=== PATIENT | male | born 1930 ===

== ENCOUNTER 2016-12-24 07:29 | Inpatient (IN) | payer MEDICARE, BC, MEDICAID ==
[~2016-12-24] VITALS: Ht 167.6 cm; Wt 64.0 kg
[2016-12-24] MEDS ORDERED: SODIUM CHLORIDE 0.9% 1L BAG IV* STA (07:46)
[2016-12-24] MEDS ORDERED: LEVOFLOXACIN 750MG/D5W (PMX) 150 ML IVPB ONE (08:00)
[2016-12-24] MEDS ORDERED: PIPER-TAZO 3.375 GM IV (PMX) 100 ML IVPB ONE (08:00)
[2016-12-24] MEDS ORDERED: VANCOMYCIN 1 GM (PMX) 250 ML IVPB SCH (08:00)
[2016-12-24] MEDS ORDERED: APIX2.5T PO (08:13)
[2016-12-24] MEDS ORDERED: FURO40TA4 PO (08:13)
[2016-12-24] MEDS ORDERED: LEVO50TA74 PO (08:13)
[2016-12-24] MEDS ORDERED: LISI10TA2 PO (08:14)
[2016-12-24] MEDS ORDERED: CARV12.579 PO (08:14)
[2016-12-24] MEDS ORDERED: PANT40TA4 PO (08:14)
[2016-12-24] MEDS ORDERED: METO25TA4 PO (08:15)
--- NOTE | 2016-12-24 08:57 | RADRPT ---
PROCEDURE: Chest Radiograph. CLINICAL INDICATION: Sepsis TECHNIQUE: Single frontal chest radiograph. COMPARISON: None available FINDINGS: The heart is enlarged. There is moderate central vascular congestion. Atherosclerotic calcification s are present. Diffuse interstitial opacities are nonspecific and may represent pulmonary edema and/ or chronic lung changes. Bibasilar opacities likely represent small pleural effusions adjacent atel ectasis. Superimposed infiltrate could also have this appearance. The bones are intact. IMPRESSION: 1. Cardiomegaly and central vascular congestion with suggested pulmonary edema. Recommend correlat ion with CHF. 2. Bibasilar opacities most consistent with small effusions and adjacent atelectasis/infiltrate. 3. Atherosclerotic vascular disease. RPTAT: AA .Danny Tovar MD, Date Time Electronically viewed and signed by .Danny Tovar MD, MD on 12/24/2016 08:57 .B/
[2016-12-24 09:18] LABS: ADD SCAN DIFF NO
[2016-12-24 09:21] LABS: BASOPHIL # 0.1 10^3/ul (0.0-0.1); BASOPHILS % 0.5 % (0.0-2.0); EOSINOPHILS # 0.1 10^3/ul (0.0-0.5); EOSINOPHILS % 0.9 % (0.0-7.0); HEMATOCRIT 36.3 % (42.0-52.0); HEMOGLOBIN 11.2 g/dl (14.0-18.0); LYMPHOCYTES % 9.5 % (15.0-51.0); MEAN CORPUSCULAR HEMOGLOBIN 29.5 pg (29.0-33.0); MEAN CORPUSCULAR HGB CONC 30.9 g/dl (32.0-37.0); MEAN CORPUSCULAR VOLUME 95.5 fl (82.0-101.0); MEAN PLATELET VOLUME 10.5 fl (7.4-10.4); MONOCYTE # 0.7 10^3/ul (0.3-0.9); MONOCYTES % 6.8 % (0.0-11.0); NEUTROPHIL # 8.5 10^3/ul (1.6-7.5); NEUTROPHILS % 81.8 % (39.0-77.0); PLATELET COUNT 356 10^3/UL (140-415); RED CELL DISTRIBUTION WIDTH 16.4 % (11.5-14.5); WHITE BLOOD COUNT 10.4 10^3/ul (4.8-10.8)
[2016-12-24 09:36] LABS: INR 1.44; PROTIME 17.6 Sec (12.2-14.2); PT RATIO 1.4
[2016-12-24 09:39] LABS: ALANINE AMINOTRANSFERASE 30 IU/L (13-69); ALBUMIN 3.5 g/dl (3.3-4.9); ALBUMIN/GLOBULIN RATIO 1.84; ALKALINE PHOSPHATASE 118 IU/L (42-121); ASPARTATE AMINO TRANSFERASE 18 IU/L (15-46); BILIRUBIN,INDIRECT 0.5 mg/dl (0-1.1); BILIRUBIN,TOTAL 0.5 mg/dl (0.2-1.3); BLOOD UREA NITROGEN 25 mg/dl (7-20); CALCIUM 8.9 mg/dl (8.4-10.2); CHLORIDE 97 mmol/L (97-110); CREATININE 1.49 mg/dl (0.61-1.24); GLUCOSE 181 mg/dl (70-220); POTASSIUM 4.1 mmol/L (3.5-5.1); SODIUM 144 mmol/L (135-144); TOTAL PROTEIN 5.4 g/dl (6.1-8.1)
[2016-12-24 09:48] LABS: ANION GAP 12 (8-16)
[2016-12-24 09:51] LABS: CARBON DIOXIDE 39 mmol/L (21-31); TROPONIN-I < 0.012 ng/ml (0.00-0.12)
--- NOTE | 2016-12-24 11:16 | ERA ---
ER Documentation Chief Complaint Date/Time DATE: 12/24/16 TIME: 0743 Chief Complaint moderate sob since this morning per staff. no signs of chest pain, HPI 86-year-old male brought to the emergency department by ambulance from his care facility for evaluation of shortness of breath. Patient has advanced dementia and is with limited verbal status, limited insight. This to my history is available for my conversation with his daughter and son. According to the son and daughter, patient has had an extensive history of infections and recent C. difficile colitis. Patient is recently been hospitalized and placed on hospice at his outpatient care facility. Over the last few days, the family describes the patient has had "a cold" which has involved a cough. Patient has had difficulty with secretions. Patient became short of breath today and the paramedics were called. I have reviewed the [employer] expert pre-hospital care. Pre-hospital vital signs were reviewed. Pre-hospital diagnostic tests were reviewed. Upon arrival, patient has no further history that he is able to provide. ROS All systems reviewed and are negative except as per history of present illness. Medications Home Meds Reported Medications Metoprolol Tartrate* (Lopressor*) 25 Mg Tablet, 25 MG PO BID, #60 TAB 12/24/16 Pantoprazole* (Pantoprazole*) 40 Mg Tablet.dr, 40 MG PO AC BREAKFAST, TAB 12/24/16 Lisinopril* (Lisinopril*) 10 Mg Tablet, 10 MG PO DAILY, #30 TAB HOLD FOR SBP<110 12/24/16 Carvedilol* (Carvedilol*) 12.5 Mg Tablet, 12.5 MG PO BID, #60 TAB 12/24/16 Apixaban* (Eliquis*) 2.5 Mg Tablet, 2.5 MG PO BID, TAB 12/24/16 Furosemide* (Furosemide*) 40 Mg Tablet, 40 MG PO DAILY, TAB 12/24/16 Levothyroxine Sodium* (Levothyroxine Sodium*) 50 Mcg Tablet, 50 MCG PO BEFORE BREAKFAST, #30 TAB 12/24/16 Allergies Allergies: Coded Allergies: No Known Allergy (Unverified , 12/24/16) PMhx/Soc Hx Respiratory Disorders: Yes Hx Cardiac Disorders: Yes (htn, chf) Hx Miscellaneous Medical Probl: Yes (dm, thyroid) Hx Alcohol Use: No Hx Substance Use: No Hx Tobacco Use: No Smoking Status: Never smoker FmHx Noncontributory Physical Exam Vitals Vital Signs Date Time Temp Pulse Resp B/P Pulse Ox O2 Delivery O2 Flow Rate FiO2 12/24/16 08:15 Rebreather 12/24/16 08:08 98.0 98 24 134/72 98 Physical Exam GENERAL: Patient is a frail elderly male in no acute distress HEENT: Pupils equal, round, and reactive to light. EOMI. There is no scleral icterus. Thin secretions in the airway which are easily suctioned NECK: C-spine is soft and supple, there is no meningismus. There is no cervical lymphadenopathy. LUNGS: Upper airway sounds. Occasional crackle bilaterally. No tachypnea or retractions. HEART: Regular rate and rhythm, no murmurs, clicks, rubs or gallops. ABDOMEN: Soft, non-tender, non-distended. There are bowel sounds in all four quadrants. No rebound or guarding. EXTREMITIES: There is no peripheral cyanosis or edema. No focal swelling or erythema. NEURO: Patient is somnolent and somewhat lethargic with limited insight. He has a nonfocal motor and sensory examination upon brief exam. SKIN: There is no apparent rash or petechiae. HEME/LYMPHATIC: There is no evidence of excessive bruising or lymphedema. PSYCHIATRIC: Patient is somnolent and somewhat lethargic with what appears to be advanced dementia and limited insight. Result Diagram: 12/24/16 0830 12/24/16 0830 Results 24 hrs Laboratory Tests Test 12/24/16 08:30 12/24/16 09:15 White Blood Count 10.410^3/ul Red Blood Count 3.8010^6/ul Hemoglobin 11.2g/dl Hematocrit 36.3% Mean Corpuscular Volume 95.5fl Mean Corpuscular Hemoglobin 29.5pg Mean Corpuscular Hemoglobin Concent 30.9g/dl Red Cell Distribution Width 16.4% Platelet Count 13913^3/UL Mean Platelet Volume 10.5fl Neutrophils % 81.8% Lymphocytes % 9.5% Monocytes % 6.8% Eosinophils % 0.9% Basophils % 0.5% Nucleated Red Blood Cells % 0.0/100WBC Neutrophils # 8.510^3/ul Lymphocytes # 1.010^3/ul Monocytes # 0.710^3/ul Eosinophils # 0.110^3/ul Basophils # 0.110^3/ul Nucleated Red Blood Cells # 0.010^3/ul Prothrombin Time 17.6Sec Prothrombin Time Ratio 1.4 INR International Normalized Ratio 1.44 Activated Partial Thromboplast Time 39.0Sec Sodium Level 144mmol/L Potassium Level 4.1mmol/L Chloride Level 97mmol/L Carbon Dioxide Level 39mmol/L Anion Gap 12 Blood Urea Nitrogen 25mg/dl Creatinine 1.49mg/dl Glucose Level 181mg/dl Calcium Level 8.9mg/dl Total Bilirubin 0.5mg/dl Direct Bilirubin 0.00mg/dl Indirect Bilirubin 0.5mg/dl Aspartate Amino Transf (AST/SGOT) 18IU/L Alanine Aminotransferase (ALT/SGPT) 30IU/L Alkaline Phosphatase 118IU/L Troponin I < 0.012ng/ml Total Protein 5.4g/dl Albumin 3.5g/dl Globulin 1.90g/dl Albumin/Globulin Ratio 1.84 Lactic Acid Level 1.6mmol/L Current Medications Medications (Trade) Dose Ordered Sig/Tonya Route PRN Reason Start Time Stop Time Status Last Admin Dose Admin Sodium Chloride 2480 ml 2,480 ml BOLUS OVER 2 HOURS STAT IV* 12/24/16 07:46 12/24/16 07:49 DC 12/24/16 09:26 Vancomycin HCl 250 ml @ 125 mls/hr ONCE IVPB 12/24/16 08:00 12/24/16 09:59 DC Piperacillin Sod/ Tazobactam Sod 100 ml @ 200 mls/hr ONCE ONCE IVPB 12/24/16 08:00 12/24/16 08:29 DC 12/24/16 09:25 Levofloxacin/ Dextrose (Levaquin 750 Mg/ D5W 150 ml (Pmx)) 150 ml @ 100 mls/hr ONCE ONCE IVPB 12/24/16 08:00 12/24/16 09:29 DC 12/24/16 11:01 Procedures/MDM Patient was taken to a room, seen and evaluated. Comfort measures were initiated. Diagnostic tests were ordered and reviewed. 3 LEAD RHYTHM STRIP: Atrial fibrillation with controlled ventricular response EK lead EKG reviewed by myself: Atrial fibrillation with heart rate of [address] elevation, depression, or T wave inversion Impression: Normal EKG RADIOLOGY: reviewed with the radiologist CONSULTATION: hospitalist was notified for admission. Hospice consultation was initiated REEVALUATION: Patient remained stable in the emergency department. I had a conversation with the family who requested hospice consultation. This was initiated. MEDICAL DECISION MAKIN-year-old male presents the emergency department with what appears to be an aspiration type pneumonia. Patient has been started on antibiotics for coverage of aspiration type pneumonia. As per conversations with the patient's family, they have requested to be careful with the antibiotics given the history of C. difficile. Overall with his overall level of desires for care, patient will be placed on DNR status with evaluation for hospice pending. Departure Diagnosis: Primary Impression: Aspiration pneumonia Additional Impression: Advanced dementia Condition: ROBYN Linda Dec 24, 2016 11:16
[2016-12-24] MEDS ORDERED: CIPROFLOXACIN 500 MG TAB PO ONE (12:00)
[2016-12-24 17:25] VITALS: BP 146/81; RESP 22
[2016-12-24] MEDS ORDERED: ALBUTEROL/IPRATROPIUM (NEB) 3 ML AMP HHN PRN (18:00)
[2016-12-24] MEDS ORDERED: morphine 2 MG INJ IV PRN (18:00)
[2016-12-24] MEDS ORDERED: ONDANSETRON 4 MG INJ IV PRN (18:00)
[2016-12-24 18:25] VITALS: Ht 167.6 cm; Wt 64.0 kg
[2016-12-24] MEDS ORDERED: HYPOGLYCEMIA PROTOCOL when Glucose is <70 mg/dL or symptomatic <90 mg/dL. XX ONE (18:30)
[2016-12-24] MEDS ORDERED: Discontinue Glyburide, Glipizide, and/or Glimepiride prior to starting Insulin XX ONE (18:30)
[2016-12-24] MEDS: PIPER-TAZO 3.375 GM IV (PMX) 100 ML IVPB SCH (18:39)
[2016-12-24] MEDS ORDERED: GLUCAGON 1 MG INJ IM PRN (19:00)
[2016-12-24] MEDS ORDERED: GLUCOSE GEL 15 GRAM TUBE BUCCAL PRN (19:00)
[2016-12-24] MEDS ORDERED: DEXTROSE 50% 50 ML SYRINGE IV PRN ×2 (19:00)
[2016-12-24] MEDS ORDERED: GLUCOSE GEL 15 GRAM TUBE PO PRN ×2 (19:00)
[2016-12-24] MEDS: ALBUTEROL/IPRATROPIUM (NEB) 3 ML AMP HHN SCH (19:49)
[2016-12-24 19:53] VITALS: BP 146/81; PULSE 74; RESP 22
[2016-12-24 20:00] VITALS: BP 150/70; RESP 20
[2016-12-24] MEDS ORDERED: METOPROLOL 25 MG TAB PO SCH (21:00)
[2016-12-24] MEDS: INSULIN ASPART [NOVOLOG] 3 ML PEN SC SCH (21:00)
[2016-12-24 21:40] VITALS: BP 131/72; PULSE 83
[2016-12-24] MEDS: FUROSEMIDE 20 MG INJ IV SCH (21:42)
[2016-12-24] MEDS: APIXABAN 5 MG TABLET PO SCH (21:42)
[2016-12-25] MEDS: PIPER-TAZO 3.375 GM IV (PMX) 100 ML IVPB SCH ×4 (01:29→17:24)
[2016-12-25 01:39] LABS: TROPONIN-I 0.018 ng/ml (0.00-0.12)
[2016-12-25 01:52] LABS: CK-MB 1.12 ng/ml (0.0-2.4)
[2016-12-25] MEDS: ALBUTEROL/IPRATROPIUM (NEB) 3 ML AMP HHN SCH ×4 (01:52→19:43)
[2016-12-25] MEDS: ACCU-CHEK XX SCH (02:00)
[2016-12-25 05:40] VITALS: BP 127/69; PULSE 79
[2016-12-25] MEDS: PANTOPRAZOLE (EC) 40 MG TAB PO SCH (05:40)
[2016-12-25] MEDS: LEVOTHYROXINE 50 MCG TAB PO SCH (05:40)
[2016-12-25] MEDS: FUROSEMIDE 20 MG INJ IV SCH ×2 (05:45→14:51)
[2016-12-25 06:06] LABS: ADD SCAN DIFF NO
--- NOTE | 2016-12-25 06:19 | CONS ---
DATE OF ADMISSION: 12/24/2016 DATE OF CONSULTATION: 12/24/2016 REASON FOR CONSULTATION: Atrial fibrillation, abnormal electrocardiogram. REQUESTING PHYSICIAN: Mani Villarreal MD HISTORY OF PRESENT ILLNESS: Mr. Lopez is an 86-year-old male with a history of atrial fibrillation on Eliquis, hypertension, hypothyroidism, Clostridium difficile colitis recently on outpatient [facility], who presented with shortness of breath. Upon arrival, temperature 98, blood pressure 134/72 , pulse 98, receive 24, saturating 98%. The patient's labs revealed white count 10.4, hemoglobin 11 .2, platelet count 356. Sodium 144, potassium 4.1, creatinine 1.49, BUN 25. Troponin negative. IN R of 1.44. The patient underwent a chest x-ray revealing cardiomegaly and central vascular congesti on which suggests pulmonary edema, bibasilar opacities, chronic vascular disease. The patient's charis ctrocardiogram revealed atrial fibrillation at a rate of 97 with an IVCD, secondary repolarization a bnormalities. The patient was subsequently admitted to the floor, and since admit to floor has had relatively stable vital signs with mild elevations in systolic blood pressures. The patient is not able to respond to any questions pertaining to chest pain or shortness of breath with any comprehens ible speech. PAST MEDICAL HISTORY: As above in the HPI with patient having advanced dementia. MEDICATIONS CURRENTLY IN HOSPITAL: 1. Zestril 10 mg daily. 2. Synthroid 50 mg daily. 3. Insulin sliding scale. 4. Apixaban 2.5 mg p.o. b.i.d. 5. Carvedilol 12.5 mg p.o. b.i.d. 6. Lopressor 25 mg p.o. b.i.d. 7. DuoNeb. 8. Lasix 20 mg IV b.i.d. 9. Zosyn IV. 10. Tylenol. 11. Morphine. 12. Zofran. ALLERGIES: NO KNOWN DRUG ALLERGIES. SOCIAL HISTORY: No tobacco, ETOH, or illicit drug use. FAMILY HISTORY: No history of sudden cardiac or early CAD. REVIEW OF SYSTEMS: As above in HPI. CONSTITUTIONAL: No fevers, chills. PULMONARY: Shortness of breath. CARDIOVASCULAR: Atrial fibrillation. GASTROINTESTINAL: No vomiting. GENITOURINARY: No hematuria. MUSCULOSKELETAL: Degenerative joint disease. PSYCHIATRIC: The patient denies depression. NEUROLOGIC: No documented history of CVA. ENDOCRINE: Hypothyroidism. NEUROLOGICAL: Dementia. PHYSICAL EXAMINATION: VITAL SIGNS: Temperature 97.6, blood pressure 146/81, pulse 76, respiratory rate 22, saturating 99% on 2 liters. GENERAL: The patient is alert, awake, no comprehensible speech. NECK: JVP approximately 9 cm water. CHEST: Bibasilar crackles. HEART: Irregularly irregular, I/ systolic murmur, nondisplaced PMI. ABDOMEN: Positive bowel sounds, soft. EXTREMITIES: 2+ edema bilaterally. Erythema in the lower extremities. One plus pulses bilaterally , posterior tibial. LABORATORY DATA: As above in HPI. No further labs for my review at this time. IMAGING STUDIES: As above in HPI. No further imaging studies for my review at this time. ECG: As above in HPI. No further electrocardiograms for my review at this time. IMPRESSION: 1. Atrial fibrillation, currently rate controlled. 2. Congestive heart failure, question systolic versus diastolic, likely acute on chronic. 3. Hypertension. 4. Renal failure. 5. Anemia. 6. Hypothyroidism. 7. Diabetes mellitus. 8. Possible lower extremity cellulitis. 9. Lower extremity edema. RECOMMENDATIONS: 1. At this time, would check serial EKGs to assess for any significant ongoing changes, thus an EKG in the morning, EKG for any change in rhythm. 2. Complete a rule out for myocardial infarction to ensure that the patient's EKG abnormalities are chronic in nature and not due to any recent acute coronary syndromes 3. Continue the patient's current Zestril and carvedilol for control of blood pressure and afterloa d reduction in the setting of congestive heart failure. 4. Continue the patient's Lasix diuresis, following strict I's and O's and creatinine closely. 5. We will discontinue the patient's second beta karin, metoprolol. 6. Continue the patient's apixaban for prevention of thromboembolic events in the setting of atrial fibrillation, elevated CHADS score. 7. Continue the patient's antibiotics for possible aspiration pneumonia and lower extremity celluli tis. 8. Check a venous ultrasound to rule out any lower extremity deep venous thrombosis and check a 2D echocardiogram to further assess patient's ejection fraction, wall motion, and any major valvular ab normalities. 9. Additionally, check a TSH to further assess patient's thyroid state and a fasting lipid panel fo r general risk stratification and initiate lipid-lowering medication as necessary. Thank you for allowing me to take part in the care of this patient. I will continue to follow along very closely with you with further recommendations to be made as the patient progresses through his inpatient hospital clinical course. Dictated By: RED ALONZO/BRISSA Conf#: [id number] DID#: [id number] CC: MANI VILLARREAL MD;*EndCC*
[2016-12-25 06:23] LABS: BASOPHILS % 0.5 % (0.0-2.0); EOSINOPHILS # 0.1 10^3/ul (0.0-0.5); EOSINOPHILS % 0.6 % (0.0-7.0); HEMATOCRIT 30.5 % (42.0-52.0); HEMOGLOBIN 9.2 g/dl (14.0-18.0); LYMPHOCYTES # 1.2 10^3/ul (0.8-2.9); MEAN CORPUSCULAR HEMOGLOBIN 29.1 pg (29.0-33.0); MEAN CORPUSCULAR HGB CONC 30.2 g/dl (32.0-37.0); MEAN CORPUSCULAR VOLUME 96.5 fl (82.0-101.0); MEAN PLATELET VOLUME 10.7 fl (7.4-10.4); MONOCYTE # 0.6 10^3/ul (0.3-0.9); MONOCYTES % 7.6 % (0.0-11.0); NEUTROPHIL # 6.2 10^3/ul (1.6-7.5); NEUTROPHILS % 75.9 % (39.0-77.0); PLATELET COUNT 260 10^3/UL (140-415); RED BLOOD COUNT 3.16 10^6/ul (4.70-6.10); RED CELL DISTRIBUTION WIDTH 16.4 % (11.5-14.5); WHITE BLOOD COUNT 8.2 10^3/ul (4.8-10.8)
--- NOTE | 2016-12-25 06:51 | HP ---
DATE OF ADMISSION: 12/24/2016 CHIEF COMPLAINT: Shortness of breath. HISTORY OF PRESENT ILLNESS: History has been obtained from medical record and discussion with ER ph ysician. Family is currently not available. The patient is an 86-year-old gentleman with a history of hypertension, chronic atrial fibrillation, hypothyroidism, who was brought into ER. The patient also has advanced dementia. The patient was brought into ER because of shortness of breath. The p atient also recently had Clostridium difficile colitis. The patient was recently hospitalized in [facility] and was subsequently placed on hospice at his outpatient care facility. The patie nt apparently has cough and cold and became progressively more short of breath. The patient was sen t to [facility] ER. [facility] was contacted; however, apparently the patient's family has not yet signed the consent. The patient underwent multiple diagnostic studies in the ER. CBC done in [facility] ER revealed white count of 10.4, 81% neutrophils. BUN was 25, creatinine 1.4, glucose 181, potas sium was 4.1. EKG revealed atrial fibrillation with heart rate in the 90s. Chest x-ray revealed po ssible congestive heart failure. The patient was started on IV vancomycin, Zosyn, and Levaquin in [facility] ER. Lactic acid level, however, was only 1.6 since the patient was also afebrile. Therefore, e patient was not continued on all 3 antibiotics; however, the patient was started on IV Zosyn for p ossible aspiration bronchitis with congestive heart failure. I do not have any previous echo report or previous admission at [facility], but we will obtain echocardiogram. The patient was noted to have leg edema and had bibasilar rales on examination; therefore, it appears that the patie nt has decompensation of his congestive heart failure. The patient, since admission, has not had an y fever. No reported bleeding. The patient has remained awake, alert, however, confused. No repor rosalino vomiting or diarrhea since admission. The patient does appear to have generalized weakness. No reported acute skin rash. REVIEW OF SYSTEMS: The rest of review of systems was unremarkable. PAST MEDICAL HISTORY: As stated above. SOCIAL HISTORY: No smoking, no alcohol. FAMILY HISTORY: Noncontributory for patient's condition. ALLERGIES: NONE. PHYSICAL EXAMINATION: GENERAL: The patient is conscious, awake, alert. VITAL SIGNS: Temperature 98, pulse 98, respirations 24, blood pressure 134/72, O2 saturation 98% on supplemental oxygen. HEENT: Atraumatic, normocephalic. Conjunctivae and lids normal. Extraocular movements grossly neg ative. NECK: Supple. No mass, no thyromegaly. Neck veins are engorged. CHEST: Revealed bibasilar rales and diminished air entry at bases. CARDIOVASCULAR: Irregularly irregular rhythm. Variable S1. No murmur. ABDOMEN: Soft, nondistended, nontender. EXTREMITIES: Bilateral edema. The patient has superficial ulceration of the right leg, no clubbing or cyanosis. Pedal pulses could not be felt. SKIN: Without acute rash. NEUROLOGIC: The patient is awake, alert, confused, and no useful communication was possible. LABORATORY DATA: WBC 10.4, hemoglobin 11.2, platelets 356. Sodium 140, potassium 4.1, BUN 25, crea tinine 1.4, glucose 181, albumin 3.5. Liver enzymes unremarkable. IMPRESSION: 1. Possible aspiration pneumonia. 2. Decompensated congestive heart failure. 3. Hypothyroidism. 4. Diabetes mellitus. 5. Chronic kidney disease, stage II. 6. Advanced dementia. 7. Incomplete data. PLAN: The patient admitted on medical floor. The patient will be given IV Lasix and will be contin ued on Coreg, lisinopril, and metoprolol for congestive heart failure as well as hypertension. We w ill continue Eliquis for CVA prophylaxis due to atrial fibrillation. The patient will also be denise nued on Synthroid. We will obtain followup labs in the morning and also thyroid panel. We will als o obtain echocardiogram to assess LV function and valvular function. We will also start him on IV Z osyn for possible aspiration pneumonia versus aspiration bronchitis, and we will also give breathing treatment. We will discuss with the family when available. Plan of care discussed with nursing st aff as well as ER physician, Dr. Ran Paredes. Currently, family is not available. We will discuss further goals of treatment with family as the p atient does have advanced dementia. Meanwhile, the patient will be started on pureed diet, and we w ill also obtain speech therapy evaluation. Wound care consult has been also requested. Dictated By: MANI MCKEON/BRISSA Conf#: [id number] [facility]#: [id number]
[2016-12-25 06:57] LABS: TROPONIN-I 0.019 ng/ml (0.00-0.12)
[2016-12-25 07:06] LABS: CALCIUM 8.4 mg/dl (8.4-10.2); CREATININE 1.39 mg/dl (0.61-1.24); POTASSIUM 3.6 mmol/L (3.5-5.1)
[2016-12-25 07:08] LABS: CK-MB 1.11 ng/ml (0.0-2.4)
[2016-12-25 08:00] VITALS: BP 146/74; RESP 22
[2016-12-25] MEDS: INSULIN ASPART [NOVOLOG] 3 ML PEN SC SCH ×5 (08:15→21:35)
[2016-12-25] MEDS: APIXABAN 5 MG TABLET PO SCH ×2 (08:33→21:28)
[2016-12-25] MEDS ORDERED: LISINOPRIL 10 MG TAB PO SCH ×2 (09:00→21:00)
--- NOTE | 2016-12-25 09:57 | RADRPT ---
Vent Rate: 66 bpm RR Interval: 0 msec GA Interval: 0 msec QRS Duration: 118 msec QT Interval: 454 msec QTC Interval: 475 msec P-R-T [place]: 0 - 24 - 0 degrees Atrial fibrillation Incomplete left bundle branch block ST amp; T wave abnormality, consider inferolateral ischemia or digitalis effect Prolonged QT Abnormal ECG Electronically Signed By: Rocky Martinez [id number]
[2016-12-25] MEDS ORDERED: L ACIDOPHIL/B LACTIS/B LONGUM CAPSULE PO SCH (12:00)
[2016-12-25] MEDS: CALCIUM CARBONATE 500 MG CHEW TAB PO PRN (12:27)
[2016-12-25 12:48] LABS: CREATINE KINASE 30 IU/L (23-200)
[2016-12-25 13:06] LABS: CK-MB 1.12 ng/ml (0.0-2.4); TROPONIN-I < 0.012 ng/ml (0.00-0.12)
--- NOTE | 2016-12-25 13:33 | PN ---
DATE: 12/25/2016 SUBJECTIVE: Follow up on aspiration bronchitis, acute decompensated congestive heart failure, demen tia, hypertension, right leg wound. The patient is much more awake, alert and responsive today. De nies any chest pain or abdominal pain, although he does report some gas discomfort in the abdomen, b ut he has not had any vomiting and abdomen is nontender and nondistended. The patient's family requ ested that he used to take Tums, which will be resumed. The patient did not have any active wheezin g, although he does have occasional chest congestion. PHYSICAL EXAMINATION: GENERAL: The patient to be conscious, awake, alert, follows simple commands, but remains intermitte ntly confused. VITAL SIGNS: Temperature 98.5, pulse 62, respirations 20, blood pressure 150/70, O2 saturation 97% on 2 liters nasal cannula. HEENT: No eye discharge or redness. Extraocular movement intact. Oropharynx clear. NECK: Supple. Jugular venous distention present. No mass. CHEST: Revealed bibasilar rales and scattered coarse breath sounds and rhonchi. CARDIOVASCULAR: S1, S2 normal. No murmur. ABDOMEN: Soft, nondistended, nontender. EXTREMITIES: Decreased edema. No clubbing, cyanosis. NEUROLOGIC: The patient is awake, alert, follows simple commands. He has generalized weakness. LABORATORY DATA: Done this morning, WBC 8.2, hemoglobin 9.2, platelets 260. Sodium 140, potassium 3.6, BUN 25, creatinine 1.3, glucose 108. TSH is 9.3, free T4 is 2.2. LDL is 58. IMPRESSION: 1. Acute decompensated congestive heart failure. Echocardiogram pending. The patient was seen by Dr. Johnson. Continue IV Lasix, lisinopril, and Coreg. 2. Atrial fibrillation. Continue Eliquis for cerebrovascular accident prophylaxis and Coreg for ra te control. 3. Aspiration bronchitis. Continue DuoNeb and IV Zosyn. We will add Lactobacillus. 4. Hypothyroidism. TSH is 9.3, free T4 is 2.2. Albumin is normal. We will monitor for now. 5. Hypertension. We will increase lisinopril to 10 mg b.i.d. I met with the patient's daughter, Keila, and goals of care discussed. Code status discussed in de tail. The patient's quality of life has been recently declining. The patient used to be in hosp[facility] at [facility]; however, she does not want hospice at this time, but does not want any heroic me asures. After discussing code status, she requested that patient be made DO NOT INTUBATE; however, continue with cardioversion and medication in case of code blue. Further recommendations will depen d on patient's hospital course and we will continue to monitor him closely. A total of approximately 35 minutes spent in discussing goals of care with the family. Dictated By: MANI MCKEON/BRISSA Conf#: [id number] DID#: [id number]
--- NOTE | 2016-12-25 14:20 | CONS ---
Date/Time of Note Date/Time of Note DATE: 12/25/16 TIME: 14:16 Assessment/Plan Assessment/Plan Additional Assessment/Plan Acute exacerbation of congestive heart failure Atrial fibrillation Aspiration Pneumonia Hypothyroidism Hypertension Diabetes Anemia Hemodynamically stable atrial fibrillation rate controlled Continue Coreg Decreased Lasix Continue lisinopril Continue Eliquis Continue Insulin Continue Antibiotics Aspiration precaution Consultation Date/Type/Reason Admit Date/Time Dec 24, 2016 at 11:04 Social History Smoking Status: Former smoker Exam/Review of Systems Vital Signs Vitals Vital Signs Date Time Temp Pulse Resp B/P Pulse Ox O2 Delivery O2 Flow Rate FiO2 12/25/16 12:58 92 21 12/25/16 12:57 78 20 12/25/16 11:42 2.0 12/25/16 08:00 Nasal Cannula 12/25/16 05:40 127/69 12/24/16 20:00 98.5 Intake and Output 12/24/16 12/24/16 12/25/16 15:00 23:00 07:00 Intake Total 100 ml Balance 100 ml Exam Constitutional: alert Psych: no complaints Head: atraumatic, normocephalic Neck: non-tender, supple Respiratory: diminished breath sounds Cardiovascular: irregular rhythm Gastrointestinal: nl liver, spleen, non-tender, soft Extremities: normal pulses Results Result Diagram: 12/25/16 0500 12/25/16 0500 Results 24 hrs Laboratory Tests Test 12/24/16 21:48 12/25/16 00:30 12/25/16 05:00 12/25/16 07:53 Bedside Glucose 89 110 Creatine Kinase 32 27 Creatine Kinase Index 3.5 4.1 Creatinine Kinase MB (Mass) 1.12 1.11 Troponin I 0.018 0.019 White Blood Count 8.2 # Red Blood Count 3.16 L Hemoglobin 9.2 L Hematocrit 30.5 L Mean Corpuscular Volume 96.5 Mean Corpuscular Hemoglobin 29.1 Mean Corpuscular Hemoglobin Concent 30.2 L Red Cell Distribution Width 16.4 H Platelet Count 260 # Mean Platelet Volume 10.7 H Neutrophils % 75.9 Lymphocytes % 15.0 Monocytes % 7.6 Eosinophils % 0.6 Basophils % 0.5 Nucleated Red Blood Cells % 0.0 Neutrophils # 6.2 Lymphocytes # 1.2 Monocytes # 0.6 Eosinophils # 0.1 Basophils # 0.0 Nucleated Red Blood Cells # 0.0 Sodium Level 140 Potassium Level 3.6 Chloride Level 99 Carbon Dioxide Level 34 H Anion Gap 11 Blood Urea Nitrogen 25 H Creatinine 1.39 H Glucose Level 108 # Calcium Level 8.4 Triglycerides Level 68 Cholesterol Level 107 LDL Cholesterol, Calculated 58 HDL Cholesterol 35 Cholesterol/HDL Ratio 3.0 Thyroid Stimulating Hormone (TSH) 9.380 H Free Thyroxine 2.20 H Test 12/25/16 11:45 12/25/16 12:20 Bedside Glucose 125 Creatine Kinase 30 Creatine Kinase Index 3.7 Creatinine Kinase MB (Mass) 1.12 Troponin I < 0.012 Medications Medications Current Medications Acetaminophen 650 mg 650 mg Q4H PRN PO PAIN AND OR ELEVATED TEMP; Start at 18:00 Piperacillin Sod/ Tazobactam Sod (Zosyn 3.375gm/ 100 ml (Pmx)) 100 ml @ 200 mls /hr Q6 IVPB Last administered on 12/25/16t 12:24; Admin Dose 200 MLS/HR; Start 12/24/16 at 18:25 Morphine Sulfate (morphine) 2 mg Q4H PRN IV BREAKTHROUGH PAIN; Start 12/24/16 at 18:00 Ondansetron HCl (Zofran Inj) 4 mg Q6H PRN IV NAUSEA AND/OR VOMITING; Start at 18:00 Diagnostic Test (Pha) (Accu-Chek) 1 ea 02 XX ; Start 12/25/16 at 02:00 Miscellaneous Information 1 ea NOTE XX ; Start 12/24/16 at 19:00 Glucose (Glutose) 15 gm Q15M PRN PO DECREASED GLUCOSE; Start 12/24/16 at 19:00 Glucose (Glutose) 22.5 gm Q15M PRN PO DECREASED GLUCOSE; Start 12/24/16 at 19: 00 Dextrose (D50w Syringe) 25 ml Q15M PRN IV DECREASED GLUCOSE; Start 12/24/16 at 19:00 Dextrose (D50w Syringe) 50 ml Q15M PRN IV DECREASED GLUCOSE; Start 12/24/16 at 19:00 Glucagon (Glucagen) 1 mg Q15M PRN IM DECREASED GLUCOSE; Start 12/24/16 at 19:00 Glucose (Glutose) 15 gm Q15M PRN BUCCAL DECREASED GLUCOSE; Start 12/24/16 at 19 :00 Apixaban (Eliquis) 2.5 mg BID PO Last administered on 12/25/16 08:33; Admin Dose 2.5 MG; Start 12/24/16 at 21:00 Carvedilol (Coreg) 12.5 mg BID PO Last administered on 12/25/16 08:33; Admin Dose 12.5 MG; Start 12/24/16 at 21:00 Levothyroxine Sodium (Synthroid) 50 mcg DAILY@06 PO Last administered on 05:40; Admin Dose 50 MCG; Start 12/25/16 at 06:00 Pantoprazole (Protonix Tab) 40 mg DAILY@06 PO Last administered on 12/25/16 05 :40; Admin Dose 40 MG; Start 12/25/16 at 06:00 Calcium Carbonate (Tums) 500 mg Q4 PRN PO GASTROINTESTINAL UPSET Last administered on 12/25/16 12:27; Admin Dose 500 MG; Start 12/25/16 at 12:00 Lactobacillus Acidophilus/ Rhamnosus (Culturelle) 1 cap BID PO ; Start 12/25/16 at 21:00 Lisinopril (Zestril) 10 mg BID PO ; Start 12/25/16 at 21:00 LEONOR FITCH M.D. Dec 25, 2016 14:20
[2016-12-25 15:28] LABS: ADD UMIC YES; UR BILIRUBIN (Dip) NEGATIVE (NEGATIVE); UR BLOOD (Dip) TRACE (NEGATIVE); UR CLARITY CLEAR (CLEAR); UR COLOR LT. YELLOW (YELLOW); UR GLUCOSE (Dip) NEGATIVE (NEGATIVE); UR KETONES (Dip) NEGATIVE (NEGATIVE); UR LEUKOCYTE ESTERASE (Dip) 2+ (NEGATIVE); UR NITRITE (Dip) NEGATIVE (NEGATIVE); UR TOTAL PROTEIN (Dip) NEGATIVE (NEGATIVE); UR UROBILINOGEN (Dip) 0.2 E.U./dL (0.1-1.0)
[2016-12-25 15:33] LABS: URINE RBCS 0-2 /HPF (0)
--- NOTE | 2016-12-25 19:13 | RADRPT ---
Echocardiogram Report Patient Name: CARMEL SCOTT Gender: Male Date: 1930 Study Date: 25-Dec-2016 Industrial Pharmacist: Travis [facility] Location: 632 Ref. Physician: MANI MITCHELL Quality: Technically Difficult Study Procedures: Transthoracic echocardiogram with complete 2D, M-Mode, and doppler examination. Indications: Congestive Heart Failure. 2D/M Mode Doppler Measurement Value Normal Ranges Measurement Value Normal Ranges LVIDd 2D 4.9 3.5 - 5.6 cm PUSHPA Vmax 1.3 cm2 LVIDs 2D 4.0 2.1 - 4.1 cm PUSHPA VTI 1.3 cm2 LVPWd 2D 1.2 0.6 - 1.1 cm AV Mean Maximo 1.8 m/sec IVSd 2D 1.3 0.6 - 1.1 cm AV Mean PG 14.3 mmHg AoR Diam 2D 3.1 2.0 - 3.7 cm AV Peak Maximo 2.5 m/sec EDV 2D 114.1 cm3 AV Peak PG 24.5 mmHg ESV 2D 63.8 cm3 AV VTI 59.6 cm LA Dimen 2D 4.9 2.3 - 4.0 cm LVOT Mean Maximo 0.5 m/sec LVOT Diam 2.1 cm LVOT Mean PG 1.5 mmHg LVOT Peak Maximo 0.9 m/sec LVOT Peak PG 3.3 mmHg LVOT VTI 21.1 cm TR Peak Maximo 3.1 m/sec TR Peak PG 37.8 mmHg RVSP 51.0 mmHg Findings Left Ventricle: Normal left ventricular cavity size. Mild concentric left ventricular hypertrophy. Moderate global left ventricular systolic dysfunction. Ejection fraction is visually estimated at 35 %. Abnormal Diastolic Function. Right Ventricle: Normal right ventricular size. Normal right ventricular systolic function. Left Atrium: There is moderate enlargement of left atrium. Right Atrium: There is mild enlargement of right atrium. Mitral Valve: Mild mitral leaflet calcification. Trace mitral regurgitation. Aortic Valve: Aortic sclerosis without stenosis. Mild aortic valve regurgitation. Tricuspid Valve: Normal appearance of the tricuspid valve. Estimated peak PA systolic pressure 51 mmHg. There is mild tricuspid regurgitation. Pulmonic Valve: Pulmonic valve not well visualized. There is trace pulmonic regurgitation. Pericardium: Left pleural effusion seen. Aorta: Normal aortic root. IVC: Dilated IVC with respiratory collapse consistent with elevated right atrial pressure. Conclusions 1.Normal left ventricular cavity size. Mild concentric left ventricular hypertrophy. Moderate global left ventricular systolic dysfunction. Ejection fraction is visually estimated at 35 %. Abnormal Diastolic Function. 2.Normal right ventricular size. Normal right ventricular systolic function. 3.Severe mitral leaflet calcification. Trace mitral regurgitation. 4.Aortic sclerosis without stenosis. Mild aortic valve regurgitation. 5.Normal appearance of the tricuspid valve. Estimated peak PA systolic pressure 51 mmHg. There is moderate tricuspid regurgitation. 6.Left pleural effusion seen. Electronically Signed By: Roni Gusman 25-Dec-2016 15:50:14 -[id number] Patient Name: CARMEL SCOTT Study Date: 25-Dec-2016 [id number]
[2016-12-25 19:23] VITALS: BP 132/62; RESP 20
--- NOTE | 2016-12-25 19:57 | RADRPT ---
PROCEDURE: XR Chest. CLINICAL INDICATION: Congestive heart failure. TECHNIQUE: Chest x-ray, single view. COMPARISON: 12/24/2016. FINDINGS: The heart is enlarged. Thoracic aortic atherosclerotic calcification is present. Pulmonary vascula r congestion has slightly decreased. Low lung volumes are observed. Small bilateral pleural effusi ons with probable basilar atelectasis persist. Osseous structures appear demineralized. IMPRESSION: Cardiomegaly and atherosclerosis with small bilateral pleural effusions and probable basilar atelect asis, unchanged. Decreased pulmonary vascular congestion. RPTAT: QQ .Alia Conroy MD, Date Time Electronically viewed and signed by .Alia Conroy MD, on 12/25/2016 19:56 .T/
[2016-12-25 21:25] VITALS: BP 125/63; PULSE 80
[2016-12-25] MEDS: LACTOBACILLUS RHAMNOSUS CAP PO SCH (21:28)
[2016-12-25] MEDS ORDERED: PROMETHAZINE/CODEINE 5ML CUP PO PRN (23:00)
[2016-12-26] MEDS: PIPER-TAZO 3.375 GM IV (PMX) 100 ML IVPB SCH ×5 (00:34→23:27)
[2016-12-26] MEDS: ACCU-CHEK XX SCH (02:00)
[2016-12-26] MEDS: ALBUTEROL/IPRATROPIUM (NEB) 3 ML AMP HHN SCH ×4 (02:39→20:11)
[2016-12-26] MEDS: ACETAMINOPHEN 325 MG TAB PO PRN (02:42)
[2016-12-26] MEDS: PROMETHAZINE/CODEINE 5ML CUP PO PRN (03:10)
[2016-12-26] MEDS: LEVOTHYROXINE 50 MCG TAB PO SCH (05:50)
[2016-12-26] MEDS: PANTOPRAZOLE (EC) 40 MG TAB PO SCH (05:50)
[2016-12-26 06:34] LABS: ADD SCAN DIFF NO
[2016-12-26 06:51] LABS: BASOPHILS % 0.4 % (0.0-2.0); EOSINOPHILS # 0.2 10^3/ul (0.0-0.5); EOSINOPHILS % 2.3 % (0.0-7.0); HEMATOCRIT 30.9 % (42.0-52.0); HEMOGLOBIN 9.6 g/dl (14.0-18.0); LYMPHOCYTES % 12.1 % (15.0-51.0); MEAN CORPUSCULAR HGB CONC 31.1 g/dl (32.0-37.0); MEAN CORPUSCULAR VOLUME 93.4 fl (82.0-101.0); MEAN PLATELET VOLUME 10.6 fl (7.4-10.4); MONOCYTE # 0.8 10^3/ul (0.3-0.9); MONOCYTES % 9.4 % (0.0-11.0); NEUTROPHILS % 75.3 % (39.0-77.0); PLATELET COUNT 239 10^3/UL (140-415); RED BLOOD COUNT 3.31 10^6/ul (4.70-6.10); RED CELL DISTRIBUTION WIDTH 16.3 % (11.5-14.5); WHITE BLOOD COUNT 7.9 10^3/ul (4.8-10.8)
[2016-12-26 06:59] LABS: CALCIUM 8.2 mg/dl (8.4-10.2); CREATININE 1.44 mg/dl (0.61-1.24); POTASSIUM 3.1 mmol/L (3.5-5.1)
[2016-12-26] MEDS: INSULIN ASPART [NOVOLOG] 3 ML PEN SC SCH ×4 (08:15→21:00)
[2016-12-26] MEDS: LACTOBACILLUS RHAMNOSUS CAP PO SCH ×2 (10:19→21:54)
[2016-12-26] MEDS: APIXABAN 5 MG TABLET PO SCH ×2 (10:20→21:54)
[2016-12-26] MEDS: FUROSEMIDE 20 MG INJ IV SCH (10:21)
[2016-12-26 10:25] VITALS: BP 162/77; PULSE 67
--- NOTE | 2016-12-26 14:17 | CONS ---
Date/Time of Note Date/Time of Note DATE: 12/26/16 TIME: 14:16 Assessment/Plan Assessment/Plan Additional Assessment/Plan Acute exacerbation of congestive heart failure Atrial fibrillation Aspiration Pneumonia Hypothyroidism Hypertension Diabetes Anemia Hemodynamically stable atrial fibrillation rate controlled Heart failure clinically compensated Continue Coreg Decreased Lasix Continue lisinopril Continue Eliquis Continue Insulin Continue Antibiotics Aspiration precaution Consultation Date/Type/Reason Admit Date/Time Dec 24, 2016 at 11:04 Initial Consult Date Exam/Review of Systems Vital Signs Vitals Vital Signs Date Time Temp Pulse Resp B/P Pulse Ox O2 Delivery O2 Flow Rate FiO2 12/26/16 10:25 67 162/77 12/26/16 07:26 20 96 Aerosol 1.0 Nasal Cannula 12/26/16 02:45 21 12/25/16 19:23 97.8 Intake and Output 12/25/16 12/25/16 12/26/16 15:00 23:00 07:00 Intake Total 200 ml 300 ml Balance 200 ml 300 ml Exam Constitutional: alert Psych: no complaints Head: atraumatic, normocephalic Neck: non-tender, supple Respiratory: diminished breath sounds Cardiovascular: irregular rhythm Gastrointestinal: nl liver, spleen, non-tender, soft Extremities: normal pulses Results Result Diagram: 12/26/16 0537 12/26/16 0537 Results 24 hrs Laboratory Tests Test 12/25/16 21:25 12/26/16 02:41 12/26/16 05:37 12/26/16 08:18 Bedside Glucose 215 150 130 White Blood Count 7.9 Red Blood Count 3.31 L Hemoglobin 9.6 L Hematocrit 30.9 L Mean Corpuscular Volume 93.4 Mean Corpuscular Hemoglobin 29.0 Mean Corpuscular Hemoglobin Concent 31.1 L Red Cell Distribution Width 16.3 H Platelet Count 239 Mean Platelet Volume 10.6 H Neutrophils % 75.3 Lymphocytes % 12.1 L Monocytes % 9.4 Eosinophils % 2.3 Basophils % 0.4 Nucleated Red Blood Cells % 0.0 Neutrophils # 6.0 Lymphocytes # 1.0 Monocytes # 0.8 Eosinophils # 0.2 Basophils # 0.0 Nucleated Red Blood Cells # 0.0 Sodium Level 141 Potassium Level 3.1 L Chloride Level 97 Carbon Dioxide Level 39 H Anion Gap 8 Blood Urea Nitrogen 23 H Creatinine 1.44 H Glucose Level 137 Calcium Level 8.2 L Test 12/26/16 12:44 Bedside Glucose 124 Medications Medications Current Medications Acetaminophen 650 mg 650 mg Q4H PRN PO PAIN AND OR ELEVATED TEMP Last administered on 12/26/16 02:42; Admin Dose 650 MG; Start 12/24/16 at 18:00 Piperacillin Sod/ Tazobactam Sod (Zosyn 3.375gm/ 100 ml (Pmx)) 100 ml @ 200 mls /hr Q6 IVPB Last administered on 12/26/16 13:36; Admin Dose 200 MLS/HR; Start 12/24/16 at 18:25 Morphine Sulfate (morphine) 2 mg Q4H PRN IV BREAKTHROUGH PAIN; Start 12/24/16 at 18:00 Ondansetron HCl (Zofran Inj) 4 mg Q6H PRN IV NAUSEA AND/OR VOMITING; Start at 18:00 Diagnostic Test (Pha) (Accu-Chek) 1 ea 02 XX ; Start 12/25/16 at 02:00 Miscellaneous Information 1 ea NOTE XX ; Start 12/24/16 at 19:00 Glucose (Glutose) 15 gm Q15M PRN PO DECREASED GLUCOSE; Start 12/24/16 at 19:00 Glucose (Glutose) 22.5 gm Q15M PRN PO DECREASED GLUCOSE; Start 12/24/16 at 19: 00 Dextrose (D50w Syringe) 25 ml Q15M PRN IV DECREASED GLUCOSE; Start 12/24/16 at 19:00 Dextrose (D50w Syringe) 50 ml Q15M PRN IV DECREASED GLUCOSE; Start 12/24/16 at 19:00 Glucagon (Glucagen) 1 mg Q15M PRN IM DECREASED GLUCOSE; Start 12/24/16 at 19:00 Glucose (Glutose) 15 gm Q15M PRN BUCCAL DECREASED GLUCOSE; Start 12/24/16 at 19 :00 Apixaban (Eliquis) 2.5 mg BID PO Last administered on 12/26/16 10:20; Admin Dose 2.5 MG; Start 12/24/16 at 21:00 Carvedilol (Coreg) 12.5 mg BID PO Last administered on 12/26/16 10:21; Admin Dose 12.5 MG; Start 12/24/16 at 21:00 Levothyroxine Sodium (Synthroid) 50 mcg DAILY@06 PO Last administered on 05:50; Admin Dose 50 MCG; Start 12/25/16 at 06:00 Pantoprazole (Protonix Tab) 40 mg DAILY@06 PO Last administered on 12/26/16 05 :50; Admin Dose 40 MG; Start 12/25/16 at 06:00 Calcium Carbonate (Tums) 500 mg Q4 PRN PO GASTROINTESTINAL UPSET Last administered on 12/25/16 12:27; Admin Dose 500 MG; Start 12/25/16 at 12:00 Lactobacillus Acidophilus/ Rhamnosus (Culturelle) 1 cap BID PO Last administered on 12/26/16 10:19; Admin Dose 1 CAP; Start 12/25/16 at 21:00 Furosemide (Lasix) 20 mg DAILY IV Last administered on 12/26/16 10:21; Admin Dose 20 MG; Start 12/25/16 at 14:30 Promethazine HCl/ Codeine (Phenergan/ Codeine) 5 ml Q6H PRN PO COUGH Last administered on 12/26/16 03:10; Admin Dose 5 ML; Start 12/26/16 at 01:00 LEONOR FITCH M.D. Dec 26, 2016 14:17
[2016-12-26] MEDS ORDERED: POTASSIUM CHLORIDE (SR) 20 MEQ TAB PO STA (15:23)
--- NOTE | 2016-12-26 15:27 | PN ---
Date/Time of Note Date/Time of Note DATE: 12/26/16 TIME: 15:19 Assessment/Plan VTE Prophylaxis VTE Prophylaxis Intervention: other Lines/Catheters [facility] Urinary Cath still in place: No Assessment/Plan Assessment/Plan DO NOT INTUBATE - Hypokalemia- replace K, am BMP - Acute decompensated congestive heart failure. Echocardiogram pending. The patient was seen by Dr. Johnson. Continue IV Lasix, lisinopril, and Coreg. - Atrial fibrillation. Continue Eliquis for cerebrovascular accident prophylaxis and Coreg for rate control. - Aspiration bronchitis. Continue DuoNeb and IV Zosyn. We will add Lactobacillus. - Hypothyroidism. TSH is 9.3, free T4 is 2.2. Albumin is normal. We will monitor for now. - Hypertension. We will increase lisinopril to 10 mg b.i.d. Further recommendations will depend on patient's hospital course and we will continue to monitor him closely. Subjective 24 Hr Interval Summary Constitutional: requiring O2 Cardiovascular: no complaints Gastrointestinal: no complaints Exam/Review of Systems Vital Signs Vitals Vital Signs Date Time Temp Pulse Resp B/P Pulse Ox O2 Delivery O2 Flow Rate FiO2 12/26/16 15:15 56 20 96 Nasal Cannula 1.0 12/26/16 10:25 162/77 12/26/16 02:45 21 12/25/16 19:23 97.8 Intake and Output 12/25/16 12/25/16 12/26/16 15:00 23:00 07:00 Intake Total 200 ml 300 ml Balance 200 ml 300 ml Exam Constitutional: alert, well developed Respiratory: diminished breath sounds Cardiovascular: nl pulses, regular rate and rhythm Gastrointestinal: non-tender, soft Neurological: nl speech Results Result Diagram: 12/26/16 0537 12/26/16 0537 Results 24 hrs Laboratory Tests Test 12/25/16 21:25 12/26/16 02:41 12/26/16 05:37 12/26/16 08:18 Bedside Glucose 215 150 130 White Blood Count 7.9 Red Blood Count 3.31 L Hemoglobin 9.6 L Hematocrit 30.9 L Mean Corpuscular Volume 93.4 Mean Corpuscular Hemoglobin 29.0 Mean Corpuscular Hemoglobin Concent 31.1 L Red Cell Distribution Width 16.3 H Platelet Count 239 Mean Platelet Volume 10.6 H Neutrophils % 75.3 Lymphocytes % 12.1 L Monocytes % 9.4 Eosinophils % 2.3 Basophils % 0.4 Nucleated Red Blood Cells % 0.0 Neutrophils # 6.0 Lymphocytes # 1.0 Monocytes # 0.8 Eosinophils # 0.2 Basophils # 0.0 Nucleated Red Blood Cells # 0.0 Sodium Level 141 Potassium Level 3.1 L Chloride Level 97 Carbon Dioxide Level 39 H Anion Gap 8 Blood Urea Nitrogen 23 H Creatinine 1.44 H Glucose Level 137 Calcium Level 8.2 L Test 12/26/16 12:44 Bedside Glucose 124 Medications Medications Current Medications Acetaminophen 650 mg 650 mg Q4H PRN PO PAIN AND OR ELEVATED TEMP Last administered on 12/26/16 02:42; Admin Dose 650 MG; Start 12/24/16 at 18:00 Piperacillin Sod/ Tazobactam Sod (Zosyn 3.375gm/ 100 ml (Pmx)) 100 ml @ 200 mls /hr Q6 IVPB Last administered on 12/26/16 13:36; Admin Dose 200 MLS/HR; Start 12/24/16 at 18:25 Morphine Sulfate (morphine) 2 mg Q4H PRN IV BREAKTHROUGH PAIN; Start 12/24/16 at 18:00 Ondansetron HCl (Zofran Inj) 4 mg Q6H PRN IV NAUSEA AND/OR VOMITING; Start at 18:00 Diagnostic Test (Pha) (Accu-Chek) 1 ea 02 XX ; Start 12/25/16 at 02:00 Miscellaneous Information 1 ea NOTE XX ; Start 12/24/16 at 19:00 Glucose (Glutose) 15 gm Q15M PRN PO DECREASED GLUCOSE; Start 12/24/16 at 19:00 Glucose (Glutose) 22.5 gm Q15M PRN PO DECREASED GLUCOSE; Start 12/24/16 at 19: 00 Dextrose (D50w Syringe) 25 ml Q15M PRN IV DECREASED GLUCOSE; Start 12/24/16 at 19:00 Dextrose (D50w Syringe) 50 ml Q15M PRN IV DECREASED GLUCOSE; Start 12/24/16 at 19:00 Glucagon (Glucagen) 1 mg Q15M PRN IM DECREASED GLUCOSE; Start 12/24/16 at 19:00 Glucose (Glutose) 15 gm Q15M PRN BUCCAL DECREASED GLUCOSE; Start 12/24/16 at 19 :00 Apixaban (Eliquis) 2.5 mg BID PO Last administered on 12/26/16 10:20; Admin Dose 2.5 MG; Start 12/24/16 at 21:00 Carvedilol (Coreg) 12.5 mg BID PO Last administered on 12/26/16 10:21; Admin Dose 12.5 MG; Start 12/24/16 at 21:00 Levothyroxine Sodium (Synthroid) 50 mcg DAILY@06 PO Last administered on 05:50; Admin Dose 50 MCG; Start 12/25/16 at 06:00 Pantoprazole (Protonix Tab) 40 mg DAILY@06 PO Last administered on 12/26/16 05 :50; Admin Dose 40 MG; Start 12/25/16 at 06:00 Calcium Carbonate (Tums) 500 mg Q4 PRN PO GASTROINTESTINAL UPSET Last administered on 12/25/16 12:27; Admin Dose 500 MG; Start 12/25/16 at 12:00 Lactobacillus Acidophilus/ Rhamnosus (Culturelle) 1 cap BID PO Last administered on 12/26/16 10:19; Admin Dose 1 CAP; Start 12/25/16 at 21:00 Furosemide (Lasix) 20 mg DAILY IV Last administered on 12/26/16 10:21; Admin Dose 20 MG; Start 12/25/16 at 14:30 Promethazine HCl/ Codeine (Phenergan/ Codeine) 5 ml Q6H PRN PO COUGH Last administered on 12/26/16 03:10; Admin Dose 5 ML; Start 12/26/16 at 01:00 STAR BOWLES Dec 26, 2016 15:27
[2016-12-26] MEDS ORDERED: POTASSIUM CHLORIDE (SR) 10 MEQ TAB PO ONE (17:30)
[2016-12-26 20:46] VITALS: BP 169/74; RESP 18
[2016-12-27] MEDS: ALBUTEROL/IPRATROPIUM (NEB) 3 ML AMP HHN SCH ×4 (01:10→19:23)
[2016-12-27] MEDS: ACCU-CHEK XX SCH (02:00)
[2016-12-27] MEDS: PIPER-TAZO 3.375 GM IV (PMX) 100 ML IVPB SCH ×3 (05:39→18:19)
[2016-12-27] MEDS: PANTOPRAZOLE (EC) 40 MG TAB PO SCH (05:39)
[2016-12-27] MEDS: LEVOTHYROXINE 50 MCG TAB PO SCH (05:39)
[2016-12-27 07:54] VITALS: BP 143/72; RESP 18
[2016-12-27] MEDS: INSULIN ASPART [NOVOLOG] 3 ML PEN SC SCH ×4 (08:08→21:09)
[2016-12-27] MEDS: LACTOBACILLUS RHAMNOSUS CAP PO SCH ×2 (09:14→21:01)
[2016-12-27] MEDS: FUROSEMIDE 20 MG INJ IV SCH ×2 (09:14→18:19)
[2016-12-27] MEDS: APIXABAN 5 MG TABLET PO SCH ×2 (09:14→21:02)
[2016-12-27 10:15] LABS: ADD SCAN DIFF NO
[2016-12-27 10:21] LABS: BASOPHILS % 0.4 % (0.0-2.0); EOSINOPHILS # 0.2 10^3/ul (0.0-0.5); EOSINOPHILS % 1.8 % (0.0-7.0); HEMATOCRIT 34.7 % (42.0-52.0); HEMOGLOBIN 10.4 g/dl (14.0-18.0); LYMPHOCYTES # 1.1 10^3/ul (0.8-2.9); MEAN CORPUSCULAR HEMOGLOBIN 28.8 pg (29.0-33.0); MEAN CORPUSCULAR VOLUME 96.1 fl (82.0-101.0); MEAN PLATELET VOLUME 10.5 fl (7.4-10.4); MONOCYTE # 0.7 10^3/ul (0.3-0.9); MONOCYTES % 7.7 % (0.0-11.0); NEUTROPHIL # 7.3 10^3/ul (1.6-7.5); NEUTROPHILS % 77.8 % (39.0-77.0); PLATELET COUNT 220 10^3/UL (140-415); RED BLOOD COUNT 3.61 10^6/ul (4.70-6.10); RED CELL DISTRIBUTION WIDTH 16.3 % (11.5-14.5); WHITE BLOOD COUNT 9.4 10^3/ul (4.8-10.8)
[2016-12-27 10:40] LABS: CALCIUM 8.2 mg/dl (8.4-10.2); CREATININE 1.19 mg/dl (0.61-1.24); POTASSIUM 4.1 mmol/L (3.5-5.1)
--- NOTE | 2016-12-27 10:56 | CONS ---
Date/Time of Note Date/Time of Note DATE: 12/27/16 TIME: 10:52 Assessment/Plan Assessment/Plan Chief Complaint/Hosp Course IMPRESSION: 1. Atrial fibrillation, currently rate controlled. 2. Congestive heart failure, question systolic versus diastolic, likely acute on chronic. 3. Hypertension. 4. Renal failure-improving 5. Anemia. 6. Hypothyroidism. 7. Diabetes mellitus. 8. Possible lower extremity cellulitis. 9. Lower extremity edema. REcc: -serial ecg's -Continue coreg -Continue eliquis -Gentle lasix diuresis -add hydralazine afterload reduction given renal failure in lieu of ACEI -Continue abx's Problems: Consultation Date/Type/Reason Admit Date/Time Dec 24, 2016 at 11:04 Initial Consult Date 12/24/2016 Type of Consultation: Cardiology Reason for Consultation CHF Referring Provider: MANI MITCHELL MD Exam/Review of Systems Vital Signs Vitals Vital Signs Date Time Temp Pulse Resp B/P Pulse Ox O2 Delivery O2 Flow Rate FiO2 12/27/16 09:11 1.0 12/27/16 09:11 66 18 97 Nasal Cannula 12/27/16 07:54 98.8 143/72 12/26/16 02:45 21 Intake and Output 12/26/16 12/26/16 12/27/16 15:00 23:00 07:00 Intake Total 100 ml 820 ml 680 ml Balance 100 ml 820 ml 680 ml Exam Review of Systems: CONSTITUTIONAL: No fevers, chills. PULMONARY: No sob CARDIOVASCULAR: No chest pain/palpitations GASTROINTESTINAL: No nausea/vomiting. GENITOURINARY: No hematuria/dysuria. MUSCULOSKELETAL: No myagias/arthalgias. PSYCHIATRIC: The patient denies depression. NEUROLOGIC: lethargic Constitutional: other (sleeping) Psych: no complaints Head: normocephalic ENMT: mucosa pink and moist Neck: jvd (9 cm w), supple Respiratory: diminished breath sounds (at bases/B) Cardiovascular: regular rate and rhythm Gastrointestinal: non-tender, soft Musculoskeletal: muscle tone (normal) Extremities: edema (trace/B) Neurological: lethargic Results Result Diagram: 12/27/16 0933 12/27/1633 Results 24 hrs Laboratory Tests Test 12/26/16 12:44 12/26/16 17:55 12/26/16 21:58 12/27/16 08:03 Bedside Glucose 124 177 130 107 Test 12/27/16 09:33 White Blood Count 9.4 Red Blood Count 3.61 L Hemoglobin 10.4 L Hematocrit 34.7 L Mean Corpuscular Volume 96.1 Mean Corpuscular Hemoglobin 28.8 L Mean Corpuscular Hemoglobin Concent 30.0 L Red Cell Distribution Width 16.3 H Platelet Count 220 Mean Platelet Volume 10.5 H Neutrophils % 77.8 H Lymphocytes % 12.0 L Monocytes % 7.7 Eosinophils % 1.8 Basophils % 0.4 Nucleated Red Blood Cells % 0.0 Neutrophils # 7.3 Lymphocytes # 1.1 Monocytes # 0.7 Eosinophils # 0.2 Basophils # 0.0 Nucleated Red Blood Cells # 0.0 Sodium Level 137 Potassium Level 4.1 Chloride Level 97 Carbon Dioxide Level 35 H Anion Gap 9 Blood Urea Nitrogen 17 Creatinine 1.19 Glucose Level 138 Calcium Level 8.2 L Medications Medications Current Medications Acetaminophen 650 mg 650 mg Q4H PRN PO PAIN AND OR ELEVATED TEMP Last administered on 12/26/16 02:42; Admin Dose 650 MG; Start 12/24/16 at 18:00 Piperacillin Sod/ Tazobactam Sod (Zosyn 3.375gm/ 100 ml (Pmx)) 100 ml @ 200 mls /hr Q6 IVPB Last administered on 12/27/16 05:39; Admin Dose 200 MLS/HR; Start 12/24/16 at 18:25 Morphine Sulfate (morphine) 2 mg Q4H PRN IV BREAKTHROUGH PAIN; Start 12/24/16 at 18:00 Ondansetron HCl (Zofran Inj) 4 mg Q6H PRN IV NAUSEA AND/OR VOMITING; Start at 18:00 Diagnostic Test (Pha) (Accu-Chek) 1 ea 02 XX ; Start 12/25/16 at 02:00 Miscellaneous Information 1 ea NOTE XX ; Start 12/24/16 at 19:00 Glucose (Glutose) 15 gm Q15M PRN PO DECREASED GLUCOSE; Start 12/24/16 at 19:00 Glucose (Glutose) 22.5 gm Q15M PRN PO DECREASED GLUCOSE; Start 12/24/16 at 19: 00 Dextrose (D50w Syringe) 25 ml Q15M PRN IV DECREASED GLUCOSE; Start 12/24/16 at 19:00 Dextrose (D50w Syringe) 50 ml Q15M PRN IV DECREASED GLUCOSE; Start 12/24/16 at 19:00 Glucagon (Glucagen) 1 mg Q15M PRN IM DECREASED GLUCOSE; Start 12/24/16 at 19:00 Glucose (Glutose) 15 gm Q15M PRN BUCCAL DECREASED GLUCOSE; Start 12/24/16 at 19 :00 Apixaban (Eliquis) 2.5 mg BID PO Last administered on 12/27/16 09:14; Admin Dose 2.5 MG; Start 12/24/16 at 21:00 Carvedilol (Coreg) 12.5 mg BID PO Last administered on 12/27/16 09:14; Admin Dose 12.5 MG; Start 12/24/16 at 21:00 Levothyroxine Sodium (Synthroid) 50 mcg DAILY@06 PO Last administered on 05:39; Admin Dose 50 MCG; Start 12/25/16 at 06:00 Pantoprazole (Protonix Tab) 40 mg DAILY@06 PO Last administered on 12/27/16 05 :39; Admin Dose 40 MG; Start 12/25/16 at 06:00 Calcium Carbonate (Tums) 500 mg Q4 PRN PO GASTROINTESTINAL UPSET Last administered on 12/25/16 12:27; Admin Dose 500 MG; Start 12/25/16 at 12:00 Lactobacillus Acidophilus/ Rhamnosus (Culturelle) 1 cap BID PO Last administered on 12/27/16 09:14; Admin Dose 1 CAP; Start 12/25/16 at 21:00 Furosemide (Lasix) 20 mg DAILY IV Last administered on 12/27/16 09:14; Admin Dose 20 MG; Start 12/25/16 at 14:30 Promethazine HCl/ Codeine (Phenergan/ Codeine) 5 ml Q6H PRN PO COUGH Last administered on 12/26/16 03:10; Admin Dose 5 ML; Start 12/26/16 at 01:00 RED MAHONEY Dec 27, 2016 10:56
--- NOTE | 2016-12-27 18:19 | PN ---
Date/Time of Note Date/Time of Note DATE: 12/27/16 TIME: 18:13 Assessment/Plan VTE Prophylaxis VTE Prophylaxis Intervention: SCD's Lines/Catheters IV Catheter Type (from [facility]): Peripheral IV Urinary Cath still in place: No Assessment/Plan Chief Complaint/Hosp Course Patient is comfortable and supplemental oxygen, no acute events per RN. Problems: Assessment/Plan - Aspiration pneumonitis, continue broad-spectrum antibiotics. - Decompensated congestive heart failure. Continue Lasix and Coreg. - Hypertension - Atrial fibrillation, continue Eliquis. - Hypothyroidism, continue Synthroid. - Diabetes mellitus. Continue NovoLog per sliding scale. 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 - Advanced dementia. Further recommendations based on clinical course. Plan of care discussed with Dr. Villarreal. Exam/Review of Systems Vital Signs Vitals Vital Signs Date Time Temp Pulse Resp B/P Pulse Ox O2 Delivery O2 Flow Rate FiO2 12/27/16 13:21 64 18 98 Nasal Cannula 1.0 12/27/16 07:54 98.8 143/72 12/26/16 02:45 21 Intake and Output 12/26/16 12/26/16 12/27/16 15:00 23:00 07:00 Intake Total 100 ml 820 ml 680 ml Balance 100 ml 820 ml 680 ml Exam Constitutional: alert Psych: confusion Head: normocephalic Neck: non-tender, supple Respiratory: clear to auscultation Cardiovascular: irregular rhythm Gastrointestinal: non-tender, soft Extremities: normal pulses Neurological: nl mental status Results Result Diagram: 12/27/16 0933 12/27/16 0933 Results 24 hrs Laboratory Tests Test 12/26/16 21:58 12/27/16 08:03 12/27/16 09:33 12/27/16 12:05 Bedside Glucose 130 107 200 White Blood Count 9.4 Red Blood Count 3.61 L Hemoglobin 10.4 L Hematocrit 34.7 L Mean Corpuscular Volume 96.1 Mean Corpuscular Hemoglobin 28.8 L Mean Corpuscular Hemoglobin Concent 30.0 L Red Cell Distribution Width 16.3 H Platelet Count 220 Mean Platelet Volume 10.5 H Neutrophils % 77.8 H Lymphocytes % 12.0 L Monocytes % 7.7 Eosinophils % 1.8 Basophils % 0.4 Nucleated Red Blood Cells % 0.0 Neutrophils # 7.3 Lymphocytes # 1.1 Monocytes # 0.7 Eosinophils # 0.2 Basophils # 0.0 Nucleated Red Blood Cells # 0.0 Sodium Level 137 Potassium Level 4.1 Chloride Level 97 Carbon Dioxide Level 35 H Anion Gap 9 Blood Urea Nitrogen 17 Creatinine 1.19 Glucose Level 138 Calcium Level 8.2 L Test 12/27/16 17:30 Bedside Glucose 167 Medications Medications Current Medications Acetaminophen 650 mg 650 mg Q4H PRN PO PAIN AND OR ELEVATED TEMP Last administered on 12/26/16 02:42; Admin Dose 650 MG; Start 12/24/16 at 18:00 Piperacillin Sod/ Tazobactam Sod (Zosyn 3.375gm/ 100 ml (Pmx)) 100 ml @ 200 mls /hr Q6 IVPB Last administered on 12/27/16 12:12; Admin Dose 200 MLS/HR; Start 12/24/16 at 18:25 Morphine Sulfate (morphine) 2 mg Q4H PRN IV BREAKTHROUGH PAIN; Start 12/24/16 at 18:00 Ondansetron HCl (Zofran Inj) 4 mg Q6H PRN IV NAUSEA AND/OR VOMITING; Start at 18:00 Diagnostic Test (Pha) (Accu-Chek) 1 ea 02 XX ; Start 12/25/16 at 02:00 Miscellaneous Information 1 ea NOTE XX ; Start 12/24/16 at 19:00 Glucose (Glutose) 15 gm Q15M PRN PO DECREASED GLUCOSE; Start 12/24/16 at 19:00 Glucose (Glutose) 22.5 gm Q15M PRN PO DECREASED GLUCOSE; Start 12/24/16 at 19: 00 Dextrose (D50w Syringe) 25 ml Q15M PRN IV DECREASED GLUCOSE; Start 12/24/16 at 19:00 Dextrose (D50w Syringe) 50 ml Q15M PRN IV DECREASED GLUCOSE; Start 12/24/16 at 19:00 Glucagon (Glucagen) 1 mg Q15M PRN IM DECREASED GLUCOSE; Start 12/24/16 at 19:00 Glucose (Glutose) 15 gm Q15M PRN BUCCAL DECREASED GLUCOSE; Start 12/24/16 at 19 :00 Apixaban (Eliquis) 2.5 mg BID PO Last administered on 12/27/16 09:14; Admin Dose 2.5 MG; Start 12/24/16 at 21:00 Carvedilol (Coreg) 12.5 mg BID PO Last administered on 12/27/16 09:14; Admin Dose 12.5 MG; Start 12/24/16 at 21:00 Levothyroxine Sodium (Synthroid) 50 mcg DAILY@06 PO Last administered on 05:39; Admin Dose 50 MCG; Start 12/25/16 at 06:00 Pantoprazole (Protonix Tab) 40 mg DAILY@06 PO Last administered on 12/27/16 05 :39; Admin Dose 40 MG; Start 12/25/16 at 06:00 Calcium Carbonate (Tums) 500 mg Q4 PRN PO GASTROINTESTINAL UPSET Last administered on 12/25/16 12:27; Admin Dose 500 MG; Start 12/25/16 at 12:00 Lactobacillus Acidophilus/ Rhamnosus (Culturelle) 1 cap BID PO Last administered on 12/27/16 09:14; Admin Dose 1 CAP; Start 12/25/16 at 21:00 Promethazine HCl/ Codeine (Phenergan/ Codeine) 5 ml Q6H PRN PO COUGH Last administered on 12/26/16 03:10; Admin Dose 5 ML; Start 12/26/16 at 01:00 Hydralazine HCl (Apresoline) 25 mg Q8 PO Last administered on 12/27/16 15:54; Admin Dose 25 MG; Start 12/27/16 at 14:00 LYLA YOUNG Dec 27, 2016 18:19
[2016-12-27 22:25] VITALS: BP 110/55
[2016-12-28] MEDS: PIPER-TAZO 3.375 GM IV (PMX) 100 ML IVPB SCH ×4 (00:29→17:49)
[2016-12-28] MEDS: ACCU-CHEK XX SCH (02:00)
[2016-12-28] MEDS: ALBUTEROL/IPRATROPIUM (NEB) 3 ML AMP HHN SCH ×4 (02:01→19:11)
[2016-12-28] MEDS: LEVOTHYROXINE 50 MCG TAB PO SCH (06:00)
[2016-12-28] MEDS: PANTOPRAZOLE (EC) 40 MG TAB PO SCH (06:00)
[2016-12-28 06:04] LABS: ADD SCAN DIFF NO
[2016-12-28 06:05] LABS: BASOPHIL # 0.1 10^3/ul (0.0-0.1); BASOPHILS % 0.6 % (0.0-2.0); EOSINOPHILS # 0.2 10^3/ul (0.0-0.5); HEMATOCRIT 32.2 % (42.0-52.0); HEMOGLOBIN 9.9 g/dl (14.0-18.0); LYMPHOCYTES # 1.5 10^3/ul (0.8-2.9); LYMPHOCYTES % 17.5 % (15.0-51.0); MEAN CORPUSCULAR HEMOGLOBIN 28.9 pg (29.0-33.0); MEAN CORPUSCULAR HGB CONC 30.7 g/dl (32.0-37.0); MEAN CORPUSCULAR VOLUME 94.2 fl (82.0-101.0); MEAN PLATELET VOLUME 10.4 fl (7.4-10.4); MONOCYTE # 0.6 10^3/ul (0.3-0.9); MONOCYTES % 7.4 % (0.0-11.0); NEUTROPHIL # 6.2 10^3/ul (1.6-7.5); NEUTROPHILS % 72.1 % (39.0-77.0); PLATELET COUNT 259 10^3/UL (140-415); RED BLOOD COUNT 3.42 10^6/ul (4.70-6.10); RED CELL DISTRIBUTION WIDTH 16.1 % (11.5-14.5); WHITE BLOOD COUNT 8.6 10^3/ul (4.8-10.8)
[2016-12-28] MEDS: FUROSEMIDE 20 MG INJ IV SCH ×2 (06:33→17:59)
[2016-12-28 06:44] LABS: CALCIUM 8.1 mg/dl (8.4-10.2); CREATININE 1.42 mg/dl (0.61-1.24); POTASSIUM 3.2 mmol/L (3.5-5.1)
[2016-12-28] MEDS: INSULIN ASPART [NOVOLOG] 3 ML PEN SC SCH ×4 (08:11→21:45)
[2016-12-28 08:12] VITALS: BP 144/70; RESP 16
--- NOTE | 2016-12-28 08:50 | CONS ---
Date/Time of Note Date/Time of Note DATE: 12/28/16 TIME: 08:48 Assessment/Plan Assessment/Plan Additional Assessment/Plan 1. Atrial fibrillation, currently rate controlled - on Eliquis now 2. Congestive heart failure, question systolic versus diastolic, likely acute on chronic - better fluid satus, good urine output. 3. Hypertension- improved. 4. Renal failure-improving - good output. 5. Anemia- H/H stable - no bleeding. 6. Hypothyroidism. 7. Diabetes mellitus. 8. Possible lower extremity cellulitis - Rx with anti-bx. 9. Lower extremity edema.- minimal by exam. Consultation Date/Type/Reason Admit Date/Time Dec 24, 2016 at 11:04 Initial Consult Date Type of Consultation: Cardiology Referring Provider: MANI MITCHELL MD 24 HR Interval Summary Free Text/Dictation Off tele - rate controlled - reasonable fluid status. ROS: No fever, no chills, no nausea, no vomiting, no diarrhea/constipation No recent weight changes No chest pain, no PND, no orthopnea No dizziness, blurred vision No thirst, no heat or cold intolerance Exam/Review of Systems Vital Signs Vitals Vital Signs Date Time Temp Pulse Resp B/P Pulse Ox O2 Delivery O2 Flow Rate FiO2 12/28/16 08:12 98.0 75 16 144/70 96 12/28/16 07:44 Nasal Cannula 1.0 12/26/16 02:45 21 Intake and Output 12/27/16 12/27/16 12/28/16 15:00 23:00 07:00 Intake Total 100 ml 1100 ml 580 ml Output Total 1100 ml 1500 ml Balance 100 ml 0 ml -920 ml Exam General: WN/WD/NAD, AOx 1-2 HEENT: Unicetric/atraumatic/EOMI (does not follow commands) NECK: JVD elevated, no thyromegaly Lymph: no lymphadenopathy HEART: IR IRregular with no S3, II/ systolic murmur at apex LUNGS: Coarse sounds ABD: soft, NT, ND, +BS : Intact Neuro: non focal SKIN: chronic changes EXT: trace edema Results Result Diagram: 12/28/16 0515 12/28/16 0515 Results 24 hrs Laboratory Tests Test 12/27/16 09:33 12/27/16 12:05 12/27/16 17:30 12/27/16 21:06 White Blood Count 9.4 Red Blood Count 3.61 L Hemoglobin 10.4 L Hematocrit 34.7 L Mean Corpuscular Volume 96.1 Mean Corpuscular Hemoglobin 28.8 L Mean Corpuscular Hemoglobin Concent 30.0 L Red Cell Distribution Width 16.3 H Platelet Count 220 Mean Platelet Volume 10.5 H Neutrophils % 77.8 H Lymphocytes % 12.0 L Monocytes % 7.7 Eosinophils % 1.8 Basophils % 0.4 Nucleated Red Blood Cells % 0.0 Neutrophils # 7.3 Lymphocytes # 1.1 Monocytes # 0.7 Eosinophils # 0.2 Basophils # 0.0 Nucleated Red Blood Cells # 0.0 Sodium Level 137 Potassium Level 4.1 Chloride Level 97 Carbon Dioxide Level 35 H Anion Gap 9 Blood Urea Nitrogen 17 Creatinine 1.19 Glucose Level 138 Calcium Level 8.2 L Bedside Glucose 200 167 206 Test 12/28/16 02:09 12/28/16 05:15 12/28/16 08:09 Bedside Glucose 147 109 White Blood Count 8.6 Red Blood Count 3.42 L Hemoglobin 9.9 L Hematocrit 32.2 L Mean Corpuscular Volume 94.2 Mean Corpuscular Hemoglobin 28.9 L Mean Corpuscular Hemoglobin Concent 30.7 L Red Cell Distribution Width 16.1 H Platelet Count 259 Mean Platelet Volume 10.4 Neutrophils % 72.1 Lymphocytes % 17.5 Monocytes % 7.4 Eosinophils % 2.0 Basophils % 0.6 Nucleated Red Blood Cells % 0.0 Neutrophils # 6.2 Lymphocytes # 1.5 Monocytes # 0.6 Eosinophils # 0.2 Basophils # 0.1 Nucleated Red Blood Cells # 0.0 Sodium Level 138 Potassium Level 3.2 L Chloride Level 94 L Carbon Dioxide Level 40 H Anion Gap 7 L Blood Urea Nitrogen 16 Creatinine 1.42 H Glucose Level 123 Calcium Level 8.1 L Medications Medications Current Medications Acetaminophen 650 mg 650 mg Q4H PRN PO PAIN AND OR ELEVATED TEMP Last administered on 12/26/16 02:42; Admin Dose 650 MG; Start 12/24/16 at 18:00 Piperacillin Sod/ Tazobactam Sod (Zosyn 3.375gm/ 100 ml (Pmx)) 100 ml @ 200 mls /hr Q6 IVPB Last administered on 12/28/16 06:32; Admin Dose 200 MLS/HR; Start 12/24/16 at 18:25 Morphine Sulfate (morphine) 2 mg Q4H PRN IV BREAKTHROUGH PAIN; Start 12/24/16 at 18:00 Ondansetron HCl (Zofran Inj) 4 mg Q6H PRN IV NAUSEA AND/OR VOMITING; Start at 18:00 Diagnostic Test (Pha) (Accu-Chek) 1 ea 02 XX ; Start 12/25/16 at 02:00 Miscellaneous Information 1 ea NOTE XX ; Start 12/24/16 at 19:00 Glucose (Glutose) 15 gm Q15M PRN PO DECREASED GLUCOSE; Start 12/24/16 at 19:00 Glucose (Glutose) 22.5 gm Q15M PRN PO DECREASED GLUCOSE; Start 12/24/16 at 19: 00 Dextrose (D50w Syringe) 25 ml Q15M PRN IV DECREASED GLUCOSE; Start 12/24/16 at 19:00 Dextrose (D50w Syringe) 50 ml Q15M PRN IV DECREASED GLUCOSE; Start 12/24/16 at 19:00 Glucagon (Glucagen) 1 mg Q15M PRN IM DECREASED GLUCOSE; Start 12/24/16 at 19:00 Glucose (Glutose) 15 gm Q15M PRN BUCCAL DECREASED GLUCOSE; Start 12/24/16 at 19 :00 Apixaban (Eliquis) 2.5 mg BID PO Last administered on 12/27/16 21:02; Admin Dose 2.5 MG; Start 12/24/16 at 21:00 Carvedilol (Coreg) 12.5 mg BID PO Last administered on 12/27/16 21:02; Admin Dose 12.5 MG; Start 12/24/16 at 21:00 Levothyroxine Sodium (Synthroid) 50 mcg DAILY@06 PO Last administered on 05:39; Admin Dose 50 MCG; Start 12/25/16 at 06:00 Pantoprazole (Protonix Tab) 40 mg DAILY@06 PO Last administered on 12/27/16 05 :39; Admin Dose 40 MG; Start 12/25/16 at 06:00 Calcium Carbonate (Tums) 500 mg Q4 PRN PO GASTROINTESTINAL UPSET Last administered on 12/25/16 12:27; Admin Dose 500 MG; Start 12/25/16 at 12:00 Lactobacillus Acidophilus/ Rhamnosus (Culturelle) 1 cap BID PO Last administered on 12/27/16 21:01; Admin Dose 1 CAP; Start 12/25/16 at 21:00 Promethazine HCl/ Codeine (Phenergan/ Codeine) 5 ml Q6H PRN PO COUGH Last administered on 12/26/16 03:10; Admin Dose 5 ML; Start 12/26/16 at 01:00 Hydralazine HCl (Apresoline) 25 mg Q8 PO Last administered on 12/27/16 21:03; Admin Dose 25 MG; Start 12/27/16 at 14:00 JESSE CAMPO MD Dec 28, 2016 08:50
[2016-12-28 10:25] LABS: AADO2 Arterial 34.1 mmHg (7.0-24.0); Allen Test ACCEPTAB; Arterial Base Excess 14.2 mmol/L (-3.0-3); Arterial COHb 0.6 % (0.0-3.0); Arterial Fraction of Oxyhgb 94.5 % (93.0-99.0); Arterial HCO3 39.4 mmol/L (22.0-26.0); Arterial MetHb 0.1 % (0.0-1.5); MODE NASAL CANNULA
[2016-12-28] MEDS: APIXABAN 5 MG TABLET PO SCH ×2 (10:25→21:41)
[2016-12-28] MEDS: LACTOBACILLUS RHAMNOSUS CAP PO SCH ×2 (10:25→21:41)
[2016-12-28] MEDS: ACETAZOLAMIDE 500 MG INJ IV SCH (11:43)
[2016-12-28] MEDS ORDERED: BARIUM SULFATE 135 ML (E-Z HD) PO ONE (13:30)
[2016-12-28] MEDS ORDERED: POTASSIUM CHLORIDE (SR) 20 MEQ TAB PO STA (17:02)
--- NOTE | 2016-12-28 18:24 | RADRPT ---
PROCEDURE: Video-fluoroscopy swallowing study. CLINICAL INDICATION: Dysphagia. TECHNIQUE: Fluoroscopic guided video swallowing study was done in conjunction with the speech ther apist. The study was confined to the oral, pharyngeal, and cervical phases of the swallowing mechani sm. 2.2 minutes of fluoroscopy time was used. COMPARISON: No prior study is available for comparison. FINDINGS: There is aspiration during swallowing nectar and thin liquids. IMPRESSION: 1. Abnormal study with aspiration during swallowing. 2. Please refer to the speech therapist's recommendations for future feedings. RPTAT: QQ .Oliver Araujo MD, MD Date Time Electronically viewed and signed by .Oliver Araujo MD, on 12/28/2016 18:23 .R/
--- NOTE | 2016-12-28 18:35 | PN ---
Date/Time of Note Date/Time of Note DATE: 12/28/16 TIME: 18:31 Assessment/Plan VTE Prophylaxis VTE Prophylaxis Intervention: SCD's Lines/Catheters [facility] Peripheral IV Urinary Cath still in place: No Assessment/Plan Chief Complaint/Hosp Course Patient's completed swallow evaluation with recommendation for pured diet with thickened liquids. Patient looks comfortable and supplemental oxygen, potassium replacement given. Assessment/Plan - Aspiration pneumonitis, continue broad-spectrum antibiotics. - Decompensated congestive heart failure. Continue Lasix and Coreg. - Hypertension - Atrial fibrillation, continue Eliquis. - Hypothyroidism, continue Synthroid. - Diabetes mellitus. Continue NovoLog per sliding scale. 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 - Advanced dementia. Further recommendations based on clinical course. Plan of care discussed with Dr. Villarreal. Problems: Exam/Review of Systems Vital Signs Vitals Vital Signs Date Time Temp Pulse Resp B/P Pulse Ox O2 Delivery O2 Flow Rate FiO2 12/28/16 13:45 2.0 12/28/16 13:43 67 20 98 Nasal Cannula 12/28/16 08:12 98.0 144/70 12/26/16 02:45 21 Intake and Output 12/27/16 12/27/16 12/28/16 15:00 23:00 07:00 Intake Total 100 ml 1100 ml 580 ml Output Total 1100 ml 1500 ml Balance 100 ml 0 ml -920 ml Exam Constitutional: alert Psych: confusion Head: normocephalic Neck: non-tender, supple Respiratory: clear to auscultation Cardiovascular: irregular rhythm Gastrointestinal: non-tender, soft Extremities: normal pulses Neurological: nl mental status Results Result Diagram: 12/28/16 0515 12/28/16 0515 Results 24 hrs Laboratory Tests Test 12/27/16 21:06 12/28/16 02:09 12/28/16 05:15 12/28/16 08:09 Bedside Glucose 206 147 109 White Blood Count 8.6 Red Blood Count 3.42 L Hemoglobin 9.9 L Hematocrit 32.2 L Mean Corpuscular Volume 94.2 Mean Corpuscular Hemoglobin 28.9 L Mean Corpuscular Hemoglobin Concent 30.7 L Red Cell Distribution Width 16.1 H Platelet Count 259 Mean Platelet Volume 10.4 Neutrophils % 72.1 Lymphocytes % 17.5 Monocytes % 7.4 Eosinophils % 2.0 Basophils % 0.6 Nucleated Red Blood Cells % 0.0 Neutrophils # 6.2 Lymphocytes # 1.5 Monocytes # 0.6 Eosinophils # 0.2 Basophils # 0.1 Nucleated Red Blood Cells # 0.0 Sodium Level 138 Potassium Level 3.2 L Chloride Level 94 L Carbon Dioxide Level 40 H Anion Gap 7 L Blood Urea Nitrogen 16 Creatinine 1.42 H Glucose Level 123 Calcium Level 8.1 L Test 12/28/16 09:32 12/28/16 13:10 12/28/16 17:44 Blood Gas Specimen Source Blood arterial Arterial Blood Date Drawn 12/28/2016 10:10:52 AM Arterial Blood pH (Temp corrected) 7.498 H Arterial Blood pCO2 (Temp correct) 51.9 H Arterial Blood pO2 (Temp corrected) 75.3 L Arterial Blood HCO3 39.4 H Arterial Blood Base Excess 14.2 H Arterial Blood Oxygen Saturation 95.2 Hardeep Test ACCEPTAB Arterial Blood Gas Puncture Site Left Radial Arterial Blood Carboxyhemoglobin 0.6 Arterial Blood Methemoglobin 0.1 Blood Gas A-a O2 Differential 34.1 H Oxyhemoglobin Percent 94.5 Total Hemoglobin 12.0 Blood Gas Temperature 37.0 Blood Gas Modality NASAL CANNULA FiO2 24.0 Blood Gas Notified Whom JLD Blood Gas Notified Time 12/28/2016 10:25:19 AM Bedside Glucose 163 108 Medications Medications Current Medications Acetaminophen 650 mg 650 mg Q4H PRN PO PAIN AND OR ELEVATED TEMP Last administered on 12/26/16 02:42; Admin Dose 650 MG; Start 12/24/16 at 18:00 Piperacillin Sod/ Tazobactam Sod (Zosyn 3.375gm/ 100 ml (Pmx)) 100 ml @ 200 mls /hr Q6 IVPB Last administered on 12/28/16 17:49; Admin Dose 200 MLS/HR; Start 12/24/16 at 18:25 Morphine Sulfate (morphine) 2 mg Q4H PRN IV BREAKTHROUGH PAIN; Start 12/24/16 at 18:00 Ondansetron HCl (Zofran Inj) 4 mg Q6H PRN IV NAUSEA AND/OR VOMITING; Start at 18:00 Diagnostic Test (Pha) (Accu-Chek) 1 ea 02 XX ; Start 12/25/16 at 02:00 Miscellaneous Information 1 ea NOTE XX ; Start 12/24/16 at 19:00 Glucose (Glutose) 15 gm Q15M PRN PO DECREASED GLUCOSE; Start 12/24/16 at 19:00 Glucose (Glutose) 22.5 gm Q15M PRN PO DECREASED GLUCOSE; Start 12/24/16 at 19: 00 Dextrose (D50w Syringe) 25 ml Q15M PRN IV DECREASED GLUCOSE; Start 12/24/16 at 19:00 Dextrose (D50w Syringe) 50 ml Q15M PRN IV DECREASED GLUCOSE; Start 12/24/16 at 19:00 Glucagon (Glucagen) 1 mg Q15M PRN IM DECREASED GLUCOSE; Start 12/24/16 at 19:00 Glucose (Glutose) 15 gm Q15M PRN BUCCAL DECREASED GLUCOSE; Start 12/24/16 at 19 :00 Apixaban (Eliquis) 2.5 mg BID PO Last administered on 12/28/16 10:25; Admin Dose 2.5 MG; Start 12/24/16 at 21:00 Carvedilol (Coreg) 12.5 mg BID PO Last administered on 12/28/16 10:28; Admin Dose 12.5 MG; Start 12/24/16 at 21:00 Levothyroxine Sodium (Synthroid) 50 mcg DAILY@06 PO Last administered on 05:39; Admin Dose 50 MCG; Start 12/25/16 at 06:00 Pantoprazole (Protonix Tab) 40 mg DAILY@06 PO Last administered on 12/27/16 05 :39; Admin Dose 40 MG; Start 12/25/16 at 06:00 Calcium Carbonate (Tums) 500 mg Q4 PRN PO GASTROINTESTINAL UPSET Last administered on 12/25/16 12:27; Admin Dose 500 MG; Start 12/25/16 at 12:00 Lactobacillus Acidophilus/ Rhamnosus (Culturelle) 1 cap BID PO Last administered on 12/28/16 10:25; Admin Dose 1 CAP; Start 12/25/16 at 21:00 Promethazine HCl/ Codeine (Phenergan/ Codeine) 5 ml Q6H PRN PO COUGH Last administered on 12/26/16 03:10; Admin Dose 5 ML; Start 12/26/16 at 01:00 Hydralazine HCl (Apresoline) 25 mg Q8 PO Last administered on 12/28/16 14:56; Admin Dose 25 MG; Start 12/27/16 at 14:00 Acetazolamide (Diamox) 500 mg DAILY IV Last administered on 12/28/16 11:43; Admin Dose 500 MG; Start 12/28/16 at 11:30; Stop 12/30/16 at 09:01 LYLA YOUNG Dec 28, 2016 18:35
[2016-12-28 20:16] VITALS: BP 110/57; RESP 18
[2016-12-28] MEDS: ACETAMINOPHEN 325 MG TAB PO PRN (22:01)
[2016-12-29] MEDS: PIPER-TAZO 3.375 GM IV (PMX) 100 ML IVPB SCH ×4 (00:24→17:47)
[2016-12-29] MEDS: ALBUTEROL/IPRATROPIUM (NEB) 3 ML AMP HHN SCH ×4 (01:27→20:00)
[2016-12-29] MEDS: ACCU-CHEK XX SCH (02:00)
[2016-12-29 06:03] LABS: ADD SCAN DIFF NO
[2016-12-29] MEDS: PANTOPRAZOLE (EC) 40 MG TAB PO SCH (06:04)
[2016-12-29] MEDS: FUROSEMIDE 20 MG INJ IV SCH (06:08)
[2016-12-29 06:09] LABS: BASOPHIL # 0.1 10^3/ul (0.0-0.1); BASOPHILS % 0.6 % (0.0-2.0); EOSINOPHILS # 0.1 10^3/ul (0.0-0.5); EOSINOPHILS % 1.5 % (0.0-7.0); HEMATOCRIT 35.7 % (42.0-52.0); LYMPHOCYTES # 1.3 10^3/ul (0.8-2.9); LYMPHOCYTES % 15.7 % (15.0-51.0); MEAN CORPUSCULAR HEMOGLOBIN 28.9 pg (29.0-33.0); MEAN CORPUSCULAR HGB CONC 30.8 g/dl (32.0-37.0); MEAN CORPUSCULAR VOLUME 93.9 fl (82.0-101.0); MEAN PLATELET VOLUME 10.4 fl (7.4-10.4); MONOCYTE # 0.7 10^3/ul (0.3-0.9); MONOCYTES % 7.8 % (0.0-11.0); NEUTROPHIL # 6.3 10^3/ul (1.6-7.5); PLATELET COUNT 251 10^3/UL (140-415); RED CELL DISTRIBUTION WIDTH 16.4 % (11.5-14.5); WHITE BLOOD COUNT 8.5 10^3/ul (4.8-10.8)
[2016-12-29] MEDS: LEVOTHYROXINE 50 MCG TAB PO SCH (06:13)
[2016-12-29 06:41] LABS: CALCIUM 8.6 mg/dl (8.4-10.2); CREATININE 1.5 mg/dl (0.61-1.24); POTASSIUM 3.6 mmol/L (3.5-5.1)
[2016-12-29] MEDS: INSULIN ASPART [NOVOLOG] 3 ML PEN SC SCH ×4 (08:15→21:00)
[2016-12-29 08:24] VITALS: BP 137/84; RESP 16
[2016-12-29] MEDS: LACTOBACILLUS RHAMNOSUS CAP PO SCH ×2 (09:33→21:40)
[2016-12-29] MEDS: APIXABAN 5 MG TABLET PO SCH ×2 (09:34→21:41)
[2016-12-29] MEDS: ACETAZOLAMIDE 500 MG INJ IV SCH (09:35)
[2016-12-29] MEDS: ACETAMINOPHEN 325 MG TAB PO PRN (09:42)
--- NOTE | 2016-12-29 10:48 | CONS ---
Date/Time of Note Date/Time of Note DATE: 12/29/16 TIME: 10:46 Assessment/Plan Assessment/Plan Chief Complaint/Hosp Course IMPRESSION: 1. Atrial fibrillation, currently rate controlled. 2. Congestive heart failure, systolic, acute on chronic. 3. Hypertension. 4. Renal failure-worsening 5. Anemia. 6. Hypothyroidism. 7. Diabetes mellitus. 8. Possible lower extremity cellulitis. 9. Lower extremity edema. REcc: -serial ecg's -Continue coreg -Continue eliquis -Hold lasix given renal failure woresning and check cxr to assesss for ongoing congestion -Continue hydralazine afterload reduction given renal failure in lieu of ACEI -Continue abx's Problems: Consultation Date/Type/Reason Admit Date/Time Dec 24, 2016 at 11:04 Initial Consult Date 12/24/2016 Type of Consultation: Cardiology Reason for Consultation HTN Referring Provider: MANI MITCHELL MD Exam/Review of Systems Vital Signs Vitals Vital Signs Date Time Temp Pulse Resp B/P Pulse Ox O2 Delivery O2 Flow Rate FiO2 12/29/16 08:24 98.1 80 16 137/84 98 12/29/16 07:47 Nasal Cannula 1.0 12/26/16 02:45 21 Intake and Output 12/28/16 12/28/16 12/29/16 15:00 23:00 07:00 Intake Total 100 ml 340 ml 340 ml Output Total 1800 ml 400 ml Balance 100 ml -1460 ml -60 ml Exam Review of Systems: CONSTITUTIONAL: No fevers, chills. PULMONARY: No sob CARDIOVASCULAR: No chest pain/palpitations GASTROINTESTINAL: No nausea/vomiting. GENITOURINARY: No hematuria/dysuria. MUSCULOSKELETAL: No myagias/arthalgias. PSYCHIATRIC: The patient denies depression. NEUROLOGIC: lethargic Constitutional: other (sleeping) Psych: no complaints Head: normocephalic ENMT: mucosa pink and moist Neck: jvd (9 cm water), supple Respiratory: diminished breath sounds (at bases/B) Cardiovascular: regular rate and rhythm Gastrointestinal: non-tender, soft Musculoskeletal: muscle tone (normal) Extremities: edema (none) Neurological: lethargic Results Result Diagram: 12/29/16 0530 12/29/16 0530 Results 24 hrs Laboratory Tests Test 12/28/16 13:10 12/28/16 17:44 12/28/16 21:43 12/29/16 02:25 Bedside Glucose 163 108 191 124 Test 12/29/16 05:30 12/29/16 08:20 White Blood Count 8.5 Red Blood Count 3.80 L Hemoglobin 11.0 L Hematocrit 35.7 L Mean Corpuscular Volume 93.9 Mean Corpuscular Hemoglobin 28.9 L Mean Corpuscular Hemoglobin Concent 30.8 L Red Cell Distribution Width 16.4 H Platelet Count 251 Mean Platelet Volume 10.4 Neutrophils % 74.0 Lymphocytes % 15.7 Monocytes % 7.8 Eosinophils % 1.5 Basophils % 0.6 Nucleated Red Blood Cells % 0.0 Neutrophils # 6.3 Lymphocytes # 1.3 Monocytes # 0.7 Eosinophils # 0.1 Basophils # 0.1 Nucleated Red Blood Cells # 0.0 Sodium Level 140 Potassium Level 3.6 Chloride Level 98 Carbon Dioxide Level 36 H Anion Gap 10 Blood Urea Nitrogen 14 Creatinine 1.50 H Glucose Level 117 Calcium Level 8.6 Bedside Glucose 112 Medications Medications Current Medications Acetaminophen 650 mg 650 mg Q4H PRN PO PAIN AND OR ELEVATED TEMP Last administered on 12/29/16 09:42; Admin Dose 650 MG; Start 12/24/16 at 18:00 Piperacillin Sod/ Tazobactam Sod (Zosyn 3.375gm/ 100 ml (Pmx)) 100 ml @ 200 mls /hr Q6 IVPB Last administered on 12/29/16 06:04; Admin Dose 200 MLS/HR; Start 12/24/16 at 18:25 Morphine Sulfate (morphine) 2 mg Q4H PRN IV BREAKTHROUGH PAIN; Start 12/24/16 at 18:00 Ondansetron HCl (Zofran Inj) 4 mg Q6H PRN IV NAUSEA AND/OR VOMITING; Start at 18:00 Diagnostic Test (Pha) (Accu-Chek) 1 ea 02 XX ; Start 12/25/16 at 02:00 Miscellaneous Information 1 ea NOTE XX ; Start 12/24/16 at 19:00 Glucose (Glutose) 15 gm Q15M PRN PO DECREASED GLUCOSE; Start 12/24/16 at 19:00 Glucose (Glutose) 22.5 gm Q15M PRN PO DECREASED GLUCOSE; Start 12/24/16 at 19: 00 Dextrose (D50w Syringe) 25 ml Q15M PRN IV DECREASED GLUCOSE; Start 12/24/16 at 19:00 Dextrose (D50w Syringe) 50 ml Q15M PRN IV DECREASED GLUCOSE; Start 12/24/16 at 19:00 Glucagon (Glucagen) 1 mg Q15M PRN IM DECREASED GLUCOSE; Start 12/24/16 at 19:00 Glucose (Glutose) 15 gm Q15M PRN BUCCAL DECREASED GLUCOSE; Start 12/24/16 at 19 :00 Apixaban (Eliquis) 2.5 mg BID PO Last administered on 12/29/16 09:34; Admin Dose 2.5 MG; Start 12/24/16 at 21:00 Carvedilol (Coreg) 12.5 mg BID PO Last administered on 12/29/16 09:41; Admin Dose 12.5 MG; Start 12/24/16 at 21:00 Levothyroxine Sodium (Synthroid) 50 mcg DAILY@06 PO Last administered on 06:13; Admin Dose 50 MCG; Start 12/25/16 at 06:00 Pantoprazole (Protonix Tab) 40 mg DAILY@06 PO Last administered on 12/29/16 06 :04; Admin Dose 40 MG; Start 12/25/16 at 06:00 Calcium Carbonate (Tums) 500 mg Q4 PRN PO GASTROINTESTINAL UPSET Last administered on 12/25/16 12:27; Admin Dose 500 MG; Start 12/25/16 at 12:00 Lactobacillus Acidophilus/ Rhamnosus (Culturelle) 1 cap BID PO Last administered on 12/29/16 09:33; Admin Dose 1 CAP; Start 12/25/16 at 21:00 Promethazine HCl/ Codeine (Phenergan/ Codeine) 5 ml Q6H PRN PO COUGH Last administered on 12/26/16 03:10; Admin Dose 5 ML; Start 12/26/16 at 01:00 Hydralazine HCl (Apresoline) 25 mg Q8 PO Last administered on 12/29/16 06:08; Admin Dose 25 MG; Start 12/27/16 at 14:00 Acetazolamide (Diamox) 500 mg DAILY IV Last administered on 12/29/16 09:35; Admin Dose 500 MG; Start 12/28/16 at 11:30; Stop 12/30/16 at 09:01 RED MAHONEY Dec 29, 2016 10:48
--- NOTE | 2016-12-29 12:39 | PN ---
Date/Time of Note Date/Time of Note DATE: 12/29/16 TIME: 12:38 Assessment/Plan VTE Prophylaxis VTE Prophylaxis Intervention: SCD's Lines/Catheters IV Catheter Type (from [facility]): Saline Lock Urinary Cath still in place: No Assessment/Plan Chief Complaint/Hosp Course Assessment/Plan - Aspiration pneumonitis, continue broad-spectrum antibiotics. - Decompensated congestive heart failure. Continue Lasix and Coreg. - Hypertension - Atrial fibrillation, continue Eliquis. - Hypothyroidism, continue Synthroid. - Diabetes mellitus. Continue NovoLog per sliding scale. 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 - Advanced dementia. Further recommendations based on clinical course. Plan of care discussed with Dr. Villarreal. Problems: Exam/Review of Systems Vital Signs Vitals Vital Signs Date Time Temp Pulse Resp B/P Pulse Ox O2 Delivery O2 Flow Rate FiO2 12/29/16 08:24 98.1 80 16 137/84 98 12/29/16 07:47 Nasal Cannula 1.0 12/26/16 02:45 21 Intake and Output 12/28/16 12/28/16 12/29/16 14:59 22:59 06:59 Intake Total 100 ml 340 ml 340 ml Output Total 1800 ml 400 ml Balance 100 ml -1460 ml -60 ml Exam Constitutional: alert Psych: confusion Head: normocephalic Neck: non-tender, supple Respiratory: clear to auscultation Cardiovascular: irregular rhythm Gastrointestinal: non-tender, soft Extremities: normal pulses Neurological: nl mental status Results Result Diagram: 12/29/16 0530 12/29/16 0530 Results 24 hrs Laboratory Tests Test 12/28/16 13:10 12/28/16 17:44 12/28/16 21:43 12/29/16 02:25 Bedside Glucose 163 108 191 124 Test 12/29/16 05:30 12/29/16 08:20 12/29/16 12:16 White Blood Count 8.5 Red Blood Count 3.80 L Hemoglobin 11.0 L Hematocrit 35.7 L Mean Corpuscular Volume 93.9 Mean Corpuscular Hemoglobin 28.9 L Mean Corpuscular Hemoglobin Concent 30.8 L Red Cell Distribution Width 16.4 H Platelet Count 251 Mean Platelet Volume 10.4 Neutrophils % 74.0 Lymphocytes % 15.7 Monocytes % 7.8 Eosinophils % 1.5 Basophils % 0.6 Nucleated Red Blood Cells % 0.0 Neutrophils # 6.3 Lymphocytes # 1.3 Monocytes # 0.7 Eosinophils # 0.1 Basophils # 0.1 Nucleated Red Blood Cells # 0.0 Sodium Level 140 Potassium Level 3.6 Chloride Level 98 Carbon Dioxide Level 36 H Anion Gap 10 Blood Urea Nitrogen 14 Creatinine 1.50 H Glucose Level 117 Calcium Level 8.6 Bedside Glucose 112 205 Medications Medications Current Medications Acetaminophen 650 mg 650 mg Q4H PRN PO PAIN AND OR ELEVATED TEMP Last administered on 12/29/16 09:42; Admin Dose 650 MG; Start 12/24/16 at 18:00 Piperacillin Sod/ Tazobactam Sod (Zosyn 3.375gm/ 100 ml (Pmx)) 100 ml @ 200 mls /hr Q6 IVPB Last administered on 12/29/16 12:07; Admin Dose 200 MLS/HR; Start 12/24/16 at 18:25 Morphine Sulfate (morphine) 2 mg Q4H PRN IV BREAKTHROUGH PAIN; Start 12/24/16 at 18:00 Ondansetron HCl (Zofran Inj) 4 mg Q6H PRN IV NAUSEA AND/OR VOMITING; Start at 18:00 Diagnostic Test (Pha) (Accu-Chek) 1 ea 02 XX ; Start 12/25/16 at 02:00 Miscellaneous Information 1 ea NOTE XX ; Start 12/24/16 at 19:00 Glucose (Glutose) 15 gm Q15M PRN PO DECREASED GLUCOSE; Start 12/24/16 at 19:00 Glucose (Glutose) 22.5 gm Q15M PRN PO DECREASED GLUCOSE; Start 12/24/16 at 19: 00 Dextrose (D50w Syringe) 25 ml Q15M PRN IV DECREASED GLUCOSE; Start 12/24/16 at 19:00 Dextrose (D50w Syringe) 50 ml Q15M PRN IV DECREASED GLUCOSE; Start 12/24/16 at 19:00 Glucagon (Glucagen) 1 mg Q15M PRN IM DECREASED GLUCOSE; Start 12/24/16 at 19:00 Glucose (Glutose) 15 gm Q15M PRN BUCCAL DECREASED GLUCOSE; Start 12/24/16 at 19 :00 Apixaban (Eliquis) 2.5 mg BID PO Last administered on 12/29/16 09:34; Admin Dose 2.5 MG; Start 12/24/16 at 21:00 Carvedilol (Coreg) 12.5 mg BID PO Last administered on 12/29/16 09:41; Admin Dose 12.5 MG; Start 12/24/16 at 21:00 Levothyroxine Sodium (Synthroid) 50 mcg DAILY@06 PO Last administered on 06:13; Admin Dose 50 MCG; Start 12/25/16 at 06:00 Pantoprazole (Protonix Tab) 40 mg DAILY@06 PO Last administered on 12/29/16 06 :04; Admin Dose 40 MG; Start 12/25/16 at 06:00 Calcium Carbonate (Tums) 500 mg Q4 PRN PO GASTROINTESTINAL UPSET Last administered on 12/25/16 12:27; Admin Dose 500 MG; Start 12/25/16 at 12:00 Lactobacillus Acidophilus/ Rhamnosus (Culturelle) 1 cap BID PO Last administered on 12/29/16 09:33; Admin Dose 1 CAP; Start 12/25/16 at 21:00 Promethazine HCl/ Codeine (Phenergan/ Codeine) 5 ml Q6H PRN PO COUGH Last administered on 12/26/16 03:10; Admin Dose 5 ML; Start 12/26/16 at 01:00 Hydralazine HCl (Apresoline) 25 mg Q8 PO Last administered on 12/29/16 06:08; Admin Dose 25 MG; Start 12/27/16 at 14:00 Acetazolamide (Diamox) 500 mg DAILY IV Last administered on 12/29/16 09:35; Admin Dose 500 MG; Start 12/28/16 at 11:30; Stop 12/30/16 at 09:01 LYLA YOUNG Dec 29, 2016 12:39
--- NOTE | 2016-12-29 14:42 | RADRPT ---
PROCEDURE: Chest 1 views. CLINICAL INDICATION: Shortness of breath. TECHNIQUE: AP views of the chest was obtained. COMPARISON: December 25, 2016 FINDINGS: The heart is large. Central pulmonary vascular congestion and interstitial prominence is seen in bot h lungs. Retrocardiac opacity is identified. Patchy right lower lobe infiltrates and small right p leural effusion are stable. The osseous structures are osteopenic, but appear intact. Degenerative changes are seen in the shoulders. IMPRESSION: Cardiomegaly . Central pulmonary vascular congestion and interstitial prominence in both lungs. Stable retrocardiac opacity that may reflect left lower lobe atelectasis or infiltrate combined with small pleural effusion. Stable right lower lobe infiltrates and small right pleural effusion. RPTAT: AA .Ezequiel Ford MD, Date Time Electronically viewed and signed by .Ezequiel Ford MD, on 12/29/2016 14:41 .P/
[2016-12-29 19:43] VITALS: BP 109/62; RESP 18
[2016-12-30] MEDS: PIPER-TAZO 3.375 GM IV (PMX) 100 ML IVPB SCH ×5 (00:30→23:42)
[2016-12-30] MEDS: ACCU-CHEK XX SCH (02:00)
[2016-12-30] MEDS: ALBUTEROL/IPRATROPIUM (NEB) 3 ML AMP HHN SCH ×4 (02:00→19:43)
[2016-12-30] MEDS: LEVOTHYROXINE 50 MCG TAB PO SCH (06:10)
[2016-12-30] MEDS: PANTOPRAZOLE (EC) 40 MG TAB PO SCH (06:10)
[2016-12-30] MEDS: INSULIN ASPART [NOVOLOG] 3 ML PEN SC SCH ×4 (08:11→20:26)
[2016-12-30 08:38] VITALS: BP 119/57; RESP 18
[2016-12-30] MEDS: ACETAZOLAMIDE 500 MG INJ IV SCH (10:24)
[2016-12-30 10:31] VITALS: BP 122/59; PULSE 78
[2016-12-30] MEDS: LACTOBACILLUS RHAMNOSUS CAP PO SCH ×2 (12:07→20:44)
[2016-12-30] MEDS: APIXABAN 5 MG TABLET PO SCH ×2 (12:08→20:44)
--- NOTE | 2016-12-30 13:45 | PN ---
Date/Time of Note Date/Time of Note DATE: 12/30/16 TIME: 13:42 Assessment/Plan VTE Prophylaxis VTE Prophylaxis Intervention: other Lines/Catheters IV Catheter Type (from Nrs): Saline Lock Urinary Cath still in place: No Assessment/Plan Assessment/Plan - Aspiration pneumonitis, continue broad-spectrum antibiotics. - Decompensated congestive heart failure. Continue Lasix and Coreg. - Hypertension - Atrial fibrillation, continue Eliquis. - Hypothyroidism, continue Synthroid. - Diabetes mellitus. Continue NovoLog per sliding scale. 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 - Advanced dementia. Further recommendations based on clinical course. Plan of care discussed with Dr. Villarreal. Subjective 24 Hr Interval Summary Free Text/Dictation afebrile, refuses to eat a times, family at bed side- all Qs answered Constitutional: requiring IVF Exam/Review of Systems Vital Signs Vitals Vital Signs Date Time Temp Pulse Resp B/P Pulse Ox O2 Delivery O2 Flow Rate FiO2 12/30/16 10:31 78 122/59 12/30/16 08:38 98.7 18 99 12/30/16 07:51 1.0 12/30/16 07:48 Nasal Cannula Intake and Output 12/29/16 12/29/16 12/30/16 15:00 23:00 07:00 Intake Total 100 ml 1180 ml 200 ml Output Total 850 ml Balance 100 ml 330 ml 200 ml Exam Constitutional: alert, well developed Respiratory: clear to auscultation, normal air movement Cardiovascular: nl pulses, regular rate and rhythm Gastrointestinal: non-tender, soft Musculoskeletal: nl extremities to inspection Extremities: normal pulses Neurological: nl speech Results Result Diagram: 12/29/16 0530 12/29/16 0530 Results 24 hrs Laboratory Tests Test 12/29/16 17:39 12/29/16 17:41 12/29/16 21:44 12/30/16 08:01 Bedside Glucose 188 203 171 114 Test 12/30/16 12:01 Bedside Glucose 120 Medications Medications Current Medications Acetaminophen 650 mg 650 mg Q4H PRN PO PAIN AND OR ELEVATED TEMP Last administered on 12/29/16t 09:42; Admin Dose 650 MG; Start 12/24/16 at 18:00 Piperacillin Sod/ Tazobactam Sod (Zosyn 3.375gm/ 100 ml (Pmx)) 100 ml @ 200 mls /hr Q6 IVPB Last administered on 12/30/16 12:07; Admin Dose 200 MLS/HR; Start 12/24/16 at 18:25 Morphine Sulfate (morphine) 2 mg Q4H PRN IV BREAKTHROUGH PAIN; Start 12/24/16 at 18:00 Ondansetron HCl (Zofran Inj) 4 mg Q6H PRN IV NAUSEA AND/OR VOMITING; Start at 18:00 Diagnostic Test (Pha) (Accu-Chek) 1 ea 02 XX ; Start 12/25/16 at 02:00 Miscellaneous Information 1 ea NOTE XX ; Start 12/24/16 at 19:00 Glucose (Glutose) 15 gm Q15M PRN PO DECREASED GLUCOSE; Start 12/24/16 at 19:00 Glucose (Glutose) 22.5 gm Q15M PRN PO DECREASED GLUCOSE; Start 12/24/16 at 19: 00 Dextrose (D50w Syringe) 25 ml Q15M PRN IV DECREASED GLUCOSE; Start 12/24/16 at 19:00 Dextrose (D50w Syringe) 50 ml Q15M PRN IV DECREASED GLUCOSE; Start 12/24/16 at 19:00 Glucagon (Glucagen) 1 mg Q15M PRN IM DECREASED GLUCOSE; Start 12/24/16 at 19:00 Glucose (Glutose) 15 gm Q15M PRN BUCCAL DECREASED GLUCOSE; Start 12/24/16 at 19 :00 Apixaban (Eliquis) 2.5 mg BID PO Last administered on 12/30/16 12:08; Admin Dose 2.5 MG; Start 12/24/16 at 21:00 Carvedilol (Coreg) 12.5 mg BID PO Last administered on 12/30/16 12:07; Admin Dose 12.5 MG; Start 12/24/16 at 21:00 Levothyroxine Sodium (Synthroid) 50 mcg DAILY@06 PO Last administered on 06:10; Admin Dose 50 MCG; Start 12/25/16 at 06:00 Pantoprazole (Protonix Tab) 40 mg DAILY@06 PO Last administered on 12/30/16 06 :10; Admin Dose 40 MG; Start 12/25/16 at 06:00 Calcium Carbonate (Tums) 500 mg Q4 PRN PO GASTROINTESTINAL UPSET Last administered on 12/25/16 12:27; Admin Dose 500 MG; Start 12/25/16 at 12:00 Lactobacillus Acidophilus/ Rhamnosus (Culturelle) 1 cap BID PO Last administered on 12/30/16 12:07; Admin Dose 1 CAP; Start 12/25/16 at 21:00 Promethazine HCl/ Codeine (Phenergan/ Codeine) 5 ml Q6H PRN PO COUGH Last administered on 12/26/16 03:10; Admin Dose 5 ML; Start 12/26/16 at 01:00 Hydralazine HCl (Apresoline) 25 mg Q8 PO Last administered on 12/30/16 06:11; Admin Dose 25 MG; Start 12/27/16 at 14:00 STAR BOWLES Dec 30, 2016 13:45
--- NOTE | 2016-12-30 14:03 | CONS ---
Date/Time of Note Date/Time of Note DATE: 12/30/16 TIME: 14:00 Assessment/Plan Assessment/Plan Chief Complaint/Hosp Course IMPRESSION: 1. Atrial fibrillation, currently rate controlled. 2. Congestive heart failure, systolic, acute on chronic-ongoing by cxr 12/29. 3. Hypertension. 4. Renal failure-worsening 5. Anemia. 6. Hypothyroidism. 7. Diabetes mellitus. 8. Possible lower extremity cellulitis. 9. Lower extremity edema. REcc: -serial ecg's -Continue coreg -Continue eliquis -Continue hydralazine afterload reduction given renal failure in lieu of ACEI -Continue abx's -Will resume lasix diuresis and follow microbiology technician closely Problems: Consultation Date/Type/Reason Admit Date/Time Dec 24, 2016 at 11:04 Initial Consult Date 12/24/2016 Type of Consultation: Cardiology Reason for Consultation AF Referring Provider: MANI MITCHELL MD Exam/Review of Systems Vital Signs Vitals Vital Signs Date Time Temp Pulse Resp B/P Pulse Ox O2 Delivery O2 Flow Rate FiO2 12/30/16 10:31 78 122/59 12/30/16 08:38 98.7 18 99 12/30/16 07:51 1.0 12/30/16 07:48 Nasal Cannula Intake and Output 12/29/16 12/29/16 12/30/16 15:00 23:00 07:00 Intake Total 100 ml 1180 ml 200 ml Output Total 850 ml Balance 100 ml 330 ml 200 ml Exam Review of Systems: CONSTITUTIONAL: No fevers, chills. PULMONARY: No sob CARDIOVASCULAR: No chest pain/palpitations GASTROINTESTINAL: No nausea/vomiting. GENITOURINARY: No hematuria/dysuria. MUSCULOSKELETAL: No myagias/arthalgias. PSYCHIATRIC: The patient denies depression. NEUROLOGIC: lethargic Constitutional: other (sleeping) Psych: no complaints Head: normocephalic ENMT: mucosa pink and moist Neck: jvd (9 cm watyer), supple Respiratory: diminished breath sounds (at bases/B) Cardiovascular: regular rate and rhythm Gastrointestinal: non-tender, soft Musculoskeletal: muscle tone (normal) Extremities: edema (trace/B) Neurological: lethargic Results Result Diagram: 12/29/16 0530 12/29/16 0530 Results 24 hrs Laboratory Tests Test 12/29/16 17:39 12/29/16 17:41 12/29/16 21:44 12/30/16 08:01 Bedside Glucose 188 203 171 114 Test 12/30/16 12:01 Bedside Glucose 120 Medications Medications Current Medications Acetaminophen 650 mg 650 mg Q4H PRN PO PAIN AND OR ELEVATED TEMP Last administered on 12/29/16 09:42; Admin Dose 650 MG; Start 12/24/16 at 18:00 Piperacillin Sod/ Tazobactam Sod (Zosyn 3.375gm/ 100 ml (Pmx)) 100 ml @ 200 mls /hr Q6 IVPB Last administered on 12/30/16 12:07; Admin Dose 200 MLS/HR; Start 12/24/16 at 18:25 Morphine Sulfate (morphine) 2 mg Q4H PRN IV BREAKTHROUGH PAIN; Start 12/24/16 at 18:00 Ondansetron HCl (Zofran Inj) 4 mg Q6H PRN IV NAUSEA AND/OR VOMITING; Start at 18:00 Diagnostic Test (Pha) (Accu-Chek) 1 ea 02 XX ; Start 12/25/16 at 02:00 Miscellaneous Information 1 ea NOTE XX ; Start 12/24/16 at 19:00 Glucose (Glutose) 15 gm Q15M PRN PO DECREASED GLUCOSE; Start 12/24/16 at 19:00 Glucose (Glutose) 22.5 gm Q15M PRN PO DECREASED GLUCOSE; Start 12/24/16 at 19: 00 Dextrose (D50w Syringe) 25 ml Q15M PRN IV DECREASED GLUCOSE; Start 12/24/16 at 19:00 Dextrose (D50w Syringe) 50 ml Q15M PRN IV DECREASED GLUCOSE; Start 12/24/16 at 19:00 Glucagon (Glucagen) 1 mg Q15M PRN IM DECREASED GLUCOSE; Start 12/24/16 at 19:00 Glucose (Glutose) 15 gm Q15M PRN BUCCAL DECREASED GLUCOSE; Start 12/24/16 at 19 :00 Apixaban (Eliquis) 2.5 mg BID PO Last administered on 12/30/16 12:08; Admin Dose 2.5 MG; Start 12/24/16 at 21:00 Carvedilol (Coreg) 12.5 mg BID PO Last administered on 6/22/17at 12:07; Admin Dose 12.5 MG; Start 12/24/16 at 21:00 Levothyroxine Sodium (Synthroid) 50 mcg DAILY@06 PO Last administered on 06:10; Admin Dose 50 MCG; Start 12/25/16 at 06:00 Pantoprazole (Protonix Tab) 40 mg DAILY@06 PO Last administered on 12/30/16 06 :10; Admin Dose 40 MG; Start 12/25/16 at 06:00 Calcium Carbonate (Tums) 500 mg Q4 PRN PO GASTROINTESTINAL UPSET Last administered on 12/25/16 12:27; Admin Dose 500 MG; Start 12/25/16 at 12:00 Lactobacillus Acidophilus/ Rhamnosus (Culturelle) 1 cap BID PO Last administered on 12/30/16 12:07; Admin Dose 1 CAP; Start 12/25/16 at 21:00 Promethazine HCl/ Codeine (Phenergan/ Codeine) 5 ml Q6H PRN PO COUGH Last administered on 12/26/16 03:10; Admin Dose 5 ML; Start 12/26/16 at 01:00 Hydralazine HCl 25 mg 25 mg Q8 PO Last administered on 12/30/16 06:11; Admin Dose 25 MG; Start 12/27/16 at 14:00 Sodium Chloride (1/2 NS) 1,000 ml @ 40 mls/hr Q24H IV ; Start 12/30/16 at 14:30 RED MAHONEY Dec 30, 2016 14:03
[2016-12-30 14:04] LABS: CALCIUM 8.3 mg/dl (8.4-10.2); CREATININE 1.53 mg/dl (0.61-1.24); POTASSIUM 3.6 mmol/L (3.5-5.1)
[2016-12-30] MEDS: SOD CHLORIDE 0.45% 1,000 ML IV SCH (15:30)
[2016-12-30] MEDS: FUROSEMIDE 20 MG INJ IV SCH (17:26)
[2016-12-30 17:36] VITALS: BP 109/54; PULSE 82
--- NOTE | 2016-12-30 19:07 | CONS ---
DATE OF ADMISSION: 12/24/2016 DATE OF CONSULTATION: 12/30/2016 NEPHROLOGY CONSULTATION REFERRING PHYSICIAN: Dr. Villarreal. REASON FOR CONSULTATION: Acute kidney injury versus acute kidney injury on chronic kidney disease. HISTORY OF PRESENT ILLNESS: This is an 86-year-old male who has a past medical history of atrial fi brillation, hypertension, CHF, hypothyroidism, diabetes mellitus who also has advanced dementia, pre sented with aspiration pneumonitis. He has been started on broad spectrum antibiotics. The patient has been followed up by clamshell engineer, Dr. Compa Johnson, for decompensated congestive heart failure . He is also noted to have a creatinine of 1.4 on admission, which improved to 1.1, but then again it bumps up to 1.5 and has been trending up, so renal has been consulted for acute versus acute on c hronic renal failure. REVIEW OF SYSTEMS: Unable to obtain from the patient since he is currently demented. PAST MEDICAL HISTORY: Notable for hypertension, hypothyroidism, CHF, atrial fibrillation, gastroeso phageal reflux disease, type 2 diabetes mellitus, history of previous admissions for recurrent CHF e xacerbation. PAST SURGICAL HISTORY: No known history as per the patient's chart review. PREVIOUS HOSPITALIZATIONS: In August 2016, he was admitted at ____ [facility]. In 2015. he was admitted at [facility]. FAMILY HISTORY: Not available. The patient is not able to provide any detailed history. PHYSICAL EXAMINATION: VITAL SIGNS: Temperature 98.6, heart rate 78, respiration 18, blood pressure 109/54, saturation 98% on 1 liter nasal cannula. GENERAL: Awake, alert, in moderate distress due to the dementia. HEENT: Pupils equal, round, reactive to light and accommodation. Extraocular muscles are intact. NECK: Supple, no JVD, no lymphadenopathy. LUNGS: Clear to auscultation bilaterally, no crackles, no wheezes. HEART: S1, S2, tachycardia, no murmur. ABDOMEN: Soft, nontender, nondistended. Bowel sounds are present. EXTREMITIES: No clubbing, cyanosis, or edema. NEUROLOGICAL: The patient is demented, not able to follow any commands. LABORATORY DATA/DIAGNOSTIC IMAGIN. Sodium 136, potassium 3.6, chloride 101, bicarbonate 30, BUN 15, creatinine 1.5, glucose 117, ca lcium 8.3, blood sugar has been 112 to 115. 2. PT, PTT, INR: ____ 17.6, PTT 39, INR 1.4. WBC 8.5, hemoglobin 11, platelet count 251. Urinaly sis shows 2+ leukocyte esterase, trace hemoglobin. 3. Chest x-ray shows central pulmonary vascular congestion and interstitial prominence in both lung s on 12/25/2016. IMPRESSION: This is an 86-year-old male who has been admitted for aspiration pneumonitis and acute congestive heart failure exacerbation. Cardiology has been following and nephrology was consulted for: 1. Acute kidney injury on possible chronic kidney disease, likely secondary to a congestive heart f ailure exacerbation and also possibly secondary to prerenal azotemia. 2. Acute congestive heart failure exacerbation, acute and chronic, systolic and diastolic, now on I V Lasix diuresis 20 mg b.i.d. 3. 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 4. History of diabetes mellitus type 2. 5. History of hypertension. 6. History of dementia. 7. Aspiration pneumonitis on IV antibiotics. PLAN: Thank you, Dr. Villarreal, for this consultation. The patient currently seen on the med/surg f arthur. He is currently hemodynamically stable. Continue the IV antibiotics, the Zosyn for infection coverage. 1. Lasix 20 mg IV b.i.d. has been managed by Cardiology. 2. Continue the NS at 40 mL per hour. I am expecting the patient's creatinine to improve by tomorr ow and at that time, we will consider stopping IV fluids. 3. I will order some urine studies including a urine sodium, urine protein creatinine ratio, urine eosinophils for workup of the chronic kidney disease and a renal ultrasound has been also ordered to assess the kidney size and to rule out hydronephrosis. 4. The patient currently seen in the med/surg floor and he will be followed up along with her cours e in the hospital. Total time spent in this patient's consultation, making assessment and plan, communicating with the nursing staff on the floor took more than 60 minutes. Dictated By: BLANCA CARLIN MD, KP/BRISSA Conf#: [id number] DID#: [id number] CC: MANI VILLARREAL MD;*EndCC*
[2016-12-30 20:20] VITALS: BP 113/59; RESP 18
[2016-12-31] MEDS: ACCU-CHEK XX SCH (02:00)
[2016-12-31] MEDS: ALBUTEROL/IPRATROPIUM (NEB) 3 ML AMP HHN SCH ×4 (02:42→19:53)
[2016-12-31] MEDS: PANTOPRAZOLE (EC) 40 MG TAB PO SCH (05:45)
[2016-12-31] MEDS: FUROSEMIDE 20 MG INJ IV SCH ×2 (05:45→18:07)
[2016-12-31] MEDS: LEVOTHYROXINE 50 MCG TAB PO SCH (05:45)
[2016-12-31] MEDS: PIPER-TAZO 3.375 GM IV (PMX) 100 ML IVPB SCH ×3 (05:45→18:06)
[2016-12-31 07:12] VITALS: BP 121/69; RESP 18
[2016-12-31 07:25] LABS: URIC ACID 3.6 mg/dl (3.1-7.9)
[2016-12-31 07:33] LABS: CREATINE KINASE < 20 IU/L (23-200)
[2016-12-31] MEDS: INSULIN ASPART [NOVOLOG] 3 ML PEN SC SCH ×4 (08:15→20:42)
--- NOTE | 2016-12-31 08:27 | RADRPT ---
PROCEDURE: Renal Ultrasound CLINICAL INDICATION: Renal failure. TECHNIQUE: Evaluation of the kidneys and bladder was performed as well with lares scale and color and Doppler evaluation using a curved array transducer. The images were reviewed on a high-resoluti on PACS workstation. COMPARISON: No prior studies are available for comparison. FINDINGS: The kidneys are well visualized. No renal masses or calcifications are seen. There is no hydronephr osis. There is a 3.2 cm cyst arising from the upper pole of the left kidney. The right kidney measu res 10.7 cm in length. The left kidney measures 11.2 cm in length. No perinephric fluid collecti on is seen. There is a 1.6 cm polypoid lesion projecting into the urinary bladder concerning for uri nary bladder wall mass. Incidental note is made of a left pleural effusion IMPRESSION: 1. 1.6 cm mass projecting into the urinary bladder. Recommend further evaluation with cystoscopy. 2. Small left pleural effusion. 3. 3.2 cm left upper pole renal cyst. 4. Otherwise unremarkable renal ultrasound. RPTAT: KK .Danny Tovar MD, Date Time Electronically viewed and signed by .Danny Tovar MD, MD on 12/31/2016 08:27 .B/
--- NOTE | 2016-12-31 10:48 | CONS ---
Date/Time of Note Date/Time of Note DATE: 12/31/16 TIME: 10:46 Assessment/Plan Assessment/Plan Additional Assessment/Plan 1. Atrial fibrillation, currently rate controlled- will moinitor clinically, off tele now 2. Congestive heart failure, systolic, acute on chronic-ongoing by cxr 12/29- euvolemic by exam 3. Hypertension- well Rx, in good fluid status 4. Renal failure-renal team follows 5. Anemia- H/H stable, no CP now 6. Hypothyroidism. 7. Diabetes mellitus. 8. Possible lower extremity cellulitis. 9. Lower extremity edema. Consultation Date/Type/Reason Admit Date/Time Dec 24, 2016 at 11:04 Type of Consultation: Cardiology Referring Provider: MANI MITCHELL MD 24 HR Interval Summary Free Text/Dictation NO acute events - BP in good range - no CP, doubt ischemia ROS: No fever, no chills, no nausea, no vomiting, no diarrhea/constipation No recent weight changes No chest pain, no PND, no orthopnea No dizziness, blurred vision No thirst, no heat or cold intolerance Exam/Review of Systems Vital Signs Vitals Vital Signs Date Time Temp Pulse Resp B/P Pulse Ox O2 Delivery O2 Flow Rate FiO2 12/31/16 07:12 98.0 89 18 121/69 98 12/31/16 02:42 1.0 12/31/16 02:42 Nasal Cannula Intake and Output 12/30/16 12/30/16 12/31/16 15:00 23:00 07:00 Intake Total 900 ml 820 ml 720 ml Balance 900 ml 820 ml 720 ml Exam General: WN/WD/NAD, AOx 0 HEENT: Unicetric/atraumatic/EOMI (does not follow commands) NECK: JVD elevated, no thyromegaly Lymph: no lymphadenopathy HEART: IRregular with no S3, II/ systolic murmur at apex LUNGS: Coarse sounds ABD: soft, NT, ND, +BS : Intact Neuro: non focal SKIN: chronic changes EXT: trace edema Results Result Diagram: 12/29/16 0530 12/30/16 1335 Results 24 hrs Laboratory Tests Test 12/30/16 12:01 12/30/16 13:35 12/30/16 17:31 12/30/16 20:24 Bedside Glucose 120 186 159 Sodium Level 136 Potassium Level 3.6 Chloride Level 101 Carbon Dioxide Level 30 Anion Gap 9 Blood Urea Nitrogen 15 Creatinine 1.53 H Glucose Level 117 Calcium Level 8.3 L Test 12/31/16 04:45 12/31/16 08:24 Uric Acid 3.6 Creatine Kinase < 20 L Bedside Glucose 108 Medications Medications Current Medications Acetaminophen 650 mg 650 mg Q4H PRN PO PAIN AND OR ELEVATED TEMP Last administered on 12/29/16 09:42; Admin Dose 650 MG; Start 12/24/16 at 18:00 Piperacillin Sod/ Tazobactam Sod (Zosyn 3.375gm/ 100 ml (Pmx)) 100 ml @ 200 mls /hr Q6 IVPB Last administered on 12/31/16 05:45; Admin Dose 200 MLS/HR; Start 12/24/16 at 18:25 Morphine Sulfate (morphine) 2 mg Q4H PRN IV BREAKTHROUGH PAIN; Start 12/24/16 at 18:00 Ondansetron HCl (Zofran Inj) 4 mg Q6H PRN IV NAUSEA AND/OR VOMITING; Start at 18:00 Diagnostic Test (Pha) (Accu-Chek) 1 ea 02 XX ; Start 12/25/16 at 02:00 Miscellaneous Information 1 ea NOTE XX ; Start 12/24/16 at 19:00 Glucose (Glutose) 15 gm Q15M PRN PO DECREASED GLUCOSE; Start 12/24/16 at 19:00 Glucose (Glutose) 22.5 gm Q15M PRN PO DECREASED GLUCOSE; Start 12/24/16 at 19: 00 Dextrose (D50w Syringe) 25 ml Q15M PRN IV DECREASED GLUCOSE; Start 12/24/16 at 19:00 Dextrose (D50w Syringe) 50 ml Q15M PRN IV DECREASED GLUCOSE; Start 12/24/16 at 19:00 Glucagon (Glucagen) 1 mg Q15M PRN IM DECREASED GLUCOSE; Start 12/24/16 at 19:00 Glucose (Glutose) 15 gm Q15M PRN BUCCAL DECREASED GLUCOSE; Start 12/24/16 at 19 :00 Apixaban (Eliquis) 2.5 mg BID PO Last administered on 12/30/16 20:44; Admin Dose 2.5 MG; Start 12/24/16 at 21:00 Carvedilol (Coreg) 12.5 mg BID PO Last administered on 12/30/16 20:44; Admin Dose 12.5 MG; Start 12/24/16 at 21:00 Levothyroxine Sodium (Synthroid) 50 mcg DAILY@06 PO Last administered on 05:45; Admin Dose 50 MCG; Start 12/25/16 at 06:00 Pantoprazole (Protonix Tab) 40 mg DAILY@06 PO Last administered on 12/31/16 05 :45; Admin Dose 40 MG; Start 12/25/16 at 06:00 Calcium Carbonate (Tums) 500 mg Q4 PRN PO GASTROINTESTINAL UPSET Last administered on 12/25/16 12:27; Admin Dose 500 MG; Start 12/25/16 at 12:00 Lactobacillus Acidophilus/ Rhamnosus (Culturelle) 1 cap BID PO Last administered on 12/30/16 20:44; Admin Dose 1 CAP; Start 12/25/16 at 21:00 Promethazine HCl/ Codeine (Phenergan/ Codeine) 5 ml Q6H PRN PO COUGH Last administered on 12/26/16 03:10; Admin Dose 5 ML; Start 12/26/16 at 01:00 Hydralazine HCl 25 mg 25 mg Q8 PO Last administered on 12/30/16 22:29; Admin Dose 25 MG; Start 12/27/16 at 14:00 Sodium Chloride (1/2 NS) 1,000 ml @ 40 mls/hr Q24H IV Last administered on 15:30; Admin Dose 40 MLS/HR; Start 12/30/16 at 14:30 JESSE CAMPO MD Dec 31, 2016 10:48
[2016-12-31 10:49] LABS: PROTEIN/CREAT RATIO 0.79 RATIO
[2016-12-31] MEDS: LACTOBACILLUS RHAMNOSUS CAP PO SCH ×2 (11:15→21:30)
[2016-12-31] MEDS: APIXABAN 5 MG TABLET PO SCH ×2 (11:15→21:29)
[2016-12-31] MEDS: SOD CHLORIDE 0.45% 1,000 ML IV SCH (14:30)
--- NOTE | 2016-12-31 16:56 | CONS ---
Date/Time of Note Date/Time of Note DATE: 12/31/16 TIME: 16:52 Assessment/Plan Assessment/Plan Additional Assessment/Plan 1. Acute kidney injury on possible chronic kidney disease, likely secondary to a congestive heart failure exacerbation and also possibly secondary to prerenal azotemia. 2. Acute congestive heart failure exacerbation, acute and chronic, systolic and diastolic, now on IV Lasix diuresis 20 mg b.i.d. 3. 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 4. History of diabetes mellitus type 2. 5. History of hypertension. 6. History of dementia. 7. Aspiration pneumonitis on IV antibiotics. PLAN: Cr improved to 1.53- on IV lasix 20mg BID Stop current IVF NS will monitor her off IVF AM CXR has been ordered If cr worsened in AM labs tomorrow then plan is to cut down on diuresis Consultation Date/Type/Reason Admit Date/Time Dec 24, 2016 at 11:04 Initial Consult Date Type of Consultation: NEPHROLOGY Referring Provider: MANI MITCHELL MD 24 HR Interval Summary Free Text/Dictation Cr improved to 1.53, Electrolytes stable, making good urine output Exam/Review of Systems Vital Signs Vitals Vital Signs Date Time Temp Pulse Resp B/P Pulse Ox O2 Delivery O2 Flow Rate FiO2 12/31/16 12:27 80 18 98 Nasal Cannula 1.0 12/31/16 07:12 98.0 121/69 Intake and Output 12/30/16 12/30/16 12/31/16 15:00 23:00 07:00 Intake Total 900 ml 820 ml 720 ml Balance 900 ml 820 ml 720 ml Exam GENERAL: Awake, alert, in moderate distress due to the dementia. HEENT: Pupils equal, round, reactive to light and accommodation. Extraocular muscles are intact. NECK: Supple, no JVD, no lymphadenopathy. LUNGS: Clear to auscultation bilaterally, no crackles, no wheezes. HEART: S1, S2, tachycardia, no murmur. ABDOMEN: Soft, nontender, nondistended. Bowel sounds are present. EXTREMITIES: No clubbing, cyanosis, or edema. NEUROLOGICAL: The patient is demented, not able to follow any commands. Results Result Diagram: 12/29/16 0530 12/30/16 1335 Results 24 hrs Laboratory Tests Test 12/30/16 17:31 12/30/16 20:24 12/31/16 04:15 12/31/16 04:45 Bedside Glucose 186 159 Urine Random Creatinine 47.81 Urine Random Sodium 87 Urine Protein/Creatinine Ratio 0.79 Urine Total Protein 38.0 H Uric Acid 3.6 Creatine Kinase < 20 L Test 12/31/16 08:24 12/31/16 12:02 Bedside Glucose 108 146 Medications Medications Current Medications Acetaminophen 650 mg 650 mg Q4H PRN PO PAIN AND OR ELEVATED TEMP Last administered on 12/29/16 09:42; Admin Dose 650 MG; Start 12/24/16 at 18:00 Piperacillin Sod/ Tazobactam Sod (Zosyn 3.375gm/ 100 ml (Pmx)) 100 ml @ 200 mls /hr Q6 IVPB Last administered on 12/31/16 14:53; Admin Dose 200 MLS/HR; Start 12/24/16 at 18:25 Morphine Sulfate (morphine) 2 mg Q4H PRN IV BREAKTHROUGH PAIN; Start 12/24/16 at 18:00 Ondansetron HCl (Zofran Inj) 4 mg Q6H PRN IV NAUSEA AND/OR VOMITING; Start at 18:00 Diagnostic Test (Pha) (Accu-Chek) 1 ea 02 XX ; Start 12/25/16 at 02:00 Miscellaneous Information 1 ea NOTE XX ; Start 12/24/16 at 19:00 Glucose (Glutose) 15 gm Q15M PRN PO DECREASED GLUCOSE; Start 12/24/16 at 19:00 Glucose (Glutose) 22.5 gm Q15M PRN PO DECREASED GLUCOSE; Start 12/24/16 at 19: 00 Dextrose (D50w Syringe) 25 ml Q15M PRN IV DECREASED GLUCOSE; Start 12/24/16 at 19:00 Dextrose (D50w Syringe) 50 ml Q15M PRN IV DECREASED GLUCOSE; Start 12/24/16 at 19:00 Glucagon (Glucagen) 1 mg Q15M PRN IM DECREASED GLUCOSE; Start 12/24/16 at 19:00 Glucose (Glutose) 15 gm Q15M PRN BUCCAL DECREASED GLUCOSE; Start 12/24/16 at 19 :00 Apixaban (Eliquis) 2.5 mg BID PO Last administered on 12/31/16 11:15; Admin Dose 2.5 MG; Start 12/24/16 at 21:00 Carvedilol (Coreg) 12.5 mg BID PO Last administered on 12/31/16 11:16; Admin Dose 12.5 MG; Start 12/24/16 at 21:00 Levothyroxine Sodium (Synthroid) 50 mcg DAILY@06 PO Last administered on 05:45; Admin Dose 50 MCG; Start 12/25/16 at 06:00 Pantoprazole (Protonix Tab) 40 mg DAILY@06 PO Last administered on 12/31/16 05 :45; Admin Dose 40 MG; Start 12/25/16 at 06:00 Calcium Carbonate (Tums) 500 mg Q4 PRN PO GASTROINTESTINAL UPSET Last administered on 12/25/16 12:27; Admin Dose 500 MG; Start 12/25/16 at 12:00 Lactobacillus Acidophilus/ Rhamnosus (Culturelle) 1 cap BID PO Last administered on 12/31/16 11:15; Admin Dose 1 CAP; Start 12/25/16 at 21:00 Promethazine HCl/ Codeine (Phenergan/ Codeine) 5 ml Q6H PRN PO COUGH Last administered on 12/26/16 03:10; Admin Dose 5 ML; Start 12/26/16 at 01:00 Hydralazine HCl 25 mg 25 mg Q8 PO Last administered on 12/30/16 22:29; Admin Dose 25 MG; Start 12/27/16 at 14:00 Sodium Chloride (1/2 NS) 1,000 ml @ 40 mls/hr Q24H IV Last administered on 15:30; Admin Dose 40 MLS/HR; Start 12/30/16 at 14:30 BLANCA CARLIN MD Dec 31, 2016 16:56
--- NOTE | 2016-12-31 19:12 | PN ---
Date/Time of Note Date/Time of Note DATE: 12/31/16 TIME: 19:10 Assessment/Plan VTE Prophylaxis VTE Prophylaxis Intervention: other Lines/Catheters IV [facility]ter [facility]from [facility] Saline Lock Urinary Cath still in place: No Assessment/Plan Chief Complaint/Hosp Course Patient remains hemodynamically stable on supplemental oxygen, denies shortness of breath denies chest pain, blood sugar is well controlled. Assessment/Plan - Aspiration pneumonitis, continue Zosyn. Strict aspiration precaution was pur ed diet. - Decompensated congestive heart failure. Continue Lasix and Coreg. - Hypertension, continue Coreg and hydralazine. - Atrial fibrillation, continue Eliquis. - Hypothyroidism, continue Synthroid. - Diabetes mellitus. Continue NovoLog per sliding scale. 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 - Advanced dementia. Further recommendations based on clinical course. Plan of care discussed with Dr. Villarreal. Problems: Exam/Review of Systems Vital Signs Vitals Vital Signs Date Time Temp Pulse Resp B/P Pulse Ox O2 Delivery O2 Flow Rate FiO2 12/31/16 12:27 80 18 98 Nasal Cannula 1.0 12/31/16 07:12 98.0 121/69 Intake and Output 12/30/16 12/30/16 12/31/16 15:00 23:00 07:00 Intake Total 900 ml 820 ml 720 ml Balance 900 ml 820 ml 720 ml Exam Constitutional: alert Psych: confusion Head: normocephalic Neck: non-tender, supple Respiratory: clear to auscultation Cardiovascular: irregular rhythm Gastrointestinal: non-tender, soft Extremities: normal pulses Neurological: nl mental status Results Result Diagram: 12/29/16 0530 12/30/16 1335 Results 24 hrs Laboratory Tests Test 12/30/16 20:24 12/31/16 04:15 12/31/16 04:45 12/31/16 08:24 Bedside Glucose 159 108 Urine Random Creatinine 47.81 Urine Random Sodium 87 Urine Protein/Creatinine Ratio 0.79 Urine Total Protein 38.0 H Uric Acid 3.6 Creatine Kinase < 20 L Test 12/31/16 12:02 12/31/16 17:42 Bedside Glucose 146 164 Medications Medications Current Medications Acetaminophen 650 mg 650 mg Q4H PRN PO PAIN AND OR ELEVATED TEMP Last administered on 12/29/16t 09:42; Admin Dose 650 MG; Start 12/24/16 at 18:00 Piperacillin Sod/ Tazobactam Sod (Zosyn 3.375gm/ 100 ml (Pmx)) 100 ml @ 200 mls /hr Q6 IVPB Last administered on 12/31/16 18:06; Admin Dose 200 MLS/HR; Start 12/24/16 at 18:25 Morphine Sulfate (morphine) 2 mg Q4H PRN IV BREAKTHROUGH PAIN Last administered on 12/31/16 18:37; Admin Dose 2 MG; Start 12/24/16 at 18:00 Ondansetron HCl (Zofran Inj) 4 mg Q6H PRN IV NAUSEA AND/OR VOMITING; Start at 18:00 Diagnostic Test (Pha) (Accu-Chek) 1 ea 02 XX ; Start 12/25/16 at 02:00 Miscellaneous Information 1 ea NOTE XX ; Start 12/24/16 at 19:00 Glucose (Glutose) 15 gm Q15M PRN PO DECREASED GLUCOSE; Start 12/24/16 at 19:00 Glucose (Glutose) 22.5 gm Q15M PRN PO DECREASED GLUCOSE; Start 12/24/16 at 19: 00 Dextrose (D50w Syringe) 25 ml Q15M PRN IV DECREASED GLUCOSE; Start 12/24/16 at 19:00 Dextrose (D50w Syringe) 50 ml Q15M PRN IV DECREASED GLUCOSE; Start 12/24/16 at 19:00 Glucagon (Glucagen) 1 mg Q15M PRN IM DECREASED GLUCOSE; Start 12/24/16 at 19:00 Glucose (Glutose) 15 gm Q15M PRN BUCCAL DECREASED GLUCOSE; Start 12/24/16 at 19 :00 Apixaban (Eliquis) 2.5 mg BID PO Last administered on 12/31/16 11:15; Admin Dose 2.5 MG; Start 12/24/16 at 21:00 Carvedilol (Coreg) 12.5 mg BID PO Last administered on 12/31/16 11:16; Admin Dose 12.5 MG; Start 12/24/16 at 21:00 Levothyroxine Sodium (Synthroid) 50 mcg DAILY@06 PO Last administered on 05:45; Admin Dose 50 MCG; Start 12/25/16 at 06:00 Pantoprazole (Protonix Tab) 40 mg DAILY@06 PO Last administered on 12/31/16 05 :45; Admin Dose 40 MG; Start 12/25/16 at 06:00 Calcium Carbonate (Tums) 500 mg Q4 PRN PO GASTROINTESTINAL UPSET Last administered on 12/25/16 12:27; Admin Dose 500 MG; Start 12/25/16 at 12:00 Lactobacillus Acidophilus/ Rhamnosus (Culturelle) 1 cap BID PO Last administered on 12/31/16 11:15; Admin Dose 1 CAP; Start 12/25/16 at 21:00 Promethazine HCl/ Codeine (Phenergan/ Codeine) 5 ml Q6H PRN PO COUGH Last administered on 12/26/16 03:10; Admin Dose 5 ML; Start 12/26/16 at 01:00 Hydralazine HCl (Apresoline) 25 mg Q8 PO Last administered on 12/30/16 22:29; Admin Dose 25 MG; Start 12/27/16 at 14:00 LYLA YOUNG Dec 31, 2016 19:12
[2016-12-31 20:14] VITALS: BP 121/61; RESP 20
[2016-12-31] MEDS: MULTIVITAMINS 10 ML in DEXTROSE 5%-0.45% NACL 1,000 ML IV SCH (21:30)
[2016-12-31 22:32] VITALS: BP 130/60; RESP 18
[2017-01-01] MEDS: PIPER-TAZO 3.375 GM IV (PMX) 100 ML IVPB SCH ×5 (00:18→23:34)
[2017-01-01] MEDS: ACCU-CHEK XX SCH (02:00)
[2017-01-01] MEDS: ALBUTEROL/IPRATROPIUM (NEB) 3 ML AMP HHN SCH ×4 (02:00→19:57)
[2017-01-01 06:06] LABS: ADD SCAN DIFF NO
[2017-01-01] MEDS: PANTOPRAZOLE (EC) 40 MG TAB PO SCH (06:07)
[2017-01-01] MEDS: LEVOTHYROXINE 50 MCG TAB PO SCH (06:08)
[2017-01-01] MEDS: FUROSEMIDE 20 MG INJ IV SCH (06:08)
[2017-01-01 06:10] LABS: BASOPHILS % 0.2 % (0.0-2.0); EOSINOPHILS # 0.1 10^3/ul (0.0-0.5); EOSINOPHILS % 0.4 % (0.0-7.0); HEMATOCRIT 36.7 % (42.0-52.0); HEMOGLOBIN 11.3 g/dl (14.0-18.0); LYMPHOCYTES # 1.5 10^3/ul (0.8-2.9); LYMPHOCYTES % 11.9 % (15.0-51.0); MEAN CORPUSCULAR HEMOGLOBIN 29.2 pg (29.0-33.0); MEAN CORPUSCULAR HGB CONC 30.8 g/dl (32.0-37.0); MEAN CORPUSCULAR VOLUME 94.8 fl (82.0-101.0); MEAN PLATELET VOLUME 10.3 fl (7.4-10.4); MONOCYTE # 1.2 10^3/ul (0.3-0.9); MONOCYTES % 9.8 % (0.0-11.0); NEUTROPHIL # 9.4 10^3/ul (1.6-7.5); NEUTROPHILS % 77.3 % (39.0-77.0); PLATELET COUNT 254 10^3/UL (140-415); RED BLOOD COUNT 3.87 10^6/ul (4.70-6.10); RED CELL DISTRIBUTION WIDTH 16.2 % (11.5-14.5); WHITE BLOOD COUNT 12.2 10^3/ul (4.8-10.8)
[2017-01-01 06:41] LABS: CALCIUM 8.5 mg/dl (8.4-10.2); CREATININE 1.51 mg/dl (0.61-1.24); POTASSIUM 3.6 mmol/L (3.5-5.1)
[2017-01-01 07:11] VITALS: BP 118/61; RESP 18
[2017-01-01] MEDS: INSULIN ASPART [NOVOLOG] 3 ML PEN SC SCH ×4 (08:00→20:44)
[2017-01-01] MEDS: APIXABAN 5 MG TABLET PO SCH ×2 (08:12→21:13)
[2017-01-01] MEDS: LACTOBACILLUS RHAMNOSUS CAP PO SCH ×2 (08:12→21:13)
--- NOTE | 2017-01-01 09:57 | RADRPT ---
PROCEDURE: XR Chest. CLINICAL INDICATION: Pneumonia. Shortness of breath para TECHNIQUE: Frontal chest x-ray was obtained. COMPARISON: The chest x-ray December 24, 2016 FINDINGS: Heart is enlarged. Mediastinum is not widened. No hilar masses seen. There are hazy bilateral low er lobe infiltrates again seen with bilateral pleural effusions. No pneumothorax is present. IMPRESSION: Cardiomegaly. Hazy bibasilar infiltrates and bilateral pleural effusions. Rule out failure versus pneumonia. No significant change. .Preet Bennett MD, MD Date Time Electronically viewed and signed by .Preet Bennett MD, MD on 01/01/2017 09:56 .A/
--- NOTE | 2017-01-01 11:44 | PN ---
Date/Time of Note Date/Time of Note DATE: 01/01/17 TIME: 11:43 Assessment/Plan VTE Prophylaxis VTE Prophylaxis Intervention: other Lines/Catheters IV C[facility]ter Type (from [facility]): Saline Lock Urinary Cath still in place: No Assessment/Plan Chief Complaint/Hosp Course - Aspiration pneumonitis, continue Zosyn. Strict aspiration precaution was pur ed diet. - Decompensated congestive heart failure. Continue Lasix and Coreg. - Hypertension, continue Coreg and hydralazine. - Atrial fibrillation, continue Eliquis. - Hypothyroidism, continue Synthroid. - Diabetes mellitus. Continue NovoLog per sliding scale. 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 - Advanced dementia. Problems: Subjective 24 Hr Interval Summary Free Text/Dictation Patient breathing ok but still having rhonchi Exam/Review of Systems Vital Signs Vitals Vital Signs Date Time Temp Pulse Resp B/P Pulse Ox O2 Delivery O2 Flow Rate FiO2 01/01/17 10:10 1.0 01/01/17 07:11 98.6 82 18 118/61 100 01/01/17 04:59 Nasal Cannula Intake and Output 12/31/16 12/31/16 01/01/17 15:00 23:00 07:00 Intake Total 2300 ml 320 ml Balance 2300 ml 320 ml Exam Constitutional: well developed Head: atraumatic, normocephalic Neck: supple Respiratory: congested cough Cardiovascular: regular rate and rhythm Gastrointestinal: non-tender, soft Extremities: normal pulses Results Result Diagram: 01/01/17 0547 01/01/17 0547 Results 24 hrs Laboratory Tests Test 12/31/16 12:02 12/31/16 17:42 12/31/16 20:38 01/01/17 05:47 Bedside Glucose 146 164 180 White Blood Count 12.2 #H Red Blood Count 3.87 L Hemoglobin 11.3 L Hematocrit 36.7 L Mean Corpuscular Volume 94.8 Mean Corpuscular Hemoglobin 29.2 Mean Corpuscular Hemoglobin Concent 30.8 L Red Cell Distribution Width 16.2 H Platelet Count 254 Mean Platelet Volume 10.3 Neutrophils % 77.3 H Lymphocytes % 11.9 L Monocytes % 9.8 Eosinophils % 0.4 Basophils % 0.2 Nucleated Red Blood Cells % 0.0 Neutrophils # 9.4 H Lymphocytes # 1.5 Monocytes # 1.2 H Eosinophils # 0.1 Basophils # 0.0 Nucleated Red Blood Cells # 0.0 Sodium Level 137 Potassium Level 3.6 Chloride Level 102 Carbon Dioxide Level 30 Anion Gap 9 Blood Urea Nitrogen 17 Creatinine 1.51 H Glucose Level 148 Calcium Level 8.5 Test 01/01/17 07:59 Bedside Glucose 127 Medications Medications Current Medications Acetaminophen 650 mg 650 mg Q4H PRN PO PAIN AND OR ELEVATED TEMP Last administered on 12/29/16 09:42; Admin Dose 650 MG; Start 12/24/16 at 18:00 Piperacillin Sod/ Tazobactam Sod (Zosyn 3.375gm/ 100 ml (Pmx)) 100 ml @ 200 mls /hr Q6 IVPB Last administered on 01/01/17 06:08; Admin Dose 200 MLS/HR; Start 12/24/16 at 18:25 Morphine Sulfate (morphine) 2 mg Q4H PRN IV BREAKTHROUGH PAIN Last administered on 12/31/16 18:37; Admin Dose 2 MG; Start 12/24/16 at 18:00 Ondansetron HCl (Zofran Inj) 4 mg Q6H PRN IV NAUSEA AND/OR VOMITING; Start at 18:00 Diagnostic Test (Pha) (Accu-Chek) 1 ea 02 XX ; Start 12/25/16 at 02:00 Miscellaneous Information 1 ea NOTE XX ; Start 12/24/16 at 19:00 Glucose (Glutose) 15 gm Q15M PRN PO DECREASED GLUCOSE; Start 12/24/16 at 19:00 Glucose (Glutose) 22.5 gm Q15M PRN PO DECREASED GLUCOSE; Start 12/24/16 at 19: 00 Dextrose (D50w Syringe) 25 ml Q15M PRN IV DECREASED GLUCOSE; Start 12/24/16 at 19:00 Dextrose (D50w Syringe) 50 ml Q15M PRN IV DECREASED GLUCOSE; Start 12/24/16 at 19:00 Glucagon (Glucagen) 1 mg Q15M PRN IM DECREASED GLUCOSE; Start 12/24/16 at 19:00 Glucose (Glutose) 15 gm Q15M PRN BUCCAL DECREASED GLUCOSE; Start 12/24/16 at 19 :00 Apixaban (Eliquis) 2.5 mg BID PO Last administered on 01/01/17 08:12; Admin Dose 2.5 MG; Start 12/24/16 at 21:00 Carvedilol (Coreg) 12.5 mg BID PO Last administered on 01/01/17 08:13; Admin Dose 12.5 MG; Start 12/24/16 at 21:00 Levothyroxine Sodium (Synthroid) 50 mcg DAILY@06 PO Last administered on 06:08; Admin Dose 50 MCG; Start 12/25/16 at 06:00 Pantoprazole (Protonix Tab) 40 mg DAILY@06 PO Last administered on 01/01/17 06 :07; Admin Dose 40 MG; Start 12/25/16 at 06:00 Calcium Carbonate (Tums) 500 mg Q4 PRN PO GASTROINTESTINAL UPSET Last administered on 12/25/16 12:27; Admin Dose 500 MG; Start 12/25/16 at 12:00 Lactobacillus Acidophilus/ Rhamnosus (Culturelle) 1 cap BID PO Last administered on 01/01/17 08:12; Admin Dose 1 CAP; Start 12/25/16 at 21:00 Promethazine HCl/ Codeine (Phenergan/ Codeine) 5 ml Q6H PRN PO COUGH Last administered on 12/26/16 03:10; Admin Dose 5 ML; Start 12/26/16 at 01:00 Hydralazine HCl 25 mg 25 mg Q8 PO Last administered on 01/01/17 06:08; Admin Dose 25 MG; Start 12/27/16 at 14:00 Multivitamins/ Dextrose/Sodium Chloride (Mvi Adult/D5-1/ 2ns) 1,010 ml @ 30 mls /hr Q24H IV Last administered on 12/31/16 21:30; Admin Dose 30 MLS/HR; Start 12/31/16 at 22:00 Furosemide (Lasix) 20 mg DAILY PO ; Start 01/02/17 at 09:00 MERLE FERREIRA Jan 01, 2017 11:44
--- NOTE | 2017-01-01 11:51 | CONS ---
Date/Time of Note Date/Time of Note DATE: 01/01/17 TIME: 11:49 Assessment/Plan Assessment/Plan Additional Assessment/Plan 1. Acute kidney injury on possible chronic kidney disease, likely secondary to a congestive heart failure exacerbation and also possibly secondary to prerenal azotemia. 2. Acute congestive heart failure exacerbation, acute and chronic, systolic and diastolic, now on IV Lasix diuresis 20 mg b.i.d. 3. 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 4. History of diabetes mellitus type 2. 5. History of hypertension. 6. History of dementia. 7. Aspiration pneumonitis on IV antibiotics. PLAN: Cr improved to 1.53- on IV lasix 20mg BID- change lasix to 20mg PO daily CXR today AM negative for pulmonary congestino, it showed infiltrates will follow up Consultation Date/Type/Reason Admit Date/Time Dec 24, 2016 at 11:04 Type of Consultation: NEPHROLOGY Referring Provider: MANI MITCHELL MD 24 HR Interval Summary Free Text/Dictation doing ok, on IV lasix, CXR neg for congestino,willchange to PO lasix, doing ok Exam/Review of Systems Vital Signs Vitals Vital Signs Date Time Temp Pulse Resp B/P Pulse Ox O2 Delivery O2 Flow Rate FiO2 01/01/17 10:10 1.0 01/01/17 07:11 98.6 82 18 118/61 100 01/01/17 04:59 Nasal Cannula Intake and Output 12/31/16 12/31/16 01/01/17 15:00 23:00 07:00 Intake Total 2300 ml 320 ml Balance 2300 ml 320 ml Exam GENERAL: Awake, alert, in moderate distress due to the dementia. HEENT: Pupils equal, round, reactive to light and accommodation. Extraocular muscles are intact. NECK: Supple, no JVD, no lymphadenopathy. LUNGS: Clear to auscultation bilaterally, no crackles, no wheezes. HEART: S1, S2, tachycardia, no murmur. ABDOMEN: Soft, nontender, nondistended. Bowel sounds are present. EXTREMITIES: No clubbing, cyanosis, or edema. NEUROLOGICAL: The patient is demented, not able to follow any commands. Results Result Diagram: 01/01/17 0547 01/01/17 0547 Results 24 hrs Laboratory Tests Test 12/31/16 12:02 12/31/16 17:42 12/31/16 20:38 01/01/17 05:47 Bedside Glucose 146 164 180 White Blood Count 12.2 #H Red Blood Count 3.87 L Hemoglobin 11.3 L Hematocrit 36.7 L Mean Corpuscular Volume 94.8 Mean Corpuscular Hemoglobin 29.2 Mean Corpuscular Hemoglobin Concent 30.8 L Red Cell Distribution Width 16.2 H Platelet Count 254 Mean Platelet Volume 10.3 Neutrophils % 77.3 H Lymphocytes % 11.9 L Monocytes % 9.8 Eosinophils % 0.4 Basophils % 0.2 Nucleated Red Blood Cells % 0.0 Neutrophils # 9.4 H Lymphocytes # 1.5 Monocytes # 1.2 H Eosinophils # 0.1 Basophils # 0.0 Nucleated Red Blood Cells # 0.0 Sodium Level 137 Potassium Level 3.6 Chloride Level 102 Carbon Dioxide Level 30 Anion Gap 9 Blood Urea Nitrogen 17 Creatinine 1.51 H Glucose Level 148 Calcium Level 8.5 Test 01/01/17 07:59 Bedside Glucose 127 Medications Medications Current Medications Acetaminophen 650 mg 650 mg Q4H PRN PO PAIN AND OR ELEVATED TEMP Last administered on 12/29/16 09:42; Admin Dose 650 MG; Start 12/24/16 at 18:00 Piperacillin Sod/ Tazobactam Sod (Zosyn 3.375gm/ 100 ml (Pmx)) 100 ml @ 200 mls /hr Q6 IVPB Last administered on 01/01/17 06:08; Admin Dose 200 MLS/HR; Start 12/24/16 at 18:25 Morphine Sulfate (morphine) 2 mg Q4H PRN IV BREAKTHROUGH PAIN Last administered on 12/31/16 18:37; Admin Dose 2 MG; Start 12/24/16 at 18:00 Ondansetron HCl (Zofran Inj) 4 mg Q6H PRN IV NAUSEA AND/OR VOMITING; Start at 18:00 Diagnostic Test (Pha) (Accu-Chek) 1 ea 02 XX ; Start 12/25/16 at 02:00 Miscellaneous Information 1 ea NOTE XX ; Start 12/24/16 at 19:00 Glucose (Glutose) 15 gm Q15M PRN PO DECREASED GLUCOSE; Start 12/24/16 at 19:00 Glucose (Glutose) 22.5 gm Q15M PRN PO DECREASED GLUCOSE; Start 12/24/16 at 19: 00 Dextrose (D50w Syringe) 25 ml Q15M PRN IV DECREASED GLUCOSE; Start 12/24/16 at 19:00 Dextrose (D50w Syringe) 50 ml Q15M PRN IV DECREASED GLUCOSE; Start 12/24/16 at 19:00 Glucagon (Glucagen) 1 mg Q15M PRN IM DECREASED GLUCOSE; Start 12/24/16 at 19:00 Glucose (Glutose) 15 gm Q15M PRN BUCCAL DECREASED GLUCOSE; Start 12/24/16 at 19 :00 Apixaban (Eliquis) 2.5 mg BID PO Last administered on 01/01/17 08:12; Admin Dose 2.5 MG; Start 12/24/16 at 21:00 Carvedilol (Coreg) 12.5 mg BID PO Last administered on 01/01/17 08:13; Admin Dose 12.5 MG; Start 12/24/16 at 21:00 Levothyroxine Sodium (Synthroid) 50 mcg DAILY@06 PO Last administered on 06:08; Admin Dose 50 MCG; Start 12/25/16 at 06:00 Pantoprazole (Protonix Tab) 40 mg DAILY@06 PO Last administered on 01/01/17 06 :07; Admin Dose 40 MG; Start 12/25/16 at 06:00 Calcium Carbonate (Tums) 500 mg Q4 PRN PO GASTROINTESTINAL UPSET Last administered on 12/25/16 12:27; Admin Dose 500 MG; Start 12/25/16 at 12:00 Lactobacillus Acidophilus/ Rhamnosus (Culturelle) 1 cap BID PO Last administered on 01/01/17 08:12; Admin Dose 1 CAP; Start 12/25/16 at 21:00 Promethazine HCl/ Codeine (Phenergan/ Codeine) 5 ml Q6H PRN PO COUGH Last administered on 12/26/16 03:10; Admin Dose 5 ML; Start 12/26/16 at 01:00 Hydralazine HCl 25 mg 25 mg Q8 PO Last administered on 01/01/17 06:08; Admin Dose 25 MG; Start 12/27/16 at 14:00 Multivitamins/ Dextrose/Sodium Chloride (Mvi Adult/D5-1/ 2ns) 1,010 ml @ 30 mls /hr Q24H IV Last administered on 12/31/16t 21:30; Admin Dose 30 MLS/HR; Start 12/31/16 at 22:00 Furosemide (Lasix) 20 mg DAILY PO ; Start 01/02/17 at 09:00 BLANCA CARLIN MD Jan 01, 2017 11:51
--- NOTE | 2017-01-01 11:54 | CONS ---
Date/Time of Note Date/Time of Note DATE: 01/01/17 TIME: 11:53 Assessment/Plan Assessment/Plan Additional Assessment/Plan 1. Atrial fibrillation, currently rate controlled- will dieudonnetor clinically, off tele now - stable 2. Congestive heart failure, systolic, acute on chronic-ongoing by cxr 12/29- euvolemic by exam - BETTER 3. Hypertension- well Rx, in good fluid status 4. Renal failure-renal team follows - avoid nephrotoxic meds 5. Anemia- H/H stable, no CP now 6. Hypothyroidism. 7. Diabetes mellitus. 8. Possible lower extremity cellulitis. 9. Lower extremity edema. Consultation Date/Type/Reason Admit Date/Time Dec 24, 2016 at 11:04 Type of Consultation: NEPHROLOGY Referring Provider: MANI MITCHELL MD 24 HR Interval Summary Free Text/Dictation NO acute events - more alert now - no CP ROS: No fever, no chills, no nausea, no vomiting, no diarrhea/constipation No recent weight changes No chest pain, no PND, no orthopnea No dizziness, blurred vision No thirst, no heat or cold intolerance Exam/Review of Systems Vital Signs Vitals Vital Signs Date Time Temp Pulse Resp B/P Pulse Ox O2 Delivery O2 Flow Rate FiO2 01/01/17 10:10 1.0 01/01/17 07:11 98.6 82 18 118/61 100 01/01/17 04:59 Nasal Cannula Intake and Output 12/31/16 12/31/16 01/01/17 15:00 23:00 07:00 Intake Total 2300 ml 320 ml Balance 2300 ml 320 ml Exam General: WN/WD/NAD, AOx 2-3 HEENT: Unicetric/atraumatic/EOMI (follow commands) NECK: JVD elevated, no thyromegaly Lymph: no lymphadenopathy HEART: IR IRregular with no S3, II/ systolic murmur at apex LUNGS: Coarse sounds ABD: soft, NT, ND, +BS : Intact Neuro: non focal SKIN: chronic changes EXT: trace edema Results Result Diagram: 01/01/17 0547 01/01/17 0547 Results 24 hrs Laboratory Tests Test 12/31/16 12:02 12/31/16 17:42 12/31/16 20:38 01/01/17 05:47 Bedside Glucose 146 164 180 White Blood Count 12.2 #H Red Blood Count 3.87 L Hemoglobin 11.3 L Hematocrit 36.7 L Mean Corpuscular Volume 94.8 Mean Corpuscular Hemoglobin 29.2 Mean Corpuscular Hemoglobin Concent 30.8 L Red Cell Distribution Width 16.2 H Platelet Count 254 Mean Platelet Volume 10.3 Neutrophils % 77.3 H Lymphocytes % 11.9 L Monocytes % 9.8 Eosinophils % 0.4 Basophils % 0.2 Nucleated Red Blood Cells % 0.0 Neutrophils # 9.4 H Lymphocytes # 1.5 Monocytes # 1.2 H Eosinophils # 0.1 Basophils # 0.0 Nucleated Red Blood Cells # 0.0 Sodium Level 137 Potassium Level 3.6 Chloride Level 102 Carbon Dioxide Level 30 Anion Gap 9 Blood Urea Nitrogen 17 Creatinine 1.51 H Glucose Level 148 Calcium Level 8.5 Test 01/01/17 07:59 Bedside Glucose 127 Medications Medications Current Medications Acetaminophen 650 mg 650 mg Q4H PRN PO PAIN AND OR ELEVATED TEMP Last administered on 12/29/16 09:42; Admin Dose 650 MG; Start 12/24/16 at 18:00 Piperacillin Sod/ Tazobactam Sod (Zosyn 3.375gm/ 100 ml (Pmx)) 100 ml @ 200 mls /hr Q6 IVPB Last administered on 01/01/17 06:08; Admin Dose 200 MLS/HR; Start 12/24/16 at 18:25 Morphine Sulfate (morphine) 2 mg Q4H PRN IV BREAKTHROUGH PAIN Last administered on 12/31/16 18:37; Admin Dose 2 MG; Start 12/24/16 at 18:00 Ondansetron HCl (Zofran Inj) 4 mg Q6H PRN IV NAUSEA AND/OR VOMITING; Start at 18:00 Diagnostic Test (Pha) (Accu-Chek) 1 ea 02 XX ; Start 12/25/16 at 02:00 Miscellaneous Information 1 ea NOTE XX ; Start 12/24/16 at 19:00 Glucose (Glutose) 15 gm Q15M PRN PO DECREASED GLUCOSE; Start 12/24/16 at 19:00 Glucose (Glutose) 22.5 gm Q15M PRN PO DECREASED GLUCOSE; Start 12/24/16 at 19: 00 Dextrose (D50w Syringe) 25 ml Q15M PRN IV DECREASED GLUCOSE; Start 12/24/16 at 19:00 Dextrose (D50w Syringe) 50 ml Q15M PRN IV DECREASED GLUCOSE; Start 12/24/16 at 19:00 Glucagon (Glucagen) 1 mg Q15M PRN IM DECREASED GLUCOSE; Start 12/24/16 at 19:00 Glucose (Glutose) 15 gm Q15M PRN BUCCAL DECREASED GLUCOSE; Start 12/24/16 at 19 :00 Apixaban (Eliquis) 2.5 mg BID PO Last administered on 01/01/17 08:12; Admin Dose 2.5 MG; Start 12/24/16 at 21:00 Carvedilol (Coreg) 12.5 mg BID PO Last administered on 01/01/17 08:13; Admin Dose 12.5 MG; Start 12/24/16 at 21:00 Levothyroxine Sodium (Synthroid) 50 mcg DAILY@06 PO Last administered on 06:08; Admin Dose 50 MCG; Start 12/25/16 at 06:00 Pantoprazole (Protonix Tab) 40 mg DAILY@06 PO Last administered on 01/01/17 06 :07; Admin Dose 40 MG; Start 12/25/16 at 06:00 Calcium Carbonate (Tums) 500 mg Q4 PRN PO GASTROINTESTINAL UPSET Last administered on 12/25/16 12:27; Admin Dose 500 MG; Start 12/25/16 at 12:00 Lactobacillus Acidophilus/ Rhamnosus (Culturelle) 1 cap BID PO Last administered on 01/01/17 08:12; Admin Dose 1 CAP; Start 12/25/16 at 21:00 Promethazine HCl/ Codeine (Phenergan/ Codeine) 5 ml Q6H PRN PO COUGH Last administered on 12/26/16 03:10; Admin Dose 5 ML; Start 12/26/16 at 01:00 Hydralazine HCl 25 mg 25 mg Q8 PO Last administered on 01/01/17 06:08; Admin Dose 25 MG; Start 12/27/16 at 14:00 Multivitamins/ Dextrose/Sodium Chloride (Mvi Adult/D5-1/ 2ns) 1,010 ml @ 30 mls /hr Q24H IV Last administered on 12/31/16 21:30; Admin Dose 30 MLS/HR; Start 12/31/16 at 22:00 Furosemide (Lasix) 20 mg DAILY PO ; Start 01/02/17 at 09:00 JESSE CAMPO MD Jan 01, 2017 11:54
[2017-01-01 20:18] VITALS: BP 107/56; RESP 18
[2017-01-01] MEDS: MULTIVITAMINS 10 ML in DEXTROSE 5%-0.45% NACL 1,000 ML IV SCH (21:14)
[2017-01-02] MEDS: ALBUTEROL/IPRATROPIUM (NEB) 3 ML AMP HHN SCH ×4 (01:40→19:37)
[2017-01-02] MEDS: ACCU-CHEK XX SCH (01:54)
[2017-01-02] MEDS: PIPER-TAZO 3.375 GM IV (PMX) 100 ML IVPB SCH ×4 (05:59→23:56)
[2017-01-02] MEDS: PANTOPRAZOLE (EC) 40 MG TAB PO SCH (06:00)
[2017-01-02] MEDS: MULTIVITAMINS 10 ML in DEXTROSE 5%-0.45% NACL 1,000 ML IV SCH ×2 (06:00→22:00)
[2017-01-02] MEDS: LEVOTHYROXINE 50 MCG TAB PO SCH (06:00)
[2017-01-02 08:08] VITALS: BP 134/75; RESP 19
[2017-01-02] MEDS: INSULIN ASPART [NOVOLOG] 3 ML PEN SC SCH ×4 (08:08→20:55)
[2017-01-02] MEDS: LACTOBACILLUS RHAMNOSUS CAP PO SCH ×2 (08:11→20:56)
[2017-01-02] MEDS: APIXABAN 5 MG TABLET PO SCH ×2 (08:12→20:56)
[2017-01-02] MEDS: FUROSEMIDE 20 MG TAB PO SCH (08:12)
--- NOTE | 2017-01-02 11:40 | PN ---
Date/Time of Note Date/Time of Note DATE: 01/02/17 TIME: 11:39 Assessment/Plan VTE Prophylaxis VTE Prophylaxis Intervention: other Lines/Catheters IV Catheter Type (from Rust): Peripheral IV Urinary Cath still in place: No Assessment/Plan Chief Complaint/Hosp Course - Aspiration pneumonitis, continue Zosyn. Strict aspiration precaution was pur ed diet. - Decompensated congestive heart failure. Continue Lasix and Coreg. - Hypertension, continue Coreg and hydralazine. - Atrial fibrillation, continue Eliquis. - Hypothyroidism, continue Synthroid. - Diabetes mellitus. Continue NovoLog per sliding scale. 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 - Advanced dementia. Problems: Subjective 24 Hr Interval Summary Free Text/Dictation Patient is resting, trach in place Exam/Review of Systems Vital Signs Vitals Vital Signs Date Time Temp Pulse Resp B/P Pulse Ox O2 Delivery O2 Flow Rate FiO2 01/02/17 08:08 98.0 80 19 134/75 97 01/02/17 01:41 Nasal Cannula 1.0 Intake and Output 01/01/17 01/01/17 01/02/17 15:00 23:00 07:00 Intake Total 200 ml 1000 ml 890 ml Output Total 2500 ml Balance 200 ml 1000 ml -1610 ml Exam Constitutional: well developed Head: atraumatic, normocephalic Neck: supple Respiratory: diminished breath sounds Cardiovascular: regular rate and rhythm Gastrointestinal: non-tender, soft Extremities: normal pulses Results Result Diagram: 01/01/17 0547 01/01/17 0547 Results 24 hrs Laboratory Tests Test 01/01/17 12:03 01/01/17 17:23 01/01/17 20:35 01/02/17 01:25 Bedside Glucose 210 260 H 253 H 142 Test 01/02/17 08:01 Bedside Glucose 141 Medications Medications Current Medications Acetaminophen 650 mg 650 mg Q4H PRN PO PAIN AND OR ELEVATED TEMP Last administered on 12/29/16 09:42; Admin Dose 650 MG; Start 12/24/16 at 18:00 Piperacillin Sod/ Tazobactam Sod (Zosyn 3.375gm/ 100 ml (Pmx)) 100 ml @ 200 mls /hr Q6 IVPB Last administered on 01/02/17 05:59; Admin Dose 200 MLS/HR; Start 12/24/16 at 18:25 Morphine Sulfate (morphine) 2 mg Q4H PRN IV BREAKTHROUGH PAIN Last administered on 12/31/16 18:37; Admin Dose 2 MG; Start 12/24/16 at 18:00 Ondansetron HCl (Zofran Inj) 4 mg Q6H PRN IV NAUSEA AND/OR VOMITING; Start at 18:00 Diagnostic Test (Pha) (Accu-Chek) 1 ea 02 XX Last administered on 01/02/17 01: 54; Admin Dose 1 EA; Start 12/25/16 at 02:00 Miscellaneous Information 1 ea NOTE XX ; Start 12/24/16 at 19:00 Glucose (Glutose) 15 gm Q15M PRN PO DECREASED GLUCOSE; Start 12/24/16 at 19:00 Glucose (Glutose) 22.5 gm Q15M PRN PO DECREASED GLUCOSE; Start 12/24/16 at 19: 00 Dextrose (D50w Syringe) 25 ml Q15M PRN IV DECREASED GLUCOSE; Start 12/24/16 at 19:00 Dextrose (D50w Syringe) 50 ml Q15M PRN IV DECREASED GLUCOSE; Start 12/24/16 at 19:00 Glucagon (Glucagen) 1 mg Q15M PRN IM DECREASED GLUCOSE; Start 12/24/16 at 19:00 Glucose (Glutose) 15 gm Q15M PRN BUCCAL DECREASED GLUCOSE; Start 12/24/16 at 19 :00 Apixaban (Eliquis) 2.5 mg BID PO Last administered on 01/02/17 08:12; Admin Dose 2.5 MG; Start 12/24/16 at 21:00 Carvedilol (Coreg) 12.5 mg BID PO Last administered on 01/02/17 08:12; Admin Dose 12.5 MG; Start 12/24/16 at 21:00 Levothyroxine Sodium (Synthroid) 50 mcg DAILY@06 PO Last administered on 06:00; Admin Dose 50 MCG; Start 12/25/16 at 06:00 Pantoprazole (Protonix Tab) 40 mg DAILY@06 PO Last administered on 01/02/17 06 :00; Admin Dose 40 MG; Start 12/25/16 at 06:00 Calcium Carbonate (Tums) 500 mg Q4 PRN PO GASTROINTESTINAL UPSET Last administered on 12/25/16 12:27; Admin Dose 500 MG; Start 12/25/16 at 12:00 Lactobacillus Acidophilus/ Rhamnosus (Culturelle) 1 cap BID PO Last administered on 01/02/17 08:11; Admin Dose 1 CAP; Start 12/25/16 at 21:00 Promethazine HCl/ Codeine (Phenergan/ Codeine) 5 ml Q6H PRN PO COUGH Last administered on 12/26/16 03:10; Admin Dose 5 ML; Start 12/26/16 at 01:00 Hydralazine HCl 25 mg 25 mg Q8 PO Last administered on 01/02/17 06:00; Admin Dose 25 MG; Start 12/27/16 at 14:00 Multivitamins/ Dextrose/Sodium Chloride (Mvi Adult/D5-1/ 2ns) 1,010 ml @ 30 mls /hr Q24H IV Last administered on 01/02/17 06:00; Admin Dose 30 MLS/HR; Start 12/31/16 at 22:00 Furosemide (Lasix) 20 mg DAILY PO Last administered on 01/02/17 08:12; Admin Dose 20 MG; Start 01/02/17 at 09:00 MERLE FERREIRA Jan 02, 2017 11:39
--- NOTE | 2017-01-02 14:21 | CONS ---
Date/Time of Note Date/Time of Note DATE: 01/02/17 TIME: 14:20 Assessment/Plan Assessment/Plan Additional Assessment/Plan 1. Atrial fibrillation, currently rate controlled- will moinitor clinically, off tele now - stable 2. Congestive heart failure, systolic, acute on chronic-ongoing by cxr 12/29- euvolemic by exam - BETTER 3. Hypertension- well Rx, in good fluid status - WELL RX 4. Renal failure-renal team follows - avoid nephrotoxic meds 5. Anemia- H/H stable, no CP now 6. Hypothyroidism. 7. Diabetes mellitus. 8. Possible lower extremity cellulitis. 9. Lower extremity edema. 10 Infection - on Zosyn. Primary team follows Consultation Date/Type/Reason Admit Date/Time Dec 24, 2016 at 11:04 Type of Consultation: NEPHROLOGY Referring Provider: MANI MITCHELL MD 24 HR Interval Summary Free Text/Dictation No acut eevents - comfortable - family at bedside, happy with care ROS: No fever, no chills, no nausea, no vomiting, no diarrhea/constipation No recent weight changes No chest pain, no PND, no orthopnea No dizziness, blurred vision No thirst, no heat or cold intolerance Exam/Review of Systems Vital Signs Vitals Vital Signs Date Time Temp Pulse Resp B/P Pulse Ox O2 Delivery O2 Flow Rate FiO2 01/02/17 08:08 98.0 80 19 134/75 97 01/02/17 01:41 Nasal Cannula 1.0 Intake and Output 01/01/17 01/01/17 01/02/17 15:00 23:00 07:00 Intake Total 200 ml 1000 ml 890 ml Output Total 2500 ml Balance 200 ml 1000 ml -1610 ml Exam General: WN/WD/NAD, AOx 3 HEENT: Unicetric/atraumatic/EOMI (follow commands) NECK: JVD elevated, no thyromegaly Lymph: no lymphadenopathy HEART: Ir IRregular with no S3, II/ systolic murmur at apex LUNGS: Coarse sounds ABD: soft, NT, ND, +BS : Intact Neuro: non focal SKIN: chronic changes EXT: trace edema Results Result Diagram: 01/01/17 0547 01/01/17 0547 Results 24 hrs Laboratory Tests Test 01/01/17 17:23 01/01/17 20:35 01/02/17 01:25 01/02/17 08:01 Bedside Glucose 260 H 253 H 142 141 Test 01/02/17 12:32 Bedside Glucose 197 Medications Medications Current Medications Acetaminophen 650 mg 650 mg Q4H PRN PO PAIN AND OR ELEVATED TEMP Last administered on 12/29/16 09:42; Admin Dose 650 MG; Start 12/24/16 at 18:00 Piperacillin Sod/ Tazobactam Sod (Zosyn 3.375gm/ 100 ml (Pmx)) 100 ml @ 200 mls /hr Q6 IVPB Last administered on 01/02/17 12:37; Admin Dose 200 MLS/HR; Start 12/24/16 at 18:25 Morphine Sulfate (morphine) 2 mg Q4H PRN IV BREAKTHROUGH PAIN Last administered on 12/31/16 18:37; Admin Dose 2 MG; Start 12/24/16 at 18:00 Ondansetron HCl (Zofran Inj) 4 mg Q6H PRN IV NAUSEA AND/OR VOMITING; Start at 18:00 Diagnostic Test (Pha) (Accu-Chek) 1 ea 02 XX Last administered on 01/02/17 01: 54; Admin Dose 1 EA; Start 12/25/16 at 02:00 Miscellaneous Information 1 ea NOTE XX ; Start 12/24/16 at 19:00 Glucose (Glutose) 15 gm Q15M PRN PO DECREASED GLUCOSE; Start 12/24/16 at 19:00 Glucose (Glutose) 22.5 gm Q15M PRN PO DECREASED GLUCOSE; Start 12/24/16 at 19: 00 Dextrose (D50w Syringe) 25 ml Q15M PRN IV DECREASED GLUCOSE; Start 12/24/16 at 19:00 Dextrose (D50w Syringe) 50 ml Q15M PRN IV DECREASED GLUCOSE; Start 12/24/16 at 19:00 Glucagon (Glucagen) 1 mg Q15M PRN IM DECREASED GLUCOSE; Start 12/24/16 at 19:00 Glucose (Glutose) 15 gm Q15M PRN BUCCAL DECREASED GLUCOSE; Start 12/24/16 at 19 :00 Apixaban (Eliquis) 2.5 mg BID PO Last administered on 01/02/17 08:12; Admin Dose 2.5 MG; Start 12/24/16 at 21:00 Carvedilol (Coreg) 12.5 mg BID PO Last administered on 01/02/17 08:12; Admin Dose 12.5 MG; Start 12/24/16 at 21:00 Levothyroxine Sodium (Synthroid) 50 mcg DAILY@06 PO Last administered on 06:00; Admin Dose 50 MCG; Start 12/25/16 at 06:00 Pantoprazole (Protonix Tab) 40 mg DAILY@06 PO Last administered on 01/02/17 06 :00; Admin Dose 40 MG; Start 12/25/16 at 06:00 Calcium Carbonate (Tums) 500 mg Q4 PRN PO GASTROINTESTINAL UPSET Last administered on 12/25/16 12:27; Admin Dose 500 MG; Start 12/25/16 at 12:00 Lactobacillus Acidophilus/ Rhamnosus (Culturelle) 1 cap BID PO Last administered on 01/02/17 08:11; Admin Dose 1 CAP; Start 12/25/16 at 21:00 Promethazine HCl/ Codeine (Phenergan/ Codeine) 5 ml Q6H PRN PO COUGH Last administered on 12/26/16 03:10; Admin Dose 5 ML; Start 12/26/16 at 01:00 Hydralazine HCl 25 mg 25 mg Q8 PO Last administered on 01/02/17 06:00; Admin Dose 25 MG; Start 12/27/16 at 14:00 Multivitamins/ Dextrose/Sodium Chloride (Mvi Adult/D5-1/ 2ns) 1,010 ml @ 30 mls /hr Q24H IV Last administered on 01/02/17 06:00; Admin Dose 30 MLS/HR; Start 12/31/16 at 22:00 Furosemide (Lasix) 20 mg DAILY PO Last administered on 01/02/17 08:12; Admin Dose 20 MG; Start 01/02/17 at 09:00 JESSE CAMPO MD Jan 02, 2017 14:21
[2017-01-02 14:56] VITALS: BP 127/63; PULSE 80
--- NOTE | 2017-01-02 16:50 | CONS ---
Date/Time of Note Date/Time of Note DATE: 01/02/17 TIME: 16:45 Assessment/Plan Assessment/Plan Additional Assessment/Plan 1. Acute kidney injury on possible chronic kidney disease, likely secondary to a congestive heart failure exacerbation and also possibly secondary to prerenal azotemia. 2. Acute congestive heart failure exacerbation, acute and chronic, systolic and diastolic, now on IV Lasix diuresis 20 mg b.i.d. 3. 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 4. History of diabetes mellitus type 2. 5. History of hypertension. 6. History of dementia. 7. Aspiration pneumonitis on IV antibiotics. PLAN: Cr improved to 1.53- on IV lasix 20mg BID- change lasix to 20mg PO daily CXR today AM negative for pulmonary congestino, it showed infiltrates will follow up Further recommendations depend upon patient's clinical course. Plan of care hung Ortiz/staff/patient. Consultation Date/Type/Reason Admit Date/Time Dec 24, 2016 at 11:04 Initial Consult Date Type of Consultation: NEPHROLOGY Referring Provider: MANI MITCHELL MD 24 HR Interval Summary Free Text/Dictation doing ok, on po lasix, CXR neg for congestion, afebrile. dw staff Constitutional: improved Exam/Review of Systems Vital Signs Vitals Vital Signs Date Time Temp Pulse Resp B/P Pulse Ox O2 Delivery O2 Flow Rate FiO2 01/02/17 14:56 80 127/63 01/02/17 09:00 Nasal Cannula 2.0 01/02/17 08:08 98.0 19 97 Intake and Output 01/01/17 01/01/17 01/02/17 15:00 23:00 07:00 Intake Total 200 ml 1000 ml 890 ml Output Total 2500 ml Balance 200 ml 1000 ml -1610 ml Exam Constitutional: alert, well developed Respiratory: clear to auscultation, normal air movement Cardiovascular: nl pulses, regular rate and rhythm Gastrointestinal: non-tender, soft Extremities: normal pulses Neurological: nl speech Results Result Diagram: 01/01/17 0547 01/01/17 0547 Results 24 hrs Laboratory Tests Test 01/01/17 17:23 01/01/17 20:35 01/02/17 01:25 01/02/17 08:01 Bedside Glucose 260 H 253 H 142 141 Test 01/02/17 12:32 Bedside Glucose 197 Medications Medications Current Medications Acetaminophen 650 mg 650 mg Q4H PRN PO PAIN AND OR ELEVATED TEMP Last administered on 12/29/16 09:42; Admin Dose 650 MG; Start 12/24/16 at 18:00 Piperacillin Sod/ Tazobactam Sod (Zosyn 3.375gm/ 100 ml (Pmx)) 100 ml @ 200 mls /hr Q6 IVPB Last administered on 01/02/17 12:37; Admin Dose 200 MLS/HR; Start 12/24/16 at 18:25 Morphine Sulfate (morphine) 2 mg Q4H PRN IV BREAKTHROUGH PAIN Last administered on 12/31/16 18:37; Admin Dose 2 MG; Start 12/24/16 at 18:00 Ondansetron HCl (Zofran Inj) 4 mg Q6H PRN IV NAUSEA AND/OR VOMITING; Start at 18:00 Diagnostic Test (Pha) (Accu-Chek) 1 ea 02 XX Last administered on 01/02/17 01: 54; Admin Dose 1 EA; Start 12/25/16 at 02:00 Miscellaneous Information 1 ea NOTE XX ; Start 12/24/16 at 19:00 Glucose (Glutose) 15 gm Q15M PRN PO DECREASED GLUCOSE; Start 12/24/16 at 19:00 Glucose (Glutose) 22.5 gm Q15M PRN PO DECREASED GLUCOSE; Start 12/24/16 at 19: 00 Dextrose (D50w Syringe) 25 ml Q15M PRN IV DECREASED GLUCOSE; Start 12/24/16 at 19:00 Dextrose (D50w Syringe) 50 ml Q15M PRN IV DECREASED GLUCOSE; Start 12/24/16 at 19:00 Glucagon (Glucagen) 1 mg Q15M PRN IM DECREASED GLUCOSE; Start 12/24/16 at 19:00 Glucose (Glutose) 15 gm Q15M PRN BUCCAL DECREASED GLUCOSE; Start 12/24/16 at 19 :00 Apixaban (Eliquis) 2.5 mg BID PO Last administered on 01/02/17 08:12; Admin Dose 2.5 MG; Start 12/24/16 at 21:00 Carvedilol (Coreg) 12.5 mg BID PO Last administered on 01/02/17 08:12; Admin Dose 12.5 MG; Start 12/24/16 at 21:00 Levothyroxine Sodium (Synthroid) 50 mcg DAILY@06 PO Last administered on 06:00; Admin Dose 50 MCG; Start 12/25/16 at 06:00 Pantoprazole (Protonix Tab) 40 mg DAILY@06 PO Last administered on 01/02/17 06 :00; Admin Dose 40 MG; Start 12/25/16 at 06:00 Calcium Carbonate (Tums) 500 mg Q4 PRN PO GASTROINTESTINAL UPSET Last administered on 12/25/16 12:27; Admin Dose 500 MG; Start 12/25/16 at 12:00 Lactobacillus Acidophilus/ Rhamnosus (Culturelle) 1 cap BID PO Last administered on 01/02/17 08:11; Admin Dose 1 CAP; Start 12/25/16 at 21:00 Promethazine HCl/ Codeine (Phenergan/ Codeine) 5 ml Q6H PRN PO COUGH Last administered on 12/26/16 03:10; Admin Dose 5 ML; Start 12/26/16 at 01:00 Hydralazine HCl 25 mg 25 mg Q8 PO Last administered on 01/02/17 14:56; Admin Dose 25 MG; Start 12/27/16 at 14:00 Multivitamins/ Dextrose/Sodium Chloride (Mvi Adult/D5-1/ 2ns) 1,010 ml @ 30 mls /hr Q24H IV Last administered on 01/02/17 06:00; Admin Dose 30 MLS/HR; Start 12/31/16 at 22:00 Furosemide (Lasix) 20 mg DAILY PO Last administered on 01/02/17 08:12; Admin Dose 20 MG; Start 01/02/17 at 09:00 STAR BOWLES Jan 02, 2017 16:49
[2017-01-02 20:10] VITALS: BP 119/59; RESP 81
[2017-01-02 22:00] VITALS: BP 109/60; PULSE 78; RESP 18
[2017-01-03] MEDS: PROMETHAZINE/CODEINE 5ML CUP PO PRN (00:06)
[2017-01-03] MEDS: ACCU-CHEK XX SCH (01:43)
[2017-01-03] MEDS: ALBUTEROL/IPRATROPIUM (NEB) 3 ML AMP HHN SCH ×4 (02:04→21:25)
[2017-01-03 05:55] VITALS: BP 108/69; PULSE 61; RESP 18
[2017-01-03] MEDS: PIPER-TAZO 3.375 GM IV (PMX) 100 ML IVPB SCH ×4 (05:55→23:20)
[2017-01-03] MEDS: PANTOPRAZOLE (EC) 40 MG TAB PO SCH (05:55)
[2017-01-03] MEDS: LEVOTHYROXINE 50 MCG TAB PO SCH (05:55)
[2017-01-03 05:58] LABS: ADD SCAN DIFF NO
[2017-01-03 06:08] LABS: BASOPHIL # 0.1 10^3/ul (0.0-0.1); BASOPHILS % 0.5 % (0.0-2.0); EOSINOPHILS % 0.4 % (0.0-7.0); HEMOGLOBIN 10.6 g/dl (14.0-18.0); LYMPHOCYTES # 1.3 10^3/ul (0.8-2.9); LYMPHOCYTES % 13.3 % (15.0-51.0); MEAN CORPUSCULAR HEMOGLOBIN 29.2 pg (29.0-33.0); MEAN CORPUSCULAR HGB CONC 31.2 g/dl (32.0-37.0); MEAN CORPUSCULAR VOLUME 93.7 fl (82.0-101.0); MEAN PLATELET VOLUME 10.8 fl (7.4-10.4); MONOCYTE # 0.8 10^3/ul (0.3-0.9); MONOCYTES % 8.5 % (0.0-11.0); NEUTROPHIL # 7.3 10^3/ul (1.6-7.5); NEUTROPHILS % 76.9 % (39.0-77.0); PLATELET COUNT 250 10^3/UL (140-415); RED BLOOD COUNT 3.63 10^6/ul (4.70-6.10); RED CELL DISTRIBUTION WIDTH 16.3 % (11.5-14.5); WHITE BLOOD COUNT 9.5 10^3/ul (4.8-10.8)
[2017-01-03 06:34] LABS: CALCIUM 8.8 mg/dl (8.4-10.2); CREATININE 1.46 mg/dl (0.61-1.24); POTASSIUM 3.7 mmol/L (3.5-5.1)
--- NOTE | 2017-01-03 07:40 | CONS ---
Date/Time of Note Date/Time of Note DATE: 01/03/17 TIME: 07:38 Assessment/Plan Assessment/Plan Additional Assessment/Plan 1. Atrial fibrillation, currently rate controlled- off tele now - stable - RATE CONTROLLED 2. Congestive heart failure, systolic, acute on chronic-ongoing by cxr 12/29- euvolemic by exam - BETTER 3. Hypertension- well Rx, in good fluid status - WELL RX 4. Renal failure-renal team follows - avoid nephrotoxic meds 5. Anemia- H/H stable, no CP now 6. Hypothyroidism. 7. Diabetes mellitus- on meds, euglycemic 8. Possible lower extremity cellulitis. 9. Lower extremity edema. 10 Infection - on Zosyn. Primary team follows Consultation Date/Type/Reason Admit Date/Time Dec 24, 2016 at 11:04 Type of Consultation: NEPHROLOGY Referring Provider: MANI MITCHELL MD 24 HR Interval Summary Free Text/Dictation Better overall - alert - HR well rX ROS: No fever, no chills, no nausea, no vomiting, no diarrhea/constipation No recent weight changes No chest pain, no PND, no orthopnea No dizziness, blurred vision No thirst, no heat or cold intolerance Exam/Review of Systems Vital Signs Vitals Vital Signs Date Time Temp Pulse Resp B/P Pulse Ox O2 Delivery O2 Flow Rate FiO2 01/03/17 05:55 61 18 108/69 01/03/17 02:05 98 Nasal Cannula 1.0 01/02/17 20:10 97.3 Intake and Output 01/02/17 01/02/17 01/03/17 15:00 23:00 07:00 Intake Total 100 ml 735 ml 910 ml Output Total 700 ml Balance 100 ml 735 ml 210 ml Exam General: WN/WD/NAD, AOx 3 HEENT: Unicetric/atraumatic/EOMI ( follow commands) NECK: JVD elevated, no thyromegaly Lymph: no lymphadenopathy HEART: Ir Irregular with no S3, II/ systolic murmur at apex LUNGS: Coarse sounds ABD: soft, NT, ND, +BS : Intact Neuro: non focal SKIN: chronic changes EXT: trace edema Results Result Diagram: 01/03/17 0530 01/03/17 0530 Results 24 hrs Laboratory Tests Test 01/02/17 08:01 01/02/17 12:32 01/02/17:39 01/02/17 20:54 Bedside Glucose 141 197 160 168 Test 01/03/17 05:30 White Blood Count 9.5 # Red Blood Count 3.63 L Hemoglobin 10.6 L Hematocrit 34.0 L Mean Corpuscular Volume 93.7 Mean Corpuscular Hemoglobin 29.2 Mean Corpuscular Hemoglobin Concent 31.2 L Red Cell Distribution Width 16.3 H Platelet Count 250 Mean Platelet Volume 10.8 H Neutrophils % 76.9 Lymphocytes % 13.3 L Monocytes % 8.5 Eosinophils % 0.4 Basophils % 0.5 Nucleated Red Blood Cells % 0.0 Neutrophils # 7.3 Lymphocytes # 1.3 Monocytes # 0.8 Eosinophils # 0.0 Basophils # 0.1 Nucleated Red Blood Cells # 0.0 Sodium Level 138 Potassium Level 3.7 Chloride Level 102 Carbon Dioxide Level 30 Anion Gap 10 Blood Urea Nitrogen 17 Creatinine 1.46 H Glucose Level 168 Calcium Level 8.8 Medications Medications Current Medications Acetaminophen 650 mg 650 mg Q4H PRN PO PAIN AND OR ELEVATED TEMP Last administered on 12/29/16 09:42; Admin Dose 650 MG; Start 12/24/16 at 18:00 Piperacillin Sod/ Tazobactam Sod (Zosyn 3.375gm/ 100 ml (Pmx)) 100 ml @ 200 mls /hr Q6 IVPB Last administered on 01/03/17 05:55; Admin Dose 200 MLS/HR; Start 12/24/16 at 18:25 Morphine Sulfate (morphine) 2 mg Q4H PRN IV BREAKTHROUGH PAIN Last administered on 12/31/16 18:37; Admin Dose 2 MG; Start 12/24/16 at 18:00 Ondansetron HCl (Zofran Inj) 4 mg Q6H PRN IV NAUSEA AND/OR VOMITING; Start at 18:00 Diagnostic Test (Pha) (Accu-Chek) 1 ea 02 XX Last administered on 01/02/17 01: 54; Admin Dose 1 EA; Start 12/25/16 at 02:00 Miscellaneous Information 1 ea NOTE XX ; Start 12/24/16 at 19:00 Glucose (Glutose) 15 gm Q15M PRN PO DECREASED GLUCOSE; Start 12/24/16 at 19:00 Glucose (Glutose) 22.5 gm Q15M PRN PO DECREASED GLUCOSE; Start 12/24/16 at 19: 00 Dextrose (D50w Syringe) 25 ml Q15M PRN IV DECREASED GLUCOSE; Start 12/24/16 at 19:00 Dextrose (D50w Syringe) 50 ml Q15M PRN IV DECREASED GLUCOSE; Start 12/24/16 at 19:00 Glucagon (Glucagen) 1 mg Q15M PRN IM DECREASED GLUCOSE; Start 12/24/16 at 19:00 Glucose (Glutose) 15 gm Q15M PRN BUCCAL DECREASED GLUCOSE; Start 12/24/16 at 19 :00 Apixaban (Eliquis) 2.5 mg BID PO Last administered on 01/02/17 20:56; Admin Dose 2.5 MG; Start 12/24/16 at 21:00 Carvedilol (Coreg) 12.5 mg BID PO Last administered on 01/02/17 20:56; Admin Dose 12.5 MG; Start 12/24/16 at 21:00 Levothyroxine Sodium (Synthroid) 50 mcg DAILY@06 PO Last administered on 05:55; Admin Dose 50 MCG; Start 12/25/16 at 06:00 Pantoprazole (Protonix Tab) 40 mg DAILY@06 PO Last administered on 01/03/17 05 :55; Admin Dose 40 MG; Start 12/25/16 at 06:00 Calcium Carbonate (Tums) 500 mg Q4 PRN PO GASTROINTESTINAL UPSET Last administered on 12/25/16 12:27; Admin Dose 500 MG; Start 12/25/16 at 12:00 Lactobacillus Acidophilus/ Rhamnosus (Culturelle) 1 cap BID PO Last administered on 01/02/17 20:56; Admin Dose 1 CAP; Start 12/25/16 at 21:00 Promethazine HCl/ Codeine (Phenergan/ Codeine) 5 ml Q6H PRN PO COUGH Last administered on 01/03/17 00:06; Admin Dose 5 ML; Start 12/26/16 at 01:00 Hydralazine HCl 25 mg 25 mg Q8 PO Last administered on 01/02/17 14:56; Admin Dose 25 MG; Start 12/27/16 at 14:00 Multivitamins/ Dextrose/Sodium Chloride (Mvi Adult/D5-1/ 2ns) 1,010 ml @ 30 mls /hr Q24H IV Last administered on 01/02/17 06:00; Admin Dose 30 MLS/HR; Start 12/31/16 at 22:00 Furosemide (Lasix) 20 mg DAILY PO Last administered on 01/02/17 08:12; Admin Dose 20 MG; Start 01/02/17 at 09:00 JESSE CAMPO MD Jan 03, 2017 07:40
[2017-01-03] MEDS: FUROSEMIDE 20 MG TAB PO SCH ×2 (07:51→08:00)
[2017-01-03] MEDS: APIXABAN 5 MG TABLET PO SCH ×2 (07:51→20:38)
[2017-01-03] MEDS: LACTOBACILLUS RHAMNOSUS CAP PO SCH ×2 (07:51→20:38)
[2017-01-03] MEDS: INSULIN ASPART [NOVOLOG] 3 ML PEN SC SCH ×4 (07:58→20:24)
[2017-01-03 08:09] VITALS: BP 119/63; RESP 16
[2017-01-03 15:05] VITALS: BP 138/75; PULSE 87
--- NOTE | 2017-01-03 18:39 | CONS ---
Date/Time of Note Date/Time of Note DATE: 01/03/17 TIME: 18:37 Assessment/Plan Assessment/Plan Additional Assessment/Plan 1. Acute kidney injury on possible chronic kidney disease, likely secondary to a congestive heart failure exacerbation and also possibly secondary to prerenal azotemia. 2. Acute congestive heart failure exacerbation, acute and chronic, systolic and diastolic, now on IV Lasix diuresis 20 mg b.i.d. 3. 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 4. History of diabetes mellitus type 2. 5. History of hypertension. 6. History of dementia. 7. Aspiration pneumonitis on IV antibiotics. PLAN: Cr improved to 1.46- on PO lasix IVF D51/2NS will follow up Consultation Date/Type/Reason Admit Date/Time Dec 24, 2016 at 11:04 Type of Consultation: NEPHROLOGY Referring Provider: MANI MITCHELL MD 24 HR Interval Summary Free Text/Dictation Cr 1.46, BP stable Exam/Review of Systems Vital Signs Vitals Vital Signs Date Time Temp Pulse Resp B/P Pulse Ox O2 Delivery O2 Flow Rate FiO2 01/03/17 15:05 87 138/75 01/03/17 14:04 19 93 Nasal Cannula 1.0 01/03/17 08:09 97.5 Intake and Output 01/02/17 01/02/17 01/03/17 15:00 23:00 07:00 Intake Total 100 ml 735 ml 910 ml Output Total 700 ml Balance 100 ml 735 ml 210 ml Results Result Diagram: 01/03/17 0530 01/03/17 0530 Results 24 hrs Laboratory Tests Test 01/02/17 20:54 01/03/17 05:30 01/03/17 07:54 01/03/17 12:15 Bedside Glucose 168 156 129 White Blood Count 9.5 # Red Blood Count 3.63 L Hemoglobin 10.6 L Hematocrit 34.0 L Mean Corpuscular Volume 93.7 Mean Corpuscular Hemoglobin 29.2 Mean Corpuscular Hemoglobin Concent 31.2 L Red Cell Distribution Width 16.3 H Platelet Count 250 Mean Platelet Volume 10.8 H Neutrophils % 76.9 Lymphocytes % 13.3 L Monocytes % 8.5 Eosinophils % 0.4 Basophils % 0.5 Nucleated Red Blood Cells % 0.0 Neutrophils # 7.3 Lymphocytes # 1.3 Monocytes # 0.8 Eosinophils # 0.0 Basophils # 0.1 Nucleated Red Blood Cells # 0.0 Sodium Level 138 Potassium Level 3.7 Chloride Level 102 Carbon Dioxide Level 30 Anion Gap 10 Blood Urea Nitrogen 17 Creatinine 1.46 H Glucose Level 168 Calcium Level 8.8 Test 01/03/17 17:24 Bedside Glucose 199 Medications Medications Current Medications Acetaminophen 650 mg 650 mg Q4H PRN PO PAIN AND OR ELEVATED TEMP Last administered on 12/29/16 09:42; Admin Dose 650 MG; Start 12/24/16 at 18:00 Piperacillin Sod/ Tazobactam Sod (Zosyn 3.375gm/ 100 ml (Pmx)) 100 ml @ 200 mls /hr Q6 IVPB Last administered on 01/03/17 17:25; Admin Dose 200 MLS/HR; Start 12/24/16 at 18:25 Morphine Sulfate (morphine) 2 mg Q4H PRN IV BREAKTHROUGH PAIN Last administered on 12/31/16 18:37; Admin Dose 2 MG; Start 12/24/16 at 18:00 Ondansetron HCl (Zofran Inj) 4 mg Q6H PRN IV NAUSEA AND/OR VOMITING; Start at 18:00 Diagnostic Test (Pha) (Accu-Chek) 1 ea 02 XX Last administered on 01/02/17 01: 54; Admin Dose 1 EA; Start 12/25/16 at 02:00 Miscellaneous Information 1 ea NOTE XX ; Start 12/24/16 at 19:00 Glucose (Glutose) 15 gm Q15M PRN PO DECREASED GLUCOSE; Start 12/24/16 at 19:00 Glucose (Glutose) 22.5 gm Q15M PRN PO DECREASED GLUCOSE; Start 12/24/16 at 19: 00 Dextrose (D50w Syringe) 25 ml Q15M PRN IV DECREASED GLUCOSE; Start 12/24/16 at 19:00 Dextrose (D50w Syringe) 50 ml Q15M PRN IV DECREASED GLUCOSE; Start 12/24/16 at 19:00 Glucagon (Glucagen) 1 mg Q15M PRN IM DECREASED GLUCOSE; Start 12/24/16 at 19:00 Glucose (Glutose) 15 gm Q15M PRN BUCCAL DECREASED GLUCOSE; Start 12/24/16 at 19 :00 Apixaban (Eliquis) 2.5 mg BID PO Last administered on 01/03/17 07:51; Admin Dose 2.5 MG; Start 12/24/16 at 21:00 Carvedilol (Coreg) 12.5 mg BID PO Last administered on 01/03/17 08:00; Admin Dose 12.5 MG; Start 12/24/16 at 21:00 Levothyroxine Sodium (Synthroid) 50 mcg DAILY@06 PO Last administered on 05:55; Admin Dose 50 MCG; Start 12/25/16 at 06:00 Pantoprazole (Protonix Tab) 40 mg DAILY@06 PO Last administered on 01/03/17 05 :55; Admin Dose 40 MG; Start 12/25/16 at 06:00 Calcium Carbonate (Tums) 500 mg Q4 PRN PO GASTROINTESTINAL UPSET Last administered on 12/25/16 12:27; Admin Dose 500 MG; Start 12/25/16 at 12:00 Lactobacillus Acidophilus/ Rhamnosus (Culturelle) 1 cap BID PO Last administered on 01/03/17 07:51; Admin Dose 1 CAP; Start 12/25/16 at 21:00 Promethazine HCl/ Codeine (Phenergan/ Codeine) 5 ml Q6H PRN PO COUGH Last administered on 01/03/17 00:06; Admin Dose 5 ML; Start 12/26/16 at 01:00 Hydralazine HCl 25 mg 25 mg Q8 PO Last administered on 01/03/17 15:04; Admin Dose 25 MG; Start 12/27/16 at 14:00 Multivitamins/ Dextrose/Sodium Chloride (Mvi Adult/D5-1/ 2ns) 1,010 ml @ 30 mls /hr Q24H IV Last administered on 01/02/17 06:00; Admin Dose 30 MLS/HR; Start 12/31/16 at 22:00 Furosemide (Lasix) 20 mg DAILY PO Last administered on 01/03/17 08:00; Admin Dose 20 MG; Start 01/02/17 at 09:00 BLANCA CARLIN MD Jan 03, 2017 18:38
--- NOTE | 2017-01-03 18:57 | PN ---
Date/Time of Note Date/Time of Note DATE: 01/03/17 TIME: 18:56 Assessment/Plan VTE Prophylaxis VTE Prophylaxis Intervention: SCD's Lines/Catheters [facility] Peripheral IV Urinary Cath still in place: No Assessment/Plan Chief Complaint/Hosp Course Patient remains hemodynamically stable, afebrile. Assessment/Plan - Aspiration pneumonitis, continue Zosyn. Strict aspiration precaution with pur ed diet. - Decompensated congestive heart failure. Continue Lasix and Coreg. - Hypertension, continue Coreg and hydralazine. - Atrial fibrillation, continue Eliquis. - Hypothyroidism, continue Synthroid. - Diabetes mellitus. Continue NovoLog per sliding scale. 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 - Advanced dementia. Further recommendations based on clinical course. Plan of care discussed with Dr. Villarreal. Problems: Exam/Review of Systems Vital Signs Vitals Vital Signs Date Time Temp Pulse Resp B/P Pulse Ox O2 Delivery O2 Flow Rate FiO2 01/03/17 15:05 87 138/75 01/03/17 14:04 19 93 Nasal Cannula 1.0 01/03/17 08:09 97.5 Intake and Output 01/02/17 01/02/17 01/03/17 15:00 23:00 07:00 Intake Total 100 ml 735 ml 910 ml Output Total 700 ml Balance 100 ml 735 ml 210 ml Exam Constitutional: alert Psych: confusion Head: normocephalic Neck: non-tender, supple Respiratory: clear to auscultation Cardiovascular: irregular rhythm Gastrointestinal: non-tender, soft Extremities: normal pulses Neurological: nl mental status Results Result Diagram: 01/03/1730 01/03/17 0530 Results 24 hrs Laboratory Tests Test 01/02/17 20:54 01/03/17 05:30 01/03/17 07:54 01/03/17 12:15 Bedside Glucose 168 156 129 White Blood Count 9.5 # Red Blood Count 3.63 L Hemoglobin 10.6 L Hematocrit 34.0 L Mean Corpuscular Volume 93.7 Mean Corpuscular Hemoglobin 29.2 Mean Corpuscular Hemoglobin Concent 31.2 L Red Cell Distribution Width 16.3 H Platelet Count 250 Mean Platelet Volume 10.8 H Neutrophils % 76.9 Lymphocytes % 13.3 L Monocytes % 8.5 Eosinophils % 0.4 Basophils % 0.5 Nucleated Red Blood Cells % 0.0 Neutrophils # 7.3 Lymphocytes # 1.3 Monocytes # 0.8 Eosinophils # 0.0 Basophils # 0.1 Nucleated Red Blood Cells # 0.0 Sodium Level 138 Potassium Level 3.7 Chloride Level 102 Carbon Dioxide Level 30 Anion Gap 10 Blood Urea Nitrogen 17 Creatinine 1.46 H Glucose Level 168 Calcium Level 8.8 Test 01/03/17 17:24 Bedside Glucose 199 Medications Medications Current Medications Acetaminophen 650 mg 650 mg Q4H PRN PO PAIN AND OR ELEVATED TEMP Last administered on 12/29/16 09:42; Admin Dose 650 MG; Start 12/24/16 at 18:00 Piperacillin Sod/ Tazobactam Sod (Zosyn 3.375gm/ 100 ml (Pmx)) 100 ml @ 200 mls /hr Q6 IVPB Last administered on 01/03/17 17:25; Admin Dose 200 MLS/HR; Start 12/24/16 at 18:25 Morphine Sulfate (morphine) 2 mg Q4H PRN IV BREAKTHROUGH PAIN Last administered on 12/31/16 18:37; Admin Dose 2 MG; Start 12/24/16 at 18:00 Ondansetron HCl (Zofran Inj) 4 mg Q6H PRN IV NAUSEA AND/OR VOMITING; Start at 18:00 Diagnostic Test (Pha) (Accu-Chek) 1 ea 02 XX Last administered on 01/02/17 01: 54; Admin Dose 1 EA; Start 12/25/16 at 02:00 Miscellaneous Information 1 ea NOTE XX ; Start 12/24/16 at 19:00 Glucose (Glutose) 15 gm Q15M PRN PO DECREASED GLUCOSE; Start 12/24/16 at 19:00 Glucose (Glutose) 22.5 gm Q15M PRN PO DECREASED GLUCOSE; Start 12/24/16 at 19: 00 Dextrose (D50w Syringe) 25 ml Q15M PRN IV DECREASED GLUCOSE; Start 12/24/16 at 19:00 Dextrose (D50w Syringe) 50 ml Q15M PRN IV DECREASED GLUCOSE; Start 12/24/16 at 19:00 Glucagon (Glucagen) 1 mg Q15M PRN IM DECREASED GLUCOSE; Start 12/24/16 at 19:00 Glucose (Glutose) 15 gm Q15M PRN BUCCAL DECREASED GLUCOSE; Start 12/24/16 at 19 :00 Apixaban (Eliquis) 2.5 mg BID PO Last administered on 01/03/17 07:51; Admin Dose 2.5 MG; Start 12/24/16 at 21:00 Carvedilol (Coreg) 12.5 mg BID PO Last administered on 01/03/17 08:00; Admin Dose 12.5 MG; Start 12/24/16 at 21:00 Levothyroxine Sodium (Synthroid) 50 mcg DAILY@06 PO Last administered on 05:55; Admin Dose 50 MCG; Start 12/25/16 at 06:00 Pantoprazole (Protonix Tab) 40 mg DAILY@06 PO Last administered on 01/03/17 05 :55; Admin Dose 40 MG; Start 12/25/16 at 06:00 Calcium Carbonate (Tums) 500 mg Q4 PRN PO GASTROINTESTINAL UPSET Last administered on 12/25/16 12:27; Admin Dose 500 MG; Start 12/25/16 at 12:00 Lactobacillus Acidophilus/ Rhamnosus (Culturelle) 1 cap BID PO Last administered on 01/03/17 07:51; Admin Dose 1 CAP; Start 12/25/16 at 21:00 Promethazine HCl/ Codeine (Phenergan/ Codeine) 5 ml Q6H PRN PO COUGH Last administered on 01/03/17 00:06; Admin Dose 5 ML; Start 12/26/16 at 01:00 Hydralazine HCl 25 mg 25 mg Q8 PO Last administered on 01/03/17 15:04; Admin Dose 25 MG; Start 12/27/16 at 14:00 Multivitamins/ Dextrose/Sodium Chloride (Mvi Adult/D5-1/ 2ns) 1,010 ml @ 30 mls /hr Q24H IV Last administered on 01/02/17 06:00; Admin Dose 30 MLS/HR; Start 12/31/16 at 22:00 Furosemide (Lasix) 20 mg DAILY PO Last administered on 01/03/17 08:00; Admin Dose 20 MG; Start 01/02/17 at 09:00 LYLA YOUNG Jan 03, 2017 18:57
[2017-01-03 20:40] VITALS: BP 135/70; RESP 18
[2017-01-03] MEDS: MULTIVITAMINS 10 ML in DEXTROSE 5%-0.45% NACL 1,000 ML IV SCH (23:20)
[2017-01-04] MEDS: ALBUTEROL/IPRATROPIUM (NEB) 3 ML AMP HHN SCH ×4 (02:28→19:46)
[2017-01-04] MEDS: ACCU-CHEK XX SCH (02:28)
[2017-01-04 05:32] LABS: ADD SCAN DIFF NO
[2017-01-04 05:35] VITALS: BP 119/71
[2017-01-04 05:42] LABS: BASOPHIL # 0.1 10^3/ul (0.0-0.1); BASOPHILS % 0.6 % (0.0-2.0); EOSINOPHILS % 0.2 % (0.0-7.0); HEMATOCRIT 32.4 % (42.0-52.0); LYMPHOCYTES # 1.2 10^3/ul (0.8-2.9); LYMPHOCYTES % 12.1 % (15.0-51.0); MEAN CORPUSCULAR HEMOGLOBIN 29.1 pg (29.0-33.0); MEAN CORPUSCULAR HGB CONC 30.9 g/dl (32.0-37.0); MEAN CORPUSCULAR VOLUME 94.2 fl (82.0-101.0); MEAN PLATELET VOLUME 10.6 fl (7.4-10.4); MONOCYTE # 0.7 10^3/ul (0.3-0.9); MONOCYTES % 7.2 % (0.0-11.0); NEUTROPHIL # 7.8 10^3/ul (1.6-7.5); NEUTROPHILS % 79.7 % (39.0-77.0); PLATELET COUNT 270 10^3/UL (140-415); RED BLOOD COUNT 3.44 10^6/ul (4.70-6.10); RED CELL DISTRIBUTION WIDTH 16.3 % (11.5-14.5); WHITE BLOOD COUNT 9.7 10^3/ul (4.8-10.8)
[2017-01-04] MEDS: PANTOPRAZOLE (EC) 40 MG TAB PO SCH (05:56)
[2017-01-04] MEDS: LEVOTHYROXINE 50 MCG TAB PO SCH (05:56)
[2017-01-04] MEDS: PIPER-TAZO 3.375 GM IV (PMX) 100 ML IVPB SCH ×3 (05:56→22:21)
[2017-01-04 06:01] LABS: CALCIUM 8.9 mg/dl (8.4-10.2); CREATININE 1.46 mg/dl (0.61-1.24); POTASSIUM 4.2 mmol/L (3.5-5.1)
[2017-01-04 07:53] VITALS: BP 143/70; RESP 16
[2017-01-04] MEDS: INSULIN ASPART [NOVOLOG] 3 ML PEN SC SCH ×4 (08:50→20:53)
[2017-01-04] MEDS: APIXABAN 5 MG TABLET PO SCH ×2 (09:31→20:46)
[2017-01-04] MEDS: FUROSEMIDE 20 MG TAB PO SCH (09:31)
[2017-01-04] MEDS: CALCIUM CARBONATE 500 MG CHEW TAB PO PRN (09:32)
[2017-01-04] MEDS: LACTOBACILLUS RHAMNOSUS CAP PO SCH ×2 (09:32→20:45)
[2017-01-04] MEDS ORDERED: GUAIFENESIN/DM 5ML CUP PO PRN (12:00)
--- NOTE | 2017-01-04 12:26 | CONS ---
Date/Time of Note Date/Time of Note DATE: 01/04/17 TIME: 12:23 Assessment/Plan Assessment/Plan Chief Complaint/Hosp Course IMPRESSION: 1. Atrial fibrillation, currently rate controlled. 2. Congestive heart failure, systolic, acute on chronic-ongoing by cxr 12/29. 3. Hypertension. 4. Renal failure-worsening 5. Anemia. 6. Hypothyroidism. 7. Diabetes mellitus. 8. Lower extremity cellulitis/wound 9. 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 closely Problems: Consultation Date/Type/Reason Admit Date/Time Dec 24, 2016 at 11:04 Initial Consult Date 12/24/2016 Type of Consultation: cardiology Reason for Consultation AF/CHF Referring Provider: MANI MITCHELL MD Exam/Review of Systems Vital Signs Vitals Vital Signs Date Time Temp Pulse Resp B/P Pulse Ox O2 Delivery O2 Flow Rate FiO2 01/04/17 07:53 98.9 79 16 143/70 94 01/04/17 02:30 Nasal Cannula 1.0 Intake and Output 01/03/17 01/03/17 01/04/17 15:00 23:00 07:00 Intake Total 100 ml 2720 ml 980 ml Output Total 1300 ml 100 ml Balance 100 ml 1420 ml 880 ml Exam Review of Systems: CONSTITUTIONAL: No fevers, chills. PULMONARY: No sob CARDIOVASCULAR: No obvious chest pain/palpitations GASTROINTESTINAL: No nausea/vomiting. GENITOURINARY: No hematuria/dysuria. MUSCULOSKELETAL: No myagias/arthalgias. PSYCHIATRIC: The patient denies depression. NEUROLOGIC: lethargic Constitutional: other (sleeping, arousable) Psych: no complaints Head: normocephalic ENMT: mucosa pink and moist Neck: jvd (9 cm water), supple Respiratory: diminished breath sounds (at bases/B) Cardiovascular: irregular rhythm Gastrointestinal: non-tender, soft Musculoskeletal: muscle weakness (generalized) Extremities: other (dressing covering wound LE) Neurological: lethargic Results Result Diagram: 01/04/17 0510 01/04/17 0510 Results 24 hrs Laboratory Tests Test 01/03/17 17:24 01/03/17 20:18 01/04/17 02:12 01/04/17 05:10 Bedside Glucose 199 195 168 White Blood Count 9.7 Red Blood Count 3.44 L Hemoglobin 10.0 L Hematocrit 32.4 L Mean Corpuscular Volume 94.2 Mean Corpuscular Hemoglobin 29.1 Mean Corpuscular Hemoglobin Concent 30.9 L Red Cell Distribution Width 16.3 H Platelet Count 270 Mean Platelet Volume 10.6 H Neutrophils % 79.7 H Lymphocytes % 12.1 L Monocytes % 7.2 Eosinophils % 0.2 Basophils % 0.6 Nucleated Red Blood Cells % 0.0 Neutrophils # 7.8 H Lymphocytes # 1.2 Monocytes # 0.7 Eosinophils # 0.0 Basophils # 0.1 Nucleated Red Blood Cells # 0.0 Sodium Level 139 Potassium Level 4.2 Chloride Level 104 Carbon Dioxide Level 29 Anion Gap 10 Blood Urea Nitrogen 17 Creatinine 1.46 H Glucose Level 179 Calcium Level 8.9 Test 01/04/17 08:38 Bedside Glucose 162 Medications Medications Current Medications Acetaminophen 650 mg 650 mg Q4H PRN PO PAIN AND OR ELEVATED TEMP Last administered on 12/29/16 09:42; Admin Dose 650 MG; Start 12/24/16 at 18:00 Piperacillin Sod/ Tazobactam Sod (Zosyn 3.375gm/ 100 ml (Pmx)) 100 ml @ 200 mls /hr Q6 IVPB Last administered on 01/04/17 05:56; Admin Dose 200 MLS/HR; Start 12/24/16 at 18:25 Ondansetron HCl (Zofran Inj) 4 mg Q6H PRN IV NAUSEA AND/OR VOMITING; Start at 18:00 Diagnostic Test (Pha) (Accu-Chek) 1 ea 02 XX Last administered on 01/04/17 02: 28; Admin Dose 1 EA; Start 12/25/16 at 02:00 Miscellaneous Information 1 ea NOTE XX ; Start 12/24/16 at 19:00 Glucose (Glutose) 15 gm Q15M PRN PO DECREASED GLUCOSE; Start 12/24/16 at 19:00 Glucose (Glutose) 22.5 gm Q15M PRN PO DECREASED GLUCOSE; Start 12/24/16 at 19: 00 Dextrose (D50w Syringe) 25 ml Q15M PRN IV DECREASED GLUCOSE; Start 12/24/16 at 19:00 Dextrose (D50w Syringe) 50 ml Q15M PRN IV DECREASED GLUCOSE; Start 12/24/16 at 19:00 Glucagon (Glucagen) 1 mg Q15M PRN IM DECREASED GLUCOSE; Start 12/24/16 at 19:00 Glucose (Glutose) 15 gm Q15M PRN BUCCAL DECREASED GLUCOSE; Start 12/24/16 at 19 :00 Apixaban (Eliquis) 2.5 mg BID PO Last administered on 01/04/17 09:31; Admin Dose 2.5 MG; Start 12/24/16 at 21:00 Carvedilol (Coreg) 12.5 mg BID PO Last administered on 01/04/17 09:32; Admin Dose 12.5 MG; Start 12/24/16 at 21:00 Levothyroxine Sodium (Synthroid) 50 mcg DAILY@06 PO Last administered on 05:56; Admin Dose 50 MCG; Start 12/25/16 at 06:00 Pantoprazole (Protonix Tab) 40 mg DAILY@06 PO Last administered on 01/04/17 05 :56; Admin Dose 40 MG; Start 12/25/16 at 06:00 Calcium Carbonate (Tums) 500 mg Q4 PRN PO GASTROINTESTINAL UPSET Last administered on 01/04/17 09:32; Admin Dose 500 MG; Start 12/25/16 at 12:00 Lactobacillus Acidophilus/ Rhamnosus (Culturelle) 1 cap BID PO Last administered on 01/04/17 09:32; Admin Dose 1 CAP; Start 12/25/16 at 21:00 Hydralazine HCl 25 mg 25 mg Q8 PO Last administered on 01/04/17 05:57; Admin Dose 25 MG; Start 12/27/16 at 14:00 Multivitamins/ Dextrose/Sodium Chloride (Mvi Adult/D5-1/ 2ns) 1,010 ml @ 30 mls /hr Q24H IV Last administered on 01/03/17 23:20; Admin Dose 30 MLS/HR; Start 12/31/16 at 22:00 Furosemide (Lasix) 20 mg DAILY PO Last administered on 01/04/17 09:31; Admin Dose 20 MG; Start 01/02/17 at 09:00 Morphine Sulfate (morphine) 1 mg Q4H PRN IV BREAKTHROUGH PAIN; Start 01/04/17 at 14:00 Guaifenesin/ Dextromethorphan (Robitussin Dm Liquid Cup) 10 ml Q4H PRN PO COUGH ; Start 01/04/17 at 12:00 RED MAHONEY Jan 04, 2017 12:26
[2017-01-04] MEDS ORDERED: morphine 2 MG INJ IV PRN (14:00)
--- NOTE | 2017-01-04 14:34 | PN ---
Date/Time of Note Date/Time of Note DATE: 01/04/17 TIME: 14:31 Assessment/Plan VTE Prophylaxis VTE Prophylaxis Intervention: SCD's Lines/Catheters IV Catheter Type (from Nrs): Peripheral IV Central line still needed: Yes Urinary Cath still in place: No Assessment/Plan Chief Complaint/Hosp Course Patient is more alert lethargic today however easily arousable, no fever, stop Phenergan, start Robitussin as needed for cough, chest x-ray for pneumonia evaluation. Assessment/Plan - Aspiration pneumonitis, continue Zosyn. Strict aspiration precaution with pur ed diet. - Decompensated congestive heart failure. Continue Lasix and Coreg. - Hypertension, continue Coreg and hydralazine. - Atrial fibrillation, continue Eliquis. - Hypothyroidism, continue Synthroid. - Diabetes mellitus. Continue NovoLog per sliding scale. 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 - Advanced dementia. Further recommendations based on clinical course. Plan of care discussed with Dr. Villarreal. Problems: Exam/Review of Systems Vital Signs Vitals Vital Signs Date Time Temp Pulse Resp B/P Pulse Ox O2 Delivery O2 Flow Rate FiO2 01/04/17 13:35 75 16 96 Nasal Cannula 2.0 01/04/17 07:53 98.9 143/70 Intake and Output 01/03/17 01/03/17 01/04/17 15:00 23:00 07:00 Intake Total 100 ml 2720 ml 980 ml Output Total 1300 ml 100 ml Balance 100 ml 1420 ml 880 ml Exam Constitutional: alert Psych: confusion Head: normocephalic Neck: non-tender, supple Respiratory: clear to auscultation Cardiovascular: irregular rhythm Gastrointestinal: non-tender, soft Extremities: normal pulses Neurological: nl mental status Results Result Diagram: 01/04/17 0510 01/04/17 0510 Results 24 hrs Laboratory Tests Test 01/03/17 17:24 01/03/17 20:18 01/04/17 02:12 01/04/17 05:10 Bedside Glucose 199 195 168 White Blood Count 9.7 Red Blood Count 3.44 L Hemoglobin 10.0 L Hematocrit 32.4 L Mean Corpuscular Volume 94.2 Mean Corpuscular Hemoglobin 29.1 Mean Corpuscular Hemoglobin Concent 30.9 L Red Cell Distribution Width 16.3 H Platelet Count 270 Mean Platelet Volume 10.6 H Neutrophils % 79.7 H Lymphocytes % 12.1 L Monocytes % 7.2 Eosinophils % 0.2 Basophils % 0.6 Nucleated Red Blood Cells % 0.0 Neutrophils # 7.8 H Lymphocytes # 1.2 Monocytes # 0.7 Eosinophils # 0.0 Basophils # 0.1 Nucleated Red Blood Cells # 0.0 Sodium Level 139 Potassium Level 4.2 Chloride Level 104 Carbon Dioxide Level 29 Anion Gap 10 Blood Urea Nitrogen 17 Creatinine 1.46 H Glucose Level 179 Hemoglobin A1c 7.0 H Calcium Level 8.9 Test 01/04/17 08:38 01/04/17 12:34 Bedside Glucose 162 195 Medications Medications Current Medications Acetaminophen 650 mg 650 mg Q4H PRN PO PAIN AND OR ELEVATED TEMP Last administered on 12/29/16 09:42; Admin Dose 650 MG; Start 12/24/16 at 18:00 Piperacillin Sod/ Tazobactam Sod (Zosyn 3.375gm/ 100 ml (Pmx)) 100 ml @ 200 mls /hr Q6 IVPB Last administered on 01/04/17 12:37; Admin Dose 200 MLS/HR; Start 12/24/16 at 18:25 Ondansetron HCl (Zofran Inj) 4 mg Q6H PRN IV NAUSEA AND/OR VOMITING; Start at 18:00 Diagnostic Test (Pha) (Accu-Chek) 1 ea 02 XX Last administered on 01/04/17 02: 28; Admin Dose 1 EA; Start 12/25/16 at 02:00 Miscellaneous Information 1 ea NOTE XX ; Start 12/24/16 at 19:00 Glucose (Glutose) 15 gm Q15M PRN PO DECREASED GLUCOSE; Start 12/24/16 at 19:00 Glucose (Glutose) 22.5 gm Q15M PRN PO DECREASED GLUCOSE; Start 12/24/16 at 19: 00 Dextrose (D50w Syringe) 25 ml Q15M PRN IV DECREASED GLUCOSE; Start 12/24/16 at 19:00 Dextrose (D50w Syringe) 50 ml Q15M PRN IV DECREASED GLUCOSE; Start 12/24/16 at 19:00 Glucagon (Glucagen) 1 mg Q15M PRN IM DECREASED GLUCOSE; Start 12/24/16 at 19:00 Glucose (Glutose) 15 gm Q15M PRN BUCCAL DECREASED GLUCOSE; Start 12/24/16 at 19 :00 Apixaban (Eliquis) 2.5 mg BID PO Last administered on 01/04/17 09:31; Admin Dose 2.5 MG; Start 12/24/16 at 21:00 Carvedilol (Coreg) 12.5 mg BID PO Last administered on 01/04/17 09:32; Admin Dose 12.5 MG; Start 12/24/16 at 21:00 Levothyroxine Sodium (Synthroid) 50 mcg DAILY@06 PO Last administered on 05:56; Admin Dose 50 MCG; Start 12/25/16 at 06:00 Pantoprazole (Protonix Tab) 40 mg DAILY@06 PO Last administered on 01/04/17 05 :56; Admin Dose 40 MG; Start 12/25/16 at 06:00 Calcium Carbonate (Tums) 500 mg Q4 PRN PO GASTROINTESTINAL UPSET Last administered on 01/04/17 09:32; Admin Dose 500 MG; Start 12/25/16 at 12:00 Lactobacillus Acidophilus/ Rhamnosus (Culturelle) 1 cap BID PO Last administered on 01/04/17 09:32; Admin Dose 1 CAP; Start 12/25/16 at 21:00 Hydralazine HCl 25 mg 25 mg Q8 PO Last administered on 01/04/17 05:57; Admin Dose 25 MG; Start 12/27/16 at 14:00 Multivitamins/ Dextrose/Sodium Chloride (Mvi Adult/D5-1/ 2ns) 1,010 ml @ 30 mls /hr Q24H IV Last administered on 01/03/17 23:20; Admin Dose 30 MLS/HR; Start 12/31/16 at 22:00 Furosemide (Lasix) 20 mg DAILY PO Last administered on 01/04/17 09:31; Admin Dose 20 MG; Start 01/02/17 at 09:00 Morphine Sulfate (morphine) 1 mg Q4H PRN IV BREAKTHROUGH PAIN; Start 01/04/17 at 14:00 Guaifenesin/ Dextromethorphan (Robitussin Dm Liquid Cup) 10 ml Q4H PRN PO COUGH Last administered on 01/04/17 12:36; Admin Dose 10 ML; Start 01/04/17 at 12:00 LYLA YOUNG Jan 04, 2017 14:34
--- NOTE | 2017-01-04 16:02 | RADRPT ---
PROCEDURE: XR Chest. CLINICAL INDICATION: Pneumonia. TECHNIQUE: Single AP portable chest. COMPARISON: 12/24/2016 Chest x-ray FINDINGS: The cardiomediastinal silhouette is markedly enlarged. Atherosclerotic calcification of the aorta. Large bilateral pleural effusions and bibasilar air space opacities with vascular congestion compat ible with CHF. Superimposed pneumonia cannot be excluded. No pneumothorax. The osseous structures a nd soft tissues are unremarkable. IMPRESSION: 1. Cardiomegaly with increasing bilateral pleural effusions and vascular congestion compatible with CHF exacerbation. Superimposed pneumonia cannot be excluded. RPTAT:AAJJ Lotus Jones Physician Date Time Electronically viewed and signed by Physician Grey on 01/04/2017 16:01 MANAS/
[2017-01-04] MEDS ORDERED: DEXTROMETHORPHAN PO PRN (16:30)
[2017-01-04] MEDS ORDERED: GUAIFENESIN PO PRN (16:30)
--- NOTE | 2017-01-04 17:36 | CONS ---
Date/Time of Note Date/Time of Note DATE: 01/04/17 TIME: 17:34 Assessment/Plan Assessment/Plan Additional Assessment/Plan 1. Acute kidney injury on possible chronic kidney disease, likely secondary to a congestive heart failure exacerbation and also possibly secondary to prerenal azotemia. 2. Acute congestive heart failure exacerbation, acute and chronic, systolic and diastolic, now on IV Lasix diuresis 20 mg b.i.d. 3. 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 4. History of diabetes mellitus type 2. 5. History of hypertension. 6. History of dementia. 7. Aspiration pneumonitis on IV antibiotics. PLAN: Cr improved to 1.46- on PO lasix IVF D51/2NS will follow up Consultation Date/Type/Reason Admit Date/Time Dec 24, 2016 at 11:04 Type of Consultation: NEPHROLOGY Referring Provider: MANI MITCHELL MD 24 HR Interval Summary Free Text/Dictation doing ok, BP stable, afebrile, No fever, no chills , fed by famiily today, c/o coughing after that Exam/Review of Systems Vital Signs Vitals Vital Signs Date Time Temp Pulse Resp B/P Pulse Ox O2 Delivery O2 Flow Rate FiO2 01/04/17 13:35 75 16 96 Nasal Cannula 2.0 01/04/17 07:53 98.9 143/70 Intake and Output 01/03/17 01/03/17 01/04/17 15:00 23:00 07:00 Intake Total 100 ml 2720 ml 980 ml Output Total 1300 ml 100 ml Balance 100 ml 1420 ml 880 ml Exam GENERAL: Awake, alert, in moderate distress due to the dementia. HEENT: Pupils equal, round, reactive to light and accommodation. Extraocular muscles are intact. NECK: Supple, no JVD, no lymphadenopathy. LUNGS: Clear to auscultation bilaterally, no crackles, no wheezes. HEART: S1, S2, tachycardia, no murmur. ABDOMEN: Soft, nontender, nondistended. Bowel sounds are present. EXTREMITIES: No clubbing, cyanosis, or edema. NEUROLOGICAL: The patient is demented, not able to follow any commands. Results Result Diagram: 01/04/17 0510 01/04/17 0510 Results 24 hrs Laboratory Tests Test 01/03/17 20:18 01/04/17 02:12 01/04/17 05:10 01/04/17 08:38 Bedside Glucose 195 168 162 White Blood Count 9.7 Red Blood Count 3.44 L Hemoglobin 10.0 L Hematocrit 32.4 L Mean Corpuscular Volume 94.2 Mean Corpuscular Hemoglobin 29.1 Mean Corpuscular Hemoglobin Concent 30.9 L Red Cell Distribution Width 16.3 H Platelet Count 270 Mean Platelet Volume 10.6 H Neutrophils % 79.7 H Lymphocytes % 12.1 L Monocytes % 7.2 Eosinophils % 0.2 Basophils % 0.6 Nucleated Red Blood Cells % 0.0 Neutrophils # 7.8 H Lymphocytes # 1.2 Monocytes # 0.7 Eosinophils # 0.0 Basophils # 0.1 Nucleated Red Blood Cells # 0.0 Sodium Level 139 Potassium Level 4.2 Chloride Level 104 Carbon Dioxide Level 29 Anion Gap 10 Blood Urea Nitrogen 17 Creatinine 1.46 H Glucose Level 179 Hemoglobin A1c 7.0 H Calcium Level 8.9 Test 01/04/17 12:34 01/04/17 17:11 Bedside Glucose 195 183 Medications Medications Current Medications Acetaminophen (Tylenol Tab) 650 mg Q4H PRN PO PAIN AND OR ELEVATED TEMP Last administered on 12/29/16 09:42; Admin Dose 650 MG; Start 12/24/16 at 18:00 Ondansetron HCl (Zofran Inj) 4 mg Q6H PRN IV NAUSEA AND/OR VOMITING; Start at 18:00 Diagnostic Test (Pha) (Accu-Chek) 1 ea 02 XX Last administered on 01/04/17 02: 28; Admin Dose 1 EA; Start 12/25/16 at 02:00 Miscellaneous Information 1 ea NOTE XX ; Start 12/24/16 at 19:00 Glucose (Glutose) 15 gm Q15M PRN PO DECREASED GLUCOSE; Start 12/24/16 at 19:00 Glucose (Glutose) 22.5 gm Q15M PRN PO DECREASED GLUCOSE; Start 12/24/16 at 19: 00 Dextrose (D50w Syringe) 25 ml Q15M PRN IV DECREASED GLUCOSE; Start 12/24/16 at 19:00 Dextrose (D50w Syringe) 50 ml Q15M PRN IV DECREASED GLUCOSE; Start 12/24/16 at 19:00 Glucagon (Glucagen) 1 mg Q15M PRN IM DECREASED GLUCOSE; Start 12/24/16 at 19:00 Glucose (Glutose) 15 gm Q15M PRN BUCCAL DECREASED GLUCOSE; Start 12/24/16 at 19 :00 Apixaban (Eliquis) 2.5 mg BID PO Last administered on 01/04/17 09:31; Admin Dose 2.5 MG; Start 12/24/16 at 21:00 Carvedilol (Coreg) 12.5 mg BID PO Last administered on 01/04/17 09:32; Admin Dose 12.5 MG; Start 12/24/16 at 21:00 Levothyroxine Sodium (Synthroid) 50 mcg DAILY@06 PO Last administered on 05:56; Admin Dose 50 MCG; Start 12/25/16 at 06:00 Pantoprazole (Protonix Tab) 40 mg DAILY@06 PO Last administered on 01/04/17 05 :56; Admin Dose 40 MG; Start 12/25/16 at 06:00 Calcium Carbonate (Tums) 500 mg Q4 PRN PO GASTROINTESTINAL UPSET Last administered on 01/04/17 09:32; Admin Dose 500 MG; Start 12/25/16 at 12:00 Lactobacillus Acidophilus/ Rhamnosus (Culturelle) 1 cap BID PO Last administered on 01/04/17 09:32; Admin Dose 1 CAP; Start 12/25/16 at 21:00 Hydralazine HCl 25 mg 25 mg Q8 PO Last administered on 01/04/17 05:57; Admin Dose 25 MG; Start 12/27/16 at 14:00 Multivitamins/ Dextrose/Sodium Chloride (Mvi Adult/D5-1/ 2ns) 1,010 ml @ 30 mls /hr Q24H IV Last administered on 01/03/17 23:20; Admin Dose 30 MLS/HR; Start 12/31/16 at 22:00 Furosemide 20 mg 20 mg DAILY PO Last administered on 01/04/17 09:31; Admin Dose 20 MG; Start 01/02/17 at 09:00 Piperacillin Sod/ Tazobactam Sod (Zosyn 3.375gm/ 100 ml (Pmx)) 100 ml @ 200 mls /hr Q8 IVPB ; Start 01/04/17 at 22:00 Patient Own Medication 10 ea Q6 PRN PO cough; Start 01/04/17 at 16:30; Status PATIENCEV BLANCA CARLIN MD Jan 04, 2017 17:36
--- NOTE | 2017-01-04 18:43 | RADRPT ---
PROCEDURE: XR Chest. CLINICAL INDICATION: Aspiration. TECHNIQUE: Single frontal view of the chest. COMPARISON: 12/24/2016. FINDINGS: Large right pleural effusion with partial collapse of the right lower lobe and right middle lobe. L arge left pleural effusion. Pleural effusions are increased over interval. Partial collapse of the left lower lobe. Cardiomegaly with calcified thoracic aorta. No signs of pneumothorax are seen. The osseous structures and soft tissues are unremarkable. IMPRESSION: Increased mild large pleural effusions with partial collapse of right lower lobe and middle lung, as well as partial collapse of the left lower lobe. RPTAT: [facility] Physician Agnes Date Time Electronically viewed and signed by Physician Agnes on 01/04/2017 18:42 RS/
[2017-01-04 20:42] VITALS: BP 140/67; PULSE 71; RESP 18
[2017-01-04 22:23] VITALS: BP 130/74; PULSE 69
[2017-01-04] MEDS: MULTIVITAMINS 10 ML in DEXTROSE 5%-0.45% NACL 1,000 ML IV SCH (22:54)
[2017-01-05] MEDS: ALBUTEROL/IPRATROPIUM (NEB) 3 ML AMP HHN SCH ×3 (01:50→13:18)
[2017-01-05] MEDS: ACCU-CHEK XX SCH (01:57)
[2017-01-05 02:00] VITALS: BP 140/70; PULSE 75; RESP 19
[2017-01-05] MEDS: ACETAMINOPHEN 325 MG TAB PO PRN ×2 (02:21→08:40)
[2017-01-05 06:06] LABS: ADD SCAN DIFF NO
[2017-01-05] MEDS: LEVOTHYROXINE 50 MCG TAB PO SCH (06:17)
[2017-01-05] MEDS: PANTOPRAZOLE (EC) 40 MG TAB PO SCH (06:17)
[2017-01-05] MEDS: PIPER-TAZO 3.375 GM IV (PMX) 100 ML IVPB SCH ×3 (06:17→22:10)
[2017-01-05 06:24] LABS: BASOPHIL # 0.1 10^3/ul (0.0-0.1); BASOPHILS % 0.8 % (0.0-2.0); EOSINOPHILS % 0.6 % (0.0-7.0); HEMATOCRIT 30.7 % (42.0-52.0); HEMOGLOBIN 9.6 g/dl (14.0-18.0); MEAN CORPUSCULAR HEMOGLOBIN 29.3 pg (29.0-33.0); MEAN CORPUSCULAR HGB CONC 31.3 g/dl (32.0-37.0); MEAN CORPUSCULAR VOLUME 93.6 fl (82.0-101.0); MEAN PLATELET VOLUME 10.7 fl (7.4-10.4); MONOCYTE # 0.6 10^3/ul (0.3-0.9); MONOCYTES % 8.4 % (0.0-11.0); NEUTROPHIL # 4.9 10^3/ul (1.6-7.5); NEUTROPHILS % 74.9 % (39.0-77.0); PLATELET COUNT 245 10^3/UL (140-415); RED BLOOD COUNT 3.28 10^6/ul (4.70-6.10); RED CELL DISTRIBUTION WIDTH 16.3 % (11.5-14.5); WHITE BLOOD COUNT 6.5 10^3/ul (4.8-10.8)
[2017-01-05 07:10] LABS: CALCIUM 8.7 mg/dl (8.4-10.2); CREATININE 1.45 mg/dl (0.61-1.24); POTASSIUM 3.4 mmol/L (3.5-5.1)
[2017-01-05] MEDS: LACTOBACILLUS RHAMNOSUS CAP PO SCH ×2 (08:12→20:59)
[2017-01-05] MEDS: APIXABAN 5 MG TABLET PO SCH ×2 (08:12→20:59)
[2017-01-05] MEDS: FUROSEMIDE 20 MG TAB PO SCH (08:12)
[2017-01-05 08:16] VITALS: BP 155/68; RESP 18
[2017-01-05] MEDS: INSULIN ASPART [NOVOLOG] 3 ML PEN SC SCH ×4 (08:18→20:57)
--- NOTE | 2017-01-05 09:13 | RADRPT ---
PROCEDURE: XR Chest 1 view. CLINICAL INDICATION: Shortness of breath TECHNIQUE: AP views of the chest was obtained. COMPARISON: Yesterday FINDINGS: The heart is large. Calcified atherosclerosis is noted in the aorta. Central pulmonary vascular con gestion and interstitial prominence in both lungs is unchanged. Bilateral perihilar and lower lung infiltrates, combined with moderate pleural effusions are unchanged. Elevation of the right hemidia phragm is stable. The osseous structures are unchanged. IMPRESSION: Cardiomegaly with calcified atherosclerosis in the aorta. Stable central pulmonary vascular congestion and interstitial prominence in both lungs. Stable bilateral perihilar and lower lung infiltrates, combined with moderate pleural effusions. Stable elevation of the right hemidiaphragm. RPTAT: AA .Ezequiel Ford MD, MD Date Time Electronically viewed and signed by .Ezequiel Ford MD, on 01/05/2017 09:13 .P/
--- NOTE | 2017-01-05 12:31 | CONS ---
Date/Time of Note Date/Time of Note DATE: 01/05/17 TIME: 12:26 Assessment/Plan Assessment/Plan Additional Assessment/Plan Chest x-ray was reviewed from today which is showing cardiomegaly with bilateral pleural effusions and changes consistent with congestive heart failure. Assessment recommendations; 1. Patient admitted with shortness of breath due to CHF. Repeat difficult to rule out superimposed pneumonia. 3. Hypo-thyroidism, uncompensated. 4. History of hypertension. 5. Chronic atrial fibrillation. 6. Renal insufficiency. Discontinue oral Lasix. Start Lasix 40 mg IV every 12 hours. Obtain follow-up chest x-ray in 48 hours. Consultation Date/Type/Reason Admit Date/Time Dec 24, 2016 at 11:04 Date of Consultation: Jan 05, 2017 Type of Consultation: Pulmonary Reason for Consultation Pulmonary consultation requested for evaluation of shortness of breath. History of presenting illness; patient is an 86-year-old white male who was admitted on the of this month with complaints of being short of breath. Upon evaluation patient was diagnosed with bronchitis and pneumonia and started on antibiotics. Patient also has been getting oral Lasix daily. However over the last 24-48 hours the patient's condition is not improving and the patient is appearing more congested. By the time I saw the patient , the patient is awake and was able to tell me that shortness of breath actually has improved and denies any shortness of breath. Patient denies any chest pain. Any abdominal pain , nausea, vomiting. Past medical history; 1. Patient with a history of chronic atrial fibrillation. Continue on chronic anticoagulant. 2. Hypo-thyroidism. 3. Hypertension. 4. Chronic renal insufficiency. Not requiring hemodialysis. Medications; reviewed. Allergies; amiodarone. Social history; patient has a remote history of smoking. Family history; not available. 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 Review of systems; limited review of systems could be obtained patient is reporting significant reduction in shortness of breath. Denies any chest pain, abdominal pain, nausea vomiting. General exam; elderly male, awake, currently in no distress. Constitutional: improved Cardiovascular: no complaints Gastrointestinal: no complaints Psychological: no complaints Social History Smoking Status: Former smoker Exam/Review of Systems Vital Signs Vitals Vital Signs Date Time Temp Pulse Resp B/P Pulse Ox O2 Delivery O2 Flow Rate FiO2 01/05/17 08:16 98.0 74 18 155/68 98 01/05/17 02:00 Nasal Cannula 2.0 Intake and Output 01/04/17 01/04/17 01/05/17 15:00 23:00 07:00 Intake Total 100 ml 550 ml 240 ml Output Total 250 ml Balance 100 ml 550 ml -10 ml Exam HEENT exam; supple neck, positive JVD. No lymphadenopathy. Midline trachea. No thyromegaly. Patient has a multiple carious teeth. Pupils are equal and reactive to light bilaterally. No neck masses. Chest exam; upper lobes are clear to auscultation with diminished breath on lung bases bilaterally. S1-S2 audible, no murmurs. Irregular rhythm. Abdomen exam; no distention. No organomegaly. Bowel sounds audible. Extremity exam; no peripheral edema. Patient does have scattered ecchymosis involving extremities. Radial pulses 1+ bilaterally. EXTERMINATOR HELPER TERMITE exam; patient is awake and follows simple commands and moves all 4 extremities on command. Results Result Diagram: 01/05/17 0520 01/05/17 0520 Results 24 hrs Laboratory Tests Test 01/04/17 12:34 01/04/17 17:11 01/04/17 20:53 01/05/17 05:20 Bedside Glucose 195 183 157 White Blood Count 6.5 # Red Blood Count 3.28 L Hemoglobin 9.6 L Hematocrit 30.7 L Mean Corpuscular Volume 93.6 Mean Corpuscular Hemoglobin 29.3 Mean Corpuscular Hemoglobin Concent 31.3 L Red Cell Distribution Width 16.3 H Platelet Count 245 Mean Platelet Volume 10.7 H Neutrophils % 74.9 Lymphocytes % 15.0 Monocytes % 8.4 Eosinophils % 0.6 Basophils % 0.8 Nucleated Red Blood Cells % 0.0 Neutrophils # 4.9 Lymphocytes # 1.0 Monocytes # 0.6 Eosinophils # 0.0 Basophils # 0.1 Nucleated Red Blood Cells # 0.0 Sodium Level 140 Potassium Level 3.4 L Chloride Level 106 Carbon Dioxide Level 27 Anion Gap 10 Blood Urea Nitrogen 17 Creatinine 1.45 H Glucose Level 155 Calcium Level 8.7 Test 01/05/17 08:06 01/05/17 12:00 Bedside Glucose 166 231 H Medications Medications Current Medications Acetaminophen (Tylenol Tab) 650 mg Q4H PRN PO PAIN AND OR ELEVATED TEMP Last administered on 01/05/17t 02:21; Admin Dose 650 MG; Start 12/24/16 at 18:00 Ondansetron HCl (Zofran Inj) 4 mg Q6H PRN IV NAUSEA AND/OR VOMITING; Start at 18:00 Diagnostic Test (Pha) (Accu-Chek) 1 ea 02 XX Last administered on 01/04/17 02: 28; Admin Dose 1 EA; Start 12/25/16 at 02:00 Miscellaneous Information 1 ea NOTE XX ; Start 12/24/16 at 19:00 Glucose (Glutose) 15 gm Q15M PRN PO DECREASED GLUCOSE; Start 12/24/16 at 19:00 Glucose (Glutose) 22.5 gm Q15M PRN PO DECREASED GLUCOSE; Start 12/24/16 at 19: 00 Dextrose (D50w Syringe) 25 ml Q15M PRN IV DECREASED GLUCOSE; Start 12/24/16 at 19:00 Dextrose (D50w Syringe) 50 ml Q15M PRN IV DECREASED GLUCOSE; Start 12/24/16 at 19:00 Glucagon (Glucagen) 1 mg Q15M PRN IM DECREASED GLUCOSE; Start 12/24/16 at 19:00 Glucose (Glutose) 15 gm Q15M PRN BUCCAL DECREASED GLUCOSE; Start 12/24/16 at 19 :00 Apixaban (Eliquis) 2.5 mg BID PO Last administered on 01/05/17 08:12; Admin Dose 2.5 MG; Start 12/24/16 at 21:00 Carvedilol (Coreg) 12.5 mg BID PO Last administered on 01/05/17 08:12; Admin Dose 12.5 MG; Start 12/24/16 at 21:00 Levothyroxine Sodium (Synthroid) 50 mcg DAILY@06 PO Last administered on 06:17; Admin Dose 50 MCG; Start 12/25/16 at 06:00 Pantoprazole (Protonix Tab) 40 mg DAILY@06 PO Last administered on 01/05/17 06 :17; Admin Dose 40 MG; Start 12/25/16 at 06:00 Calcium Carbonate (Tums) 500 mg Q4 PRN PO GASTROINTESTINAL UPSET Last administered on 01/04/17 09:32; Admin Dose 500 MG; Start 12/25/16 at 12:00 Lactobacillus Acidophilus/ Rhamnosus (Culturelle) 1 cap BID PO Last administered on 01/05/17 08:12; Admin Dose 1 CAP; Start 12/25/16 at 21:00 Hydralazine HCl 25 mg 25 mg Q8 PO Last administered on 01/05/17 06:18; Admin Dose 25 MG; Start 12/27/16 at 14:00 Multivitamins/ Dextrose/Sodium Chloride (Mvi Adult/D5-1/ 2ns) 1,010 ml @ 30 mls /hr Q24H IV Last administered on 01/04/17 22:54; Admin Dose 30 MLS/HR; Start 12/31/16 at 22:00 Furosemide 20 mg 20 mg DAILY PO Last administered on 01/05/17 08:12; Admin Dose 20 MG; Start 01/02/17 at 09:00 Piperacillin Sod/ Tazobactam Sod (Zosyn 3.375gm/ 100 ml (Pmx)) 100 ml @ 200 mls /hr Q8 IVPB Last administered on 01/05/17 06:17; Admin Dose 200 MLS/HR; Start 01/04/17 at 22:00 Patient Own Medication 1 ea Q6H PRN PO cough; Start 01/04/17 at 16:30 SHAY SNOWDEN Jan 05, 2017 12:31
[2017-01-05] MEDS: FUROSEMIDE 40 MG INJ IV SCH ×2 (13:00→22:13)
--- NOTE | 2017-01-05 14:09 | PN ---
Date/Time of Note Date/Time of Note DATE: 01/05/17 TIME: 14:02 Assessment/Plan VTE Prophylaxis VTE Prophylaxis Intervention: SCD's Lines/Catheters IV Catheter Type (from [facility]): Peripheral IV Urinary Cath still in place: No Assessment/Plan Chief Complaint/Hosp Course Patient is lethargic but easily arousable, comfortable and supplemental oxygen, remains afebrile. Family needs education regarding strict aspiration precaution and pured diet, patient son tried to feed patient regular food. Chest x-ray for today reviewed. Dr. Thomas is asked to see patient in pulmonology consultation. Assessment/Plan - Possible pneumonia, continue Zosyn. Strict aspiration precaution with pured diet. - Decompensated congestive heart failure. Continue Lasix and Coreg. - Hypertension, continue Coreg and hydralazine. - Atrial fibrillation, continue Eliquis. - Hypothyroidism, continue Synthroid. - Diabetes mellitus. Continue NovoLog per sliding scale. 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 - Advanced dementia. Further recommendations based on clinical course. Plan of care discussed with Dr. Villarreal. Problems: Exam/Review of Systems Vital Signs Vitals Vital Signs Date Time Temp Pulse Resp B/P Pulse Ox O2 Delivery O2 Flow Rate FiO2 01/05/17 13:18 2.0 01/05/17 13:18 Nasal Cannula 01/05/17 08:16 98.0 74 18 155/68 98 Intake and Output 01/04/17 01/04/17 01/05/17 15:00 23:00 07:00 Intake Total 100 ml 550 ml 240 ml Output Total 250 ml Balance 100 ml 550 ml -10 ml Exam Constitutional: alert, frail Neck: supple Respiratory: diminished breath sounds Cardiovascular: irregular rhythm Gastrointestinal: non-tender, soft Extremities: normal pulses Neurological: confused, nl mental status Results Result Diagram: 01/05/17 0520 01/05/17 0520 Results 24 hrs Laboratory Tests Test 01/04/17 17:11 01/04/17 20:53 01/05/17 05:20 01/05/17 08:06 Bedside Glucose 183 157 166 White Blood Count 6.5 # Red Blood Count 3.28 L Hemoglobin 9.6 L Hematocrit 30.7 L Mean Corpuscular Volume 93.6 Mean Corpuscular Hemoglobin 29.3 Mean Corpuscular Hemoglobin Concent 31.3 L Red Cell Distribution Width 16.3 H Platelet Count 245 Mean Platelet Volume 10.7 H Neutrophils % 74.9 Lymphocytes % 15.0 Monocytes % 8.4 Eosinophils % 0.6 Basophils % 0.8 Nucleated Red Blood Cells % 0.0 Neutrophils # 4.9 Lymphocytes # 1.0 Monocytes # 0.6 Eosinophils # 0.0 Basophils # 0.1 Nucleated Red Blood Cells # 0.0 Sodium Level 140 Potassium Level 3.4 L Chloride Level 106 Carbon Dioxide Level 27 Anion Gap 10 Blood Urea Nitrogen 17 Creatinine 1.45 H Glucose Level 155 Calcium Level 8.7 Test 01/05/17 12:00 Bedside Glucose 231 H Medications Medications Current Medications Acetaminophen (Tylenol Tab) 650 mg Q4H PRN PO PAIN AND OR ELEVATED TEMP Last administered on 01/05/17 02:21; Admin Dose 650 MG; Start 12/24/16 at 18:00 Ondansetron HCl (Zofran Inj) 4 mg Q6H PRN IV NAUSEA AND/OR VOMITING; Start at 18:00 Diagnostic Test (Pha) (Accu-Chek) 1 ea 02 XX Last administered on 01/04/17 02: 28; Admin Dose 1 EA; Start 12/25/16 at 02:00 Miscellaneous Information 1 ea NOTE XX ; Start 12/24/16 at 19:00 Glucose (Glutose) 15 gm Q15M PRN PO DECREASED GLUCOSE; Start 12/24/16 at 19:00 Glucose (Glutose) 22.5 gm Q15M PRN PO DECREASED GLUCOSE; Start 12/24/16 at 19: 00 Dextrose (D50w Syringe) 25 ml Q15M PRN IV DECREASED GLUCOSE; Start 12/24/16 at 19:00 Dextrose (D50w Syringe) 50 ml Q15M PRN IV DECREASED GLUCOSE; Start 12/24/16 at 19:00 Glucagon (Glucagen) 1 mg Q15M PRN IM DECREASED GLUCOSE; Start 12/24/16 at 19:00 Glucose (Glutose) 15 gm Q15M PRN BUCCAL DECREASED GLUCOSE; Start 12/24/16 at 19 :00 Apixaban (Eliquis) 2.5 mg BID PO Last administered on 01/05/17 08:12; Admin Dose 2.5 MG; Start 12/24/16 at 21:00 Carvedilol (Coreg) 12.5 mg BID PO Last administered on 01/05/17 08:12; Admin Dose 12.5 MG; Start 12/24/16 at 21:00 Levothyroxine Sodium (Synthroid) 50 mcg DAILY@06 PO Last administered on 06:17; Admin Dose 50 MCG; Start 12/25/16 at 06:00 Pantoprazole (Protonix Tab) 40 mg DAILY@06 PO Last administered on 01/05/17 06 :17; Admin Dose 40 MG; Start 12/25/16 at 06:00 Calcium Carbonate (Tums) 500 mg Q4 PRN PO GASTROINTESTINAL UPSET Last administered on 01/04/17 09:32; Admin Dose 500 MG; Start 12/25/16 at 12:00 Lactobacillus Acidophilus/ Rhamnosus (Culturelle) 1 cap BID PO Last administered on 01/05/17 08:12; Admin Dose 1 CAP; Start 12/25/16 at 21:00 Hydralazine HCl 25 mg 25 mg Q8 PO Last administered on 01/05/17 06:18; Admin Dose 25 MG; Start 12/27/16 at 14:00 Multivitamins 10 ml/Dextrose/ Sodium Chloride 1,010 ml @ 30 mls/hr Q24H IV Last administered on 01/04/17 22:54; Admin Dose 30 MLS/HR; Start 12/31/16 at 22 :00 Piperacillin Sod/ Tazobactam Sod (Zosyn 3.375gm/ 100 ml (Pmx)) 100 ml @ 200 mls /hr Q8 IVPB Last administered on 01/05/17 13:45; Admin Dose 200 MLS/HR; Start 01/04/17 at 22:00 Patient Own Medication 1 ea Q6H PRN PO cough; Start 01/04/17 at 16:30 LYLA YOUNG Jan 05, 2017 14:09
--- NOTE | 2017-01-05 14:20 | CONS ---
Date/Time of Note Date/Time of Note DATE: 01/05/17 TIME: 14:16 Assessment/Plan Assessment/Plan Chief Complaint/Hosp Course IMPRESSION: 1. Atrial fibrillation, currently rate controlled. 2. Congestive heart failure, systolic, acute on chronic-ongoing by cxr 12/29. 3. Hypertension. 4. Renal failure-worsening 5. Anemia. 6. Hypothyroidism. 7. Diabetes mellitus. 8. Lower extremity cellulitis/wound 9. Lower extremity edema-resolved REcc: -serial ecg's -Continue coreg -Continue eliquis -Continue hydralazine afterload reduction given renal failure in lieu of ACEI -Continue abx's -Continue lasix which has been increased and follow volume status closely as patient will comply Problems: Consultation Date/Type/Reason Admit Date/Time Dec 24, 2016 at 11:04 Initial Consult Date 12/24/2016 Type of Consultation: Cardiology Reason for Consultation AF/CHF Referring Provider: MANI MITCHELL MD Exam/Review of Systems Vital Signs Vitals Vital Signs Date Time Temp Pulse Resp B/P Pulse Ox O2 Delivery O2 Flow Rate FiO2 01/05/17 13:18 2.0 01/05/17 13:18 Nasal Cannula 01/05/17 08:16 98.0 74 18 155/68 98 Intake and Output 01/04/17 01/04/17 01/05/17 15:00 23:00 07:00 Intake Total 100 ml 550 ml 240 ml Output Total 250 ml Balance 100 ml 550 ml -10 ml Exam Review of Systems: CONSTITUTIONAL: No fevers, chills. PULMONARY: No sob CARDIOVASCULAR: No chest pain/palpitations GASTROINTESTINAL: No nausea/vomiting. GENITOURINARY: No hematuria/dysuria. MUSCULOSKELETAL: No myagias/arthalgias. PSYCHIATRIC: The patient denies depression. NEUROLOGIC: lethargic Constitutional: other (sleeping, arousable) Psych: no complaints Head: normocephalic Eyes: nl conjunctiva ENMT: mucosa pink and moist Neck: jvd (9 cm water), supple Respiratory: diminished breath sounds (at bases/B) Cardiovascular: regular rate and rhythm Gastrointestinal: non-tender, soft Musculoskeletal: muscle tone (normal) Extremities: edema (none) Neurological: other (No focal deficits) Results Result Diagram: 01/05/1751901/05/17 05 Results 24 hrs Laboratory Tests Test 01/04/17 17:11 01/04/17 20:53 01/05/17 05:20 01/05/17 08:06 Bedside Glucose 183 157 166 White Blood Count 6.5 # Red Blood Count 3.28 L Hemoglobin 9.6 L Hematocrit 30.7 L Mean Corpuscular Volume 93.6 Mean Corpuscular Hemoglobin 29.3 Mean Corpuscular Hemoglobin Concent 31.3 L Red Cell Distribution Width 16.3 H Platelet Count 245 Mean Platelet Volume 10.7 H Neutrophils % 74.9 Lymphocytes % 15.0 Monocytes % 8.4 Eosinophils % 0.6 Basophils % 0.8 Nucleated Red Blood Cells % 0.0 Neutrophils # 4.9 Lymphocytes # 1.0 Monocytes # 0.6 Eosinophils # 0.0 Basophils # 0.1 Nucleated Red Blood Cells # 0.0 Sodium Level 140 Potassium Level 3.4 L Chloride Level 106 Carbon Dioxide Level 27 Anion Gap 10 Blood Urea Nitrogen 17 Creatinine 1.45 H Glucose Level 155 Calcium Level 8.7 Test 01/05/17 12:00 Bedside Glucose 231 H Medications Medications Current Medications Acetaminophen (Tylenol Tab) 650 mg Q4H PRN PO PAIN AND OR ELEVATED TEMP Last administered on 01/05/17 02:21; Admin Dose 650 MG; Start 12/24/16 at 18:00 Ondansetron HCl (Zofran Inj) 4 mg Q6H PRN IV NAUSEA AND/OR VOMITING; Start at 18:00 Diagnostic Test (Pha) (Accu-Chek) 1 ea 02 XX Last administered on 01/04/17 02: 28; Admin Dose 1 EA; Start 12/25/16 at 02:00 Miscellaneous Information 1 ea NOTE XX ; Start 12/24/16 at 19:00 Glucose (Glutose) 15 gm Q15M PRN PO DECREASED GLUCOSE; Start 12/24/16 at 19:00 Glucose (Glutose) 22.5 gm Q15M PRN PO DECREASED GLUCOSE; Start 12/24/16 at 19: 00 Dextrose (D50w Syringe) 25 ml Q15M PRN IV DECREASED GLUCOSE; Start 12/24/16 at 19:00 Dextrose (D50w Syringe) 50 ml Q15M PRN IV DECREASED GLUCOSE; Start 12/24/16 at 19:00 Glucagon (Glucagen) 1 mg Q15M PRN IM DECREASED GLUCOSE; Start 12/24/16 at 19:00 Glucose (Glutose) 15 gm Q15M PRN BUCCAL DECREASED GLUCOSE; Start 12/24/16 at 19 :00 Apixaban (Eliquis) 2.5 mg BID PO Last administered on 01/05/17 08:12; Admin Dose 2.5 MG; Start 12/24/16 at 21:00 Carvedilol (Coreg) 12.5 mg BID PO Last administered on 01/05/17 08:12; Admin Dose 12.5 MG; Start 12/24/16 at 21:00 Levothyroxine Sodium (Synthroid) 50 mcg DAILY@06 PO Last administered on 06:17; Admin Dose 50 MCG; Start 12/25/16 at 06:00 Pantoprazole (Protonix Tab) 40 mg DAILY@06 PO Last administered on 01/05/17 06 :17; Admin Dose 40 MG; Start 12/25/16 at 06:00 Calcium Carbonate (Tums) 500 mg Q4 PRN PO GASTROINTESTINAL UPSET Last administered on 01/04/17 09:32; Admin Dose 500 MG; Start 12/25/16 at 12:00 Lactobacillus Acidophilus/ Rhamnosus (Culturelle) 1 cap BID PO Last administered on 01/05/17 08:12; Admin Dose 1 CAP; Start 12/25/16 at 21:00 Hydralazine HCl 25 mg 25 mg Q8 PO Last administered on 01/05/17 06:18; Admin Dose 25 MG; Start 12/27/16 at 14:00 Multivitamins 10 ml/Dextrose/ Sodium Chloride 1,010 ml @ 30 mls/hr Q24H IV Last administered on 01/04/17 22:54; Admin Dose 30 MLS/HR; Start 12/31/16 at 22 :00 Piperacillin Sod/ Tazobactam Sod (Zosyn 3.375gm/ 100 ml (Pmx)) 100 ml @ 200 mls /hr Q8 IVPB Last administered on 01/05/17 13:45; Admin Dose 200 MLS/HR; Start 01/04/17 at 22:00 Patient Own Medication 1 ea Q6H PRN PO cough; Start 01/04/17 at 16:30 RED MAHONEY Jan 05, 2017 14:20
[2017-01-05] MEDS ORDERED: POTASSIUM CHLORIDE (SR) 20 MEQ TAB PO STA (16:54)
--- NOTE | 2017-01-05 16:58 | CONS ---
Date/Time of Note Date/Time of Note DATE: 01/05/17 TIME: 16:54 Assessment/Plan Assessment/Plan Additional Assessment/Plan 1. Acute kidney injury on possible chronic kidney disease, likely secondary to a congestive heart failure exacerbation and also possibly secondary to prerenal azotemia. 2. Acute congestive heart failure exacerbation, acute and chronic, systolic and diastolic, now on IV Lasix diuresis 20 mg b.i.d. 3. 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 4. History of diabetes mellitus type 2. 5. History of hypertension. 6. History of dementia. 7. Aspiration pneumonitis on IV antibiotics. PLAN: Cr improved to 1.45- lasix changed to 40mg IV BID IVF KCl 40mEQ PO X 1 dose now on Eliquis 2.5mg BID will follow up Consultation Date/Type/Reason Admit Date/Time Dec 24, 2016 at 11:04 Type of Consultation: NEPHROLOGY Referring Provider: MANI MITCHELL MD 24 HR Interval Summary Free Text/Dictation K low, Cr stable, no acute events Exam/Review of Systems Vital Signs Vitals Vital Signs Date Time Temp Pulse Resp B/P Pulse Ox O2 Delivery O2 Flow Rate FiO2 01/05/17 13:18 2.0 01/05/17 13:18 Nasal Cannula 01/05/17 08:16 98.0 74 18 155/68 98 Intake and Output 01/04/17 01/04/17 01/05/17 15:00 23:00 07:00 Intake Total 100 ml 550 ml 240 ml Output Total 250 ml Balance 100 ml 550 ml -10 ml Exam GENERAL: Awake, alert, in moderate distress due to the dementia. HEENT: Pupils equal, round, reactive to light and accommodation. Extraocular muscles are intact. NECK: Supple, no JVD, no lymphadenopathy. LUNGS: Clear to auscultation bilaterally, no crackles, no wheezes. HEART: S1, S2, tachycardia, no murmur. ABDOMEN: Soft, nontender, nondistended. Bowel sounds are present. EXTREMITIES: No clubbing, cyanosis, or edema. NEUROLOGICAL: The patient is demented, not able to follow any commands. Results Result Diagram: 01/05/17 0520 01/05/17 0520 Results 24 hrs Laboratory Tests Test 01/04/17 17:11 01/04/17 20:53 01/05/17 05:20 01/05/17 08:06 Bedside Glucose 183 157 166 White Blood Count 6.5 # Red Blood Count 3.28 L Hemoglobin 9.6 L Hematocrit 30.7 L Mean Corpuscular Volume 93.6 Mean Corpuscular Hemoglobin 29.3 Mean Corpuscular Hemoglobin Concent 31.3 L Red Cell Distribution Width 16.3 H Platelet Count 245 Mean Platelet Volume 10.7 H Neutrophils % 74.9 Lymphocytes % 15.0 Monocytes % 8.4 Eosinophils % 0.6 Basophils % 0.8 Nucleated Red Blood Cells % 0.0 Neutrophils # 4.9 Lymphocytes # 1.0 Monocytes # 0.6 Eosinophils # 0.0 Basophils # 0.1 Nucleated Red Blood Cells # 0.0 Sodium Level 140 Potassium Level 3.4 L Chloride Level 106 Carbon Dioxide Level 27 Anion Gap 10 Blood Urea Nitrogen 17 Creatinine 1.45 H Glucose Level 155 Calcium Level 8.7 Test 01/05/17 12:00 Bedside Glucose 231 H Medications Medications Current Medications Acetaminophen (Tylenol Tab) 650 mg Q4H PRN PO PAIN AND OR ELEVATED TEMP Last administered on 01/05/17 02:21; Admin Dose 650 MG; Start 12/24/16 at 18:00 Ondansetron HCl (Zofran Inj) 4 mg Q6H PRN IV NAUSEA AND/OR VOMITING; Start at 18:00 Diagnostic Test (Pha) (Accu-Chek) 1 ea 02 XX Last administered on 01/04/17 02: 28; Admin Dose 1 EA; Start 12/25/16 at 02:00 Miscellaneous Information 1 ea NOTE XX ; Start 12/24/16 at 19:00 Glucose (Glutose) 15 gm Q15M PRN PO DECREASED GLUCOSE; Start 12/24/16 at 19:00 Glucose (Glutose) 22.5 gm Q15M PRN PO DECREASED GLUCOSE; Start 12/24/16 at 19: 00 Dextrose (D50w Syringe) 25 ml Q15M PRN IV DECREASED GLUCOSE; Start 12/24/16 at 19:00 Dextrose (D50w Syringe) 50 ml Q15M PRN IV DECREASED GLUCOSE; Start 12/24/16 at 19:00 Glucagon (Glucagen) 1 mg Q15M PRN IM DECREASED GLUCOSE; Start 12/24/16 at 19:00 Glucose (Glutose) 15 gm Q15M PRN BUCCAL DECREASED GLUCOSE; Start 12/24/16 at 19 :00 Apixaban (Eliquis) 2.5 mg BID PO Last administered on 01/05/17 08:12; Admin Dose 2.5 MG; Start 12/24/16 at 21:00 Carvedilol (Coreg) 12.5 mg BID PO Last administered on 01/05/17 08:12; Admin Dose 12.5 MG; Start 12/24/16 at 21:00 Levothyroxine Sodium (Synthroid) 50 mcg DAILY@06 PO Last administered on 06:17; Admin Dose 50 MCG; Start 12/25/16 at 06:00 Pantoprazole (Protonix Tab) 40 mg DAILY@06 PO Last administered on 01/05/17 06 :17; Admin Dose 40 MG; Start 12/25/16 at 06:00 Calcium Carbonate (Tums) 500 mg Q4 PRN PO GASTROINTESTINAL UPSET Last administered on 01/04/17 09:32; Admin Dose 500 MG; Start 12/25/16 at 12:00 Lactobacillus Acidophilus/ Rhamnosus (Culturelle) 1 cap BID PO Last administered on 01/05/17 08:12; Admin Dose 1 CAP; Start 12/25/16 at 21:00 Hydralazine HCl 25 mg 25 mg Q8 PO Last administered on 01/05/17 06:18; Admin Dose 25 MG; Start 12/27/16 at 14:00 Multivitamins 10 ml/Dextrose/ Sodium Chloride 1,010 ml @ 30 mls/hr Q24H IV Last administered on 01/04/17 22:54; Admin Dose 30 MLS/HR; Start 12/31/16 at 22 :00 Piperacillin Sod/ Tazobactam Sod (Zosyn 3.375gm/ 100 ml (Pmx)) 100 ml @ 200 mls /hr Q8 IVPB Last administered on 01/05/17 13:45; Admin Dose 200 MLS/HR; Start 01/04/17 at 22:00 Patient Own Medication 1 ea Q6H PRN PO cough; Start 01/04/17 at 16:30 BLANCA CARLIN MD Jan 05, 2017 16:58
[2017-01-05 19:56] VITALS: BP 154/74; RESP 18
[2017-01-05] MEDS: MULTIVITAMINS 10 ML in DEXTROSE 5%-0.45% NACL 1,000 ML IV SCH (22:09)
[2017-01-06] MEDS: ALBUTEROL/IPRATROPIUM (NEB) 3 ML AMP HHN SCH ×4 (01:43→20:51)
[2017-01-06] MEDS: ACCU-CHEK XX SCH (02:00)
[2017-01-06] MEDS: PIPER-TAZO 3.375 GM IV (PMX) 100 ML IVPB SCH ×3 (06:00→21:42)
[2017-01-06] MEDS: FUROSEMIDE 40 MG INJ IV SCH ×2 (06:01→18:16)
[2017-01-06] MEDS: LEVOTHYROXINE 50 MCG TAB PO SCH (06:01)
[2017-01-06] MEDS: PANTOPRAZOLE (EC) 40 MG TAB PO SCH (06:01)
[2017-01-06 06:11] LABS: ADD SCAN DIFF NO
[2017-01-06 06:16] LABS: BASOPHILS % 0.6 % (0.0-2.0); EOSINOPHILS % 0.3 % (0.0-7.0); HEMATOCRIT 34.1 % (42.0-52.0); HEMOGLOBIN 10.4 g/dl (14.0-18.0); LYMPHOCYTES # 0.9 10^3/ul (0.8-2.9); LYMPHOCYTES % 13.1 % (15.0-51.0); MEAN CORPUSCULAR HGB CONC 30.5 g/dl (32.0-37.0); MEAN PLATELET VOLUME 10.6 fl (7.4-10.4); MONOCYTE # 0.3 10^3/ul (0.3-0.9); MONOCYTES % 5.1 % (0.0-11.0); NEUTROPHIL # 5.4 10^3/ul (1.6-7.5); NEUTROPHILS % 80.6 % (39.0-77.0); PLATELET COUNT 280 10^3/UL (140-415); RED BLOOD COUNT 3.59 10^6/ul (4.70-6.10); RED CELL DISTRIBUTION WIDTH 16.3 % (11.5-14.5); WHITE BLOOD COUNT 6.6 10^3/ul (4.8-10.8)
[2017-01-06 06:43] LABS: CREATININE 1.55 mg/dl (0.61-1.24)
[2017-01-06 07:59] VITALS: BP 140/70; RESP 20
[2017-01-06] MEDS: LACTOBACILLUS RHAMNOSUS CAP PO SCH ×3 (08:23→21:28)
[2017-01-06] MEDS: APIXABAN 5 MG TABLET PO SCH ×4 (08:24→21:28)
[2017-01-06] MEDS: INSULIN ASPART [NOVOLOG] 3 ML PEN SC SCH ×4 (08:26→21:31)
--- NOTE | 2017-01-06 11:10 | CONS ---
Date/Time of Note Date/Time of Note DATE: 01/06/17 TIME: 11:08 Assessment/Plan Assessment/Plan Additional Assessment/Plan Assessment recommendations; 1. P patient admitted with shortness of breath due to congestive heart failure with bilateral pleural effusions. 2. Possibly superimposed pneumonia. 3. History of chronic renal insufficiency. 4. Hypo-thyroidism. 5. History of hypertension. Continue current treatment. Obtain follow-up chest x-ray in 24 hours. Consultation Date/Type/Reason Admit Date/Time Dec 24, 2016 at 11:04 Initial Consult Date 01/05/17 Type of Consultation: Pulmonary Referring Provider: MANI MITCHELL MD 24 HR Interval Summary Free Text/Dictation Patient condition stable. Patient reports decreased shortness of breath. Denies any chest pain, coughing. Denies any abdominal pain, nausea, vomiting. General exam; elderly male, awake alert currently in no distress. Exam/Review of Systems Vital Signs Vitals Vital Signs Date Time Temp Pulse Resp B/P Pulse Ox O2 Delivery O2 Flow Rate FiO2 01/06/17 08:06 69 18 98 Nasal Cannula 2.0 01/06/17 07:59 98.4 140/70 Intake and Output 01/05/17 01/05/17 01/06/17 15:00 23:00 07:00 Intake Total 100 ml 650 ml 330 ml Balance 100 ml 650 ml 330 ml Exam HEENT exam; supple neck, positive JVD. No lymphadenopathy. Midline trachea. No thyromegaly. No neck masses. Chest exam; minimally decreased breath sound lung bases bilaterally. Upper lungs are clear. S1-S2 audible, no murmurs. Irregular rhythm. Abdomen exam; soft, nondistended. No organomegaly. Bowel sounds audible. Extremity exam; trace peripheral edema. CONSULTING ANALYST exam; patient is awake and follows simple commands. Results Result Diagram: 01/06/17 0535 01/06/17 0535 Results 24 hrs Laboratory Tests Test 01/05/17 12:00 01/05/17 17:31 01/05/17 20:56 01/06/17 05:35 Bedside Glucose 231 H 150 163 White Blood Count 6.6 Red Blood Count 3.59 L Hemoglobin 10.4 L Hematocrit 34.1 L Mean Corpuscular Volume 95.0 Mean Corpuscular Hemoglobin 29.0 Mean Corpuscular Hemoglobin Concent 30.5 L Red Cell Distribution Width 16.3 H Platelet Count 280 Mean Platelet Volume 10.6 H Neutrophils % 80.6 H Lymphocytes % 13.1 L Monocytes % 5.1 Eosinophils % 0.3 Basophils % 0.6 Nucleated Red Blood Cells % 0.0 Neutrophils # 5.4 Lymphocytes # 0.9 Monocytes # 0.3 Eosinophils # 0.0 Basophils # 0.0 Nucleated Red Blood Cells # 0.0 Sodium Level 141 Potassium Level 4.0 Chloride Level 105 Carbon Dioxide Level 29 Anion Gap 11 Blood Urea Nitrogen 17 Creatinine 1.55 H Glucose Level 153 Calcium Level 9.0 Test 01/06/17 08:12 Bedside Glucose 162 Medications Medications Current Medications Acetaminophen (Tylenol Tab) 650 mg Q4H PRN PO PAIN AND OR ELEVATED TEMP Last administered on 01/05/17 08:40; Admin Dose 650 MG; Start 12/24/16 at 18:00 Ondansetron HCl (Zofran Inj) 4 mg Q6H PRN IV NAUSEA AND/OR VOMITING; Start at 18:00 Diagnostic Test (Pha) (Accu-Chek) 1 ea 02 XX Last administered on 01/04/17 02: 28; Admin Dose 1 EA; Start 12/25/16 at 02:00 Miscellaneous Information 1 ea NOTE XX ; Start 12/24/16 at 19:00 Glucose (Glutose) 15 gm Q15M PRN PO DECREASED GLUCOSE; Start 12/24/16 at 19:00 Glucose (Glutose) 22.5 gm Q15M PRN PO DECREASED GLUCOSE; Start 12/24/16 at 19: 00 Dextrose (D50w Syringe) 25 ml Q15M PRN IV DECREASED GLUCOSE; Start 12/24/16 at 19:00 Dextrose (D50w Syringe) 50 ml Q15M PRN IV DECREASED GLUCOSE; Start 12/24/16 at 19:00 Glucagon (Glucagen) 1 mg Q15M PRN IM DECREASED GLUCOSE; Start 12/24/16 at 19:00 Glucose (Glutose) 15 gm Q15M PRN BUCCAL DECREASED GLUCOSE; Start 12/24/16 at 19 :00 Apixaban (Eliquis) 2.5 mg BID PO Last administered on 01/05/17 20:59; Admin Dose 2.5 MG; Start 12/24/16 at 21:00 Carvedilol (Coreg) 12.5 mg BID PO Last administered on 01/05/17 20:59; Admin Dose 12.5 MG; Start 12/24/16 at 21:00 Levothyroxine Sodium (Synthroid) 50 mcg DAILY@06 PO Last administered on 06:01; Admin Dose 50 MCG; Start 12/25/16 at 06:00 Pantoprazole (Protonix Tab) 40 mg DAILY@06 PO Last administered on 01/06/17 06 :01; Admin Dose 40 MG; Start 12/25/16 at 06:00 Calcium Carbonate (Tums) 500 mg Q4 PRN PO GASTROINTESTINAL UPSET Last administered on 01/04/17 09:32; Admin Dose 500 MG; Start 12/25/16 at 12:00 Lactobacillus Acidophilus/ Rhamnosus (Culturelle) 1 cap BID PO Last administered on 01/05/17 20:59; Admin Dose 1 CAP; Start 12/25/16 at 21:00 Hydralazine HCl 25 mg 25 mg Q8 PO Last administered on 01/06/17 06:01; Admin Dose 25 MG; Start 12/27/16 at 14:00 Multivitamins 10 ml/Dextrose/ Sodium Chloride 1,010 ml @ 30 mls/hr Q24H IV Last administered on 01/05/17 22:09; Admin Dose 30 MLS/HR; Start 12/31/16 at 22 :00 Piperacillin Sod/ Tazobactam Sod (Zosyn 3.375gm/ 100 ml (Pmx)) 100 ml @ 200 mls /hr Q8 IVPB Last administered on 01/06/17 06:00; Admin Dose 200 MLS/HR; Start 01/04/17 at 22:00 Patient Own Medication 1 ea Q6H PRN PO cough Last administered on 01/06/17 08: 23; Admin Dose 1 EA; Start 01/04/17 at 16:30 SHAY SNOWDEN Jan 06, 2017 11:10
--- NOTE | 2017-01-06 13:10 | CONS ---
Date/Time of Note Date/Time of Note DATE: 01/06/17 TIME: 13:08 Assessment/Plan Assessment/Plan Chief Complaint/Hosp Course IMPRESSION: 1. Atrial fibrillation, currently rate controlled. 2. Congestive heart failure, systolic, acute on chronic-ongoing by cxr 12/29. 3. Hypertension. 4. Renal failure-worsening 5. Anemia. 6. Hypothyroidism. 7. Diabetes mellitus. 8. Lower extremity cellulitis/wound 9. Lower extremity edema-resolved REcc: -serial ecg's -Continue coreg -Continue eliquis -Continue hydralazine afterload reduction given renal failure in lieu of ACEI -Continue abx's -Continue lasix which has been increased and follow volume status closely as patient will comply Problems: Consultation Date/Type/Reason Admit Date/Time Dec 24, 2016 at 11:04 Initial Consult Date 12/24/2016 Type of Consultation: cardiology Reason for Consultation AF/CHF Referring Provider: MANI MITCHELL MD Exam/Review of Systems Vital Signs Vitals Vital Signs Date Time Temp Pulse Resp B/P Pulse Ox O2 Delivery O2 Flow Rate FiO2 01/06/17 08:06 69 18 98 Nasal Cannula 2.0 01/06/17 07:59 98.4 140/70 Intake and Output 01/05/17 01/05/17 01/06/17 15:00 23:00 07:00 Intake Total 100 ml 650 ml 330 ml Balance 100 ml 650 ml 330 ml Exam Review of Systems: CONSTITUTIONAL: No fevers, chills. PULMONARY: No sob CARDIOVASCULAR: No chest pain/palpitations GASTROINTESTINAL: No nausea/vomiting. GENITOURINARY: No hematuria/dysuria. MUSCULOSKELETAL: No myagias/arthalgias. PSYCHIATRIC: The patient denies depression. NEUROLOGIC: No weakness Constitutional: alert Psych: no complaints Head: normocephalic ENMT: mucosa pink and moist Neck: jvd (9 cm water), supple Respiratory: diminished breath sounds (at bases/B) Cardiovascular: regular rate and rhythm Gastrointestinal: non-tender, soft Musculoskeletal: muscle tone (normal) Extremities: edema (none) Neurological: other (No focal deficits) Results Result Diagram: 01/06/17 0535 01/06/17 0535 Results 24 hrs Laboratory Tests Test 01/05/17 17:31 01/05/17 20:56 01/06/17 05:35 01/06/17 08:12 Bedside Glucose 150 163 162 White Blood Count 6.6 Red Blood Count 3.59 L Hemoglobin 10.4 L Hematocrit 34.1 L Mean Corpuscular Volume 95.0 Mean Corpuscular Hemoglobin 29.0 Mean Corpuscular Hemoglobin Concent 30.5 L Red Cell Distribution Width 16.3 H Platelet Count 280 Mean Platelet Volume 10.6 H Neutrophils % 80.6 H Lymphocytes % 13.1 L Monocytes % 5.1 Eosinophils % 0.3 Basophils % 0.6 Nucleated Red Blood Cells % 0.0 Neutrophils # 5.4 Lymphocytes # 0.9 Monocytes # 0.3 Eosinophils # 0.0 Basophils # 0.0 Nucleated Red Blood Cells # 0.0 Sodium Level 141 Potassium Level 4.0 Chloride Level 105 Carbon Dioxide Level 29 Anion Gap 11 Blood Urea Nitrogen 17 Creatinine 1.55 H Glucose Level 153 Calcium Level 9.0 Test 01/06/17 12:06 Bedside Glucose 154 Medications Medications Current Medications Acetaminophen (Tylenol Tab) 650 mg Q4H PRN PO PAIN AND OR ELEVATED TEMP Last administered on 01/05/17 08:40; Admin Dose 650 MG; Start 12/24/16 at 18:00 Ondansetron HCl (Zofran Inj) 4 mg Q6H PRN IV NAUSEA AND/OR VOMITING; Start at 18:00 Diagnostic Test (Pha) (Accu-Chek) 1 ea 02 XX Last administered on 01/04/17 02: 28; Admin Dose 1 EA; Start 12/25/16 at 02:00 Miscellaneous Information 1 ea NOTE XX ; Start 12/24/16 at 19:00 Glucose (Glutose) 15 gm Q15M PRN PO DECREASED GLUCOSE; Start 12/24/16 at 19:00 Glucose (Glutose) 22.5 gm Q15M PRN PO DECREASED GLUCOSE; Start 12/24/16 at 19: 00 Dextrose (D50w Syringe) 25 ml Q15M PRN IV DECREASED GLUCOSE; Start 12/24/16 at 19:00 Dextrose (D50w Syringe) 50 ml Q15M PRN IV DECREASED GLUCOSE; Start 12/24/16 at 19:00 Glucagon (Glucagen) 1 mg Q15M PRN IM DECREASED GLUCOSE; Start 12/24/16 at 19:00 Glucose (Glutose) 15 gm Q15M PRN BUCCAL DECREASED GLUCOSE; Start 12/24/16 at 19 :00 Apixaban (Eliquis) 2.5 mg BID PO Last administered on 01/05/17 20:59; Admin Dose 2.5 MG; Start 12/24/16 at 21:00 Carvedilol (Coreg) 12.5 mg BID PO Last administered on 01/05/17 20:59; Admin Dose 12.5 MG; Start 12/24/16 at 21:00 Levothyroxine Sodium (Synthroid) 50 mcg DAILY@06 PO Last administered on 06:01; Admin Dose 50 MCG; Start 12/25/16 at 06:00 Pantoprazole (Protonix Tab) 40 mg DAILY@06 PO Last administered on 01/06/17 06 :01; Admin Dose 40 MG; Start 12/25/16 at 06:00 Calcium Carbonate (Tums) 500 mg Q4 PRN PO GASTROINTESTINAL UPSET Last administered on 01/04/17 09:32; Admin Dose 500 MG; Start 12/25/16 at 12:00 Lactobacillus Acidophilus/ Rhamnosus (Culturelle) 1 cap BID PO Last administered on 01/05/17 20:59; Admin Dose 1 CAP; Start 12/25/16 at 21:00 Hydralazine HCl 25 mg 25 mg Q8 PO Last administered on 01/06/17 06:01; Admin Dose 25 MG; Start 12/27/16 at 14:00 Multivitamins 10 ml/Dextrose/ Sodium Chloride 1,010 ml @ 30 mls/hr Q24H IV Last administered on 01/05/17 22:09; Admin Dose 30 MLS/HR; Start 12/31/16 at 22 :00 Piperacillin Sod/ Tazobactam Sod (Zosyn 3.375gm/ 100 ml (Pmx)) 100 ml @ 200 mls /hr Q8 IVPB Last administered on 01/06/17 06:00; Admin Dose 200 MLS/HR; Start 01/04/17 at 22:00 Patient Own Medication 1 ea Q6H PRN PO cough Last administered on 01/06/17 08: 23; Admin Dose 1 EA; Start 01/04/17 at 16:30 RED MAHONEY Jan 06, 2017 13:10
--- NOTE | 2017-01-06 15:56 | PN ---
Date/Time of Note Date/Time of Note DATE: 01/06/17 TIME: 15:55 Assessment/Plan VTE Prophylaxis VTE Prophylaxis Intervention: other Lines/Catheters IV Catheter Type (from [facility]): Peripheral IV Urinary Cath still in place: No Assessment/Plan Assessment/Plan Patient is lethargic but easily arousable, comfortable and supplemental oxygen, remains afebrile. Family needs education regarding strict aspiration precaution and pured diet, patient son tried to feed patient regular food. Chest x-ray for today reviewed. Dr. Thomas is asked to see patient in pulmonology consultation. Assessment/Plan - Possible pneumonia, continue Zosyn. Strict aspiration precaution with pured diet. - Decompensated congestive heart failure. Continue Lasix and Coreg. - Hypertension, continue Coreg and hydralazine. - Atrial fibrillation, continue Eliquis. - Hypothyroidism, continue Synthroid. - Diabetes mellitus. Continue NovoLog per sliding scale. 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 - Advanced dementia. Further recommendations based on clinical course. Plan of care discussed with Dr. Villarreal. Exam/Review of Systems Vital Signs Vitals Vital Signs Date Time Temp Pulse Resp B/P Pulse Ox O2 Delivery O2 Flow Rate FiO2 01/06/17 15:24 65 24 89 Nasal Cannula 2.0 01/06/17 07:59 98.4 140/70 Intake and Output 01/05/17 01/05/17 01/06/17 15:00 23:00 07:00 Intake Total 100 ml 650 ml 330 ml Balance 100 ml 650 ml 330 ml Exam Constitutional: alert, well developed Head: normocephalic Eyes: EOMI Respiratory: clear to auscultation, normal air movement Cardiovascular: nl pulses, regular rate and rhythm Gastrointestinal: non-tender, soft Musculoskeletal: nl extremities to inspection Neurological: other Results Result Diagram: 01/06/17 0535 01/06/17 0535 Results 24 hrs Laboratory Tests Test 01/05/17 17:31 01/05/17 20:56 01/06/17 05:35 01/06/17 08:12 Bedside Glucose 150 163 162 White Blood Count 6.6 Red Blood Count 3.59 L Hemoglobin 10.4 L Hematocrit 34.1 L Mean Corpuscular Volume 95.0 Mean Corpuscular Hemoglobin 29.0 Mean Corpuscular Hemoglobin Concent 30.5 L Red Cell Distribution Width 16.3 H Platelet Count 280 Mean Platelet Volume 10.6 H Neutrophils % 80.6 H Lymphocytes % 13.1 L Monocytes % 5.1 Eosinophils % 0.3 Basophils % 0.6 Nucleated Red Blood Cells % 0.0 Neutrophils # 5.4 Lymphocytes # 0.9 Monocytes # 0.3 Eosinophils # 0.0 Basophils # 0.0 Nucleated Red Blood Cells # 0.0 Sodium Level 141 Potassium Level 4.0 Chloride Level 105 Carbon Dioxide Level 29 Anion Gap 11 Blood Urea Nitrogen 17 Creatinine 1.55 H Glucose Level 153 Calcium Level 9.0 Test 01/06/17 12:06 Bedside Glucose 154 Medications Medications Current Medications Acetaminophen (Tylenol Tab) 650 mg Q4H PRN PO PAIN AND OR ELEVATED TEMP Last administered on 01/05/17 08:40; Admin Dose 650 MG; Start 12/24/16 at 18:00 Ondansetron HCl (Zofran Inj) 4 mg Q6H PRN IV NAUSEA AND/OR VOMITING; Start at 18:00 Diagnostic Test (Pha) (Accu-Chek) 1 ea 02 XX Last administered on 01/04/17 02: 28; Admin Dose 1 EA; Start 12/25/16 at 02:00 Miscellaneous Information 1 ea NOTE XX ; Start 12/24/16 at 19:00 Glucose (Glutose) 15 gm Q15M PRN PO DECREASED GLUCOSE; Start 12/24/16 at 19:00 Glucose (Glutose) 22.5 gm Q15M PRN PO DECREASED GLUCOSE; Start 12/24/16 at 19: 00 Dextrose (D50w Syringe) 25 ml Q15M PRN IV DECREASED GLUCOSE; Start 12/24/16 at 19:00 Dextrose (D50w Syringe) 50 ml Q15M PRN IV DECREASED GLUCOSE; Start 12/24/16 at 19:00 Glucagon (Glucagen) 1 mg Q15M PRN IM DECREASED GLUCOSE; Start 12/24/16 at 19:00 Glucose (Glutose) 15 gm Q15M PRN BUCCAL DECREASED GLUCOSE; Start 12/24/16 at 19 :00 Apixaban (Eliquis) 2.5 mg BID PO Last administered on 01/06/17 15:17; Admin Dose 2.5 MG; Start 12/24/16 at 21:00 Carvedilol (Coreg) 12.5 mg BID PO Last administered on 01/05/17 20:59; Admin Dose 12.5 MG; Start 12/24/16 at 21:00 Levothyroxine Sodium (Synthroid) 50 mcg DAILY@06 PO Last administered on 06:01; Admin Dose 50 MCG; Start 12/25/16 at 06:00 Pantoprazole (Protonix Tab) 40 mg DAILY@06 PO Last administered on 01/06/17 06 :01; Admin Dose 40 MG; Start 12/25/16 at 06:00 Calcium Carbonate (Tums) 500 mg Q4 PRN PO GASTROINTESTINAL UPSET Last administered on 01/04/17 09:32; Admin Dose 500 MG; Start 12/25/16 at 12:00 Lactobacillus Acidophilus/ Rhamnosus (Culturelle) 1 cap BID PO Last administered on 01/05/17 20:59; Admin Dose 1 CAP; Start 12/25/16 at 21:00 Hydralazine HCl 25 mg 25 mg Q8 PO Last administered on 01/06/17 15:16; Admin Dose 25 MG; Start 12/27/16 at 14:00 Multivitamins 10 ml/Dextrose/ Sodium Chloride 1,010 ml @ 30 mls/hr Q24H IV Last administered on 01/05/17 22:09; Admin Dose 30 MLS/HR; Start 12/31/16 at 22 :00 Piperacillin Sod/ Tazobactam Sod (Zosyn 3.375gm/ 100 ml (Pmx)) 100 ml @ 200 mls /hr Q8 IVPB Last administered on 01/06/17 15:10; Admin Dose 200 MLS/HR; Start 01/04/17 at 22:00 Patient Own Medication 1 ea Q6H PRN PO cough Last administered on 01/06/17 08: 23; Admin Dose 1 EA; Start 01/04/17 at 16:30 STAR BOWLES Jan 06, 2017 15:55
--- NOTE | 2017-01-06 19:11 | CONS ---
Date/Time of Note Date/Time of Note DATE: 01/06/17 TIME: 19:09 Assessment/Plan Assessment/Plan Additional Assessment/Plan 1. Acute kidney injury on possible chronic kidney disease, likely secondary to a congestive heart failure exacerbation and also possibly secondary to prerenal azotemia. 2. Acute congestive heart failure exacerbation, acute and chronic, systolic and diastolic, now on IV Lasix diuresis 20 mg b.i.d. 3. 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 4. History of diabetes mellitus type 2. 5. History of hypertension. 6. History of dementia. 7. Aspiration pneumonitis on IV antibiotics. PLAN: Cr improved to 1.55-on lasix 40mg IV BID IVF going, will d/c tomorrow if pt can eat well Elecrolytes stable today on Eliquis 2.5mg BID will follow up Consultation Date/Type/Reason Admit Date/Time Dec 24, 2016 at 11:04 Type of Consultation: NEPHROLOGY Referring Provider: MANI MITCHELL MD 24 HR Interval Summary Free Text/Dictation no acute events, BP stable Exam/Review of Systems Vital Signs Vitals Vital Signs Date Time Temp Pulse Resp B/P Pulse Ox O2 Delivery O2 Flow Rate FiO2 01/06/17 15:24 65 24 89 Nasal Cannula 2.0 01/06/17 07:59 98.4 140/70 Intake and Output 01/05/17 01/05/17 01/06/17 15:00 23:00 07:00 Intake Total 100 ml 650 ml 330 ml Balance 100 ml 650 ml 330 ml Exam GENERAL: Awake, alert, demented HEENT: Pupils equal, round, reactive to light and accommodation. Extraocular muscles are intact. NECK: Supple, no JVD, no lymphadenopathy. LUNGS: Clear to auscultation bilaterally, no crackles, no wheezes. HEART: S1, S2, tachycardia, no murmur. ABDOMEN: Soft, nontender, nondistended. Bowel sounds are present. EXTREMITIES: No clubbing, cyanosis, or edema. NEUROLOGICAL: demented Results Result Diagram: 01/06/17 0535 01/06/17 0535 Results 24 hrs Laboratory Tests Test 01/05/17 20:56 01/06/17 05:35 01/06/17 08:12 01/06/17 12:06 Bedside Glucose 163 162 154 White Blood Count 6.6 Red Blood Count 3.59 L Hemoglobin 10.4 L Hematocrit 34.1 L Mean Corpuscular Volume 95.0 Mean Corpuscular Hemoglobin 29.0 Mean Corpuscular Hemoglobin Concent 30.5 L Red Cell Distribution Width 16.3 H Platelet Count 280 Mean Platelet Volume 10.6 H Neutrophils % 80.6 H Lymphocytes % 13.1 L Monocytes % 5.1 Eosinophils % 0.3 Basophils % 0.6 Nucleated Red Blood Cells % 0.0 Neutrophils # 5.4 Lymphocytes # 0.9 Monocytes # 0.3 Eosinophils # 0.0 Basophils # 0.0 Nucleated Red Blood Cells # 0.0 Sodium Level 141 Potassium Level 4.0 Chloride Level 105 Carbon Dioxide Level 29 Anion Gap 11 Blood Urea Nitrogen 17 Creatinine 1.55 H Glucose Level 153 Calcium Level 9.0 Test 01/06/17 18:09 Bedside Glucose 214 Medications Medications Current Medications Acetaminophen (Tylenol Tab) 650 mg Q4H PRN PO PAIN AND OR ELEVATED TEMP Last administered on 01/05/17 08:40; Admin Dose 650 MG; Start 12/24/16 at 18:00 Ondansetron HCl (Zofran Inj) 4 mg Q6H PRN IV NAUSEA AND/OR VOMITING; Start at 18:00 Diagnostic Test (Pha) (Accu-Chek) 1 ea 02 XX Last administered on 01/04/17 02: 28; Admin Dose 1 EA; Start 12/25/16 at 02:00 Miscellaneous Information 1 ea NOTE XX ; Start 12/24/16 at 19:00 Glucose (Glutose) 15 gm Q15M PRN PO DECREASED GLUCOSE; Start 12/24/16 at 19:00 Glucose (Glutose) 22.5 gm Q15M PRN PO DECREASED GLUCOSE; Start 12/24/16 at 19: 00 Dextrose (D50w Syringe) 25 ml Q15M PRN IV DECREASED GLUCOSE; Start 12/24/16 at 19:00 Dextrose (D50w Syringe) 50 ml Q15M PRN IV DECREASED GLUCOSE; Start 12/24/16 at 19:00 Glucagon (Glucagen) 1 mg Q15M PRN IM DECREASED GLUCOSE; Start 12/24/16 at 19:00 Glucose (Glutose) 15 gm Q15M PRN BUCCAL DECREASED GLUCOSE; Start 12/24/16 at 19 :00 Apixaban (Eliquis) 2.5 mg BID PO Last administered on 01/06/17 15:17; Admin Dose 2.5 MG; Start 12/24/16 at 21:00 Carvedilol (Coreg) 12.5 mg BID PO Last administered on 01/05/17 20:59; Admin Dose 12.5 MG; Start 12/24/16 at 21:00 Levothyroxine Sodium (Synthroid) 50 mcg DAILY@06 PO Last administered on 06:01; Admin Dose 50 MCG; Start 12/25/16 at 06:00 Pantoprazole (Protonix Tab) 40 mg DAILY@06 PO Last administered on 01/06/17 06 :01; Admin Dose 40 MG; Start 12/25/16 at 06:00 Calcium Carbonate (Tums) 500 mg Q4 PRN PO GASTROINTESTINAL UPSET Last administered on 01/04/17 09:32; Admin Dose 500 MG; Start 12/25/16 at 12:00 Lactobacillus Acidophilus/ Rhamnosus (Culturelle) 1 cap BID PO Last administered on 01/05/17 20:59; Admin Dose 1 CAP; Start 12/25/16 at 21:00 Hydralazine HCl 25 mg 25 mg Q8 PO Last administered on 01/06/17 15:16; Admin Dose 25 MG; Start 12/27/16 at 14:00 Multivitamins 10 ml/Dextrose/ Sodium Chloride 1,010 ml @ 30 mls/hr Q24H IV Last administered on 01/05/17 22:09; Admin Dose 30 MLS/HR; Start 12/31/16 at 22 :00 Piperacillin Sod/ Tazobactam Sod (Zosyn 3.375gm/ 100 ml (Pmx)) 100 ml @ 200 mls /hr Q8 IVPB Last administered on 01/06/17 15:10; Admin Dose 200 MLS/HR; Start 01/04/17 at 22:00 Patient Own Medication 1 ea Q6H PRN PO cough Last administered on 01/06/17 08: 23; Admin Dose 1 EA; Start 01/04/17 at 16:30 BLANCA CARLIN MD Jan 06, 2017 19:11
[2017-01-06 20:00] VITALS: BP 160/76; RESP 20
[2017-01-06] MEDS: MULTIVITAMINS 10 ML in DEXTROSE 5%-0.45% NACL 1,000 ML IV SCH (21:49)
[2017-01-07] MEDS: ALBUTEROL/IPRATROPIUM (NEB) 3 ML AMP HHN SCH ×4 (01:00→20:04)
[2017-01-07] MEDS: ACCU-CHEK XX SCH (02:33)
[2017-01-07] MEDS: PANTOPRAZOLE (EC) 40 MG TAB PO SCH (06:00)
[2017-01-07] MEDS: FUROSEMIDE 40 MG INJ IV SCH (06:00)
[2017-01-07] MEDS: PIPER-TAZO 3.375 GM IV (PMX) 100 ML IVPB SCH (06:00)
[2017-01-07] MEDS: LEVOTHYROXINE 50 MCG TAB PO SCH (06:00)
[2017-01-07 07:49] VITALS: BP 159/74; RESP 18
[2017-01-07] MEDS: INSULIN ASPART [NOVOLOG] 3 ML PEN SC SCH ×4 (08:17→20:40)
[2017-01-07] MEDS: APIXABAN 5 MG TABLET PO SCH ×2 (09:01→20:34)
[2017-01-07] MEDS: LACTOBACILLUS RHAMNOSUS CAP PO SCH ×2 (09:01→20:34)
--- NOTE | 2017-01-07 10:00 | CONS ---
Date/Time of Note Date/Time of Note DATE: 01/07/17 TIME: 09:58 Assessment/Plan Assessment/Plan Additional Assessment/Plan Assessment and recommendations; 1. Patient admitted for shortness of breath due to CHF exacerbation with significant clinical improvement. 2. History of renal insufficiency. 3. History of hypothyroidism. 4. Possibly superimposed pneumonia. 5. History of hypertension. 6. Generalized deconditioning. Continue current treatment. Awaiting chest x-ray from today. Consultation Date/Type/Reason Admit Date/Time Dec 24, 2016 at 11:04 Initial Consult Date 01/05/17 Type of Consultation: Pulmonary Referring Provider: MANI MITCHELL MD 24 HR Interval Summary Free Text/Dictation Patient condition is continually improving. He is much more awake alert. Denies any significant shortness of breath. General exam; elderly male, awake alert currently in no distress. Exam/Review of Systems Vital Signs Vitals Vital Signs Date Time Temp Pulse Resp B/P Pulse Ox O2 Delivery O2 Flow Rate FiO2 01/07/17 08:01 70 20 95 Nasal Cannula 2.0 01/07/17 07:49 97.4 159/74 Intake and Output 01/06/17 01/06/17 01/07/17 15:00 23:00 07:00 Intake Total 1160 ml 430 ml Balance 1160 ml 430 ml Exam HEENT exam; supple neck, positive JVD. No lymphadenopathy. Midline trachea. No thyromegaly. Patient has small pupils bilaterally. Chest exam; minimally decreased breath on lung bases, upper lobes are clear to auscultation. S1-S2 audible, no murmurs. Regular rhythm. Abdomen exam; soft, nontender. No organomegaly. Bowel sounds audible. Extremity exam; no peripheral edema. DRY BOSS exam; no focal motor deficit. Patient does have generalized weakness. Results Result Diagram: 01/06/17 0535 01/06/17 0535 Results 24 hrs Laboratory Tests Test 01/06/17 12:06 01/06/17 18:09 01/06/17 21:20 01/07/17 02:25 Bedside Glucose 154 214 209 199 Test 01/07/17 08:04 Bedside Glucose 159 Medications Medications Current Medications Acetaminophen (Tylenol Tab) 650 mg Q4H PRN PO PAIN AND OR ELEVATED TEMP Last administered on 01/05/17t 08:40; Admin Dose 650 MG; Start 12/24/16 at 18:00 Ondansetron HCl (Zofran Inj) 4 mg Q6H PRN IV NAUSEA AND/OR VOMITING; Start at 18:00 Diagnostic Test (Pha) (Accu-Chek) 1 ea 02 XX Last administered on 01/07/17 02: 33; Admin Dose 1 EA; Start 12/25/16 at 02:00 Miscellaneous Information 1 ea NOTE XX ; Start 12/24/16 at 19:00 Glucose (Glutose) 15 gm Q15M PRN PO DECREASED GLUCOSE; Start 12/24/16 at 19:00 Glucose (Glutose) 22.5 gm Q15M PRN PO DECREASED GLUCOSE; Start 12/24/16 at 19: 00 Dextrose (D50w Syringe) 25 ml Q15M PRN IV DECREASED GLUCOSE; Start 12/24/16 at 19:00 Dextrose (D50w Syringe) 50 ml Q15M PRN IV DECREASED GLUCOSE; Start 12/24/16 at 19:00 Glucagon (Glucagen) 1 mg Q15M PRN IM DECREASED GLUCOSE; Start 12/24/16 at 19:00 Glucose (Glutose) 15 gm Q15M PRN BUCCAL DECREASED GLUCOSE; Start 12/24/16 at 19 :00 Apixaban (Eliquis) 2.5 mg BID PO Last administered on 01/07/17 09:01; Admin Dose 2.5 MG; Start 12/24/16 at 21:00 Carvedilol (Coreg) 12.5 mg BID PO Last administered on 01/07/17 09:01; Admin Dose 12.5 MG; Start 12/24/16 at 21:00 Levothyroxine Sodium (Synthroid) 50 mcg DAILY@06 PO Last administered on 06:00; Admin Dose 50 MCG; Start 12/25/16 at 06:00 Pantoprazole (Protonix Tab) 40 mg DAILY@06 PO Last administered on 01/07/17 06 :00; Admin Dose 40 MG; Start 12/25/16 at 06:00 Calcium Carbonate (Tums) 500 mg Q4 PRN PO GASTROINTESTINAL UPSET Last administered on 01/04/17 09:32; Admin Dose 500 MG; Start 12/25/16 at 12:00 Lactobacillus Acidophilus/ Rhamnosus (Culturelle) 1 cap BID PO Last administered on 01/07/17 09:01; Admin Dose 1 CAP; Start 12/25/16 at 21:00 Hydralazine HCl 25 mg 25 mg Q8 PO Last administered on 01/07/17 06:00; Admin Dose 25 MG; Start 12/27/16 at 14:00 Multivitamins 10 ml/Dextrose/ Sodium Chloride 1,010 ml @ 30 mls/hr Q24H IV Last administered on 01/06/17 21:49; Admin Dose 30 MLS/HR; Start 12/31/16 at 22 :00 Piperacillin Sod/ Tazobactam Sod (Zosyn 3.375gm/ 100 ml (Pmx)) 100 ml @ 200 mls /hr Q8 IVPB Last administered on 01/07/17 06:00; Admin Dose 200 MLS/HR; Start 01/04/17 at 22:00 Patient Own Medication 1 ea Q6H PRN PO cough Last administered on 01/06/17 08: 23; Admin Dose 1 EA; Start 01/04/17 at 16:30 SHAY SNOWDEN Jan 07, 2017 10:00
--- NOTE | 2017-01-07 10:25 | RADRPT ---
PROCEDURE: XR Chest 1 View. CLINICAL INDICATION: Shortness of breath. TECHNIQUE: AP view of the chest was obtained. COMPARISON: January 05, 2017 FINDINGS: Heart borders are obscured by the opacities. Calcified atherosclerosis is noted in the aorta. Centr al pulmonary vascular congestion and interstitial prominence is seen in both lungs. Bilateral perih ilar and lower lung infiltrates, combined with moderate pleural effusions are stable. The osseous st ructures are osteopenic, but appear grossly intact. IMPRESSION: Calcified atherosclerosis in the aorta. Stable central pulmonary vascular congestion and interstitial prominence in both lungs. Stable bilateral perihilar and lower lung infiltrates, combined with moderate pleural effusions. RPTAT: AA .Ezequiel Ford MD, Date Time Electronically viewed and signed by .Ezequiel Ford MD, MD on 01/07/2017 10:25 .P/
--- NOTE | 2017-01-07 13:56 | CONS ---
Date/Time of Note Date/Time of Note DATE: 01/07/17 TIME: 13:53 Assessment/Plan Assessment/Plan Chief Complaint/Hosp Course IMPRESSION: 1. Atrial fibrillation, currently rate controlled. 2. Congestive heart failure, systolic, acute on chronic-ongoing by cxr 12/29. 3. Hypertension-moderately elevated 4. Renal failure-worsening 5. Anemia. 6. Hypothyroidism. 7. Diabetes mellitus. 8. Lower extremity cellulitis/wound 9. Lower extremity edema-resolved REcc: -serial ecg's -Continue coreg -Continue eliquis -Continue hydralazine afterload reduction given renal failure in lieu of ACEI with slight increase to improve BP -Continue abx's -Continue lasix and follow volume status closely Problems: Consultation Date/Type/Reason Admit Date/Time Dec 24, 2016 at 11:04 Initial Consult Date 12/24/2016 Type of Consultation: cardiology Reason for Consultation AF/CHF Referring Provider: MANI MITCHELL MD Exam/Review of Systems Vital Signs Vitals Vital Signs Date Time Temp Pulse Resp B/P Pulse Ox O2 Delivery O2 Flow Rate FiO2 01/07/17 08:01 70 20 95 Nasal Cannula 2.0 01/07/17 07:49 97.4 159/74 Intake and Output 01/06/17 01/06/17 01/07/17 15:00 23:00 07:00 Intake Total 1160 ml 430 ml Balance 1160 ml 430 ml Exam Review of Systems: CONSTITUTIONAL: No fevers, chills. PULMONARY: No sob CARDIOVASCULAR: No chest pain/palpitations GASTROINTESTINAL: No nausea/vomiting. GENITOURINARY: No hematuria/dysuria. MUSCULOSKELETAL: No myagias/arthalgias. PSYCHIATRIC: The patient denies depression. NEUROLOGIC: No weakness Constitutional: other (sleeping) Psych: no complaints Head: normocephalic ENMT: mucosa pink and moist Neck: jvd (9 cm water), supple Respiratory: diminished breath sounds (at bases/B) Cardiovascular: irregular rhythm Gastrointestinal: non-tender, soft Musculoskeletal: muscle weakness (generalized) Extremities: edema (trace/B) Neurological: confused, lethargic Results Result Diagram: 01/06/17 0535 01/06/17 0535 Results 24 hrs Laboratory Tests Test 01/06/17 18:09 01/06/17 21:20 01/07/17 02:25 01/07/17 08:04 Bedside Glucose 214 209 199 159 Test 01/07/17 12:11 Bedside Glucose 174 Medications Medications Current Medications Acetaminophen (Tylenol Tab) 650 mg Q4H PRN PO PAIN AND OR ELEVATED TEMP Last administered on 01/05/17 08:40; Admin Dose 650 MG; Start 12/24/16 at 18:00 Ondansetron HCl (Zofran Inj) 4 mg Q6H PRN IV NAUSEA AND/OR VOMITING; Start at 18:00 Diagnostic Test (Pha) (Accu-Chek) 1 ea 02 XX Last administered on 01/07/17 02: 33; Admin Dose 1 EA; Start 12/25/16 at 02:00 Miscellaneous Information 1 ea NOTE XX ; Start 12/24/16 at 19:00 Glucose (Glutose) 15 gm Q15M PRN PO DECREASED GLUCOSE; Start 12/24/16 at 19:00 Glucose (Glutose) 22.5 gm Q15M PRN PO DECREASED GLUCOSE; Start 12/24/16 at 19: 00 Dextrose (D50w Syringe) 25 ml Q15M PRN IV DECREASED GLUCOSE; Start 12/24/16 at 19:00 Dextrose (D50w Syringe) 50 ml Q15M PRN IV DECREASED GLUCOSE; Start 12/24/16 at 19:00 Glucagon (Glucagen) 1 mg Q15M PRN IM DECREASED GLUCOSE; Start 12/24/16 at 19:00 Glucose (Glutose) 15 gm Q15M PRN BUCCAL DECREASED GLUCOSE; Start 12/24/16 at 19 :00 Apixaban (Eliquis) 2.5 mg BID PO Last administered on 01/07/17 09:01; Admin Dose 2.5 MG; Start 12/24/16 at 21:00 Carvedilol (Coreg) 12.5 mg BID PO Last administered on 01/07/17 09:01; Admin Dose 12.5 MG; Start 12/24/16 at 21:00 Levothyroxine Sodium (Synthroid) 50 mcg DAILY@06 PO Last administered on 06:00; Admin Dose 50 MCG; Start 12/25/16 at 06:00 Pantoprazole (Protonix Tab) 40 mg DAILY@06 PO Last administered on 01/07/17 06 :00; Admin Dose 40 MG; Start 12/25/16 at 06:00 Calcium Carbonate (Tums) 500 mg Q4 PRN PO GASTROINTESTINAL UPSET Last administered on 01/04/17 09:32; Admin Dose 500 MG; Start 12/25/16 at 12:00 Lactobacillus Acidophilus/ Rhamnosus (Culturelle) 1 cap BID PO Last administered on 01/07/17 09:01; Admin Dose 1 CAP; Start 12/25/16 at 21:00 Hydralazine HCl 25 mg 25 mg Q8 PO Last administered on 01/07/17 06:00; Admin Dose 25 MG; Start 12/27/16 at 14:00 Multivitamins/ Dextrose/Sodium Chloride (Mvi Adult/D5-1/ 2ns) 1,010 ml @ 30 mls /hr Q24H IV Last administered on 01/06/17 21:49; Admin Dose 30 MLS/HR; Start 12/31/16 at 22:00 Patient Own Medication 1 ea Q6H PRN PO cough Last administered on 01/06/17 08: 23; Admin Dose 1 EA; Start 01/04/17 at 16:30 RED MAHONEY Jan 07, 2017 13:56
--- NOTE | 2017-01-07 14:42 | PN ---
Date/Time of Note Date/Time of Note DATE: 01/07/17 TIME: 14:39 Assessment/Plan VTE Prophylaxis VTE Prophylaxis Intervention: SCD's Lines/Catheters IV Catheter Type (from Nrs): Peripheral IV Urinary Cath still in place: No Assessment/Plan Chief Complaint/Hosp Course Patient is comfortable on supplemental oxygen, no acute events overnight. Assessment/Plan - Possible pneumonia, continue Zosyn. Strict aspiration precaution with pured diet. - Decompensated congestive heart failure. Continue Lasix and Coreg. - Hypertension, continue Coreg and hydralazine. - Atrial fibrillation, continue Eliquis. - Hypothyroidism, continue Synthroid. - Diabetes mellitus. Continue NovoLog per sliding scale. 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 - Advanced dementia. Further recommendations based on clinical course. Plan of care discussed with Dr. Villarreal. Problems: Exam/Review of Systems Vital Signs Vitals Vital Signs Date Time Temp Pulse Resp B/P Pulse Ox O2 Delivery O2 Flow Rate FiO2 01/07/17 13:54 81 20 96 Nasal Cannula 2.0 01/07/17 07:49 97.4 159/74 Intake and Output 01/06/17 01/06/17 01/07/17 15:00 23:00 07:00 Intake Total 1160 ml 430 ml Balance 1160 ml 430 ml Exam Constitutional: alert, frail Neck: supple Respiratory: diminished breath sounds Cardiovascular: irregular rhythm Gastrointestinal: non-tender, soft Extremities: normal pulses Neurological: confused, nl mental status Results Result Diagram: 01/06/17 0535 01/06/17 0535 Results 24 hrs Laboratory Tests Test 01/06/17 18:09 01/06/17 21:20 01/07/17 02:25 01/07/17 08:04 Bedside Glucose 214 209 199 159 Test 01/07/17 12:11 Bedside Glucose 174 Medications Medications Current Medications Acetaminophen (Tylenol Tab) 650 mg Q4H PRN PO PAIN AND OR ELEVATED TEMP Last administered on 01/05/17 08:40; Admin Dose 650 MG; Start 12/24/16 at 18:00 Ondansetron HCl (Zofran Inj) 4 mg Q6H PRN IV NAUSEA AND/OR VOMITING; Start at 18:00 Diagnostic Test (Pha) (Accu-Chek) 1 ea 02 XX Last administered on 01/07/17 02: 33; Admin Dose 1 EA; Start 12/25/16 at 02:00 Miscellaneous Information 1 ea NOTE XX ; Start 12/24/16 at 19:00 Glucose (Glutose) 15 gm Q15M PRN PO DECREASED GLUCOSE; Start 12/24/16 at 19:00 Glucose (Glutose) 22.5 gm Q15M PRN PO DECREASED GLUCOSE; Start 12/24/16 at 19: 00 Dextrose (D50w Syringe) 25 ml Q15M PRN IV DECREASED GLUCOSE; Start 12/24/16 at 19:00 Dextrose (D50w Syringe) 50 ml Q15M PRN IV DECREASED GLUCOSE; Start 12/24/16 at 19:00 Glucagon (Glucagen) 1 mg Q15M PRN IM DECREASED GLUCOSE; Start 12/24/16 at 19:00 Glucose (Glutose) 15 gm Q15M PRN BUCCAL DECREASED GLUCOSE; Start 12/24/16 at 19 :00 Apixaban (Eliquis) 2.5 mg BID PO Last administered on 01/07/17 09:01; Admin Dose 2.5 MG; Start 12/24/16 at 21:00 Carvedilol (Coreg) 12.5 mg BID PO Last administered on 01/07/17 09:01; Admin Dose 12.5 MG; Start 12/24/16 at 21:00 Levothyroxine Sodium (Synthroid) 50 mcg DAILY@06 PO Last administered on 06:00; Admin Dose 50 MCG; Start 12/25/16 at 06:00 Pantoprazole (Protonix Tab) 40 mg DAILY@06 PO Last administered on 01/07/17 06 :00; Admin Dose 40 MG; Start 12/25/16 at 06:00 Calcium Carbonate (Tums) 500 mg Q4 PRN PO GASTROINTESTINAL UPSET Last administered on 01/04/17 09:32; Admin Dose 500 MG; Start 12/25/16 at 12:00 Lactobacillus Acidophilus/ Rhamnosus 1 cap 1 cap BID PO Last administered on 09:01; Admin Dose 1 CAP; Start 12/25/16 at 21:00 Multivitamins/ Dextrose/Sodium Chloride (Mvi Adult/D5-1/ 2ns) 1,010 ml @ 30 mls /hr Q24H IV Last administered on 01/06/17 21:49; Admin Dose 30 MLS/HR; Start 12/31/16 at 22:00 Patient Own Medication 1 ea Q6H PRN PO cough Last administered on 01/06/17 08: 23; Admin Dose 1 EA; Start 01/04/17 at 16:30 Hydralazine HCl (Apresoline) 50 mg Q8 PO ; Start 01/07/17 at 14:00 LYLA YOUNG Jan 07, 2017 14:42
--- NOTE | 2017-01-07 16:23 | CONS ---
Date/Time of Note Date/Time of Note DATE: 01/07/17 TIME: 16:21 Assessment/Plan Assessment/Plan Additional Assessment/Plan 1. Acute kidney injury on possible chronic kidney disease, likely secondary to a congestive heart failure exacerbation and also possibly secondary to prerenal azotemia. 2. Acute congestive heart failure exacerbation, acute and chronic, systolic and diastolic, now on IV Lasix diuresis 20 mg b.i.d. 3. 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 4. History of diabetes mellitus type 2. 5. History of hypertension. 6. History of dementia. 7. Aspiration pneumonitis on IV antibiotics. PLAN: Cr improved to 1.55-on lasix 40mg IV BID - no labs today to review yet on Eliquis 2.5mg BID will follow up Consultation Date/Type/Reason Admit Date/Time Dec 24, 2016 at 11:04 Type of Consultation: NEPHROLOGY Referring Provider: MANI MITCHELL MD 24 HR Interval Summary Free Text/Dictation no acute events, no lab stoday to review yet Exam/Review of Systems Vital Signs Vitals Vital Signs Date Time Temp Pulse Resp B/P Pulse Ox O2 Delivery O2 Flow Rate FiO2 01/07/17 15:00 2.0 01/07/17 13:54 81 20 96 Nasal Cannula 01/07/17 07:49 97.4 159/74 Intake and Output 01/06/17 01/06/17 01/07/17 15:00 23:00 07:00 Intake Total 1160 ml 430 ml Balance 1160 ml 430 ml Exam GENERAL: Awake, alert, demented HEENT: Pupils equal, round, reactive to light and accommodation. Extraocular muscles are intact. NECK: Supple, no JVD, no lymphadenopathy. LUNGS: Clear to auscultation bilaterally, no crackles, no wheezes. HEART: S1, S2, tachycardia, no murmur. ABDOMEN: Soft, nontender, nondistended. Bowel sounds are present. EXTREMITIES: No clubbing, cyanosis, or edema. NEUROLOGICAL: demented Results Result Diagram: 01/06/17 0535 01/06/17 0535 Results 24 hrs Laboratory Tests Test 01/06/17 18:09 01/06/17 21:20 01/07/17 02:25 01/07/17 08:04 Bedside Glucose 214 209 199 159 Test 01/07/17 12:11 Bedside Glucose 174 Medications Medications Current Medications Acetaminophen (Tylenol Tab) 650 mg Q4H PRN PO PAIN AND OR ELEVATED TEMP Last administered on 01/05/17 08:40; Admin Dose 650 MG; Start 12/24/16 at 18:00 Ondansetron HCl (Zofran Inj) 4 mg Q6H PRN IV NAUSEA AND/OR VOMITING; Start at 18:00 Diagnostic Test (Pha) (Accu-Chek) 1 ea 02 XX Last administered on 01/07/17 02: 33; Admin Dose 1 EA; Start 12/25/16 at 02:00 Miscellaneous Information 1 ea NOTE XX ; Start 12/24/16 at 19:00 Glucose (Glutose) 15 gm Q15M PRN PO DECREASED GLUCOSE; Start 12/24/16 at 19:00 Glucose (Glutose) 22.5 gm Q15M PRN PO DECREASED GLUCOSE; Start 12/24/16 at 19: 00 Dextrose (D50w Syringe) 25 ml Q15M PRN IV DECREASED GLUCOSE; Start 12/24/16 at 19:00 Dextrose (D50w Syringe) 50 ml Q15M PRN IV DECREASED GLUCOSE; Start 12/24/16 at 19:00 Glucagon (Glucagen) 1 mg Q15M PRN IM DECREASED GLUCOSE; Start 12/24/16 at 19:00 Glucose (Glutose) 15 gm Q15M PRN BUCCAL DECREASED GLUCOSE; Start 12/24/16 at 19 :00 Apixaban (Eliquis) 2.5 mg BID PO Last administered on 01/07/17 09:01; Admin Dose 2.5 MG; Start 12/24/16 at 21:00 Carvedilol (Coreg) 12.5 mg BID PO Last administered on 01/07/17 09:01; Admin Dose 12.5 MG; Start 12/24/16 at 21:00 Levothyroxine Sodium (Synthroid) 50 mcg DAILY@06 PO Last administered on 06:00; Admin Dose 50 MCG; Start 12/25/16 at 06:00 Pantoprazole (Protonix Tab) 40 mg DAILY@06 PO Last administered on 01/07/17 06 :00; Admin Dose 40 MG; Start 12/25/16 at 06:00 Calcium Carbonate (Tums) 500 mg Q4 PRN PO GASTROINTESTINAL UPSET Last administered on 01/04/17 09:32; Admin Dose 500 MG; Start 12/25/16 at 12:00 Lactobacillus Acidophilus/ Rhamnosus 1 cap 1 cap BID PO Last administered on 09:01; Admin Dose 1 CAP; Start 12/25/16 at 21:00 Multivitamins/ Dextrose/Sodium Chloride (Mvi Adult/D5-1/ 2ns) 1,010 ml @ 30 mls /hr Q24H IV Last administered on 01/06/17 21:49; Admin Dose 30 MLS/HR; Start 12/31/16 at 22:00 Patient Own Medication 1 ea Q6H PRN PO cough Last administered on 01/06/17 08: 23; Admin Dose 1 EA; Start 01/04/17 at 16:30 Hydralazine HCl (Apresoline) 50 mg Q8 PO ; Start 01/07/17 at 14:00 BLANCA CARLIN MD Jan 07, 2017 16:23
[2017-01-07 20:00] VITALS: BP 179/82; RESP 20
[2017-01-07] MEDS: FUROSEMIDE 20 MG INJ IV SCH (20:34)
[2017-01-07] MEDS: MULTIVITAMINS 10 ML in DEXTROSE 5%-0.45% NACL 1,000 ML IV SCH (22:00)
[2017-01-08 00:44] VITALS: BP 153/72
[2017-01-08] MEDS: ALBUTEROL/IPRATROPIUM (NEB) 3 ML AMP HHN SCH ×4 (01:44→20:50)
[2017-01-08] MEDS: ACCU-CHEK XX SCH (02:00)
[2017-01-08] MEDS: LEVOTHYROXINE 50 MCG TAB PO SCH (05:44)
[2017-01-08] MEDS: PANTOPRAZOLE (EC) 40 MG TAB PO SCH (05:44)
[2017-01-08] MEDS: FUROSEMIDE 20 MG INJ IV SCH ×2 (05:44→18:07)
[2017-01-08 05:45] VITALS: BP 164/69; RESP 18
[2017-01-08 07:02] LABS: BASOPHILS % 0.7 % (0.0-2.0); EOSINOPHILS # 0.1 10^3/ul (0.0-0.5); HEMATOCRIT 30.4 % (42.0-52.0); HEMOGLOBIN 9.7 g/dl (14.0-18.0); LYMPHOCYTES % 16.9 % (15.0-51.0); MEAN CORPUSCULAR HEMOGLOBIN 29.4 pg (29.0-33.0); MEAN CORPUSCULAR HGB CONC 31.9 g/dl (32.0-37.0); MEAN CORPUSCULAR VOLUME 92.1 fl (82.0-101.0); MEAN PLATELET VOLUME 10.5 fl (7.4-10.4); MONOCYTE # 0.5 10^3/ul (0.3-0.9); MONOCYTES % 7.5 % (0.0-11.0); NEUTROPHIL # 4.4 10^3/ul (1.6-7.5); NEUTROPHILS % 73.6 % (39.0-77.0); PLATELET COUNT 274 10^3/UL (140-415); RED CELL DISTRIBUTION WIDTH 16.2 % (11.5-14.5)
[2017-01-08 08:23] VITALS: BP 146/77; RESP 20
[2017-01-08 08:50] LABS: CREATININE 1.3 mg/dl (0.61-1.24); POTASSIUM 3.5 mmol/L (3.5-5.1)
[2017-01-08] MEDS: LACTOBACILLUS RHAMNOSUS CAP PO SCH ×2 (09:12→20:58)
[2017-01-08] MEDS: APIXABAN 5 MG TABLET PO SCH ×2 (09:13→20:58)
[2017-01-08] MEDS: INSULIN ASPART [NOVOLOG] 3 ML PEN SC SCH ×4 (09:14→21:04)
--- NOTE | 2017-01-08 13:58 | PN ---
Date/Time of Note Date/Time of Note DATE: 01/08/17 TIME: 13:52 Assessment/Plan Lines/Catheters IV Catheter Type (from Nrs): Peripheral IV Urinary Cath still in place: No Assessment/Plan Assessment/Plan - Possible pneumonia, continue Zosyn. Strict aspiration precaution with pured diet. - Decompensated congestive heart failure. Continue Lasix and Coreg. - Hypertension, continue Coreg and hydralazine. - Atrial fibrillation, continue Eliquis. - Hypothyroidism, continue Synthroid. - Diabetes mellitus. Continue NovoLog per sliding scale. 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 - Advanced dementia. Further recommendations based on clinical course. Plan of care discussed with Dr. Villarreal. Subjective 24 Hr Interval Summary Free Text/Dictation sitting up in chair, family at bed side, no new issues, dw staff Exam/Review of Systems Vital Signs Vitals Vital Signs Date Time Temp Pulse Resp B/P Pulse Ox O2 Delivery O2 Flow Rate FiO2 01/08/17 08:23 97.1 81 20 146/77 90 01/08/17 07:44 21 01/08/17 07:44 2.0 01/07/17 21:24 Nasal Cannula Intake and Output 01/07/17 01/07/17 01/08/17 15:00 23:00 07:00 Intake Total 360 ml 660 ml 100 ml Balance 360 ml 660 ml 100 ml Exam Constitutional: alert, well developed Respiratory: clear to auscultation, normal air movement Cardiovascular: nl pulses, regular rate and rhythm Gastrointestinal: non-tender, soft Musculoskeletal: nl extremities to inspection Extremities: normal pulses Neurological: nl speech Results Result Diagram: 01/08/17 0545 01/08/17 0545 Results 24 hrs Laboratory Tests Test 01/07/17 17:44 01/07/17 20:36 01/08/17 05:45 01/08/17 08:16 Bedside Glucose 160 159 162 White Blood Count 6.0 Red Blood Count 3.30 L Hemoglobin 9.7 L Hematocrit 30.4 L Mean Corpuscular Volume 92.1 Mean Corpuscular Hemoglobin 29.4 Mean Corpuscular Hemoglobin Concent 31.9 L Red Cell Distribution Width 16.2 H Platelet Count 274 Mean Platelet Volume 10.5 H Neutrophils % 73.6 Lymphocytes % 16.9 Monocytes % 7.5 Eosinophils % 1.0 Basophils % 0.7 Nucleated Red Blood Cells % 0.0 Neutrophils # 4.4 Lymphocytes # 1.0 Monocytes # 0.5 Eosinophils # 0.1 Basophils # 0.0 Nucleated Red Blood Cells # 0.0 Sodium Level 144 Potassium Level 3.5 Chloride Level 97 Carbon Dioxide Level 33 H Anion Gap 18 H Blood Urea Nitrogen 16 Creatinine 1.30 H Glucose Level 161 Calcium Level 9.0 Test 01/08/17 09:11 01/08/17 12:32 Bedside Glucose 158 211 Medications Medications Current Medications Acetaminophen (Tylenol Tab) 650 mg Q4H PRN PO PAIN AND OR ELEVATED TEMP Last administered on 01/05/17 08:40; Admin Dose 650 MG; Start 12/24/16 at 18:00 Ondansetron HCl (Zofran Inj) 4 mg Q6H PRN IV NAUSEA AND/OR VOMITING; Start at 18:00 Diagnostic Test (Pha) (Accu-Chek) 1 ea 02 XX Last administered on 01/07/17 02: 33; Admin Dose 1 EA; Start 12/25/16 at 02:00 Miscellaneous Information 1 ea NOTE XX ; Start 12/24/16 at 19:00 Glucose (Glutose) 15 gm Q15M PRN PO DECREASED GLUCOSE; Start 12/24/16 at 19:00 Glucose (Glutose) 22.5 gm Q15M PRN PO DECREASED GLUCOSE; Start 12/24/16 at 19: 00 Dextrose (D50w Syringe) 25 ml Q15M PRN IV DECREASED GLUCOSE; Start 12/24/16 at 19:00 Dextrose (D50w Syringe) 50 ml Q15M PRN IV DECREASED GLUCOSE; Start 12/24/16 at 19:00 Glucagon (Glucagen) 1 mg Q15M PRN IM DECREASED GLUCOSE; Start 12/24/16 at 19:00 Glucose (Glutose) 15 gm Q15M PRN BUCCAL DECREASED GLUCOSE; Start 12/24/16 at 19 :00 Apixaban (Eliquis) 2.5 mg BID PO Last administered on 01/08/17 09:13; Admin Dose 2.5 MG; Start 12/24/16 at 21:00 Carvedilol (Coreg) 12.5 mg BID PO Last administered on 01/08/17 09:13; Admin Dose 12.5 MG; Start 12/24/16 at 21:00 Levothyroxine Sodium (Synthroid) 50 mcg DAILY@06 PO Last administered on 05:44; Admin Dose 50 MCG; Start 12/25/16 at 06:00 Pantoprazole (Protonix Tab) 40 mg DAILY@06 PO Last administered on 01/08/17 05: 44; Admin Dose 40 MG; Start 12/25/16 at 06:00 Calcium Carbonate (Tums) 500 mg Q4 PRN PO GASTROINTESTINAL UPSET Last administered on 01/04/17 09:32; Admin Dose 500 MG; Start 12/25/16 at 12:00 Lactobacillus Acidophilus/ Rhamnosus 1 cap 1 cap BID PO Last administered on 09:12; Admin Dose 1 CAP; Start 12/25/16 at 21:00 Multivitamins/ Dextrose/Sodium Chloride (Mvi Adult/D5-1/ 2ns) 1,010 ml @ 30 mls /hr Q24H IV Last administered on 01/06/17 21:49; Admin Dose 30 MLS/HR; Start 12/31/16 at 22:00 Patient Own Medication 1 ea Q6H PRN PO cough Last administered on 01/06/17 08: 23; Admin Dose 1 EA; Start 01/04/17 at 16:30 Hydralazine HCl (Apresoline) 50 mg Q8 PO Last administered on 01/08/17 05:44; Admin Dose 50 MG; Start 01/07/17 at 14:00 STAR BOWLES Jan 08, 2017 13:58
--- NOTE | 2017-01-08 16:37 | CONS ---
Date/Time of Note Date/Time of Note DATE: 01/08/17 TIME: 16:36 Assessment/Plan Assessment/Plan Additional Assessment/Plan 1. Atrial fibrillation, currently rate controlled- will moinitor clinically, off tele now - stable 2. Congestive heart failure, systolic, acute on chronic-ongoing by cxr 12/29- euvolemic by exam - BETTER 3. Hypertension- well Rx, in good fluid status - WELL RX 4. Renal failure-renal team follows - avoid nephrotoxic meds 5. Anemia- H/H stable, no CP now 6. Hypothyroidism. 7. Diabetes mellitus- EUGLYCEMIC 8. Possible lower extremity cellulitis- better now 9. Lower extremity edema. 10 Infection - on Zosyn. Primary team follows Consultation Date/Type/Reason Admit Date/Time Dec 24, 2016 at 11:04 Type of Consultation: NEPHROLOGY Referring Provider: MANI MITCHELL MD 24 HR Interval Summary Free Text/Dictation NO acute events - con't rate control ROS: No fever, no chills, no nausea, no vomiting, no diarrhea/constipation No recent weight changes No chest pain, no PND, no orthopnea No dizziness, blurred vision No thirst, no heat or cold intolerance Exam/Review of Systems Vital Signs Vitals Vital Signs Date Time Temp Pulse Resp B/P Pulse Ox O2 Delivery O2 Flow Rate FiO2 01/08/17 13:51 78 16 95 Nasal Cannula 2.0 01/08/17 08:23 97.1 146/77 01/08/17 07:44 21 Intake and Output 01/07/17 01/07/17 01/08/17 15:00 23:00 07:00 Intake Total 360 ml 660 ml 100 ml Balance 360 ml 660 ml 100 ml Exam General: WN/WD/NAD, AOx 3 HEENT: Unicetric/atraumatic/EOMI (follows commands) NECK: JVD elevated, no thyromegaly Lymph: no lymphadenopathy HEART: Ir Irregular with no S3, II/ systolic murmur at apex LUNGS: Coarse sounds ABD: soft, NT, ND, +BS : Intact Neuro: non focal SKIN: chronic changes EXT: trace edema Results Result Diagram: 01/08/17 0545 01/08/17 0545 Results 24 hrs Laboratory Tests Test 01/07/17 17:44 01/07/17 20:36 01/08/17 05:45 01/08/17 08:16 Bedside Glucose 160 159 162 White Blood Count 6.0 Red Blood Count 3.30 L Hemoglobin 9.7 L Hematocrit 30.4 L Mean Corpuscular Volume 92.1 Mean Corpuscular Hemoglobin 29.4 Mean Corpuscular Hemoglobin Concent 31.9 L Red Cell Distribution Width 16.2 H Platelet Count 274 Mean Platelet Volume 10.5 H Neutrophils % 73.6 Lymphocytes % 16.9 Monocytes % 7.5 Eosinophils % 1.0 Basophils % 0.7 Nucleated Red Blood Cells % 0.0 Neutrophils # 4.4 Lymphocytes # 1.0 Monocytes # 0.5 Eosinophils # 0.1 Basophils # 0.0 Nucleated Red Blood Cells # 0.0 Sodium Level 144 Potassium Level 3.5 Chloride Level 97 Carbon Dioxide Level 33 H Anion Gap 18 H Blood Urea Nitrogen 16 Creatinine 1.30 H Glucose Level 161 Calcium Level 9.0 Test 01/08/17 09:11 01/08/17 12:32 Bedside Glucose 158 211 Medications Medications Current Medications Acetaminophen (Tylenol Tab) 650 mg Q4H PRN PO PAIN AND OR ELEVATED TEMP Last administered on 01/05/17 08:40; Admin Dose 650 MG; Start 12/24/16 at 18:00 Ondansetron HCl (Zofran Inj) 4 mg Q6H PRN IV NAUSEA AND/OR VOMITING; Start at 18:00 Diagnostic Test (Pha) (Accu-Chek) 1 ea 02 XX Last administered on 01/07/17 02: 33; Admin Dose 1 EA; Start 12/25/16 at 02:00 Miscellaneous Information 1 ea NOTE XX ; Start 12/24/16 at 19:00 Glucose (Glutose) 15 gm Q15M PRN PO DECREASED GLUCOSE; Start 12/24/16 at 19:00 Glucose (Glutose) 22.5 gm Q15M PRN PO DECREASED GLUCOSE; Start 12/24/16 at 19: 00 Dextrose (D50w Syringe) 25 ml Q15M PRN IV DECREASED GLUCOSE; Start 12/24/16 at 19:00 Dextrose (D50w Syringe) 50 ml Q15M PRN IV DECREASED GLUCOSE; Start 12/24/16 at 19:00 Glucagon (Glucagen) 1 mg Q15M PRN IM DECREASED GLUCOSE; Start 12/24/16 at 19:00 Glucose (Glutose) 15 gm Q15M PRN BUCCAL DECREASED GLUCOSE; Start 12/24/16 at 19 :00 Apixaban (Eliquis) 2.5 mg BID PO Last administered on 01/08/17 09:13; Admin Dose 2.5 MG; Start 12/24/16 at 21:00 Carvedilol (Coreg) 12.5 mg BID PO Last administered on 01/08/17 09:13; Admin Dose 12.5 MG; Start 12/24/16 at 21:00 Levothyroxine Sodium (Synthroid) 50 mcg DAILY@06 PO Last administered on 05:44; Admin Dose 50 MCG; Start 12/25/16 at 06:00 Pantoprazole (Protonix Tab) 40 mg DAILY@06 PO Last administered on 01/08/17 05: 44; Admin Dose 40 MG; Start 12/25/16 at 06:00 Calcium Carbonate (Tums) 500 mg Q4 PRN PO GASTROINTESTINAL UPSET Last administered on 01/04/17 09:32; Admin Dose 500 MG; Start 12/25/16 at 12:00 Lactobacillus Acidophilus/ Rhamnosus 1 cap 1 cap BID PO Last administered on 09:12; Admin Dose 1 CAP; Start 12/25/16 at 21:00 Multivitamins/ Dextrose/Sodium Chloride (Mvi Adult/D5-1/ 2ns) 1,010 ml @ 30 mls /hr Q24H IV Last administered on 01/06/17 21:49; Admin Dose 30 MLS/HR; Start 12/31/16 at 22:00 Patient Own Medication 1 ea Q6H PRN PO cough Last administered on 01/06/17 08: 23; Admin Dose 1 EA; Start 01/04/17 at 16:30 Hydralazine HCl (Apresoline) 50 mg Q8 PO Last administered on 01/08/17 14:19; Admin Dose 50 MG; Start 01/07/17 at 14:00 JESSE CAMPO MD Jan 08, 2017 16:37
[2017-01-08] MEDS: MULTIVITAMINS 10 ML in DEXTROSE 5%-0.45% NACL 1,000 ML IV SCH ×2 (17:08→21:49)
--- NOTE | 2017-01-08 17:23 | CONS ---
Date/Time of Note Date/Time of Note DATE: 01/08/17 TIME: 17:21 Consult Date/Type/Reason Admit Date/Time Dec 24, 2016 at 11:04 Initial Consult Date 01/05/17 Type of Consultation: NEPHROLOGY Ordering Provider: MANI MITCHELL MD Subjective No events. Objective Vital Signs Date Time Temp Pulse Resp B/P Pulse Ox O2 Delivery O2 Flow Rate FiO2 01/08/17 13:51 78 16 95 Nasal Cannula 2.0 01/08/17 08:23 97.1 146/77 01/08/17 07:44 21 Intake and Output 01/07/17 01/07/17 01/08/17 15:00 23:00 07:00 Intake Total 360 ml 660 ml 100 ml Balance 360 ml 660 ml 100 ml Exam HEENT: Neck supple; no JVD; no LAD CVS: RRR, S1 and S2, 2/6 ELVIN CHEST: basilar rales ABD: Soft, NT, + BS EXT: No c/c/e Results/Medications Result Diagram: 01/08/17 0545 01/08/17 0545 Results 24 hrs Laboratory Tests Test 01/07/17 17:44 01/07/17 20:36 01/08/17 05:45 01/08/17 08:16 Bedside Glucose 160 159 162 White Blood Count 6.0 Red Blood Count 3.30 L Hemoglobin 9.7 L Hematocrit 30.4 L Mean Corpuscular Volume 92.1 Mean Corpuscular Hemoglobin 29.4 Mean Corpuscular Hemoglobin Concent 31.9 L Red Cell Distribution Width 16.2 H Platelet Count 274 Mean Platelet Volume 10.5 H Neutrophils % 73.6 Lymphocytes % 16.9 Monocytes % 7.5 Eosinophils % 1.0 Basophils % 0.7 Nucleated Red Blood Cells % 0.0 Neutrophils # 4.4 Lymphocytes # 1.0 Monocytes # 0.5 Eosinophils # 0.1 Basophils # 0.0 Nucleated Red Blood Cells # 0.0 Sodium Level 144 Potassium Level 3.5 Chloride Level 97 Carbon Dioxide Level 33 H Anion Gap 18 H Blood Urea Nitrogen 16 Creatinine 1.30 H Glucose Level 161 Calcium Level 9.0 Test 01/08/17 09:11 01/08/17 12:32 Bedside Glucose 158 211 Medications Current Medications Acetaminophen (Tylenol Tab) 650 mg Q4H PRN PO PAIN AND OR ELEVATED TEMP Last administered on 01/05/17 08:40; Admin Dose 650 MG; Start 12/24/16 at 18:00 Ondansetron HCl (Zofran Inj) 4 mg Q6H PRN IV NAUSEA AND/OR VOMITING; Start at 18:00 Diagnostic Test (Pha) (Accu-Chek) 1 ea 02 XX Last administered on 01/07/17 02: 33; Admin Dose 1 EA; Start 12/25/16 at 02:00 Miscellaneous Information 1 ea NOTE XX ; Start 12/24/16 at 19:00 Glucose (Glutose) 15 gm Q15M PRN PO DECREASED GLUCOSE; Start 12/24/16 at 19:00 Glucose (Glutose) 22.5 gm Q15M PRN PO DECREASED GLUCOSE; Start 12/24/16 at 19: 00 Dextrose (D50w Syringe) 25 ml Q15M PRN IV DECREASED GLUCOSE; Start 12/24/16 at 19:00 Dextrose (D50w Syringe) 50 ml Q15M PRN IV DECREASED GLUCOSE; Start 12/24/16 at 19:00 Glucagon (Glucagen) 1 mg Q15M PRN IM DECREASED GLUCOSE; Start 12/24/16 at 19:00 Glucose (Glutose) 15 gm Q15M PRN BUCCAL DECREASED GLUCOSE; Start 12/24/16 at 19 :00 Apixaban (Eliquis) 2.5 mg BID PO Last administered on 01/08/17 09:13; Admin Dose 2.5 MG; Start 12/24/16 at 21:00 Carvedilol (Coreg) 12.5 mg BID PO Last administered on 01/08/17 09:13; Admin Dose 12.5 MG; Start 12/24/16 at 21:00 Levothyroxine Sodium (Synthroid) 50 mcg DAILY@06 PO Last administered on 05:44; Admin Dose 50 MCG; Start 12/25/16 at 06:00 Pantoprazole (Protonix Tab) 40 mg DAILY@06 PO Last administered on 01/08/17 05: 44; Admin Dose 40 MG; Start 12/25/16 at 06:00 Calcium Carbonate (Tums) 500 mg Q4 PRN PO GASTROINTESTINAL UPSET Last administered on 01/04/17 09:32; Admin Dose 500 MG; Start 12/25/16 at 12:00 Lactobacillus Acidophilus/ Rhamnosus 1 cap 1 cap BID PO Last administered on 09:12; Admin Dose 1 CAP; Start 12/25/16 at 21:00 Multivitamins/ Dextrose/Sodium Chloride (Mvi Adult/D5-1/ 2ns) 1,010 ml @ 30 mls /hr Q24H IV Last administered on 01/08/17 17:08; Admin Dose 30 MLS/HR; Start at 22:00 Patient Own Medication 1 ea Q6H PRN PO cough Last administered on 01/06/17 08: 23; Admin Dose 1 EA; Start 01/04/17 at 16:30 Hydralazine HCl (Apresoline) 50 mg Q8 PO Last administered on 01/08/17 14:19; Admin Dose 50 MG; Start 01/07/17 at 14:00 Assessment/Plan Additional Assessment/Plan IMP: 1. CHF exacerbation 2. CKD 3. Hypothyroidism. 4. HTN 5. Chronic CO2 retention RECS: 1. Continue current Rx 2. PT/OT; mobilize ADELE CASTRO MD Jan 08, 2017 17:23
--- NOTE | 2017-01-08 19:46 | CONS ---
Date/Time of Note Date/Time of Note DATE: 01/08/17 TIME: 19:45 Assessment/Plan Assessment/Plan Additional Assessment/Plan 1. Acute kidney injury on possible chronic kidney disease, likely secondary to a congestive heart failure exacerbation and also possibly secondary to prerenal azotemia. 2. Acute congestive heart failure exacerbation, acute and chronic, systolic and diastolic, now on IV Lasix diuresis 20 mg b.i.d. 3. 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 4. History of diabetes mellitus type 2. 5. History of hypertension. 6. History of dementia. 7. Aspiration pneumonitis on IV antibiotics. PLAN: Cr improved to 1.3-on lasix 20mg IV BID- willc hange to PO tomorrow on Eliquis 2.5mg BID will follow up Consultation Date/Type/Reason Admit Date/Time Dec 24, 2016 at 11:04 Type of Consultation: NEPHROLOGY Referring Provider: MANI MITCHELL MD 24 HR Interval Summary Free Text/Dictation no acute events, BP Stable ,a febrile Exam/Review of Systems Vital Signs Vitals Vital Signs Date Time Temp Pulse Resp B/P Pulse Ox O2 Delivery O2 Flow Rate FiO2 01/08/17 13:51 78 16 95 Nasal Cannula 2.0 01/08/17 08:23 97.1 146/77 01/08/17 07:44 21 Intake and Output 01/07/17 01/07/17 01/08/17 15:00 23:00 07:00 Intake Total 360 ml 660 ml 400 ml Balance 360 ml 660 ml 400 ml Results Result Diagram: 01/08/17 0545 01/08/17 0545 Results 24 hrs Laboratory Tests Test 01/07/17 20:36 01/08/17 05:45 01/08/17 08:16 01/08/17 09:11 Bedside Glucose 159 162 158 White Blood Count 6.0 Red Blood Count 3.30 L Hemoglobin 9.7 L Hematocrit 30.4 L Mean Corpuscular Volume 92.1 Mean Corpuscular Hemoglobin 29.4 Mean Corpuscular Hemoglobin Concent 31.9 L Red Cell Distribution Width 16.2 H Platelet Count 274 Mean Platelet Volume 10.5 H Neutrophils % 73.6 Lymphocytes % 16.9 Monocytes % 7.5 Eosinophils % 1.0 Basophils % 0.7 Nucleated Red Blood Cells % 0.0 Neutrophils # 4.4 Lymphocytes # 1.0 Monocytes # 0.5 Eosinophils # 0.1 Basophils # 0.0 Nucleated Red Blood Cells # 0.0 Sodium Level 144 Potassium Level 3.5 Chloride Level 97 Carbon Dioxide Level 33 H Anion Gap 18 H Blood Urea Nitrogen 16 Creatinine 1.30 H Glucose Level 161 Calcium Level 9.0 Test 01/08/17 12:32 01/08/17 17:53 Bedside Glucose 211 176 Medications Medications Current Medications Acetaminophen (Tylenol Tab) 650 mg Q4H PRN PO PAIN AND OR ELEVATED TEMP Last administered on 01/05/17 08:40; Admin Dose 650 MG; Start 12/24/16 at 18:00 Ondansetron HCl (Zofran Inj) 4 mg Q6H PRN IV NAUSEA AND/OR VOMITING; Start at 18:00 Diagnostic Test (Pha) (Accu-Chek) 1 ea 02 XX Last administered on 01/07/17 02: 33; Admin Dose 1 EA; Start 12/25/16 at 02:00 Miscellaneous Information 1 ea NOTE XX ; Start 12/24/16 at 19:00 Glucose (Glutose) 15 gm Q15M PRN PO DECREASED GLUCOSE; Start 12/24/16 at 19:00 Glucose (Glutose) 22.5 gm Q15M PRN PO DECREASED GLUCOSE; Start 12/24/16 at 19: 00 Dextrose (D50w Syringe) 25 ml Q15M PRN IV DECREASED GLUCOSE; Start 12/24/16 at 19:00 Dextrose (D50w Syringe) 50 ml Q15M PRN IV DECREASED GLUCOSE; Start 12/24/16 at 19:00 Glucagon (Glucagen) 1 mg Q15M PRN IM DECREASED GLUCOSE; Start 12/24/16 at 19:00 Glucose (Glutose) 15 gm Q15M PRN BUCCAL DECREASED GLUCOSE; Start 12/24/16 at 19 :00 Apixaban (Eliquis) 2.5 mg BID PO Last administered on 01/08/17 09:13; Admin Dose 2.5 MG; Start 12/24/16 at 21:00 Carvedilol (Coreg) 12.5 mg BID PO Last administered on 01/08/17 09:13; Admin Dose 12.5 MG; Start 12/24/16 at 21:00 Levothyroxine Sodium (Synthroid) 50 mcg DAILY@06 PO Last administered on 05:44; Admin Dose 50 MCG; Start 12/25/16 at 06:00 Pantoprazole (Protonix Tab) 40 mg DAILY@06 PO Last administered on 01/08/17 05: 44; Admin Dose 40 MG; Start 12/25/16 at 06:00 Calcium Carbonate (Tums) 500 mg Q4 PRN PO GASTROINTESTINAL UPSET Last administered on 01/04/17 09:32; Admin Dose 500 MG; Start 12/25/16 at 12:00 Lactobacillus Acidophilus/ Rhamnosus 1 cap 1 cap BID PO Last administered on 09:12; Admin Dose 1 CAP; Start 12/25/16 at 21:00 Multivitamins/ Dextrose/Sodium Chloride (Mvi Adult/D5-1/ 2ns) 1,010 ml @ 30 mls /hr Q24H IV Last administered on 01/08/17 17:08; Admin Dose 30 MLS/HR; Start at 22:00 Patient Own Medication 1 ea Q6H PRN PO cough Last administered on 01/06/17 08: 23; Admin Dose 1 EA; Start 01/04/17 at 16:30 Hydralazine HCl (Apresoline) 50 mg Q8 PO Last administered on 01/08/17 14:19; Admin Dose 50 MG; Start 01/07/17 at 14:00 BLANCA CARLIN MD Jan 08, 2017 19:46
[2017-01-08 20:57] VITALS: BP 164/78; RESP 20
[2017-01-08 22:52] VITALS: BP 134/72; PULSE 73; RESP 18
[2017-01-09] MEDS: ALBUTEROL/IPRATROPIUM (NEB) 3 ML AMP HHN SCH ×5 (02:00→21:16)
[2017-01-09] MEDS: ACCU-CHEK XX SCH (02:04)
[2017-01-09 06:00] VITALS: BP 143/67; PULSE 74; RESP 18
[2017-01-09] MEDS: FUROSEMIDE 20 MG INJ IV SCH (06:02)
[2017-01-09] MEDS: PANTOPRAZOLE (EC) 40 MG TAB PO SCH (06:02)
[2017-01-09] MEDS: LEVOTHYROXINE 50 MCG TAB PO SCH (06:02)
[2017-01-09 06:42] LABS: BASOPHILS % 0.3 % (0.0-2.0); EOSINOPHILS % 0.4 % (0.0-7.0); HEMATOCRIT 33.5 % (42.0-52.0); HEMOGLOBIN 10.7 g/dl (14.0-18.0); LYMPHOCYTES # 0.8 10^3/ul (0.8-2.9); LYMPHOCYTES % 7.5 % (15.0-51.0); MEAN CORPUSCULAR HEMOGLOBIN 29.3 pg (29.0-33.0); MEAN CORPUSCULAR HGB CONC 31.9 g/dl (32.0-37.0); MEAN CORPUSCULAR VOLUME 91.8 fl (82.0-101.0); MEAN PLATELET VOLUME 9.7 fl (7.4-10.4); MONOCYTE # 0.5 10^3/ul (0.3-0.9); MONOCYTES % 4.6 % (0.0-11.0); NEUTROPHIL # 9.7 10^3/ul (1.6-7.5); NEUTROPHILS % 86.6 % (39.0-77.0); PLATELET COUNT 293 10^3/UL (140-415); RED BLOOD COUNT 3.65 10^6/ul (4.70-6.10); RED CELL DISTRIBUTION WIDTH 16.5 % (11.5-14.5); WHITE BLOOD COUNT 11.2 10^3/ul (4.8-10.8)
[2017-01-09 07:07] LABS: ADD SCAN DIFF NO
[2017-01-09 07:20] LABS: CREATININE 1.17 mg/dl (0.61-1.24)
[2017-01-09 08:14] VITALS: BP 110/62; RESP 16
[2017-01-09] MEDS: INSULIN ASPART [NOVOLOG] 3 ML PEN SC SCH ×5 (08:15→20:53)
[2017-01-09] MEDS: LACTOBACILLUS RHAMNOSUS CAP PO SCH ×2 (09:58→20:51)
[2017-01-09] MEDS: APIXABAN 5 MG TABLET PO SCH ×2 (09:59→20:50)
--- NOTE | 2017-01-09 13:12 | CONS ---
Date/Time of Note Date/Time of Note DATE: 01/09/17 TIME: 13:10 Consult Date/Type/Reason Admit Date/Time Dec 24, 2016 at 11:04 Initial Consult Date 01/05/17 Type of Consultation: Pulm Ordering Provider: MANI MITCHELL MD Subjective No overnight events. Objective Vital Signs Date Time Temp Pulse Resp B/P Pulse Ox O2 Delivery O2 Flow Rate FiO2 01/09/17 08:20 Nasal Cannula 2.0 01/09/17 08:14 97.9 80 16 110/62 93 01/08/17 20:50 21 Intake and Output 01/08/17 01/08/17 01/09/17 15:00 23:00 07:00 Intake Total 200 ml 480 ml Output Total 200 ml Balance 200 ml 280 ml Exam HEENT: Neck supple; no JVD; no LAD CVS: RRR, S1 and S2, 2/6 ELVIN CHEST: basilar rales ABD: Soft, NT, + BS EXT: No c/c/e Results/Medications Result Diagram: 01/09/17 0535 01/09/17 0630 Results 24 hrs Laboratory Tests Test 01/08/17 17:53 01/08/17 20:50 01/09/17 02:04 01/09/17 05:35 Bedside Glucose 176 203 158 White Blood Count 11.2 #H Red Blood Count 3.65 L Hemoglobin 10.7 L Hematocrit 33.5 L Mean Corpuscular Volume 91.8 Mean Corpuscular Hemoglobin 29.3 Mean Corpuscular Hemoglobin Concent 31.9 L Red Cell Distribution Width 16.5 H Platelet Count 293 Mean Platelet Volume 9.7 Neutrophils % 86.6 H Lymphocytes % 7.5 L Monocytes % 4.6 Eosinophils % 0.4 Basophils % 0.3 Nucleated Red Blood Cells % 0.0 Neutrophils # 9.7 H Lymphocytes # 0.8 Monocytes # 0.5 Eosinophils # 0.0 Basophils # 0.0 Nucleated Red Blood Cells # 0.0 Test 01/09/17 06:30 01/09/17 09:33 01/09/17 12:58 Sodium Level 143 Potassium Level 3.0 L Chloride Level 98 Carbon Dioxide Level 32 H Anion Gap 16 Blood Urea Nitrogen 16 Creatinine 1.17 Glucose Level 163 Calcium Level 9.0 Bedside Glucose 173 151 Medications Current Medications Acetaminophen (Tylenol Tab) 650 mg Q4H PRN PO PAIN AND OR ELEVATED TEMP Last administered on 01/05/17 08:40; Admin Dose 650 MG; Start 12/24/16 at 18:00 Ondansetron HCl (Zofran Inj) 4 mg Q6H PRN IV NAUSEA AND/OR VOMITING; Start at 18:00 Diagnostic Test (Pha) (Accu-Chek) 1 ea 02 XX Last administered on 01/09/17 02: 04; Admin Dose 1 EA; Start 12/25/16 at 02:00 Miscellaneous Information 1 ea NOTE XX ; Start 12/24/16 at 19:00 Glucose (Glutose) 15 gm Q15M PRN PO DECREASED GLUCOSE; Start 12/24/16 at 19:00 Glucose (Glutose) 22.5 gm Q15M PRN PO DECREASED GLUCOSE; Start 12/24/16 at 19: 00 Dextrose (D50w Syringe) 25 ml Q15M PRN IV DECREASED GLUCOSE; Start 12/24/16 at 19:00 Dextrose (D50w Syringe) 50 ml Q15M PRN IV DECREASED GLUCOSE; Start 12/24/16 at 19:00 Glucagon (Glucagen) 1 mg Q15M PRN IM DECREASED GLUCOSE; Start 12/24/16 at 19:00 Glucose (Glutose) 15 gm Q15M PRN BUCCAL DECREASED GLUCOSE; Start 12/24/16 at 19 :00 Apixaban (Eliquis) 2.5 mg BID PO Last administered on 01/09/17 09:59; Admin Dose 2.5 MG; Start 12/24/16 at 21:00 Carvedilol (Coreg) 12.5 mg BID PO Last administered on 01/08/17 21:00; Admin Dose 12.5 MG; Start 12/24/16 at 21:00 Levothyroxine Sodium (Synthroid) 50 mcg DAILY@06 PO Last administered on 06:02; Admin Dose 50 MCG; Start 12/25/16 at 06:00 Pantoprazole (Protonix Tab) 40 mg DAILY@06 PO Last administered on 01/09/17 06: 02; Admin Dose 40 MG; Start 12/25/16 at 06:00 Calcium Carbonate (Tums) 500 mg Q4 PRN PO GASTROINTESTINAL UPSET Last administered on 01/04/17 09:32; Admin Dose 500 MG; Start 12/25/16 at 12:00 Lactobacillus Acidophilus/ Rhamnosus 1 cap 1 cap BID PO Last administered on 09:58; Admin Dose 1 CAP; Start 12/25/16 at 21:00 Multivitamins/ Dextrose/Sodium Chloride (Mvi Adult/D5-1/ 2ns) 1,010 ml @ 30 mls /hr Q24H IV Last administered on 01/08/17 17:08; Admin Dose 30 MLS/HR; Start at 22:00 Patient Own Medication 1 ea Q6H PRN PO cough Last administered on 01/06/17 08: 23; Admin Dose 1 EA; Start 01/04/17 at 16:30 Hydralazine HCl (Apresoline) 50 mg Q8 PO Last administered on 01/09/17 06:02; Admin Dose 50 MG; Start 01/07/17 at 14:00 Assessment/Plan Additional Assessment/Plan IMP: 1. CHF exacerbation 2. CKD 3. Hypothyroidism. 4. HTN 5. Chronic CO2 retention RECS: 1. Continue current Rx 2. PT/OT; mobilize 3. Replete lytes 4. I/O's ADELE CASTRO MD Jan 09, 2017 13:11
--- NOTE | 2017-01-09 13:16 | CONS ---
Date/Time of Note Date/Time of Note DATE: 01/09/17 TIME: 13:11 Assessment/Plan Assessment/Plan Additional Assessment/Plan 1. Acute kidney injury on possible chronic kidney disease, likely secondary to a congestive heart failure exacerbation and also possibly secondary to prerenal azotemia. 2. Acute congestive heart failure exacerbation, acute and chronic, systolic and diastolic, now on IV Lasix diuresis 20 mg b.i.d. 3. 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 4. History of diabetes mellitus type 2. 5. History of hypertension. 6. History of dementia. 7. Aspiration pneumonitis on IV antibiotics. PLAN: Cr improved to 1.1-d/c IV lasix, change to lasix 40mg PO BID on Eliquis 2.5mg BID will follow up Consultation Date/Type/Reason Admit Date/Time Dec 24, 2016 at 11:04 Type of Consultation: NEPHROLOGY Referring Provider: MANI MITCHELL MD 24 HR Interval Summary Free Text/Dictation no acute events, BP stbale Cr 1.1, K 3.0 Exam/Review of Systems Vital Signs Vitals Vital Signs Date Time Temp Pulse Resp B/P Pulse Ox O2 Delivery O2 Flow Rate FiO2 01/09/17 08:20 Nasal Cannula 2.0 01/09/17 08:14 97.9 80 16 110/62 93 01/08/17 20:50 21 Intake and Output 01/08/17 01/08/17 01/09/17 15:00 23:00 07:00 Intake Total 200 ml 480 ml Output Total 200 ml Balance 200 ml 280 ml Exam GENERAL: Awake, alert, demented HEENT: Pupils equal, round, reactive to light and accommodation. Extraocular muscles are intact. NECK: Supple, no JVD, no lymphadenopathy. LUNGS: Clear to auscultation bilaterally, no crackles, no wheezes. HEART: S1, S2, tachycardia, no murmur. ABDOMEN: Soft, nontender, nondistended. Bowel sounds are present. EXTREMITIES: No clubbing, cyanosis, or edema. NEUROLOGICAL: demented Results Result Diagram: 01/09/17 0535 01/09/17 0630 Results 24 hrs Laboratory Tests Test 01/08/17 17:53 01/08/17 20:50 01/09/17 02:04 01/09/17 05:35 Bedside Glucose 176 203 158 White Blood Count 11.2 #H Red Blood Count 3.65 L Hemoglobin 10.7 L Hematocrit 33.5 L Mean Corpuscular Volume 91.8 Mean Corpuscular Hemoglobin 29.3 Mean Corpuscular Hemoglobin Concent 31.9 L Red Cell Distribution Width 16.5 H Platelet Count 293 Mean Platelet Volume 9.7 Neutrophils % 86.6 H Lymphocytes % 7.5 L Monocytes % 4.6 Eosinophils % 0.4 Basophils % 0.3 Nucleated Red Blood Cells % 0.0 Neutrophils # 9.7 H Lymphocytes # 0.8 Monocytes # 0.5 Eosinophils # 0.0 Basophils # 0.0 Nucleated Red Blood Cells # 0.0 Test 01/09/17 06:30 01/09/17 09:33 01/09/17 12:58 Sodium Level 143 Potassium Level 3.0 L Chloride Level 98 Carbon Dioxide Level 32 H Anion Gap 16 Blood Urea Nitrogen 16 Creatinine 1.17 Glucose Level 163 Calcium Level 9.0 Bedside Glucose 173 151 Medications Medications Current Medications Acetaminophen (Tylenol Tab) 650 mg Q4H PRN PO PAIN AND OR ELEVATED TEMP Last administered on 01/05/17 08:40; Admin Dose 650 MG; Start 12/24/16 at 18:00 Ondansetron HCl (Zofran Inj) 4 mg Q6H PRN IV NAUSEA AND/OR VOMITING; Start at 18:00 Diagnostic Test (Pha) (Accu-Chek) 1 ea 02 XX Last administered on 01/09/17 02: 04; Admin Dose 1 EA; Start 12/25/16 at 02:00 Miscellaneous Information 1 ea NOTE XX ; Start 12/24/16 at 19:00 Glucose (Glutose) 15 gm Q15M PRN PO DECREASED GLUCOSE; Start 12/24/16 at 19:00 Glucose (Glutose) 22.5 gm Q15M PRN PO DECREASED GLUCOSE; Start 12/24/16 at 19: 00 Dextrose (D50w Syringe) 25 ml Q15M PRN IV DECREASED GLUCOSE; Start 12/24/16 at 19:00 Dextrose (D50w Syringe) 50 ml Q15M PRN IV DECREASED GLUCOSE; Start 12/24/16 at 19:00 Glucagon (Glucagen) 1 mg Q15M PRN IM DECREASED GLUCOSE; Start 12/24/16 at 19:00 Glucose (Glutose) 15 gm Q15M PRN BUCCAL DECREASED GLUCOSE; Start 12/24/16 at 19 :00 Apixaban (Eliquis) 2.5 mg BID PO Last administered on 01/09/17 09:59; Admin Dose 2.5 MG; Start 12/24/16 at 21:00 Carvedilol (Coreg) 12.5 mg BID PO Last administered on 01/08/17 21:00; Admin Dose 12.5 MG; Start 12/24/16 at 21:00 Levothyroxine Sodium (Synthroid) 50 mcg DAILY@06 PO Last administered on 06:02; Admin Dose 50 MCG; Start 12/25/16 at 06:00 Pantoprazole (Protonix Tab) 40 mg DAILY@06 PO Last administered on 01/09/17 06: 02; Admin Dose 40 MG; Start 12/25/16 at 06:00 Calcium Carbonate (Tums) 500 mg Q4 PRN PO GASTROINTESTINAL UPSET Last administered on 01/04/17 09:32; Admin Dose 500 MG; Start 12/25/16 at 12:00 Lactobacillus Acidophilus/ Rhamnosus 1 cap 1 cap BID PO Last administered on 09:58; Admin Dose 1 CAP; Start 12/25/16 at 21:00 Multivitamins/ Dextrose/Sodium Chloride (Mvi Adult/D5-1/ 2ns) 1,010 ml @ 30 mls /hr Q24H IV Last administered on 01/08/17 17:08; Admin Dose 30 MLS/HR; Start at 22:00 Patient Own Medication 1 ea Q6H PRN PO cough Last administered on 01/06/17 08: 23; Admin Dose 1 EA; Start 01/04/17 at 16:30 Hydralazine HCl (Apresoline) 50 mg Q8 PO Last administered on 01/09/17 06:02; Admin Dose 50 MG; Start 01/07/17 at 14:00 BLANCA CARLIN MD Jan 09, 2017 13:16
--- NOTE | 2017-01-09 13:48 | CONS ---
Date/Time of Note Date/Time of Note DATE: 01/09/17 TIME: 13:47 Assessment/Plan Assessment/Plan Additional Assessment/Plan 1. Atrial fibrillation, currently rate controlled- will sharitanitor clinically, off tele now - stable 2. Congestive heart failure, systolic, acute on chronic-ongoing by cxr 12/29- euvolemic by exam - BETTER 3. Hypertension- well Rx, in good fluid status - WELL RX 4. Renal failure-renal team follows - avoid nephrotoxic meds - BETTER now 5. Anemia- H/H stable, no CP now 6. Hypothyroidism. 7. Diabetes mellitus- EUGLYCEMIC 8. Possible lower extremity cellulitis- better now - TREATED 9. Lower extremity edema. 10 Infection - on Zosyn. Primary team follows Consultation Date/Type/Reason Admit Date/Time Dec 24, 2016 at 11:04 Type of Consultation: Pulm Referring Provider: MANI MITCHELL MD 24 HR Interval Summary Free Text/Dictation NO acute events - better overall - rate controlled ROS: No fever, no chills, no nausea, no vomiting, no diarrhea/constipation No recent weight changes No chest pain, no PND, no orthopnea No dizziness, blurred vision No thirst, no heat or cold intolerance Exam/Review of Systems Vital Signs Vitals Vital Signs Date Time Temp Pulse Resp B/P Pulse Ox O2 Delivery O2 Flow Rate FiO2 01/09/17 13:45 88 18 98 Nasal Cannula 2.0 01/09/17 08:14 97.9 110/62 01/08/17 20:50 21 Intake and Output 01/08/17 01/08/17 01/09/17 15:00 23:00 07:00 Intake Total 200 ml 480 ml Output Total 200 ml Balance 200 ml 280 ml Exam General: WN/WD/NAD, AOx 3 HEENT: Unicetric/atraumatic/EOMI (follow commands) NECK: JVD elevated, no thyromegaly Lymph: no lymphadenopathy HEART: IR IRregular with no S3, II/ systolic murmur at apex LUNGS: Coarse sounds ABD: soft, NT, ND, +BS : Intact Neuro: non focal SKIN: chronic changes EXT: trace edema Results Result Diagram: 01/09/17 0535 01/09/17 0630 Results 24 hrs Laboratory Tests Test 01/08/17 17:53 01/08/17 20:50 01/09/17 02:04 01/09/17 05:35 Bedside Glucose 176 203 158 White Blood Count 11.2 #H Red Blood Count 3.65 L Hemoglobin 10.7 L Hematocrit 33.5 L Mean Corpuscular Volume 91.8 Mean Corpuscular Hemoglobin 29.3 Mean Corpuscular Hemoglobin Concent 31.9 L Red Cell Distribution Width 16.5 H Platelet Count 293 Mean Platelet Volume 9.7 Neutrophils % 86.6 H Lymphocytes % 7.5 L Monocytes % 4.6 Eosinophils % 0.4 Basophils % 0.3 Nucleated Red Blood Cells % 0.0 Neutrophils # 9.7 H Lymphocytes # 0.8 Monocytes # 0.5 Eosinophils # 0.0 Basophils # 0.0 Nucleated Red Blood Cells # 0.0 Test 01/09/17 06:30 01/09/17 09:33 01/09/17 12:58 Sodium Level 143 Potassium Level 3.0 L Chloride Level 98 Carbon Dioxide Level 32 H Anion Gap 16 Blood Urea Nitrogen 16 Creatinine 1.17 Glucose Level 163 Calcium Level 9.0 Bedside Glucose 173 151 Medications Medications Current Medications Acetaminophen (Tylenol Tab) 650 mg Q4H PRN PO PAIN AND OR ELEVATED TEMP Last administered on 01/05/17 08:40; Admin Dose 650 MG; Start 12/24/16 at 18:00 Ondansetron HCl (Zofran Inj) 4 mg Q6H PRN IV NAUSEA AND/OR VOMITING; Start at 18:00 Diagnostic Test (Pha) (Accu-Chek) 1 ea 02 XX Last administered on 01/09/17 02: 04; Admin Dose 1 EA; Start 12/25/16 at 02:00 Miscellaneous Information 1 ea NOTE XX ; Start 12/24/16 at 19:00 Glucose (Glutose) 15 gm Q15M PRN PO DECREASED GLUCOSE; Start 12/24/16 at 19:00 Glucose (Glutose) 22.5 gm Q15M PRN PO DECREASED GLUCOSE; Start 12/24/16 at 19: 00 Dextrose (D50w Syringe) 25 ml Q15M PRN IV DECREASED GLUCOSE; Start 12/24/16 at 19:00 Dextrose (D50w Syringe) 50 ml Q15M PRN IV DECREASED GLUCOSE; Start 12/24/16 at 19:00 Glucagon (Glucagen) 1 mg Q15M PRN IM DECREASED GLUCOSE; Start 12/24/16 at 19:00 Glucose (Glutose) 15 gm Q15M PRN BUCCAL DECREASED GLUCOSE; Start 12/24/16 at 19 :00 Apixaban (Eliquis) 2.5 mg BID PO Last administered on 01/09/17 09:59; Admin Dose 2.5 MG; Start 12/24/16 at 21:00 Carvedilol (Coreg) 12.5 mg BID PO Last administered on 01/08/17 21:00; Admin Dose 12.5 MG; Start 12/24/16 at 21:00 Levothyroxine Sodium (Synthroid) 50 mcg DAILY@06 PO Last administered on 06:02; Admin Dose 50 MCG; Start 12/25/16 at 06:00 Pantoprazole (Protonix Tab) 40 mg DAILY@06 PO Last administered on 01/09/17 06: 02; Admin Dose 40 MG; Start 12/25/16 at 06:00 Calcium Carbonate (Tums) 500 mg Q4 PRN PO GASTROINTESTINAL UPSET Last administered on 01/04/17 09:32; Admin Dose 500 MG; Start 12/25/16 at 12:00 Lactobacillus Acidophilus/ Rhamnosus 1 cap 1 cap BID PO Last administered on 09:58; Admin Dose 1 CAP; Start 12/25/16 at 21:00 Multivitamins/ Dextrose/Sodium Chloride (Mvi Adult/D5-1/ 2ns) 1,010 ml @ 30 mls /hr Q24H IV Last administered on 01/08/17 17:08; Admin Dose 30 MLS/HR; Start at 22:00 Patient Own Medication 1 ea Q6H PRN PO cough Last administered on 01/06/17 08: 23; Admin Dose 1 EA; Start 01/04/17 at 16:30 Hydralazine HCl 50 mg 50 mg Q8 PO Last administered on 01/09/17 06:02; Admin Dose 50 MG; Start 01/07/17 at 14:00 Potassium Chloride/Sodium Chloride (KCl/NS) 110 ml @ 55 mls/hr ONCE ONCE IVPB ; Start 01/09/17 at 14:30; Stop 01/09/17 at 16:29 Potassium Chloride (Klor-Con 20) 20 meq DAILY PO ; Start 01/10/17 at 09:00 JESSE CAMPO MD Jan 09, 2017 13:48
--- NOTE | 2017-01-09 14:04 | PN ---
Date/Time of Note Date/Time of Note DATE: 01/09/17 TIME: 14:00 Assessment/Plan VTE Prophylaxis VTE Prophylaxis Intervention: other Lines/Catheters IV [facility]ter Type (from [facility]): Peripheral IV Urinary Cath still in place: No Assessment/Plan Assessment/Plan - Possible pneumonia, continue Zosyn. Strict aspiration precaution with pured diet. - Decompensated congestive heart failure. Continue Lasix and Coreg. - Hypertension, continue Coreg and hydralazine. - Atrial fibrillation, continue Eliquis. - Hypothyroidism, continue Synthroid. - Diabetes mellitus. Continue NovoLog per sliding scale. 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 - Advanced dementia. Further recommendations based on clinical course. Plan of care discussed with Dr. Villarreal. Subjective 24 Hr Interval Summary Constitutional: requiring O2 Respiratory: no complaints Cardiovascular: no complaints Gastrointestinal: no complaints Exam/Review of Systems Vital Signs Vitals Vital Signs Date Time Temp Pulse Resp B/P Pulse Ox O2 Delivery O2 Flow Rate FiO2 01/09/17 13:45 88 18 98 Nasal Cannula 2.0 01/09/17 08:14 97.9 110/62 01/08/17 20:50 21 Intake and Output 01/08/17 01/08/17 01/09/17 15:00 23:00 07:00 Intake Total 200 ml 480 ml Output Total 200 ml Balance 200 ml 280 ml Exam Constitutional: alert, well developed Respiratory: clear to auscultation, normal air movement Gastrointestinal: non-tender, soft Musculoskeletal: nl extremities to inspection Extremities: normal pulses Neurological: nl mental status, nl speech Results Result Diagram: 01/09/17 0535 01/09/17 0630 Results 24 hrs Laboratory Tests Test 01/08/17 17:53 01/08/17 20:50 01/09/17 02:04 01/09/17 05:35 Bedside Glucose 176 203 158 White Blood Count 11.2 #H Red Blood Count 3.65 L Hemoglobin 10.7 L Hematocrit 33.5 L Mean Corpuscular Volume 91.8 Mean Corpuscular Hemoglobin 29.3 Mean Corpuscular Hemoglobin Concent 31.9 L Red Cell Distribution Width 16.5 H Platelet Count 293 Mean Platelet Volume 9.7 Neutrophils % 86.6 H Lymphocytes % 7.5 L Monocytes % 4.6 Eosinophils % 0.4 Basophils % 0.3 Nucleated Red Blood Cells % 0.0 Neutrophils # 9.7 H Lymphocytes # 0.8 Monocytes # 0.5 Eosinophils # 0.0 Basophils # 0.0 Nucleated Red Blood Cells # 0.0 Test 01/09/17 06:30 01/09/17 09:33 01/09/17 12:58 Sodium Level 143 Potassium Level 3.0 L Chloride Level 98 Carbon Dioxide Level 32 H Anion Gap 16 Blood Urea Nitrogen 16 Creatinine 1.17 Glucose Level 163 Calcium Level 9.0 Bedside Glucose 173 151 Medications Medications Current Medications Acetaminophen (Tylenol Tab) 650 mg Q4H PRN PO PAIN AND OR ELEVATED TEMP Last administered on 01/05/17 08:40; Admin Dose 650 MG; Start 12/24/16 at 18:00 Ondansetron HCl (Zofran Inj) 4 mg Q6H PRN IV NAUSEA AND/OR VOMITING; Start at 18:00 Diagnostic Test (Pha) (Accu-Chek) 1 ea 02 XX Last administered on 01/09/17 02: 04; Admin Dose 1 EA; Start 12/25/16 at 02:00 Miscellaneous Information 1 ea NOTE XX ; Start 12/24/16 at 19:00 Glucose (Glutose) 15 gm Q15M PRN PO DECREASED GLUCOSE; Start 12/24/16 at 19:00 Glucose (Glutose) 22.5 gm Q15M PRN PO DECREASED GLUCOSE; Start 12/24/16 at 19: 00 Dextrose (D50w Syringe) 25 ml Q15M PRN IV DECREASED GLUCOSE; Start 12/24/16 at 19:00 Dextrose (D50w Syringe) 50 ml Q15M PRN IV DECREASED GLUCOSE; Start 12/24/16 at 19:00 Glucagon (Glucagen) 1 mg Q15M PRN IM DECREASED GLUCOSE; Start 12/24/16 at 19:00 Glucose (Glutose) 15 gm Q15M PRN BUCCAL DECREASED GLUCOSE; Start 12/24/16 at 19 :00 Apixaban (Eliquis) 2.5 mg BID PO Last administered on 01/09/17 09:59; Admin Dose 2.5 MG; Start 12/24/16 at 21:00 Carvedilol (Coreg) 12.5 mg BID PO Last administered on 01/08/17 21:00; Admin Dose 12.5 MG; Start 12/24/16 at 21:00 Levothyroxine Sodium (Synthroid) 50 mcg DAILY@06 PO Last administered on 06:02; Admin Dose 50 MCG; Start 12/25/16 at 06:00 Pantoprazole (Protonix Tab) 40 mg DAILY@06 PO Last administered on 01/09/17 06: 02; Admin Dose 40 MG; Start 12/25/16 at 06:00 Calcium Carbonate (Tums) 500 mg Q4 PRN PO GASTROINTESTINAL UPSET Last administered on 01/04/17 09:32; Admin Dose 500 MG; Start 12/25/16 at 12:00 Lactobacillus Acidophilus/ Rhamnosus 1 cap 1 cap BID PO Last administered on 09:58; Admin Dose 1 CAP; Start 12/25/16 at 21:00 Multivitamins/ Dextrose/Sodium Chloride (Mvi Adult/D5-1/ 2ns) 1,010 ml @ 30 mls /hr Q24H IV Last administered on 01/08/17 17:08; Admin Dose 30 MLS/HR; Start at 22:00 Patient Own Medication 1 ea Q6H PRN PO cough Last administered on 01/06/17 08: 23; Admin Dose 1 EA; Start 01/04/17 at 16:30 Hydralazine HCl 50 mg 50 mg Q8 PO Last administered on 01/09/17 06:02; Admin Dose 50 MG; Start 01/07/17 at 14:00 Potassium Chloride/Sodium Chloride (KCl/NS) 110 ml @ 55 mls/hr ONCE ONCE IVPB ; Start 01/09/17 at 14:30; Stop 01/09/17 at 16:29 Potassium Chloride (Klor-Con 20) 20 meq DAILY PO ; Start 01/10/17 at 09:00 ST[employer]OWLES Jan 09, 2017 14:04
[2017-01-09] MEDS ORDERED: POTASSIUM CHLORIDE 20 MEQ in SOD CHLORIDE 0.9% 100 ML IVPB ONE (14:30)
[2017-01-09] MEDS: FUROSEMIDE 40 MG TAB PO SCH (18:14)
[2017-01-09 19:29] VITALS: BP 125/58; RESP 18
[2017-01-09] MEDS: MULTIVITAMINS 10 ML in DEXTROSE 5%-0.45% NACL 1,000 ML IV SCH (22:00)
[2017-01-09 23:05] VITALS: BP 121/68; PULSE 72; RESP 18
[2017-01-10] MEDS: ALBUTEROL/IPRATROPIUM (NEB) 3 ML AMP HHN SCH ×4 (01:56→20:40)
[2017-01-10] MEDS: ACCU-CHEK XX SCH ×2 (02:00→23:46)
[2017-01-10] MEDS: MULTIVITAMINS 10 ML in DEXTROSE 5%-0.45% NACL 1,000 ML IV SCH (04:33)
[2017-01-10 05:47] LABS: BASOPHILS % 0.3 % (0.0-2.0); EOSINOPHILS # 0.1 10^3/ul (0.0-0.5); EOSINOPHILS % 0.5 % (0.0-7.0); HEMATOCRIT 30.3 % (42.0-52.0); HEMOGLOBIN 9.6 g/dl (14.0-18.0); LYMPHOCYTES # 1.1 10^3/ul (0.8-2.9); MEAN CORPUSCULAR HEMOGLOBIN 29.5 pg (29.0-33.0); MEAN CORPUSCULAR HGB CONC 31.7 g/dl (32.0-37.0); MEAN CORPUSCULAR VOLUME 93.2 fl (82.0-101.0); MEAN PLATELET VOLUME 10.3 fl (7.4-10.4); MONOCYTE # 0.6 10^3/ul (0.3-0.9); MONOCYTES % 6.4 % (0.0-11.0); NEUTROPHIL # 7.4 10^3/ul (1.6-7.5); NEUTROPHILS % 80.4 % (39.0-77.0); PLATELET COUNT 275 10^3/UL (140-415); RED BLOOD COUNT 3.25 10^6/ul (4.70-6.10); RED CELL DISTRIBUTION WIDTH 16.5 % (11.5-14.5); WHITE BLOOD COUNT 9.2 10^3/ul (4.8-10.8)
[2017-01-10 05:55] LABS: ADD SCAN DIFF NO
[2017-01-10 06:07] LABS: CALCIUM 8.6 mg/dl (8.4-10.2); CREATININE 1.29 mg/dl (0.61-1.24)
[2017-01-10 06:14] LABS: POTASSIUM 2.9 mmol/L (3.5-5.1)
[2017-01-10] MEDS ORDERED: POTASSIUM CHLORIDE 250 ML IVPB ONE (06:30)
[2017-01-10] MEDS: LEVOTHYROXINE 50 MCG TAB PO SCH (06:31)
[2017-01-10] MEDS: PANTOPRAZOLE (EC) 40 MG TAB PO SCH (06:31)
[2017-01-10] MEDS: FUROSEMIDE 40 MG TAB PO SCH (06:32)
[2017-01-10] MEDS: INSULIN ASPART [NOVOLOG] 3 ML PEN SC SCH ×4 (07:51→21:00)
[2017-01-10 08:25] VITALS: BP 132/62; RESP 16
[2017-01-10] MEDS ORDERED: POTASSIUM CHLORIDE (SR) 20 MEQ TAB PO SCH (09:00)
[2017-01-10] MEDS: LACTOBACILLUS RHAMNOSUS CAP PO SCH ×2 (09:30→21:27)
[2017-01-10] MEDS: APIXABAN 5 MG TABLET PO SCH ×2 (09:31→21:27)
--- NOTE | 2017-01-10 11:00 | CONS ---
Date/Time of Note Date/Time of Note DATE: 01/10/17 TIME: 10:59 Assessment/Plan Assessment/Plan Additional Assessment/Plan 1. Atrial fibrillation, currently rate controlled- will moinitor clinically, off tele now - stable RATE CONTROLLED 2. Congestive heart failure, systolic, acute on chronic-ongoing by cxr 12/29- euvolemic by exam 3. Hypertension- well Rx, in good fluid status - WELL RX 4. Renal failure-renal team follows - avoid nephrotoxic meds - BETTER now 5. Anemia- H/H stable, no CP now 6. Hypothyroidism. 7. Diabetes mellitus- EUGLYCEMIC 8. Possible lower extremity cellulitis- better now - TREATED 9. Lower extremity edema. 10 Infection - on Zosyn. Primary team follows Consultation Date/Type/Reason Admit Date/Time Dec 24, 2016 at 11:04 Type of Consultation: Pulm Referring Provider: MANI MITCHELL MD 24 HR Interval Summary Free Text/Dictation NO acute events - BP in good range now ROS: No fever, no chills, no nausea, no vomiting, no diarrhea/constipation No recent weight changes No chest pain, no PND, no orthopnea No dizziness, blurred vision No thirst, no heat or cold intolerance Exam/Review of Systems Vital Signs Vitals Vital Signs Date Time Temp Pulse Resp B/P Pulse Ox O2 Delivery O2 Flow Rate FiO2 01/10/17 08:25 98.0 70 16 132/62 95 01/10/17 08:23 2.0 01/10/17 01:58 Nasal Cannula 01/08/17 20:50 21 Intake and Output 01/09/17 01/09/17 01/10/17 14:59 22:59 06:59 Intake Total 1010 ml 600 ml Balance 1010 ml 600 ml Exam General: WN/WD/NAD, AOx 3 HEENT: Unicetric/atraumatic/EOMI (follows commands) NECK: JVD elevated, no thyromegaly Lymph: no lymphadenopathy HEART: Irregular with no S3, II/ systolic murmur at apex LUNGS: Coarse sounds ABD: soft, NT, ND, +BS : Intact Neuro: non focal SKIN: chronic changes EXT: trace edema Results Result Diagram: 01/10/17 0500 01/10/17 0500 Results 24 hrs Laboratory Tests Test 01/09/17 12:58 01/09/17 18:12 01/09/17 20:52 01/10/17 05:00 Bedside Glucose 151 131 176 White Blood Count 9.2 Red Blood Count 3.25 L Hemoglobin 9.6 L Hematocrit 30.3 L Mean Corpuscular Volume 93.2 Mean Corpuscular Hemoglobin 29.5 Mean Corpuscular Hemoglobin Concent 31.7 L Red Cell Distribution Width 16.5 H Platelet Count 275 Mean Platelet Volume 10.3 Neutrophils % 80.4 H Lymphocytes % 12.0 L Monocytes % 6.4 Eosinophils % 0.5 Basophils % 0.3 Nucleated Red Blood Cells % 0.0 Neutrophils # 7.4 Lymphocytes # 1.1 Monocytes # 0.6 Eosinophils # 0.1 Basophils # 0.0 Nucleated Red Blood Cells # 0.0 Sodium Level 139 Potassium Level 2.9 *L Chloride Level 100 Carbon Dioxide Level 35 H Anion Gap 7 #L Blood Urea Nitrogen 15 Creatinine 1.29 H Glucose Level 139 Calcium Level 8.6 Test 01/10/17 07:50 Bedside Glucose 136 Medications Medications Current Medications Acetaminophen (Tylenol Tab) 650 mg Q4H PRN PO PAIN AND OR ELEVATED TEMP Last administered on 01/05/17 08:40; Admin Dose 650 MG; Start 12/24/16 at 18:00 Ondansetron HCl (Zofran Inj) 4 mg Q6H PRN IV NAUSEA AND/OR VOMITING; Start at 18:00 Diagnostic Test (Pha) (Accu-Chek) 1 ea 02 XX Last administered on 01/09/17 02: 04; Admin Dose 1 EA; Start 12/25/16 at 02:00 Miscellaneous Information 1 ea NOTE XX ; Start 12/24/16 at 19:00 Glucose (Glutose) 15 gm Q15M PRN PO DECREASED GLUCOSE; Start 12/24/16 at 19:00 Glucose (Glutose) 22.5 gm Q15M PRN PO DECREASED GLUCOSE; Start 12/24/16 at 19: 00 Dextrose (D50w Syringe) 25 ml Q15M PRN IV DECREASED GLUCOSE; Start 12/24/16 at 19:00 Dextrose (D50w Syringe) 50 ml Q15M PRN IV DECREASED GLUCOSE; Start 12/24/16 at 19:00 Glucagon (Glucagen) 1 mg Q15M PRN IM DECREASED GLUCOSE; Start 12/24/16 at 19:00 Glucose (Glutose) 15 gm Q15M PRN BUCCAL DECREASED GLUCOSE; Start 12/24/16 at 19 :00 Apixaban (Eliquis) 2.5 mg BID PO Last administered on 01/10/17 09:31; Admin Dose 2.5 MG; Start 12/24/16 at 21:00 Carvedilol (Coreg) 12.5 mg BID PO Last administered on 01/10/17 09:30; Admin Dose 12.5 MG; Start 12/24/16 at 21:00 Levothyroxine Sodium (Synthroid) 50 mcg DAILY@06 PO Last administered on 06:31; Admin Dose 50 MCG; Start 12/25/16 at 06:00 Pantoprazole (Protonix Tab) 40 mg DAILY@06 PO Last administered on 01/10/17 06: 31; Admin Dose 40 MG; Start 12/25/16 at 06:00 Calcium Carbonate (Tums) 500 mg Q4 PRN PO GASTROINTESTINAL UPSET Last administered on 01/04/17 09:32; Admin Dose 500 MG; Start 12/25/16 at 12:00 Lactobacillus Acidophilus/ Rhamnosus 1 cap 1 cap BID PO Last administered on 09:30; Admin Dose 1 CAP; Start 12/25/16 at 21:00 Multivitamins/ Dextrose/Sodium Chloride (Mvi Adult/D5-1/ 2ns) 1,010 ml @ 30 mls /hr Q24H IV Last administered on 01/10/17 04:33; Admin Dose 30 MLS/HR; Start at 22:00 Patient Own Medication 1 ea Q6H PRN PO cough Last administered on 01/06/17 08: 23; Admin Dose 1 EA; Start 01/04/17 at 16:30 Hydralazine HCl (Apresoline) 50 mg Q8 PO Last administered on 01/10/17 06:32; Admin Dose 50 MG; Start 01/07/17 at 14:00 Potassium Chloride (Klor-Con 20) 20 meq DAILY PO Last administered on 01/10/17 09:30; Admin Dose 20 MEQ; Start 01/10/17 at 09:00 JESSE CAMPO MD Jan 10, 2017 11:00
--- NOTE | 2017-01-10 12:35 | CONS ---
Date/Time of Note Date/Time of Note DATE: 01/10/17 TIME: 12:34 Consult Date/Type/Reason Admit Date/Time Dec 24, 2016 at 11:04 Initial Consult Date 01/05/17 Type of Consultation: Pulm Ordering Provider: MANI MITCHELL MD Subjective Patient comfortable this morning no acute distress Objective Vital Signs Date Time Temp Pulse Resp B/P Pulse Ox O2 Delivery O2 Flow Rate FiO2 01/10/17 09:00 Nasal Cannula 2.0 01/10/17 08:25 98.0 70 16 132/62 95 01/08/17 20:50 21 Intake and Output 01/09/17 01/09/17 01/10/17 14:59 22:59 06:59 Intake Total 1010 ml 600 ml Balance 1010 ml 600 ml Exam GENERAL: Elderly gentleman VITAL SIGNS: per chart NECK: Supple. No JVD or lymphadenopathy. CARDIAC EXAM: S1, S2. No added sounds or murmurs. CHEST: clear bilaterally, No added sounds, rales or wheezes ABDOMEN: Soft, nontender. No guarding or rebound. EXTREMITIES: No cyanosis, clubbing or edema. NEUROLOGIC: Generalized weakness. No focal deficits. Results/Medications Result Diagram: 01/10/17 0500 01/10/17 0500 Results 24 hrs Laboratory Tests Test 01/09/17 12:58 01/09/17 18:12 01/09/17 20:52 01/10/17 05:00 Bedside Glucose 151 131 176 White Blood Count 9.2 Red Blood Count 3.25 L Hemoglobin 9.6 L Hematocrit 30.3 L Mean Corpuscular Volume 93.2 Mean Corpuscular Hemoglobin 29.5 Mean Corpuscular Hemoglobin Concent 31.7 L Red Cell Distribution Width 16.5 H Platelet Count 275 Mean Platelet Volume 10.3 Neutrophils % 80.4 H Lymphocytes % 12.0 L Monocytes % 6.4 Eosinophils % 0.5 Basophils % 0.3 Nucleated Red Blood Cells % 0.0 Neutrophils # 7.4 Lymphocytes # 1.1 Monocytes # 0.6 Eosinophils # 0.1 Basophils # 0.0 Nucleated Red Blood Cells # 0.0 Sodium Level 139 Potassium Level 2.9 *L Chloride Level 100 Carbon Dioxide Level 35 H Anion Gap 7 #L Blood Urea Nitrogen 15 Creatinine 1.29 H Glucose Level 139 Calcium Level 8.6 Test 01/10/17 07:50 Bedside Glucose 136 Medications Current Medications Acetaminophen (Tylenol Tab) 650 mg Q4H PRN PO PAIN AND OR ELEVATED TEMP Last administered on 01/05/17 08:40; Admin Dose 650 MG; Start 12/24/16 at 18:00 Ondansetron HCl (Zofran Inj) 4 mg Q6H PRN IV NAUSEA AND/OR VOMITING; Start at 18:00 Diagnostic Test (Pha) (Accu-Chek) 1 ea 02 XX Last administered on 01/09/17 02: 04; Admin Dose 1 EA; Start 12/25/16 at 02:00 Miscellaneous Information 1 ea NOTE XX ; Start 12/24/16 at 19:00 Glucose (Glutose) 15 gm Q15M PRN PO DECREASED GLUCOSE; Start 12/24/16 at 19:00 Glucose (Glutose) 22.5 gm Q15M PRN PO DECREASED GLUCOSE; Start 12/24/16 at 19: 00 Dextrose (D50w Syringe) 25 ml Q15M PRN IV DECREASED GLUCOSE; Start 12/24/16 at 19:00 Dextrose (D50w Syringe) 50 ml Q15M PRN IV DECREASED GLUCOSE; Start 12/24/16 at 19:00 Glucagon (Glucagen) 1 mg Q15M PRN IM DECREASED GLUCOSE; Start 12/24/16 at 19:00 Glucose (Glutose) 15 gm Q15M PRN BUCCAL DECREASED GLUCOSE; Start 12/24/16 at 19 :00 Apixaban (Eliquis) 2.5 mg BID PO Last administered on 01/10/17 09:31; Admin Dose 2.5 MG; Start 12/24/16 at 21:00 Carvedilol (Coreg) 12.5 mg BID PO Last administered on 01/10/17 09:30; Admin Dose 12.5 MG; Start 12/24/16 at 21:00 Levothyroxine Sodium (Synthroid) 50 mcg DAILY@06 PO Last administered on 06:31; Admin Dose 50 MCG; Start 12/25/16 at 06:00 Pantoprazole (Protonix Tab) 40 mg DAILY@06 PO Last administered on 01/10/17 06: 31; Admin Dose 40 MG; Start 12/25/16 at 06:00 Calcium Carbonate (Tums) 500 mg Q4 PRN PO GASTROINTESTINAL UPSET Last administered on 01/04/17 09:32; Admin Dose 500 MG; Start 12/25/16 at 12:00 Lactobacillus Acidophilus/ Rhamnosus 1 cap 1 cap BID PO Last administered on 09:30; Admin Dose 1 CAP; Start 12/25/16 at 21:00 Multivitamins/ Dextrose/Sodium Chloride (Mvi Adult/D5-1/ 2ns) 1,010 ml @ 30 mls /hr Q24H IV Last administered on 01/10/17 04:33; Admin Dose 30 MLS/HR; Start at 22:00 Patient Own Medication 1 ea Q6H PRN PO cough Last administered on 01/06/17 08: 23; Admin Dose 1 EA; Start 01/04/17 at 16:30 Hydralazine HCl (Apresoline) 50 mg Q8 PO Last administered on 01/10/17 06:32; Admin Dose 50 MG; Start 01/07/17 at 14:00 Potassium Chloride (Klor-Con 20) 20 meq DAILY PO Last administered on 01/10/17 09:30; Admin Dose 20 MEQ; Start 01/10/17 at 09:00 Assessment/Plan Chief Complaint/Hosp Course IMP: 1. CHF exacerbation 2. CKD 3. Hypothyroidism. 4. HTN 5. Chronic CO2 retention RECS: 1. Continue current Rx 2. PT/OT; mobilize 3. Replete lytes 4. I/O's Consider discharge planning Problems: PRANAV MCCONNELL MD, [facility] Jan 10, 2017 12:34
--- NOTE | 2017-01-10 13:36 | CONS ---
Date/Time of Note Date/Time of Note DATE: 01/10/17 TIME: 13:33 Assessment/Plan Assessment/Plan Additional Assessment/Plan 1. Acute kidney injury on possible chronic kidney disease, likely secondary to a congestive heart failure exacerbation and also possibly secondary to prerenal azotemia. 2. Acute congestive heart failure exacerbation, acute and chronic, systolic and diastolic, now on IV Lasix diuresis 20 mg b.i.d. 3. 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 4. History of diabetes mellitus type 2. 5. History of hypertension. 6. History of dementia. 7. Aspiration pneumonitis - s/p IV antibiotics. 8. Hyokalemia PLAN: Cr 1.2, K 2.9- decrease lasix to 20mg pO BID d/c IVF KCL 40mEQ IV x 1 dose today on Eliquis 2.5mg BID will follow up Consultation Date/Type/Reason Admit Date/Time Dec 24, 2016 at 11:04 Type of Consultation: NEPHROLOGY Referring Provider: MANI MITCHELL MD 24 HR Interval Summary Free Text/Dictation K low, Cr 1.2, no acute events overnight, K replaced for today Exam/Review of Systems Vital Signs Vitals Vital Signs Date Time Temp Pulse Resp B/P Pulse Ox O2 Delivery O2 Flow Rate FiO2 01/10/17 13:00 86 18 88 Nasal Cannula 2.0 01/10/17 08:25 98.0 132/62 01/08/17 20:50 21 Intake and Output 01/09/17 01/09/17 01/10/17 15:00 23:00 07:00 Intake Total 1010 ml 600 ml Balance 1010 ml 600 ml Exam GENERAL: Awake, alert, demented HEENT: Pupils equal, round, reactive to light and accommodation. Extraocular muscles are intact. NECK: Supple, no JVD, no lymphadenopathy. LUNGS: Clear to auscultation bilaterally, no crackles, no wheezes. HEART: S1, S2, tachycardia, no murmur. ABDOMEN: Soft, nontender, nondistended. Bowel sounds are present. EXTREMITIES: No clubbing, cyanosis, or edema. NEUROLOGICAL: demented Results Result Diagram: 01/10/17 0500 01/10/17 0500 Results 24 hrs Laboratory Tests Test 01/09/17 18:12 01/09/17 20:52 01/10/17 05:00 01/10/17 07:50 Bedside Glucose 131 176 136 White Blood Count 9.2 Red Blood Count 3.25 L Hemoglobin 9.6 L Hematocrit 30.3 L Mean Corpuscular Volume 93.2 Mean Corpuscular Hemoglobin 29.5 Mean Corpuscular Hemoglobin Concent 31.7 L Red Cell Distribution Width 16.5 H Platelet Count 275 Mean Platelet Volume 10.3 Neutrophils % 80.4 H Lymphocytes % 12.0 L Monocytes % 6.4 Eosinophils % 0.5 Basophils % 0.3 Nucleated Red Blood Cells % 0.0 Neutrophils # 7.4 Lymphocytes # 1.1 Monocytes # 0.6 Eosinophils # 0.1 Basophils # 0.0 Nucleated Red Blood Cells # 0.0 Sodium Level 139 Potassium Level 2.9 *L Chloride Level 100 Carbon Dioxide Level 35 H Anion Gap 7 #L Blood Urea Nitrogen 15 Creatinine 1.29 H Glucose Level 139 Calcium Level 8.6 Test 01/10/17 12:10 Bedside Glucose 210 Medications Medications Current Medications Acetaminophen (Tylenol Tab) 650 mg Q4H PRN PO PAIN AND OR ELEVATED TEMP Last administered on 01/05/17 08:40; Admin Dose 650 MG; Start 12/24/16 at 18:00 Ondansetron HCl (Zofran Inj) 4 mg Q6H PRN IV NAUSEA AND/OR VOMITING; Start at 18:00 Diagnostic Test (Pha) (Accu-Chek) 1 ea 02 XX Last administered on 01/09/17 02: 04; Admin Dose 1 EA; Start 12/25/16 at 02:00 Miscellaneous Information 1 ea NOTE XX ; Start 12/24/16 at 19:00 Glucose (Glutose) 15 gm Q15M PRN PO DECREASED GLUCOSE; Start 12/24/16 at 19:00 Glucose (Glutose) 22.5 gm Q15M PRN PO DECREASED GLUCOSE; Start 12/24/16 at 19: 00 Dextrose (D50w Syringe) 25 ml Q15M PRN IV DECREASED GLUCOSE; Start 12/24/16 at 19:00 Dextrose (D50w Syringe) 50 ml Q15M PRN IV DECREASED GLUCOSE; Start 12/24/16 at 19:00 Glucagon (Glucagen) 1 mg Q15M PRN IM DECREASED GLUCOSE; Start 12/24/16 at 19:00 Glucose (Glutose) 15 gm Q15M PRN BUCCAL DECREASED GLUCOSE; Start 12/24/16 at 19 :00 Apixaban (Eliquis) 2.5 mg BID PO Last administered on 01/10/17 09:31; Admin Dose 2.5 MG; Start 12/24/16 at 21:00 Carvedilol (Coreg) 12.5 mg BID PO Last administered on 01/10/17 09:30; Admin Dose 12.5 MG; Start 12/24/16 at 21:00 Levothyroxine Sodium (Synthroid) 50 mcg DAILY@06 PO Last administered on 06:31; Admin Dose 50 MCG; Start 12/25/16 at 06:00 Pantoprazole (Protonix Tab) 40 mg DAILY@06 PO Last administered on 01/10/17 06: 31; Admin Dose 40 MG; Start 12/25/16 at 06:00 Calcium Carbonate (Tums) 500 mg Q4 PRN PO GASTROINTESTINAL UPSET Last administered on 01/04/17 09:32; Admin Dose 500 MG; Start 12/25/16 at 12:00 Lactobacillus Acidophilus/ Rhamnosus 1 cap 1 cap BID PO Last administered on 09:30; Admin Dose 1 CAP; Start 12/25/16 at 21:00 Multivitamins/ Dextrose/Sodium Chloride (Mvi Adult/D5-1/ 2ns) 1,010 ml @ 30 mls /hr Q24H IV Last administered on 01/10/17 04:33; Admin Dose 30 MLS/HR; Start at 22:00 Patient Own Medication 1 ea Q6H PRN PO cough Last administered on 01/06/17 08: 23; Admin Dose 1 EA; Start 01/04/17 at 16:30 Hydralazine HCl (Apresoline) 50 mg Q8 PO Last administered on 01/10/17 06:32; Admin Dose 50 MG; Start 01/07/17 at 14:00 Potassium Chloride (Klor-Con 20) 20 meq DAILY PO Last administered on 01/10/17 09:30; Admin Dose 20 MEQ; Start 01/10/17 at 09:00 BLANCA CARLIN MD Jan 10, 2017 13:36
--- NOTE | 2017-01-10 15:42 | PN ---
Date/Time of Note Date/Time of Note DATE: 01/10/17 TIME: 15:37 Assessment/Plan VTE Prophylaxis VTE Prophylaxis Intervention: SCD's Lines/Catheters IV [facility] Type [facility]from [facility] Peripheral IV Urinary Cath still in place: No Assessment/Plan Chief Complaint/Hosp Course Patient patient with hypokalemia today, potassium replaced, remains hemodynamically stable comfortable on supplemental oxygen. Assessment/Plan - Possible pneumonia, status post treatment, continue strict aspiration precaution with pured diet. - Decompensated congestive heart failure. Continue Lasix and Coreg. - Chronic CO2 retention. Dr. Ware is following in pulmonology consultation. - Hypertension, continue Coreg and hydralazine. - Atrial fibrillation, continue Eliquis. - Hypothyroidism, continue Synthroid. - Diabetes mellitus. Continue NovoLog per sliding scale. 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 - Advanced dementia. Further recommendations based on clinical course. Plan of care discussed with Dr. Villarreal. Problems: Exam/Review of Systems Vital Signs Vitals Vital Signs Date Time Temp Pulse Resp B/P Pulse Ox O2 Delivery O2 Flow Rate FiO2 01/10/17 13:00 86 18 88 Nasal Cannula 2.0 01/10/17 08:25 98.0 132/62 01/08/17 20:50 21 Intake and Output 01/09/17 01/09/17 01/10/17 15:00 23:00 07:00 Intake Total 1010 ml 600 ml Balance 1010 ml 600 ml Exam Constitutional: alert, frail Neck: supple Respiratory: diminished breath sounds Cardiovascular: irregular rhythm Gastrointestinal: non-tender, soft Extremities: normal pulses Neurological: confused, nl mental status Results Result Diagram: 01/10/17 0500 01/10/17 0500 Results 24 hrs Laboratory Tests Test 01/09/17 18:12 01/09/17 20:52 01/10/17 05:00 01/10/17 07:50 Bedside Glucose 131 176 136 White Blood Count 9.2 Red Blood Count 3.25 L Hemoglobin 9.6 L Hematocrit 30.3 L Mean Corpuscular Volume 93.2 Mean Corpuscular Hemoglobin 29.5 Mean Corpuscular Hemoglobin Concent 31.7 L Red Cell Distribution Width 16.5 H Platelet Count 275 Mean Platelet Volume 10.3 Neutrophils % 80.4 H Lymphocytes % 12.0 L Monocytes % 6.4 Eosinophils % 0.5 Basophils % 0.3 Nucleated Red Blood Cells % 0.0 Neutrophils # 7.4 Lymphocytes # 1.1 Monocytes # 0.6 Eosinophils # 0.1 Basophils # 0.0 Nucleated Red Blood Cells # 0.0 Sodium Level 139 Potassium Level 2.9 *L Chloride Level 100 Carbon Dioxide Level 35 H Anion Gap 7 #L Blood Urea Nitrogen 15 Creatinine 1.29 H Glucose Level 139 Calcium Level 8.6 Test 01/10/17 12:10 Bedside Glucose 210 Medications Medications Current Medications Acetaminophen (Tylenol Tab) 650 mg Q4H PRN PO PAIN AND OR ELEVATED TEMP Last administered on 01/05/17 08:40; Admin Dose 650 MG; Start 12/24/16 at 18:00 Ondansetron HCl (Zofran Inj) 4 mg Q6H PRN IV NAUSEA AND/OR VOMITING; Start at 18:00 Diagnostic Test (Pha) (Accu-Chek) 1 ea 02 XX Last administered on 01/09/17 02: 04; Admin Dose 1 EA; Start 12/25/16 at 02:00 Miscellaneous Information 1 ea NOTE XX ; Start 12/24/16 at 19:00 Glucose (Glutose) 15 gm Q15M PRN PO DECREASED GLUCOSE; Start 12/24/16 at 19:00 Glucose (Glutose) 22.5 gm Q15M PRN PO DECREASED GLUCOSE; Start 12/24/16 at 19: 00 Dextrose (D50w Syringe) 25 ml Q15M PRN IV DECREASED GLUCOSE; Start 12/24/16 at 19:00 Dextrose (D50w Syringe) 50 ml Q15M PRN IV DECREASED GLUCOSE; Start 12/24/16 at 19:00 Glucagon (Glucagen) 1 mg Q15M PRN IM DECREASED GLUCOSE; Start 12/24/16 at 19:00 Glucose (Glutose) 15 gm Q15M PRN BUCCAL DECREASED GLUCOSE; Start 12/24/16 at 19 :00 Apixaban (Eliquis) 2.5 mg BID PO Last administered on 01/10/17 09:31; Admin Dose 2.5 MG; Start 12/24/16 at 21:00 Carvedilol (Coreg) 12.5 mg BID PO Last administered on 01/10/17 09:30; Admin Dose 12.5 MG; Start 12/24/16 at 21:00 Levothyroxine Sodium (Synthroid) 50 mcg DAILY@06 PO Last administered on 06:31; Admin Dose 50 MCG; Start 12/25/16 at 06:00 Pantoprazole (Protonix Tab) 40 mg DAILY@06 PO Last administered on 01/10/17 06: 31; Admin Dose 40 MG; Start 12/25/16 at 06:00 Calcium Carbonate (Tums) 500 mg Q4 PRN PO GASTROINTESTINAL UPSET Last administered on 01/04/17 09:32; Admin Dose 500 MG; Start 12/25/16 at 12:00 Lactobacillus Acidophilus/ Rhamnosus (Culturelle) 1 cap BID PO Last administered on 01/10/17 09:30; Admin Dose 1 CAP; Start 12/25/16 at 21:00 Patient Own Medication 1 ea Q6H PRN PO cough Last administered on 01/06/17 08: 23; Admin Dose 1 EA; Start 01/04/17 at 16:30 Hydralazine HCl (Apresoline) 50 mg Q8 PO Last administered on 01/10/17 06:32; Admin Dose 50 MG; Start 01/07/17 at 14:00 LYLA YOUNG Jan 10, 2017 15:41
[2017-01-10] MEDS: FUROSEMIDE 20 MG TAB PO SCH (18:24)
[2017-01-10 20:13] VITALS: BP 104/54; RESP 16
[2017-01-11] MEDS: ALBUTEROL/IPRATROPIUM (NEB) 3 ML AMP HHN SCH ×4 (02:00→22:09)
[2017-01-11] MEDS: PANTOPRAZOLE (EC) 40 MG TAB PO SCH (05:53)
[2017-01-11] MEDS: LEVOTHYROXINE 50 MCG TAB PO SCH (05:53)
[2017-01-11] MEDS: FUROSEMIDE 20 MG TAB PO SCH ×2 (05:53→17:47)
[2017-01-11 05:54] VITALS: BP 135/67; PULSE 71
[2017-01-11 07:23] LABS: CALCIUM 8.6 mg/dl (8.4-10.2); CREATININE 1.31 mg/dl (0.61-1.24); POTASSIUM 3.7 mmol/L (3.5-5.1)
[2017-01-11 07:44] VITALS: BP 121/58; RESP 19
[2017-01-11] MEDS: INSULIN ASPART [NOVOLOG] 3 ML PEN SC SCH ×4 (07:55→20:36)
[2017-01-11] MEDS: LACTOBACILLUS RHAMNOSUS CAP PO SCH ×2 (09:19→20:36)
[2017-01-11] MEDS: APIXABAN 5 MG TABLET PO SCH ×2 (09:19→20:40)
[2017-01-11] MEDS: LINAGLIPTIN 5 MG TABLET PO SCH (12:26)
--- NOTE | 2017-01-11 12:53 | PN ---
Date/Time of Note Date/Time of Note DATE: 01/11/17 TIME: 12:52 Assessment/Plan Lines/Catheters IV Catheter Type (from Nrs): Saline Lock Urinary Cath still in place: No Assessment/Plan Assessment/Plan - Possible pneumonia, status post treatment, continue strict aspiration precaution with pured diet. - Decompensated congestive heart failure. Continue Lasix and Coreg. - Chronic CO2 retention. Dr. Ware is following in pulmonology consultation. - Hypertension, continue Coreg and hydralazine. - Atrial fibrillation, continue Eliquis. - Hypothyroidism, continue Synthroid. - Diabetes mellitus. Continue NovoLog per sliding scale. 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 - Advanced dementia. Further recommendations based on clinical course. Plan of care discussed with Dr. Villarreal. Subjective 24 Hr Interval Summary Constitutional: requiring O2 Exam/Review of Systems Vital Signs Vitals Vital Signs Date Time Temp Pulse Resp B/P Pulse Ox O2 Delivery O2 Flow Rate FiO2 01/11/17 09:32 69 18 99 Nasal Cannula 2.0 01/11/17 07:44 97.7 121/58 01/08/17 20:50 21 Intake and Output 01/10/17 01/10/17 01/11/17 15:00 23:00 07:00 Intake Total 250 ml 1200 ml 340 ml Balance 250 ml 1200 ml 340 ml Exam Respiratory: clear to auscultation, normal air movement Cardiovascular: nl pulses, regular rate and rhythm Gastrointestinal: non-tender, soft Musculoskeletal: nl extremities to inspection Neurological: nl speech Results Result Diagram: 01/10/17 0500 01/11/17 0510 Results 24 hrs Laboratory Tests Test 01/10/17 17:23 01/10/17 21:33 01/11/17 05:10 01/11/17 07:38 Bedside Glucose 139 235 H 161 Sodium Level 137 Potassium Level 3.7 Chloride Level 101 Carbon Dioxide Level 34 H Anion Gap 6 L Blood Urea Nitrogen 17 Creatinine 1.31 H Glucose Level 141 Calcium Level 8.6 Test 01/11/17 12:02 Bedside Glucose 197 Medications Medications Current Medications Acetaminophen (Tylenol Tab) 650 mg Q4H PRN PO PAIN AND OR ELEVATED TEMP Last administered on 01/05/17t 08:40; Admin Dose 650 MG; Start 12/24/16 at 18:00 Ondansetron HCl (Zofran Inj) 4 mg Q6H PRN IV NAUSEA AND/OR VOMITING; Start at 18:00 Miscellaneous Information 1 ea NOTE XX ; Start 12/24/16 at 19:00 Glucose (Glutose) 15 gm Q15M PRN PO DECREASED GLUCOSE; Start 12/24/16 at 19:00 Glucose (Glutose) 22.5 gm Q15M PRN PO DECREASED GLUCOSE; Start 12/24/16 at 19: 00 Dextrose (D50w Syringe) 25 ml Q15M PRN IV DECREASED GLUCOSE; Start 12/24/16 at 19:00 Dextrose (D50w Syringe) 50 ml Q15M PRN IV DECREASED GLUCOSE; Start 12/24/16 at 19:00 Glucagon (Glucagen) 1 mg Q15M PRN IM DECREASED GLUCOSE; Start 12/24/16 at 19:00 Glucose (Glutose) 15 gm Q15M PRN BUCCAL DECREASED GLUCOSE; Start 12/24/16 at 19 :00 Apixaban (Eliquis) 2.5 mg BID PO Last administered on 01/11/17 09:19; Admin Dose 2.5 MG; Start 12/24/16 at 21:00 Carvedilol (Coreg) 12.5 mg BID PO Last administered on 01/11/17 09:20; Admin Dose 12.5 MG; Start 12/24/16 at 21:00 Levothyroxine Sodium (Synthroid) 50 mcg DAILY@06 PO Last administered on 05:53; Admin Dose 50 MCG; Start 12/25/16 at 06:00 Pantoprazole (Protonix Tab) 40 mg DAILY@06 PO Last administered on 01/11/17 05: 53; Admin Dose 40 MG; Start 12/25/16 at 06:00 Calcium Carbonate (Tums) 500 mg Q4 PRN PO GASTROINTESTINAL UPSET Last administered on 01/04/17 09:32; Admin Dose 500 MG; Start 12/25/16 at 12:00 Lactobacillus Acidophilus/ Rhamnosus (Culturelle) 1 cap BID PO Last administered on 01/11/17 09:19; Admin Dose 1 CAP; Start 12/25/16 at 21:00 Patient Own Medication 1 ea Q6H PRN PO cough Last administered on 01/06/17 08: 23; Admin Dose 1 EA; Start 01/04/17 at 16:30 Hydralazine HCl (Apresoline) 50 mg Q8 PO Last administered on 01/11/17 05:54; Admin Dose 50 MG; Start 01/07/17 at 14:00 Linagliptin (Tradjenta) 5 mg DAILY PO Last administered on 01/11/17 12:26; Admin Dose 5 MG; Start 01/11/17 at 11:30 Diagnostic Test (Pha) (Accu-Chek) 1 02 XX ; Start 01/12/17 at 02:00 STAR BOWLES Jan 11, 2017 12:52
--- NOTE | 2017-01-11 13:15 | CONS ---
Date/Time of Note Date/Time of Note DATE: 01/11/17 TIME: 13:14 Assessment/Plan Assessment/Plan Additional Assessment/Plan 1. Atrial fibrillation, currently rate controlled- will tobi clinically, off tele now - stable RATE CONTROLLED 2. Congestive heart failure, systolic, acute on chronic-ongoing by cxr 12/29- euvolemic by exam - GOOD FLUID STATUS 3. Hypertension- well Rx, in good fluid status - WELL RX 4. Renal failure-renal team follows - avoid nephrotoxic meds - BETTER now 5. Anemia- H/H stable, no CP now 6. Hypothyroidism. 7. Diabetes mellitus- EUGLYCEMIC 8. Possible lower extremity cellulitis- better now - TREATED 9. Lower extremity edema. 10 Infection - on Zosyn. Primary team follows - no fever now Consultation Date/Type/Reason Admit Date/Time Dec 24, 2016 at 11:04 Type of Consultation: NEPHROLOGY Referring Provider: MANI MITCHELL MD 24 HR Interval Summary Free Text/Dictation Rate controlled - off tele - con't med rx ROS: No fever, no chills, no nausea, no vomiting, no diarrhea/constipation No recent weight changes No chest pain, no PND, no orthopnea No dizziness, blurred vision No thirst, no heat or cold intolerance Exam/Review of Systems Vital Signs Vitals Vital Signs Date Time Temp Pulse Resp B/P Pulse Ox O2 Delivery O2 Flow Rate FiO2 01/11/17 09:32 69 18 99 Nasal Cannula 2.0 01/11/17 07:44 97.7 121/58 01/08/17 20:50 21 Intake and Output 01/10/17 01/10/17 01/11/17 15:00 23:00 07:00 Intake Total 250 ml 1200 ml 340 ml Balance 250 ml 1200 ml 340 ml Exam General: WN/WD/NAD, AOx 3 HEENT: Unicetric/atraumatic/EOMI (follow commands) NECK: JVD elevated, no thyromegaly Lymph: no lymphadenopathy HEART: Ir irregular with no S3, II/ systolic murmur at apex LUNGS: Coarse sounds ABD: soft, NT, ND, +BS : Intact Neuro: non focal SKIN: chronic changes EXT: trace edema Results Result Diagram: 01/10/17 0500 01/11/17 0510 Results 24 hrs Laboratory Tests Test 01/10/17 17:23 01/10/17 21:33 01/11/17 05:10 01/11/17 07:38 Bedside Glucose 139 235 H 161 Sodium Level 137 Potassium Level 3.7 Chloride Level 101 Carbon Dioxide Level 34 H Anion Gap 6 L Blood Urea Nitrogen 17 Creatinine 1.31 H Glucose Level 141 Calcium Level 8.6 Test 01/11/17 12:02 Bedside Glucose 197 Medications Medications Current Medications Acetaminophen (Tylenol Tab) 650 mg Q4H PRN PO PAIN AND OR ELEVATED TEMP Last administered on 01/05/17 08:40; Admin Dose 650 MG; Start 12/24/16 at 18:00 Ondansetron HCl (Zofran Inj) 4 mg Q6H PRN IV NAUSEA AND/OR VOMITING; Start at 18:00 Miscellaneous Information 1 ea NOTE XX ; Start 12/24/16 at 19:00 Glucose (Glutose) 15 gm Q15M PRN PO DECREASED GLUCOSE; Start 12/24/16 at 19:00 Glucose (Glutose) 22.5 gm Q15M PRN PO DECREASED GLUCOSE; Start 12/24/16 at 19: 00 Dextrose (D50w Syringe) 25 ml Q15M PRN IV DECREASED GLUCOSE; Start 12/24/16 at 19:00 Dextrose (D50w Syringe) 50 ml Q15M PRN IV DECREASED GLUCOSE; Start 12/24/16 at 19:00 Glucagon (Glucagen) 1 mg Q15M PRN IM DECREASED GLUCOSE; Start 12/24/16 at 19:00 Glucose (Glutose) 15 gm Q15M PRN BUCCAL DECREASED GLUCOSE; Start 12/24/16 at 19 :00 Apixaban (Eliquis) 2.5 mg BID PO Last administered on 01/11/17 09:19; Admin Dose 2.5 MG; Start 12/24/16 at 21:00 Carvedilol (Coreg) 12.5 mg BID PO Last administered on 01/11/17 09:20; Admin Dose 12.5 MG; Start 12/24/16 at 21:00 Levothyroxine Sodium (Synthroid) 50 mcg DAILY@06 PO Last administered on 05:53; Admin Dose 50 MCG; Start 12/25/16 at 06:00 Pantoprazole (Protonix Tab) 40 mg DAILY@06 PO Last administered on 01/11/17 05: 53; Admin Dose 40 MG; Start 12/25/16 at 06:00 Calcium Carbonate (Tums) 500 mg Q4 PRN PO GASTROINTESTINAL UPSET Last administered on 01/04/17 09:32; Admin Dose 500 MG; Start 12/25/16 at 12:00 Lactobacillus Acidophilus/ Rhamnosus (Culturelle) 1 cap BID PO Last administered on 01/11/17 09:19; Admin Dose 1 CAP; Start 12/25/16 at 21:00 Patient Own Medication 1 ea Q6H PRN PO cough Last administered on 01/06/17 08: 23; Admin Dose 1 EA; Start 01/04/17 at 16:30 Hydralazine HCl (Apresoline) 50 mg Q8 PO Last administered on 01/11/17 05:54; Admin Dose 50 MG; Start 01/07/17 at 14:00 Linagliptin (Tradjenta) 5 mg DAILY PO Last administered on 01/11/17 12:26; Admin Dose 5 MG; Start 01/11/17 at 11:30 Diagnostic Test (Pha) (Accu-Chek) 1 ea 02 XX ; Start 01/12/17 at 02:00 JESSE CAMPO MD Jan 11, 2017 13:15
--- NOTE | 2017-01-11 13:18 | CONS ---
Date/Time of Note Date/Time of Note DATE: 01/11/17 TIME: 13:17 Consult Date/Type/Reason Admit Date/Time Dec 24, 2016 at 11:04 Initial Consult Date 01/05/17 Type of Consultation: Pulmonary ICU Ordering Provider: MANI MITCHELL MD Subjective Patient comfortable no new events Objective Vital Signs Date Time Temp Pulse Resp B/P Pulse Ox O2 Delivery O2 Flow Rate FiO2 01/11/17 09:32 69 18 99 Nasal Cannula 2.0 01/11/17 07:44 97.7 121/58 01/08/17 20:50 21 Intake and Output 01/10/17 01/10/17 01/11/17 15:00 23:00 07:00 Intake Total 250 ml 1200 ml 340 ml Balance 250 ml 1200 ml 340 ml Exam GENERAL: Elderly gentleman VITAL SIGNS: per chart NECK: Supple. No JVD or lymphadenopathy. CARDIAC EXAM: S1, S2. No added sounds or murmurs. CHEST: clear bilaterally, No added sounds, rales or wheezes ABDOMEN: Soft, nontender. No guarding or rebound. EXTREMITIES: No cyanosis, clubbing or edema. NEUROLOGIC: Generalized weakness. No focal deficits. Results/Medications Result Diagram: 01/10/17 0500 01/11/17 0510 Results 24 hrs Laboratory Tests Test 01/10/17 17:23 01/10/17 21:33 01/11/17 05:10 01/11/17 07:38 Bedside Glucose 139 235 H 161 Sodium Level 137 Potassium Level 3.7 Chloride Level 101 Carbon Dioxide Level 34 H Anion Gap 6 L Blood Urea Nitrogen 17 Creatinine 1.31 H Glucose Level 141 Calcium Level 8.6 Test 01/11/17 12:02 Bedside Glucose 197 Medications Current Medications Acetaminophen (Tylenol Tab) 650 mg Q4H PRN PO PAIN AND OR ELEVATED TEMP Last administered on 01/05/17t 08:40; Admin Dose 650 MG; Start 12/24/16 at 18:00 Ondansetron HCl (Zofran Inj) 4 mg Q6H PRN IV NAUSEA AND/OR VOMITING; Start at 18:00 Miscellaneous Information 1 ea NOTE XX ; Start 12/24/16 at 19:00 Glucose (Glutose) 15 gm Q15M PRN PO DECREASED GLUCOSE; Start 12/24/16 at 19:00 Glucose (Glutose) 22.5 gm Q15M PRN PO DECREASED GLUCOSE; Start 12/24/16 at 19: 00 Dextrose (D50w Syringe) 25 ml Q15M PRN IV DECREASED GLUCOSE; Start 12/24/16 at 19:00 Dextrose (D50w Syringe) 50 ml Q15M PRN IV DECREASED GLUCOSE; Start 12/24/16 at 19:00 Glucagon (Glucagen) 1 mg Q15M PRN IM DECREASED GLUCOSE; Start 12/24/16 at 19:00 Glucose (Glutose) 15 gm Q15M PRN BUCCAL DECREASED GLUCOSE; Start 12/24/16 at 19 :00 Apixaban (Eliquis) 2.5 mg BID PO Last administered on 01/11/17 09:19; Admin Dose 2.5 MG; Start 12/24/16 at 21:00 Carvedilol (Coreg) 12.5 mg BID PO Last administered on 01/11/17 09:20; Admin Dose 12.5 MG; Start 12/24/16 at 21:00 Levothyroxine Sodium (Synthroid) 50 mcg DAILY@06 PO Last administered on 05:53; Admin Dose 50 MCG; Start 12/25/16 at 06:00 Pantoprazole (Protonix Tab) 40 mg DAILY@06 PO Last administered on 01/11/17 05: 53; Admin Dose 40 MG; Start 12/25/16 at 06:00 Calcium Carbonate (Tums) 500 mg Q4 PRN PO GASTROINTESTINAL UPSET Last administered on 01/04/17 09:32; Admin Dose 500 MG; Start 12/25/16 at 12:00 Lactobacillus Acidophilus/ Rhamnosus (Culturelle) 1 cap BID PO Last administered on 01/11/17 09:19; Admin Dose 1 CAP; Start 12/25/16 at 21:00 Patient Own Medication 1 ea Q6H PRN PO cough Last administered on 01/06/17 08: 23; Admin Dose 1 EA; Start 01/04/17 at 16:30 Hydralazine HCl (Apresoline) 50 mg Q8 PO Last administered on 01/11/17 05:54; Admin Dose 50 MG; Start 01/07/17 at 14:00 Linagliptin (Tradjenta) 5 mg DAILY PO Last administered on 01/11/17 12:26; Admin Dose 5 MG; Start 01/11/17 at 11:30 Diagnostic Test (Pha) (Accu-Chek) 1 ea 02 XX ; Start 01/12/17 at 02:00 Assessment/Plan Chief Complaint/Hosp Course IMP: 1. CHF exacerbation, improved 2. CKD, remains stable 3. Hypothyroidism. 4. HTN 5. Chronic CO2 retention RECS: 1. Continue current Rx 2. PT/OT; mobilize 3. Aspiration precautions 4. I/O's Consider discharge planning Problems: PRANAV MCCONNELL MD, [facility] Jan 11, 2017 13:18
[2017-01-11 17:41] VITALS: BP 115/62; PULSE 70; RESP 18
--- NOTE | 2017-01-11 17:54 | CONS ---
Date/Time of Note Date/Time of Note DATE: 01/11/17 TIME: 17:53 Assessment/Plan Assessment/Plan Additional Assessment/Plan 1. Acute kidney injury on possible chronic kidney disease, likely secondary to a congestive heart failure exacerbation and also possibly secondary to prerenal azotemia. 2. Acute congestive heart failure exacerbation, acute and chronic, systolic and diastolic, now on IV Lasix diuresis 20 mg b.i.d. 3. 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 4. History of diabetes mellitus type 2. 5. History of hypertension. 6. History of dementia. 7. Aspiration pneumonitis - s/p IV antibiotics. 8. Hyokalemia PLAN: Cr 1.3, K stable - on lasix to 20mg pO BID Monitor electrolytes and replace as needed on Eliquis 2.5mg BID will follow up Consultation Date/Type/Reason Admit Date/Time Dec 24, 2016 at 11:04 Type of Consultation: NEPHROLOGY Referring Provider: MANI MITCHELL MD 24 HR Interval Summary Free Text/Dictation no acute events, BP stable Cr 1.3, K stable Exam/Review of Systems Vital Signs Vitals Vital Signs Date Time Temp Pulse Resp B/P Pulse Ox O2 Delivery O2 Flow Rate FiO2 01/11/17 17:41 70 18 115/62 01/11/17 13:25 2.0 01/11/17 13:23 98 Nasal Cannula 01/11/17 07:44 97.7 01/08/17 20:50 21 Intake and Output 01/10/17 01/10/17 01/11/17 15:00 23:00 07:00 Intake Total 250 ml 1200 ml 340 ml Balance 250 ml 1200 ml 340 ml Exam GENERAL: Awake, alert, demented HEENT: Pupils equal, round, reactive to light and accommodation. Extraocular muscles are intact. NECK: Supple, no JVD, no lymphadenopathy. LUNGS: Clear to auscultation bilaterally, no crackles, no wheezes. HEART: S1, S2, tachycardia, no murmur. ABDOMEN: Soft, nontender, nondistended. Bowel sounds are present. EXTREMITIES: No clubbing, cyanosis, or edema. NEUROLOGICAL: demented Results Result Diagram: 01/10/17 0500 01/11/17 0510 Results 24 hrs Laboratory Tests Test 01/10/17 21:33 01/11/17 05:10 01/11/17 07:38 01/11/17 12:02 Bedside Glucose 235 H 161 197 Sodium Level 137 Potassium Level 3.7 Chloride Level 101 Carbon Dioxide Level 34 H Anion Gap 6 L Blood Urea Nitrogen 17 Creatinine 1.31 H Glucose Level 141 Calcium Level 8.6 Test 01/11/17 17:21 Bedside Glucose 156 Medications Medications Current Medications Acetaminophen (Tylenol Tab) 650 mg Q4H PRN PO PAIN AND OR ELEVATED TEMP Last administered on 01/05/17 08:40; Admin Dose 650 MG; Start 12/24/16 at 18:00 Ondansetron HCl (Zofran Inj) 4 mg Q6H PRN IV NAUSEA AND/OR VOMITING; Start at 18:00 Miscellaneous Information 1 ea NOTE XX ; Start 12/24/16 at 19:00 Glucose (Glutose) 15 gm Q15M PRN PO DECREASED GLUCOSE; Start 12/24/16 at 19:00 Glucose (Glutose) 22.5 gm Q15M PRN PO DECREASED GLUCOSE; Start 12/24/16 at 19: 00 Dextrose (D50w Syringe) 25 ml Q15M PRN IV DECREASED GLUCOSE; Start 12/24/16 at 19:00 Dextrose (D50w Syringe) 50 ml Q15M PRN IV DECREASED GLUCOSE; Start 12/24/16 at 19:00 Glucagon (Glucagen) 1 mg Q15M PRN IM DECREASED GLUCOSE; Start 12/24/16 at 19:00 Glucose (Glutose) 15 gm Q15M PRN BUCCAL DECREASED GLUCOSE; Start 12/24/16 at 19 :00 Apixaban (Eliquis) 2.5 mg BID PO Last administered on 01/11/17 09:19; Admin Dose 2.5 MG; Start 12/24/16 at 21:00 Carvedilol (Coreg) 12.5 mg BID PO Last administered on 01/11/17 09:20; Admin Dose 12.5 MG; Start 12/24/16 at 21:00 Levothyroxine Sodium (Synthroid) 50 mcg DAILY@06 PO Last administered on 05:53; Admin Dose 50 MCG; Start 12/25/16 at 06:00 Pantoprazole (Protonix Tab) 40 mg DAILY@06 PO Last administered on 01/11/17 05: 53; Admin Dose 40 MG; Start 12/25/16 at 06:00 Calcium Carbonate (Tums) 500 mg Q4 PRN PO GASTROINTESTINAL UPSET Last administered on 01/04/17 09:32; Admin Dose 500 MG; Start 12/25/16 at 12:00 Lactobacillus Acidophilus/ Rhamnosus (Culturelle) 1 cap BID PO Last administered on 01/11/17 09:19; Admin Dose 1 CAP; Start 12/25/16 at 21:00 Patient Own Medication 1 ea Q6H PRN PO cough Last administered on 01/06/17 08: 23; Admin Dose 1 EA; Start 01/04/17 at 16:30 Hydralazine HCl (Apresoline) 50 mg Q8 PO Last administered on 01/11/17 05:54; Admin Dose 50 MG; Start 01/07/17 at 14:00 Linagliptin (Tradjenta) 5 mg DAILY PO Last administered on 01/11/17 12:26; Admin Dose 5 MG; Start 01/11/17 at 11:30 Diagnostic Test (Pha) (Accu-Chek) 1 ea 02 XX ; Start 01/12/17 at 02:00 BLANCA CARLIN MD Jan 11, 2017 17:54
[2017-01-11 20:02] VITALS: BP 99/53; RESP 24
[2017-01-12] MEDS: ALBUTEROL/IPRATROPIUM (NEB) 3 ML AMP HHN SCH ×4 (01:43→19:44)
[2017-01-12] MEDS: ACCU-CHEK XX SCH (02:00)
[2017-01-12 05:41] VITALS: BP 130/63; PULSE 72; RESP 18
[2017-01-12] MEDS: FUROSEMIDE 20 MG TAB PO SCH ×2 (05:43→17:30)
[2017-01-12] MEDS: LEVOTHYROXINE 50 MCG TAB PO SCH (05:43)
[2017-01-12] MEDS: PANTOPRAZOLE (EC) 40 MG TAB PO SCH (05:43)
[2017-01-12] MEDS: INSULIN ASPART [NOVOLOG] 3 ML PEN SC SCH ×4 (07:48→21:00)
[2017-01-12 08:02] VITALS: BP 114/57; RESP 18
--- NOTE | 2017-01-12 08:22 | RADRPT ---
PROCEDURE: XR Chest 1 view. CLINICAL INDICATION: Shortness of breath. TECHNIQUE: AP views of the chest were obtained. COMPARISON: January 07, 2017 FINDINGS: The heart is large. Calcified atherosclerosis is noted in the aorta. Central pulmonary vascular con gestion and interstitial prominence is seen in both lungs. Bilateral perihilar and lower lung infil trates, combined with small to moderate pleural effusions is observed. The osseous structures appea r intact. Degenerative changes are seen in the shoulders. IMPRESSION: Cardiomegaly with calcified atherosclerosis in the aorta. Central pulmonary vascular congestion and interstitial prominence in both lungs. Bilateral perihilar and lower lung infiltrates, combined with small to moderate pleural effusions. RPTAT: AA .Ezequiel Ford MD, MD Date Time Electronically viewed and signed by .Ezequiel Ford MD, on 01/12/2017 08:21 .P/
[2017-01-12] MEDS: LACTOBACILLUS RHAMNOSUS CAP PO SCH ×2 (09:27→21:05)
[2017-01-12] MEDS: LINAGLIPTIN 5 MG TABLET PO SCH (09:27)
[2017-01-12] MEDS: APIXABAN 5 MG TABLET PO SCH ×2 (09:28→21:05)
--- NOTE | 2017-01-12 13:31 | CONS ---
Date/Time of Note Date/Time of Note DATE: 01/12/17 TIME: 13:29 Assessment/Plan Assessment/Plan Chief Complaint/Hosp Course IMPRESSION: 1. Atrial fibrillation, currently rate controlled. 2. Congestive heart failure, systolic, acute on chronic-ongoing by cxr 12/29. 3. Hypertension-moderately elevated 4. Renal failure-worsening 5. Anemia. 6. Hypothyroidism. 7. Diabetes mellitus. 8. Lower extremity cellulitis/wound 9. Lower extremity edema-resolved REcc: -serial ecg's -Continue coreg -Continue eliquis -Continue hydralazine afterload reduction given renal failure in lieu of ACEI -Continue abx's -Continue lasix and follow volume status closely Problems: Consultation Date/Type/Reason Admit Date/Time Dec 24, 2016 at 11:04 Initial Consult Date 12/24/2016 Type of Consultation: cardiology Reason for Consultation AF/CHF Referring Provider: MANI MITCHELL MD Exam/Review of Systems Vital Signs Vitals Vital Signs Date Time Temp Pulse Resp B/P Pulse Ox O2 Delivery O2 Flow Rate FiO2 01/12/17 11:17 Nasal Cannula 2.0 01/12/17 08:02 98.4 71 18 114/57 97 01/08/17 20:50 21 Intake and Output 01/11/17 01/11/17 01/12/17 15:00 23:00 07:00 Intake Total 510 ml 480 ml Balance 510 ml 480 ml Exam Review of Systems: CONSTITUTIONAL: No fevers, chills. PULMONARY: No sob CARDIOVASCULAR: No chest pain/palpitations GASTROINTESTINAL: No nausea/vomiting. GENITOURINARY: No hematuria/dysuria. MUSCULOSKELETAL: No myagias/arthalgias. PSYCHIATRIC: The patient denies depression. NEUROLOGIC: No weakness Constitutional: alert Psych: no complaints Head: normocephalic ENMT: mucosa pink and moist Neck: jvd (9 cm water), supple Respiratory: diminished breath sounds (at bases/B) Cardiovascular: irregular rhythm Gastrointestinal: non-tender, soft Musculoskeletal: muscle tone (normsl) Extremities: edema (none) Neurological: other (No focal deficits) Results Result Diagram: 01/10/17 0500 01/11/17 0510 Results 24 hrs Laboratory Tests Test 01/11/17 17:21 01/11/17 20:35 01/12/17 07:38 01/12/17 11:57 Bedside Glucose 156 144 143 178 Medications Medications Current Medications Acetaminophen (Tylenol Tab) 650 mg Q4H PRN PO PAIN AND OR ELEVATED TEMP Last administered on 01/05/17 08:40; Admin Dose 650 MG; Start 12/24/16 at 18:00 Ondansetron HCl (Zofran Inj) 4 mg Q6H PRN IV NAUSEA AND/OR VOMITING; Start at 18:00 Miscellaneous Information 1 ea NOTE XX ; Start 12/24/16 at 19:00 Glucose (Glutose) 15 gm Q15M PRN PO DECREASED GLUCOSE; Start 12/24/16 at 19:00 Glucose (Glutose) 22.5 gm Q15M PRN PO DECREASED GLUCOSE; Start 12/24/16 at 19: 00 Dextrose (D50w Syringe) 25 ml Q15M PRN IV DECREASED GLUCOSE; Start 12/24/16 at 19:00 Dextrose (D50w Syringe) 50 ml Q15M PRN IV DECREASED GLUCOSE; Start 12/24/16 at 19:00 Glucagon (Glucagen) 1 mg Q15M PRN IM DECREASED GLUCOSE; Start 12/24/16 at 19:00 Glucose (Glutose) 15 gm Q15M PRN BUCCAL DECREASED GLUCOSE; Start 12/24/16 at 19 :00 Apixaban (Eliquis) 2.5 mg BID PO Last administered on 01/12/17 09:28; Admin Dose 2.5 MG; Start 12/24/16 at 21:00 Carvedilol (Coreg) 12.5 mg BID PO Last administered on 01/12/17 09:28; Admin Dose 12.5 MG; Start 12/24/16 at 21:00 Levothyroxine Sodium (Synthroid) 50 mcg DAILY@06 PO Last administered on 05:43; Admin Dose 50 MCG; Start 12/25/16 at 06:00 Pantoprazole (Protonix Tab) 40 mg DAILY@06 PO Last administered on 01/12/17 05: 43; Admin Dose 40 MG; Start 12/25/16 at 06:00 Calcium Carbonate (Tums) 500 mg Q4 PRN PO GASTROINTESTINAL UPSET Last administered on 01/04/17 09:32; Admin Dose 500 MG; Start 12/25/16 at 12:00 Lactobacillus Acidophilus/ Rhamnosus (Culturelle) 1 cap BID PO Last administered on 01/12/17 09:27; Admin Dose 1 CAP; Start 12/25/16 at 21:00 Patient Own Medication 1 ea Q6H PRN PO cough Last administered on 01/06/17 08: 23; Admin Dose 1 EA; Start 01/04/17 at 16:30 Hydralazine HCl (Apresoline) 50 mg Q8 PO Last administered on 01/12/17 05:43; Admin Dose 50 MG; Start 01/07/17 at 14:00 Linagliptin (Tradjenta) 5 mg DAILY PO Last administered on 01/12/17 09:27; Admin Dose 5 MG; Start 01/11/17 at 11:30 Diagnostic Test (Pha) (Accu-Chek) 1 ea 02 XX ; Start 01/12/17 at 02:00 RED MAHONEY Jan 12, 2017 13:31
--- NOTE | 2017-01-12 15:36 | PN ---
Date/Time of Note Date/Time of Note DATE: 01/12/17 TIME: 15:34 Assessment/Plan VTE Prophylaxis VTE Prophylaxis Intervention: SCD's Lines/Catheters IV C[facility]ter Type [facility]from [facility] Urinary Cath still in place: No Assessment/Plan Chief Complaint/Hosp Course Patient is lethargic but easily arousable, comfortable and supplemental oxygen. Assessment/Plan - Possible pneumonia, status post treatment, continue strict aspiration precaution with pured diet. - Decompensated congestive heart failure. Continue Lasix and Coreg. - Chronic CO2 retention. Dr. Ware is following in pulmonology consultation. - Hypertension, continue Coreg and hydralazine. - Atrial fibrillation, continue Eliquis. - Hypothyroidism, continue Synthroid. - Diabetes mellitus. Continue NovoLog per sliding scale. 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 - Advanced dementia. Further recommendations based on clinical course. Plan of care discussed with Dr. Villarreal. Problems: Exam/Review of Systems Vital Signs Vitals Vital Signs Date Time Temp Pulse Resp B/P Pulse Ox O2 Delivery O2 Flow Rate FiO2 01/12/17 11:17 Nasal Cannula 2.0 01/12/17 08:02 98.4 71 18 114/57 97 01/08/17 20:50 21 Intake and Output 01/11/17 01/11/17 01/12/17 15:00 23:00 07:00 Intake Total 510 ml 480 ml Balance 510 ml 480 ml Exam Constitutional: alert, frail Neck: supple Respiratory: diminished breath sounds Cardiovascular: irregular rhythm Gastrointestinal: non-tender, soft Extremities: normal pulses Neurological: confused, nl mental status Results Result Diagram: 01/10/17 0500 01/11/17 0510 Results 24 hrs Laboratory Tests Test 01/11/17 17:21 01/11/17 20:35 01/12/17 07:38 01/12/17 11:57 Bedside Glucose 156 144 143 178 Medications Medications Current Medications Acetaminophen (Tylenol Tab) 650 mg Q4H PRN PO PAIN AND OR ELEVATED TEMP Last administered on 01/05/17t 08:40; Admin Dose 650 MG; Start 12/24/16 at 18:00 Ondansetron HCl (Zofran Inj) 4 mg Q6H PRN IV NAUSEA AND/OR VOMITING; Start at 18:00 Miscellaneous Information 1 ea NOTE XX ; Start 12/24/16 at 19:00 Glucose (Glutose) 15 gm Q15M PRN PO DECREASED GLUCOSE; Start 12/24/16 at 19:00 Glucose (Glutose) 22.5 gm Q15M PRN PO DECREASED GLUCOSE; Start 12/24/16 at 19: 00 Dextrose (D50w Syringe) 25 ml Q15M PRN IV DECREASED GLUCOSE; Start 12/24/16 at 19:00 Dextrose (D50w Syringe) 50 ml Q15M PRN IV DECREASED GLUCOSE; Start 12/24/16 at 19:00 Glucagon (Glucagen) 1 mg Q15M PRN IM DECREASED GLUCOSE; Start 12/24/16 at 19:00 Glucose (Glutose) 15 gm Q15M PRN BUCCAL DECREASED GLUCOSE; Start 12/24/16 at 19 :00 Apixaban (Eliquis) 2.5 mg BID PO Last administered on 01/12/17 09:28; Admin Dose 2.5 MG; Start 12/24/16 at 21:00 Carvedilol (Coreg) 12.5 mg BID PO Last administered on 01/12/17 09:28; Admin Dose 12.5 MG; Start 12/24/16 at 21:00 Levothyroxine Sodium (Synthroid) 50 mcg DAILY@06 PO Last administered on 05:43; Admin Dose 50 MCG; Start 12/25/16 at 06:00 Pantoprazole (Protonix Tab) 40 mg DAILY@06 PO Last administered on 01/12/17 05: 43; Admin Dose 40 MG; Start 12/25/16 at 06:00 Calcium Carbonate (Tums) 500 mg Q4 PRN PO GASTROINTESTINAL UPSET Last administered on 01/04/17 09:32; Admin Dose 500 MG; Start 12/25/16 at 12:00 Lactobacillus Acidophilus/ Rhamnosus (Culturelle) 1 cap BID PO Last administered on 01/12/17 09:27; Admin Dose 1 CAP; Start 12/25/16 at 21:00 Patient Own Medication 1 ea Q6H PRN PO cough Last administered on 01/06/17 08: 23; Admin Dose 1 EA; Start 01/04/17 at 16:30 Hydralazine HCl (Apresoline) 50 mg Q8 PO Last administered on 01/12/17 05:43; Admin Dose 50 MG; Start 01/07/17 at 14:00 Linagliptin (Tradjenta) 5 mg DAILY PO Last administered on 01/12/17t 09:27; Admin Dose 5 MG; Start 01/11/17 at 11:30 Diagnostic Test (Pha) (Accu-Chek) XX ; Start 01/12/17 at 02:00 LYLA YOUNG Jan 12, 2017 15:36
[2017-01-12 17:18] VITALS: BP 131/67; RESP 18
--- NOTE | 2017-01-12 17:39 | CONS ---
Date/Time of Note Date/Time of Note DATE: 01/12/17 TIME: 17:38 Assessment/Plan Assessment/Plan Additional Assessment/Plan 1. Acute kidney injury on possible chronic kidney disease, likely secondary to a congestive heart failure exacerbation and also possibly secondary to prerenal azotemia. 2. Acute congestive heart failure exacerbation, acute and chronic, systolic and diastolic, now on IV Lasix diuresis 20 mg b.i.d. 3. 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 4. History of diabetes mellitus type 2. 5. History of hypertension. 6. History of dementia. 7. Aspiration pneumonitis - s/p IV antibiotics. 8. Hyokalemia PLAN: Cr 1.3, K stable - on lasix to 20mg pO BID - no labs today Monitor electrolytes and replace as needed on Eliquis 2.5mg BID will follow up Consultation Date/Type/Reason Admit Date/Time Dec 24, 2016 at 11:04 Type of Consultation: NEPHROLOGy Referring Provider: MANI MITCHELL MD Exam/Review of Systems Vital Signs Vitals Vital Signs Date Time Temp Pulse Resp B/P Pulse Ox O2 Delivery O2 Flow Rate FiO2 01/12/17 17:18 98.7 70 18 131/67 98 01/12/17 16:39 2.0 01/12/17 14:48 Nasal Cannula 01/08/17 20:50 21 Intake and Output 01/11/17 01/11/17 01/12/17 15:00 23:00 07:00 Intake Total 510 ml 480 ml Balance 510 ml 480 ml Results Result Diagram: 01/10/17 0500 01/11/17 0510 Results 24 hrs Laboratory Tests Test 01/11/17 20:35 01/12/17 07:38 01/12/17 11:57 01/12/17 17:06 Bedside Glucose 144 143 178 172 Medications Medications Current Medications Acetaminophen (Tylenol Tab) 650 mg Q4H PRN PO PAIN AND OR ELEVATED TEMP Last administered on 01/05/17t 08:40; Admin Dose 650 MG; Start 12/24/16 at 18:00 Ondansetron HCl (Zofran Inj) 4 mg Q6H PRN IV NAUSEA AND/OR VOMITING; Start at 18:00 Miscellaneous Information 1 ea NOTE XX ; Start 12/24/16 at 19:00 Glucose (Glutose) 15 gm Q15M PRN PO DECREASED GLUCOSE; Start 12/24/16 at 19:00 Glucose (Glutose) 22.5 gm Q15M PRN PO DECREASED GLUCOSE; Start 12/24/16 at 19: 00 Dextrose (D50w Syringe) 25 ml Q15M PRN IV DECREASED GLUCOSE; Start 12/24/16 at 19:00 Dextrose (D50w Syringe) 50 ml Q15M PRN IV DECREASED GLUCOSE; Start 12/24/16 at 19:00 Glucagon (Glucagen) 1 mg Q15M PRN IM DECREASED GLUCOSE; Start 12/24/16 at 19:00 Glucose (Glutose) 15 gm Q15M PRN BUCCAL DECREASED GLUCOSE; Start 12/24/16 at 19 :00 Apixaban (Eliquis) 2.5 mg BID PO Last administered on 01/12/17 09:28; Admin Dose 2.5 MG; Start 12/24/16 at 21:00 Carvedilol (Coreg) 12.5 mg BID PO Last administered on 01/12/17 09:28; Admin Dose 12.5 MG; Start 12/24/16 at 21:00 Pantoprazole (Protonix Tab) 40 mg DAILY@06 PO Last administered on 01/12/17 05: 43; Admin Dose 40 MG; Start 12/25/16 at 06:00 Calcium Carbonate (Tums) 500 mg Q4 PRN PO GASTROINTESTINAL UPSET Last administered on 01/04/17 09:32; Admin Dose 500 MG; Start 12/25/16 at 12:00 Lactobacillus Acidophilus/ Rhamnosus (Culturelle) 1 cap BID PO Last administered on 01/12/17 09:27; Admin Dose 1 CAP; Start 12/25/16 at 21:00 Patient Own Medication 1 ea Q6H PRN PO cough Last administered on 01/06/17 08: 23; Admin Dose 1 EA; Start 01/04/17 at 16:30 Hydralazine HCl (Apresoline) 50 mg Q8 PO Last administered on 01/12/17 05:43; Admin Dose 50 MG; Start 01/07/17 at 14:00 Linagliptin (Tradjenta) 5 mg DAILY PO Last administered on 01/12/17 09:27; Admin Dose 5 MG; Start 01/11/17 at 11:30 Diagnostic Test (Pha) (Accu-Chek) 1 ea 02 XX ; Start 01/12/17 at 02:00 Levothyroxine Sodium (Synthroid) 75 mcg DAILY@06 PO ; Start 01/13/17 at 06:00 BLANCA CARLIN MD Jan 12, 2017 17:39
[2017-01-12 19:55] VITALS: BP 131/69; RESP 18
[2017-01-12 21:58] VITALS: BP 122/62; PULSE 68; RESP 18
[2017-01-13] MEDS: ALBUTEROL/IPRATROPIUM (NEB) 3 ML AMP HHN SCH ×4 (01:24→20:09)
[2017-01-13] MEDS: ACCU-CHEK XX SCH (02:00)
[2017-01-13 06:09] LABS: ADD SCAN DIFF NO
[2017-01-13 06:17] LABS: BASOPHILS % 0.3 % (0.0-2.0); EOSINOPHILS # 0.1 10^3/ul (0.0-0.5); EOSINOPHILS % 0.7 % (0.0-7.0); HEMATOCRIT 31.6 % (42.0-52.0); HEMOGLOBIN 9.7 g/dl (14.0-18.0); LYMPHOCYTES % 12.8 % (15.0-51.0); MEAN CORPUSCULAR HEMOGLOBIN 29.1 pg (29.0-33.0); MEAN CORPUSCULAR HGB CONC 30.7 g/dl (32.0-37.0); MEAN CORPUSCULAR VOLUME 94.9 fl (82.0-101.0); MEAN PLATELET VOLUME 10.6 fl (7.4-10.4); MONOCYTE # 0.7 10^3/ul (0.3-0.9); MONOCYTES % 9.5 % (0.0-11.0); NEUTROPHIL # 5.9 10^3/ul (1.6-7.5); NEUTROPHILS % 76.4 % (39.0-77.0); PLATELET COUNT 258 10^3/UL (140-415); RED BLOOD COUNT 3.33 10^6/ul (4.70-6.10); RED CELL DISTRIBUTION WIDTH 17.2 % (11.5-14.5); WHITE BLOOD COUNT 7.7 10^3/ul (4.8-10.8)
[2017-01-13 06:30] VITALS: BP 126/60; PULSE 78; RESP 18
[2017-01-13] MEDS: LEVOTHYROXINE 75 MCG TAB PO SCH (06:31)
[2017-01-13] MEDS: FUROSEMIDE 20 MG TAB PO SCH ×2 (06:31→17:30)
[2017-01-13] MEDS: PANTOPRAZOLE (EC) 40 MG TAB PO SCH (06:31)
[2017-01-13 06:59] LABS: CALCIUM 8.5 mg/dl (8.4-10.2); CREATININE 1.2 mg/dl (0.61-1.24)
[2017-01-13 07:28] VITALS: BP 138/68; RESP 18
[2017-01-13] MEDS: INSULIN ASPART [NOVOLOG] 3 ML PEN SC SCH ×4 (08:15→22:00)
[2017-01-13] MEDS: LACTOBACILLUS RHAMNOSUS CAP PO SCH ×2 (09:32→21:56)
[2017-01-13] MEDS: APIXABAN 5 MG TABLET PO SCH ×2 (09:32→21:56)
[2017-01-13] MEDS: LINAGLIPTIN 5 MG TABLET PO SCH (09:32)
--- NOTE | 2017-01-13 11:08 | CONS ---
Date/Time of Note Date/Time of Note DATE: 01/13/17 TIME: 11:06 Assessment/Plan Assessment/Plan Chief Complaint/Hosp Course IMPRESSION: 1. Atrial fibrillation, currently rate controlled and on eliquis 2. Congestive heart failure, systolic, acute on chronic-ongoing by cxr 12/29. 3. Hypertension-moderately elevated 4. Renal failure-worsening 5. Anemia. 6. Hypothyroidism. 7. Diabetes mellitus. 8. Lower extremity cellulitis/wound 9. Lower extremity edema-resolved REcc: -serial ecg's -Continue coreg -Continue eliquis -Continue hydralazine afterload reduction given renal failure in lieu of ACEI -Continue abx's -Continue lasix and follow volume status closely Problems: Consultation Date/Type/Reason Admit Date/Time Dec 24, 2016 at 11:04 Initial Consult Date 12/24/2016 Type of Consultation: cardiology Reason for Consultation AF/CHF Referring Provider: MANI MITCHELL MD Exam/Review of Systems Vital Signs Vitals Vital Signs Date Time Temp Pulse Resp B/P Pulse Ox O2 Delivery O2 Flow Rate FiO2 01/13/17 07:39 2.0 01/13/17 07:39 18 95 Nasal Cannula 01/13/17 07:28 97.9 80 138/68 Intake and Output 01/12/17 01/12/17 01/13/17 15:00 23:00 07:00 Intake Total 440 ml 300 ml Balance 440 ml 300 ml Exam Review of Systems: CONSTITUTIONAL: No fevers, chills. PULMONARY: No sob CARDIOVASCULAR: No chest pain/palpitations GASTROINTESTINAL: No nausea/vomiting. GENITOURINARY: No hematuria/dysuria. MUSCULOSKELETAL: No myagias/arthalgias. PSYCHIATRIC: The patient denies depression. NEUROLOGIC: No weakness Constitutional: alert Psych: confusion, no complaints Head: normocephalic ENMT: mucosa pink and moist Neck: jvd, supple Respiratory: diminished breath sounds (at bases/B) Cardiovascular: irregular rhythm Gastrointestinal: non-tender, soft Musculoskeletal: muscle tone (generaliozed weakness) Extremities: edema (none), other (leg covered by dressing) Neurological: other (No focal deficits) Results Result Diagram: 01/13/17 0535 01/13/17 0535 Results 24 hrs Laboratory Tests Test 01/12/17 11:57 01/12/17 17:06 01/12/17 21:04 01/13/17 05:35 Bedside Glucose 178 172 118 White Blood Count 7.7 Red Blood Count 3.33 L Hemoglobin 9.7 L Hematocrit 31.6 L Mean Corpuscular Volume 94.9 Mean Corpuscular Hemoglobin 29.1 Mean Corpuscular Hemoglobin Concent 30.7 L Red Cell Distribution Width 17.2 H Platelet Count 258 Mean Platelet Volume 10.6 H Neutrophils % 76.4 Lymphocytes % 12.8 L Monocytes % 9.5 Eosinophils % 0.7 Basophils % 0.3 Nucleated Red Blood Cells % 0.0 Neutrophils # 5.9 Lymphocytes # 1.0 Monocytes # 0.7 Eosinophils # 0.1 Basophils # 0.0 Nucleated Red Blood Cells # 0.0 Sodium Level 133 L Potassium Level 4.0 Chloride Level 95 L Carbon Dioxide Level 34 H Anion Gap 8 Blood Urea Nitrogen 24 H Creatinine 1.20 Glucose Level 136 Calcium Level 8.5 Test 01/13/17 08:06 Bedside Glucose 140 Medications Medications Current Medications Acetaminophen (Tylenol Tab) 650 mg Q4H PRN PO PAIN AND OR ELEVATED TEMP Last administered on 01/05/17 08:40; Admin Dose 650 MG; Start 12/24/16 at 18:00 Ondansetron HCl (Zofran Inj) 4 mg Q6H PRN IV NAUSEA AND/OR VOMITING; Start at 18:00 Miscellaneous Information 1 ea NOTE XX ; Start 12/24/16 at 19:00 Glucose (Glutose) 15 gm Q15M PRN PO DECREASED GLUCOSE; Start 12/24/16 at 19:00 Glucose (Glutose) 22.5 gm Q15M PRN PO DECREASED GLUCOSE; Start 12/24/16 at 19: 00 Dextrose (D50w Syringe) 25 ml Q15M PRN IV DECREASED GLUCOSE; Start 12/24/16 at 19:00 Dextrose (D50w Syringe) 50 ml Q15M PRN IV DECREASED GLUCOSE; Start 12/24/16 at 19:00 Glucagon (Glucagen) 1 mg Q15M PRN IM DECREASED GLUCOSE; Start 12/24/16 at 19:00 Glucose (Glutose) 15 gm Q15M PRN BUCCAL DECREASED GLUCOSE; Start 12/24/16 at 19 :00 Apixaban (Eliquis) 2.5 mg BID PO Last administered on 01/13/17 09:32; Admin Dose 2.5 MG; Start 12/24/16 at 21:00 Carvedilol (Coreg) 12.5 mg BID PO Last administered on 01/13/17 09:32; Admin Dose 12.5 MG; Start 12/24/16 at 21:00 Pantoprazole (Protonix Tab) 40 mg DAILY@06 PO Last administered on 01/13/17 06: 31; Admin Dose 40 MG; Start 12/25/16 at 06:00 Calcium Carbonate (Tums) 500 mg Q4 PRN PO GASTROINTESTINAL UPSET Last administered on 01/04/17 09:32; Admin Dose 500 MG; Start 12/25/16 at 12:00 Lactobacillus Acidophilus/ Rhamnosus (Culturelle) 1 cap BID PO Last administered on 01/13/17 09:32; Admin Dose 1 CAP; Start 12/25/16 at 21:00 Patient Own Medication 1 ea Q6H PRN PO cough Last administered on 01/06/17 08: 23; Admin Dose 1 EA; Start 01/04/17 at 16:30 Hydralazine HCl (Apresoline) 50 mg Q8 PO Last administered on 01/13/17 06:31; Admin Dose 50 MG; Start 01/07/17 at 14:00 Linagliptin (Tradjenta) 5 mg DAILY PO Last administered on 01/13/17 09:32; Admin Dose 5 MG; Start 01/11/17 at 11:30 Diagnostic Test (Pha) (Accu-Chek) 1 ea 02 XX ; Start 01/12/17 at 02:00 Levothyroxine Sodium (Synthroid) 75 mcg DAILY@06 PO Last administered on 06:31; Admin Dose 75 MCG; Start 01/13/17 at 06:00 RED MAHONEY Jan 13, 2017 11:08
--- NOTE | 2017-01-13 12:29 | PN ---
Date/Time of Note Date/Time of Note DATE: 01/13/17 TIME: 12:25 Assessment/Plan Lines/Catheters IV [facility]ter Type (from [facility]): Saline Lock Urinary Cath still in place: No Assessment/Plan Assessment/Plan - Possible pneumonia, status post treatment, continue strict aspiration precaution with pured diet. - Decompensated congestive heart failure. Continue Lasix and Coreg. - Chronic CO2 retention. Dr. Ware is following in pulmonology consultation. - Hypertension, continue Coreg and hydralazine. - Atrial fibrillation, continue Eliquis. - Hypothyroidism, continue Synthroid. - Diabetes mellitus. Continue NovoLog per sliding scale. 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 - Advanced dementia. Further recommendations based on clinical course. Plan of care discussed with Dr. Villarreal. Subjective 24 Hr Interval Summary Free Text/Dictation Patient is more alert, follows simple commands, remains comfortable on supplemental oxygen. pending swallow evaluation- tolerating puree so far, dw staff. Exam/Review of Systems Vital Signs Vitals Vital Signs Date Time Temp Pulse Resp B/P Pulse Ox O2 Delivery O2 Flow Rate FiO2 01/13/17 07:39 2.0 01/13/17 07:39 18 95 Nasal Cannula 01/13/17 07:28 97.9 80 138/68 Intake and Output 01/12/17 01/12/17 01/13/17 15:00 23:00 07:00 Intake Total 440 ml 300 ml Balance 440 ml 300 ml Exam Respiratory: clear to auscultation, normal air movement Cardiovascular: nl pulses, regular rate and rhythm Gastrointestinal: non-tender, soft Musculoskeletal: nl extremities to inspection Neurological: nl speech Results Result Diagram: 01/13/17 0535 01/13/17 0535 Results 24 hrs Laboratory Tests Test 01/12/17 17:06 01/12/17 21:04 01/13/17 05:35 01/13/17 08:06 Bedside Glucose 172 118 140 White Blood Count 7.7 Red Blood Count 3.33 L Hemoglobin 9.7 L Hematocrit 31.6 L Mean Corpuscular Volume 94.9 Mean Corpuscular Hemoglobin 29.1 Mean Corpuscular Hemoglobin Concent 30.7 L Red Cell Distribution Width 17.2 H Platelet Count 258 Mean Platelet Volume 10.6 H Neutrophils % 76.4 Lymphocytes % 12.8 L Monocytes % 9.5 Eosinophils % 0.7 Basophils % 0.3 Nucleated Red Blood Cells % 0.0 Neutrophils # 5.9 Lymphocytes # 1.0 Monocytes # 0.7 Eosinophils # 0.1 Basophils # 0.0 Nucleated Red Blood Cells # 0.0 Sodium Level 133 L Potassium Level 4.0 Chloride Level 95 L Carbon Dioxide Level 34 H Anion Gap 8 Blood Urea Nitrogen 24 H Creatinine 1.20 Glucose Level 136 Calcium Level 8.5 Test 01/13/17 11:50 Bedside Glucose 167 Medications Medications Current Medications Acetaminophen (Tylenol Tab) 650 mg Q4H PRN PO PAIN AND OR ELEVATED TEMP Last administered on 01/05/17 08:40; Admin Dose 650 MG; Start 12/24/16 at 18:00 Ondansetron HCl (Zofran Inj) 4 mg Q6H PRN IV NAUSEA AND/OR VOMITING; Start at 18:00 Miscellaneous Information 1 ea NOTE XX ; Start 12/24/16 at 19:00 Glucose (Glutose) 15 gm Q15M PRN PO DECREASED GLUCOSE; Start 12/24/16 at 19:00 Glucose (Glutose) 22.5 gm Q15M PRN PO DECREASED GLUCOSE; Start 12/24/16 at 19: 00 Dextrose (D50w Syringe) 25 ml Q15M PRN IV DECREASED GLUCOSE; Start 12/24/16 at 19:00 Dextrose (D50w Syringe) 50 ml Q15M PRN IV DECREASED GLUCOSE; Start 12/24/16 at 19:00 Glucagon (Glucagen) 1 mg Q15M PRN IM DECREASED GLUCOSE; Start 12/24/16 at 19:00 Glucose (Glutose) 15 gm Q15M PRN BUCCAL DECREASED GLUCOSE; Start 12/24/16 at 19 :00 Apixaban (Eliquis) 2.5 mg BID PO Last administered on 01/13/17 09:32; Admin Dose 2.5 MG; Start 12/24/16 at 21:00 Carvedilol (Coreg) 12.5 mg BID PO Last administered on 01/13/17 09:32; Admin Dose 12.5 MG; Start 12/24/16 at 21:00 Pantoprazole (Protonix Tab) 40 mg DAILY@06 PO Last administered on 01/13/17 06: 31; Admin Dose 40 MG; Start 12/25/16 at 06:00 Calcium Carbonate (Tums) 500 mg Q4 PRN PO GASTROINTESTINAL UPSET Last administered on 01/04/17 09:32; Admin Dose 500 MG; Start 12/25/16 at 12:00 Lactobacillus Acidophilus/ Rhamnosus (Culturelle) 1 cap BID PO Last administered on 01/13/17 09:32; Admin Dose 1 CAP; Start 12/25/16 at 21:00 Patient Own Medication 1 ea Q6H PRN PO cough Last administered on 01/06/17 08: 23; Admin Dose 1 EA; Start 01/04/17 at 16:30 Hydralazine HCl (Apresoline) 50 mg Q8 PO Last administered on 01/13/17 06:31; Admin Dose 50 MG; Start 01/07/17 at 14:00 Linagliptin (Tradjenta) 5 mg DAILY PO Last administered on 01/13/17 09:32; Admin Dose 5 MG; Start 01/11/17 at 11:30 Diagnostic Test (Pha) (Accu-Chek) 1 ea 02 XX ; Start 01/12/17 at 02:00 Levothyroxine Sodium (Synthroid) 75 mcg DAILY@06 PO Last administered on 06:31; Admin Dose 75 MCG; Start 01/13/17 at 06:00 STAR BOWLES Jan 13, 2017 12:28
--- NOTE | 2017-01-13 17:01 | CONS ---
Date/Time of Note Date/Time of Note DATE: 01/13/17 TIME: 16:59 Assessment/Plan Assessment/Plan Additional Assessment/Plan 1. Acute kidney injury on possible chronic kidney disease, likely secondary to a congestive heart failure exacerbation and also possibly secondary to prerenal azotemia. 2. Acute congestive heart failure exacerbation, acute and chronic, systolic and diastolic, now on IV Lasix diuresis 20 mg b.i.d. 3. 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 4. History of diabetes mellitus type 2. 5. History of hypertension. 6. History of dementia. 7. Aspiration pneumonitis - s/p IV antibiotics. 8. Hyokalemia PLAN: Cr 1.2, na 133, K stable - on lasix to 20mg pO BID Monitor electrolytes and replace as needed on Eliquis 2.5mg BID will follow up Consultation Date/Type/Reason Admit Date/Time Dec 24, 2016 at 11:04 Type of Consultation: NEPHROLOGY Referring Provider: MANI MITCHELL MD 24 HR Interval Summary Free Text/Dictation doing ok, BP stable, Exam/Review of Systems Vital Signs Vitals Vital Signs Date Time Temp Pulse Resp B/P Pulse Ox O2 Delivery O2 Flow Rate FiO2 01/13/17 13:45 71 18 88 Nasal Cannula 2.0 01/13/17 07:28 97.9 138/68 Intake and Output 01/12/17 01/12/17 01/13/17 15:00 23:00 07:00 Intake Total 440 ml 300 ml Balance 440 ml 300 ml Results Result Diagram: 01/13/17 0535 01/13/17 0535 Results 24 hrs Laboratory Tests Test 01/12/17 17:06 01/12/17 21:04 01/13/17 05:35 01/13/17 08:06 Bedside Glucose 172 118 140 White Blood Count 7.7 Red Blood Count 3.33 L Hemoglobin 9.7 L Hematocrit 31.6 L Mean Corpuscular Volume 94.9 Mean Corpuscular Hemoglobin 29.1 Mean Corpuscular Hemoglobin Concent 30.7 L Red Cell Distribution Width 17.2 H Platelet Count 258 Mean Platelet Volume 10.6 H Neutrophils % 76.4 Lymphocytes % 12.8 L Monocytes % 9.5 Eosinophils % 0.7 Basophils % 0.3 Nucleated Red Blood Cells % 0.0 Neutrophils # 5.9 Lymphocytes # 1.0 Monocytes # 0.7 Eosinophils # 0.1 Basophils # 0.0 Nucleated Red Blood Cells # 0.0 Sodium Level 133 L Potassium Level 4.0 Chloride Level 95 L Carbon Dioxide Level 34 H Anion Gap 8 Blood Urea Nitrogen 24 H Creatinine 1.20 Glucose Level 136 Calcium Level 8.5 Test 01/13/17 11:50 Bedside Glucose 167 Medications Medications Current Medications Acetaminophen (Tylenol Tab) 650 mg Q4H PRN PO PAIN AND OR ELEVATED TEMP Last administered on 01/05/17 08:40; Admin Dose 650 MG; Start 12/24/16 at 18:00 Ondansetron HCl (Zofran Inj) 4 mg Q6H PRN IV NAUSEA AND/OR VOMITING; Start at 18:00 Miscellaneous Information 1 ea NOTE XX ; Start 12/24/16 at 19:00 Glucose (Glutose) 15 gm Q15M PRN PO DECREASED GLUCOSE; Start 12/24/16 at 19:00 Glucose (Glutose) 22.5 gm Q15M PRN PO DECREASED GLUCOSE; Start 12/24/16 at 19: 00 Dextrose (D50w Syringe) 25 ml Q15M PRN IV DECREASED GLUCOSE; Start 12/24/16 at 19:00 Dextrose (D50w Syringe) 50 ml Q15M PRN IV DECREASED GLUCOSE; Start 12/24/16 at 19:00 Glucagon (Glucagen) 1 mg Q15M PRN IM DECREASED GLUCOSE; Start 12/24/16 at 19:00 Glucose (Glutose) 15 gm Q15M PRN BUCCAL DECREASED GLUCOSE; Start 12/24/16 at 19 :00 Apixaban (Eliquis) 2.5 mg BID PO Last administered on 01/13/17 09:32; Admin Dose 2.5 MG; Start 12/24/16 at 21:00 Carvedilol (Coreg) 12.5 mg BID PO Last administered on 01/13/17 09:32; Admin Dose 12.5 MG; Start 12/24/16 at 21:00 Pantoprazole (Protonix Tab) 40 mg DAILY@06 PO Last administered on 01/13/17 06: 31; Admin Dose 40 MG; Start 12/25/16 at 06:00 Calcium Carbonate (Tums) 500 mg Q4 PRN PO GASTROINTESTINAL UPSET Last administered on 01/04/17 09:32; Admin Dose 500 MG; Start 12/25/16 at 12:00 Lactobacillus Acidophilus/ Rhamnosus (Culturelle) 1 cap BID PO Last administered on 01/13/17 09:32; Admin Dose 1 CAP; Start 12/25/16 at 21:00 Patient Own Medication 1 ea Q6H PRN PO cough Last administered on 01/06/17 08: 23; Admin Dose 1 EA; Start 01/04/17 at 16:30 Hydralazine HCl (Apresoline) 50 mg Q8 PO Last administered on 01/13/17 13:10; Admin Dose 50 MG; Start 01/07/17 at 14:00 Linagliptin (Tradjenta) 5 mg DAILY PO Last administered on 01/13/17 09:32; Admin Dose 5 MG; Start 01/11/17 at 11:30 Diagnostic Test (Pha) (Accu-Chek) 1 ea 02 XX ; Start 01/12/17 at 02:00 Levothyroxine Sodium (Synthroid) 75 mcg DAILY@06 PO Last administered on 06:31; Admin Dose 75 MCG; Start 01/13/17 at 06:00 BLANCA CARLIN MD Jan 13, 2017 17:01
[2017-01-13 20:00] VITALS: BP 117/62; RESP 18
[2017-01-13 23:12] VITALS: BP 117/62; RESP 18
[2017-01-14] MEDS: ALBUTEROL/IPRATROPIUM (NEB) 3 ML AMP HHN SCH ×4 (01:48→20:24)
[2017-01-14 02:00] VITALS: BP 107/56; RESP 18
[2017-01-14] MEDS: ACCU-CHEK XX SCH (02:00)
[2017-01-14 05:37] LABS: ADD SCAN DIFF NO
[2017-01-14 05:44] LABS: BASOPHILS % 0.2 % (0.0-2.0); EOSINOPHILS # 0.1 10^3/ul (0.0-0.5); EOSINOPHILS % 0.6 % (0.0-7.0); HEMATOCRIT 30.8 % (42.0-52.0); HEMOGLOBIN 9.6 g/dl (14.0-18.0); LYMPHOCYTES # 0.9 10^3/ul (0.8-2.9); LYMPHOCYTES % 10.7 % (15.0-51.0); MEAN CORPUSCULAR HEMOGLOBIN 29.1 pg (29.0-33.0); MEAN CORPUSCULAR HGB CONC 31.2 g/dl (32.0-37.0); MEAN CORPUSCULAR VOLUME 93.3 fl (82.0-101.0); MEAN PLATELET VOLUME 10.8 fl (7.4-10.4); MONOCYTE # 0.9 10^3/ul (0.3-0.9); MONOCYTES % 9.9 % (0.0-11.0); NEUTROPHIL # 6.9 10^3/ul (1.6-7.5); NEUTROPHILS % 78.3 % (39.0-77.0); PLATELET COUNT 277 10^3/UL (140-415); RED CELL DISTRIBUTION WIDTH 17.1 % (11.5-14.5); WHITE BLOOD COUNT 8.8 10^3/ul (4.8-10.8)
[2017-01-14 06:15] LABS: CREATININE 1.19 mg/dl (0.61-1.24); POTASSIUM 4.1 mmol/L (3.5-5.1)
[2017-01-14] MEDS: LEVOTHYROXINE 75 MCG TAB PO SCH (06:49)
[2017-01-14] MEDS: FUROSEMIDE 20 MG TAB PO SCH ×2 (06:49→17:53)
[2017-01-14] MEDS: PANTOPRAZOLE (EC) 40 MG TAB PO SCH (06:49)
[2017-01-14] MEDS: ACETAMINOPHEN 325 MG TAB PO PRN (06:52)
[2017-01-14] MEDS: INSULIN ASPART [NOVOLOG] 3 ML PEN SC SCH ×4 (07:54→21:00)
[2017-01-14 08:06] VITALS: BP 111/55; RESP 20
[2017-01-14] MEDS: LACTOBACILLUS RHAMNOSUS CAP PO SCH ×2 (09:25→21:14)
[2017-01-14] MEDS: APIXABAN 5 MG TABLET PO SCH ×2 (09:25→21:14)
[2017-01-14] MEDS: LINAGLIPTIN 5 MG TABLET PO SCH (09:26)
[2017-01-14 09:31] VITALS: BP 115/60; PULSE 70
--- NOTE | 2017-01-14 12:20 | CONS ---
Date/Time of Note Date/Time of Note DATE: 01/14/17 TIME: 12:17 Assessment/Plan Assessment/Plan Chief Complaint/Hosp Course IMPRESSION: 1. Atrial fibrillation, currently rate controlled and on eliquis 2. Congestive heart failure, systolic, acute on chronic-ongoing by cxr 12/29. 3. Hypertension- well controlled 4. Renal failure-worsening 5. Anemia. 6. Hypothyroidism. 7. Diabetes mellitus. 8. Lower extremity cellulitis/wound 9. Lower extremity edema-resolved REcc: -serial ecg's -Continue coreg -Continue eliquis -Continue hydralazine afterload reduction given renal failure in lieu of ACEI -Continue abx's -Continue now po lasix and follow volume status closely Problems: Consultation Date/Type/Reason Admit Date/Time Dec 24, 2016 at 11:04 Initial Consult Date 12/24/2016 Type of Consultation: cardiology Reason for Consultation AF/CHF Referring Provider: MANI MITCHELL MD Exam/Review of Systems Vital Signs Vitals Vital Signs Date Time Temp Pulse Resp B/P Pulse Ox O2 Delivery O2 Flow Rate FiO2 01/14/17 09:31 70 115/60 01/14/17 08:39 18 94 Nasal Cannula 3.0 01/14/17 08:06 98.4 Intake and Output 01/13/17 01/13/17 01/14/17 15:00 23:00 07:00 Intake Total 720 ml 360 ml Balance 720 ml 360 ml Exam Review of Systems: CONSTITUTIONAL: No fevers, chills. PULMONARY: No sob CARDIOVASCULAR: No chest pain/palpitations GASTROINTESTINAL: No nausea/vomiting. GENITOURINARY: No hematuria/dysuria. MUSCULOSKELETAL: No myagias/arthalgias. PSYCHIATRIC: The patient denies depression. NEUROLOGIC: mild generalized weakness Constitutional: alert, other Psych: no complaints Head: normocephalic ENMT: mucosa pink and moist Neck: jvd (9 cm water), supple Respiratory: diminished breath sounds (at bases/B) Cardiovascular: regular rate and rhythm Gastrointestinal: non-tender, soft Musculoskeletal: muscle weakness (generalized) Extremities: edema (none) Neurological: lethargic Results Result Diagram: 01/14/17 0510 01/14/17 0525 Results 24 hrs Laboratory Tests Test 01/13/17 17:27 01/13/17 21:55 01/14/17 05:10 01/14/17 05:25 Bedside Glucose 153 136 White Blood Count 8.8 Red Blood Count 3.30 L Hemoglobin 9.6 L Hematocrit 30.8 L Mean Corpuscular Volume 93.3 Mean Corpuscular Hemoglobin 29.1 Mean Corpuscular Hemoglobin Concent 31.2 L Red Cell Distribution Width 17.1 H Platelet Count 277 Mean Platelet Volume 10.8 H Neutrophils % 78.3 H Lymphocytes % 10.7 L Monocytes % 9.9 Eosinophils % 0.6 Basophils % 0.2 Nucleated Red Blood Cells % 0.0 Neutrophils # 6.9 Lymphocytes # 0.9 Monocytes # 0.9 Eosinophils # 0.1 Basophils # 0.0 Nucleated Red Blood Cells # 0.0 Sodium Level 137 Potassium Level 4.1 Chloride Level 91 L Carbon Dioxide Level 36 H Anion Gap 14 Blood Urea Nitrogen 32 H Creatinine 1.19 Glucose Level 182 Calcium Level 9.0 Test 01/14/17 07:47 01/14/17 11:57 Bedside Glucose 177 209 Medications Medications Current Medications Acetaminophen (Tylenol Tab) 650 mg Q4H PRN PO PAIN AND OR ELEVATED TEMP Last administered on 01/14/17 06:52; Admin Dose 650 MG; Start 12/24/16 at 18:00 Ondansetron HCl (Zofran Inj) 4 mg Q6H PRN IV NAUSEA AND/OR VOMITING; Start at 18:00 Miscellaneous Information 1 ea NOTE XX ; Start 12/24/16 at 19:00 Glucose (Glutose) 15 gm Q15M PRN PO DECREASED GLUCOSE; Start 12/24/16 at 19:00 Glucose (Glutose) 22.5 gm Q15M PRN PO DECREASED GLUCOSE; Start 12/24/16 at 19: 00 Dextrose (D50w Syringe) 25 ml Q15M PRN IV DECREASED GLUCOSE; Start 12/24/16 at 19:00 Dextrose (D50w Syringe) 50 ml Q15M PRN IV DECREASED GLUCOSE; Start 12/24/16 at 19:00 Glucagon (Glucagen) 1 mg Q15M PRN IM DECREASED GLUCOSE; Start 12/24/16 at 19:00 Glucose (Glutose) 15 gm Q15M PRN BUCCAL DECREASED GLUCOSE; Start 12/24/16 at 19 :00 Apixaban (Eliquis) 2.5 mg BID PO Last administered on 01/14/17 09:25; Admin Dose 2.5 MG; Start 12/24/16 at 21:00 Carvedilol (Coreg) 12.5 mg BID PO Last administered on 01/14/17 09:26; Admin Dose 12.5 MG; Start 12/24/16 at 21:00 Pantoprazole (Protonix Tab) 40 mg DAILY@06 PO Last administered on 01/14/17 06: 49; Admin Dose 40 MG; Start 12/25/16 at 06:00 Calcium Carbonate (Tums) 500 mg Q4 PRN PO GASTROINTESTINAL UPSET Last administered on 01/04/17 09:32; Admin Dose 500 MG; Start 12/25/16 at 12:00 Lactobacillus Acidophilus/ Rhamnosus (Culturelle) 1 cap BID PO Last administered on 01/14/17 09:25; Admin Dose 1 CAP; Start 12/25/16 at 21:00 Patient Own Medication 1 ea Q6H PRN PO cough Last administered on 01/06/17 08: 23; Admin Dose 1 EA; Start 01/04/17 at 16:30 Hydralazine HCl (Apresoline) 50 mg Q8 PO Last administered on 01/14/17 06:49; Admin Dose 50 MG; Start 01/07/17 at 14:00 Linagliptin (Tradjenta) 5 mg DAILY PO Last administered on 01/14/17 09:26; Admin Dose 5 MG; Start 01/11/17 at 11:30 Diagnostic Test (Pha) (Accu-Chek) 1 ea 02 XX ; Start 01/12/17 at 02:00 Levothyroxine Sodium (Synthroid) 75 mcg DAILY@06 PO Last administered on 06:49; Admin Dose 75 MCG; Start 01/13/17 at 06:00 RED MAHONEY Jan 14, 2017 12:19
[2017-01-14 14:34] VITALS: BP 90/52; PULSE 80
--- NOTE | 2017-01-14 17:20 | CONS ---
Date/Time of Note Date/Time of Note DATE: 01/14/17 TIME: 17:18 Assessment/Plan Assessment/Plan Additional Assessment/Plan 1. Acute kidney injury on possible chronic kidney disease, likely secondary to a congestive heart failure exacerbation and also possibly secondary to prerenal azotemia. 2. Acute congestive heart failure exacerbation, acute and chronic, systolic and diastolic, now on IV Lasix diuresis 20 mg b.i.d. 3. 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 4. History of diabetes mellitus type 2. 5. History of hypertension. 6. History of dementia. 7. Aspiration pneumonitis - s/p IV antibiotics. 8. Hyokalemia PLAN: Cr 1.19, Electrolytes stable - on lasix to 20mg pO BID Monitor electrolytes and replace as needed on Eliquis 2.5mg BID will follow up Consultation Date/Type/Reason Admit Date/Time Dec 24, 2016 at 11:04 Type of Consultation: NEPHROLOGY Referring Provider: MANI MITCHELL MD 24 HR Interval Summary Free Text/Dictation no events, BP stable Exam/Review of Systems Vital Signs Vitals Vital Signs Date Time Temp Pulse Resp B/P Pulse Ox O2 Delivery O2 Flow Rate FiO2 01/14/17 14:34 80 90/52 01/14/17 13:52 Nasal Cannula 2.0 01/14/17 08:39 18 94 01/14/17 08:06 98.4 Intake and Output 01/13/17 01/13/17 01/14/17 15:00 23:00 07:00 Intake Total 720 ml 360 ml Balance 720 ml 360 ml Exam GENERAL: Awake, alert, demented HEENT: Pupils equal, round, reactive to light and accommodation. Extraocular muscles are intact. NECK: Supple, no JVD, no lymphadenopathy. LUNGS: Clear to auscultation bilaterally, no crackles, no wheezes. HEART: S1, S2, tachycardia, no murmur. ABDOMEN: Soft, nontender, nondistended. Bowel sounds are present. EXTREMITIES: No clubbing, cyanosis, or edema. NEUROLOGICAL: demented Results Result Diagram: 01/14/17 0510 01/14/17 0525 Results 24 hrs Laboratory Tests Test 01/13/17 17:27 01/13/17 21:55 01/14/17 05:10 01/14/17 05:25 Bedside Glucose 153 136 White Blood Count 8.8 Red Blood Count 3.30 L Hemoglobin 9.6 L Hematocrit 30.8 L Mean Corpuscular Volume 93.3 Mean Corpuscular Hemoglobin 29.1 Mean Corpuscular Hemoglobin Concent 31.2 L Red Cell Distribution Width 17.1 H Platelet Count 277 Mean Platelet Volume 10.8 H Neutrophils % 78.3 H Lymphocytes % 10.7 L Monocytes % 9.9 Eosinophils % 0.6 Basophils % 0.2 Nucleated Red Blood Cells % 0.0 Neutrophils # 6.9 Lymphocytes # 0.9 Monocytes # 0.9 Eosinophils # 0.1 Basophils # 0.0 Nucleated Red Blood Cells # 0.0 Sodium Level 137 Potassium Level 4.1 Chloride Level 91 L Carbon Dioxide Level 36 H Anion Gap 14 Blood Urea Nitrogen 32 H Creatinine 1.19 Glucose Level 182 Calcium Level 9.0 Test 01/14/17 07:47 01/14/17 11:57 Bedside Glucose 177 209 Medications Medications Current Medications Acetaminophen (Tylenol Tab) 650 mg Q4H PRN PO PAIN AND OR ELEVATED TEMP Last administered on 01/14/17 06:52; Admin Dose 650 MG; Start 12/24/16 at 18:00 Ondansetron HCl (Zofran Inj) 4 mg Q6H PRN IV NAUSEA AND/OR VOMITING; Start at 18:00 Miscellaneous Information 1 ea NOTE XX ; Start 12/24/16 at 19:00 Glucose (Glutose) 15 gm Q15M PRN PO DECREASED GLUCOSE; Start 12/24/16 at 19:00 Glucose (Glutose) 22.5 gm Q15M PRN PO DECREASED GLUCOSE; Start 12/24/16 at 19: 00 Dextrose (D50w Syringe) 25 ml Q15M PRN IV DECREASED GLUCOSE; Start 12/24/16 at 19:00 Dextrose (D50w Syringe) 50 ml Q15M PRN IV DECREASED GLUCOSE; Start 12/24/16 at 19:00 Glucagon (Glucagen) 1 mg Q15M PRN IM DECREASED GLUCOSE; Start 12/24/16 at 19:00 Glucose (Glutose) 15 gm Q15M PRN BUCCAL DECREASED GLUCOSE; Start 12/24/16 at 19 :00 Apixaban (Eliquis) 2.5 mg BID PO Last administered on 01/14/17 09:25; Admin Dose 2.5 MG; Start 12/24/16 at 21:00 Carvedilol (Coreg) 12.5 mg BID PO Last administered on 01/14/17 09:26; Admin Dose 12.5 MG; Start 12/24/16 at 21:00 Pantoprazole (Protonix Tab) 40 mg DAILY@06 PO Last administered on 01/14/17 06: 49; Admin Dose 40 MG; Start 12/25/16 at 06:00 Calcium Carbonate (Tums) 500 mg Q4 PRN PO GASTROINTESTINAL UPSET Last administered on 01/04/17 09:32; Admin Dose 500 MG; Start 12/25/16 at 12:00 Lactobacillus Acidophilus/ Rhamnosus (Culturelle) 1 cap BID PO Last administered on 01/14/17 09:25; Admin Dose 1 CAP; Start 12/25/16 at 21:00 Patient Own Medication 1 ea Q6H PRN PO cough Last administered on 01/06/17 08: 23; Admin Dose 1 EA; Start 01/04/17 at 16:30 Hydralazine HCl (Apresoline) 50 mg Q8 PO Last administered on 01/14/17 06:49; Admin Dose 50 MG; Start 01/07/17 at 14:00 Linagliptin (Tradjenta) 5 mg DAILY PO Last administered on 01/14/17 09:26; Admin Dose 5 MG; Start 01/11/17 at 11:30 Diagnostic Test (Pha) (Accu-Chek) 1 ea 02 XX ; Start 01/12/17 at 02:00 Levothyroxine Sodium (Synthroid) 75 mcg DAILY@06 PO Last administered on 06:49; Admin Dose 75 MCG; Start 01/13/17 at 06:00 BLANCA CARLIN MD Jan 14, 2017 17:19
--- NOTE | 2017-01-14 17:20 | DS ---
Date/Time of Note Date/Time of Note DATE: 01/14/17 TIME: 17:16 Discharge Summary Admission/Discharge Info Admit Date/Time Dec 24, 2016 at 11:04 Discharge Date/Time Discharge Diagnosis - Possible pneumonia, status post treatment - Decompensated congestive heart failure. - COPD - Chronic CO2 retention. - Hypertension - Atrial fibrillation, continue Eliquis. - Hypothyroidism - Diabetes mellitus. - Acute kidney injury on chronic kidney disease stage II, resolved. - Advanced dementia. Patient Condition: Stable Hx of Present Illness The patient is an 86-year-old gentleman with a history of hypertension, chronic atrial fibrillation, hypothyroidism, who was brought into ER. The patient also has advanced dementia. The patient was brought into ER because of shortness of breath. The patient also recently had Clostridium difficile colitis. The patient was recently hospitalized in [facility] and was subsequently placed on hospice at his outpatient care facility. The patient apparently has cough and cold and became progressively more short of breath. The patient was sent to [facility] ER. [facility] was contacted; however, apparently the patient's family has not yet signed the consent. The patient underwent multiple diagnostic studies in the ER. CBC done in the ER revealed white count of 10.4, 81% neutrophils. BUN was 25, creatinine 1.4, glucose 181, potassium was 4.1. EKG revealed atrial fibrillation with heart rate in the 90s. Chest x- ray revealed possible congestive heart failure. The patient was started on IV vancomycin, Zosyn, and Levaquin in the ER. Lactic acid level, however, was only 1.6 since the patient was also afebrile. Therefore, the patient was not continued on all 3 antibiotics; however, the patient was started on IV Zosyn for possible aspiration bronchitis with congestive heart failure. I do not have any previous echo report or previous admission at [facility], but we will obtain echocardiogram. The patient was noted to have leg edema and had bibasilar rales on examination; therefore, it appears that the patient has decompensation of his congestive heart failure. The patient, since admission, has not had any fever. No reported bleeding. The patient has remained awake, alert, however, confused. No reported vomiting or diarrhea since admission. The patient does appear to have generalized weakness. No reported acute skin rash. Hospital Course - Possible pneumonia, status post treatment, continue strict aspiration precaution with pured diet. - Decompensated congestive heart failure. Continue Lasix and Coreg. Dr. Johnson is following and cardiology consultation. - Chronic CO2 retention. Dr. Ware is following in pulmonology consultation. - Hypertension, continue Coreg and hydralazine. - Atrial fibrillation, continue Eliquis. - Hypothyroidism, continue Synthroid. - Diabetes mellitus. Continue NovoLog per sliding scale. 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 Dr. Ortiz is following in nephrology consultation - Advanced dementia. Home Meds Reported Medications Metoprolol Tartrate* (Lopressor*) 25 Mg Tablet, 25 MG PO BID, #60 TAB 12/24/16 Pantoprazole* (Pantoprazole*) 40 Mg Tablet.dr, 40 MG PO AC BREAKFAST, TAB 12/24/16 Lisinopril* (Lisinopril*) 10 Mg Tablet, 10 MG PO DAILY, #30 TAB HOLD FOR SBP<110 12/24/16 Carvedilol* (Carvedilol*) 12.5 Mg Tablet, 12.5 MG PO BID, #60 TAB 12/24/16 Apixaban* (Eliquis*) 2.5 Mg Tablet, 2.5 MG PO BID, TAB 12/24/16 Furosemide* (Furosemide*) 40 Mg Tablet, 40 MG PO DAILY, TAB 12/24/16 Levothyroxine Sodium* (Levothyroxine Sodium*) 50 Mcg Tablet, 50 MCG PO BEFORE BREAKFAST, #30 TAB 12/24/16 Follow-up Plan Follow-up with PMD in 1 week, BMP and CBC in 1 week. Primary Care Provider Not On Staff Doctor Time spent on discharge: > 30 minutes Pending Labs Laboratory Tests Test 01/13/17 17:27 01/13/17 21:55 01/14/17 05:10 01/14/17 05:25 Bedside Glucose 153mg/dL (70-220) 136mg/dL (70-220) White Blood Count 8.810^3/ul (4.8-10.8) Red Blood Count 3.3010^6/ul (4.70-6.10) Hemoglobin 9.6g/dl (14.0-18.0) Hematocrit 30.8% (42.0-52.0) Mean Corpuscular Volume 93.3fl (82.0-101.0) Mean Corpuscular Hemoglobin 29.1pg (29.0-33.0) Mean Corpuscular Hemoglobin Concent 31.2g/dl (32.0-37.0) Red Cell Distribution Width 17.1% (11.5-14.5) Platelet Count 25447^3/UL (140-415) Mean Platelet Volume 10.8fl (7.4-10.4) Neutrophils % 78.3% (39.0-77.0) Lymphocytes % 10.7% (15.0-51.0) Monocytes % 9.9% (0.0-11.0) Eosinophils % 0.6% (0.0-7.0) Basophils % 0.2% (0.0-2.0) Nucleated Red Blood Cells % 0.0/100WBC (0.0-0.0) Neutrophils # 6.910^3/ul (1.6-7.5) Lymphocytes # 0.910^3/ul (0.8-2.9) Monocytes # 0.910^3/ul (0.3-0.9) Eosinophils # 0.110^3/ul (0.0-0.5) Basophils # 0.010^3/ul (0.0-0.1) Nucleated Red Blood Cells # 0.010^3/ul (0.0-0.0) Sodium Level 137mmol/L (135-144) Potassium Level 4.1mmol/L (3.5-5.1) Chloride Level 91mmol/L (97-110) Carbon Dioxide Level 36mmol/L (21-31) Anion Gap 14 (8-16) Blood Urea Nitrogen 32mg/dl (7-20) Creatinine 1.19mg/dl (0.61-1.24) Glucose Level 182mg/dl (70-220) Calcium Level 9.0mg/dl (8.4-10.2) Test 01/14/17 07:47 01/14/17 11:57 Bedside Glucose 177mg/dL (70-220) 209mg/dL (70-220) LYLA YOUNG Jan 14, 2017 17:19
[2017-01-14] MEDS ORDERED: POLYETHYLENE GLYCOL 17 GM PACKET PO PRN (18:00)
[2017-01-14 18:09] VITALS: BP 108/58; PULSE 71
[2017-01-14 19:57] VITALS: BP 108/55; RESP 18
[2017-01-15] MEDS: ALBUTEROL/IPRATROPIUM (NEB) 3 ML AMP HHN SCH ×3 (01:13→13:43)
[2017-01-15] MEDS: ACCU-CHEK XX SCH (02:00)
[2017-01-15 02:22] VITALS: BP 123/69; RESP 18
[2017-01-15] MEDS: PANTOPRAZOLE (EC) 40 MG TAB PO SCH (06:08)
[2017-01-15] MEDS: LEVOTHYROXINE 75 MCG TAB PO SCH (06:09)
[2017-01-15] MEDS: FUROSEMIDE 20 MG TAB PO SCH (06:09)
--- NOTE | 2017-01-15 07:04 | CONS ---
Date/Time of Note Date/Time of Note DATE: 01/15/17 TIME: 07:01 Assessment/Plan Assessment/Plan Chief Complaint/Hosp Course IMPRESSION: 1. Atrial fibrillation, currently rate controlled and on eliquis 2. Congestive heart failure, systolic, acute on chronic-ongoing by cxr 12/29. 3. Hypertension- well controlled 4. Renal failure-worsening 5. Anemia. 6. Hypothyroidism. 7. Diabetes mellitus. 8. Lower extremity cellulitis/wound 9. Lower extremity edema-resolved REcc: -serial ecg's -Continue eliquis -Continue hydralazine afterload reduction given renal failure in lieu of ACEI but will decrase dose slightly to allow patient to better tolerate BB and ACEI together -Continue abx's -Continue now po lasix and follow volume status closely Problems: Consultation Date/Type/Reason Admit Date/Time Dec 24, 2016 at 11:04 Initial Consult Date 12/24/2016 Type of Consultation: cardiology Reason for Consultation AF/CHF Referring Provider: MANI MITCHELL MD Exam/Review of Systems Vital Signs Vitals Vital Signs Date Time Temp Pulse Resp B/P Pulse Ox O2 Delivery O2 Flow Rate FiO2 01/15/17 02:22 97.9 73 18 123/69 95 01/15/17 01:14 3.0 01/15/17 01:14 Nasal Cannula Intake and Output 01/14/17 01/14/17 01/15/17 15:00 23:00 07:00 Intake Total 820 ml 120 ml Balance 820 ml 120 ml Exam Review of Systems: CONSTITUTIONAL: No fevers, chills. PULMONARY: No sob CARDIOVASCULAR: No chest pain/palpitations GASTROINTESTINAL: No nausea/vomiting. GENITOURINARY: No hematuria/dysuria. MUSCULOSKELETAL: No myagias/arthalgias. PSYCHIATRIC: The patient denies depression. NEUROLOGIC: lethargic Constitutional: other (sleeping) Psych: no complaints Head: normocephalic ENMT: mucosa pink and moist Neck: jvd (9 cm water), supple Respiratory: diminished breath sounds (at bases/B) Cardiovascular: regular rate and rhythm Gastrointestinal: non-tender, soft Musculoskeletal: muscle tone (normal) Extremities: edema (none) Neurological: lethargic Results Result Diagram: 01/14/17 0510 01/14/17 0525 Results 24 hrs Laboratory Tests Test 01/14/17 07:47 01/14/17 11:57 01/14/17 17:21 01/14/17 21:12 Bedside Glucose 177 209 167 137 Medications Medications Current Medications Acetaminophen (Tylenol Tab) 650 mg Q4H PRN PO PAIN AND OR ELEVATED TEMP Last administered on 01/14/17 06:52; Admin Dose 650 MG; Start 12/24/16 at 18:00 Ondansetron HCl (Zofran Inj) 4 mg Q6H PRN IV NAUSEA AND/OR VOMITING; Start at 18:00 Miscellaneous Information 1 ea NOTE XX ; Start 12/24/16 at 19:00 Glucose (Glutose) 15 gm Q15M PRN PO DECREASED GLUCOSE; Start 12/24/16 at 19:00 Glucose (Glutose) 22.5 gm Q15M PRN PO DECREASED GLUCOSE; Start 12/24/16 at 19: 00 Dextrose (D50w Syringe) 25 ml Q15M PRN IV DECREASED GLUCOSE; Start 12/24/16 at 19:00 Dextrose (D50w Syringe) 50 ml Q15M PRN IV DECREASED GLUCOSE; Start 12/24/16 at 19:00 Glucagon (Glucagen) 1 mg Q15M PRN IM DECREASED GLUCOSE; Start 12/24/16 at 19:00 Glucose (Glutose) 15 gm Q15M PRN BUCCAL DECREASED GLUCOSE; Start 12/24/16 at 19 :00 Apixaban (Eliquis) 2.5 mg BID PO Last administered on 01/14/17 21:14; Admin Dose 2.5 MG; Start 12/24/16 at 21:00 Carvedilol (Coreg) 12.5 mg BID PO Last administered on 01/14/17 09:26; Admin Dose 12.5 MG; Start 12/24/16 at 21:00 Pantoprazole (Protonix Tab) 40 mg DAILY@06 PO Last administered on 01/15/17 06: 08; Admin Dose 40 MG; Start 12/25/16 at 06:00 Calcium Carbonate (Tums) 500 mg Q4 PRN PO GASTROINTESTINAL UPSET Last administered on 01/04/17 09:32; Admin Dose 500 MG; Start 12/25/16 at 12:00 Lactobacillus Acidophilus/ Rhamnosus (Culturelle) 1 cap BID PO Last administered on 01/14/17 21:14; Admin Dose 1 CAP; Start 12/25/16 at 21:00 Patient Own Medication 1 ea Q6H PRN PO cough Last administered on 01/06/17 08: 23; Admin Dose 1 EA; Start 01/04/17 at 16:30 Hydralazine HCl (Apresoline) 50 mg Q8 PO Last administered on 01/15/17 06:09; Admin Dose 50 MG; Start 01/07/17 at 14:00 Linagliptin (Tradjenta) 5 mg DAILY PO Last administered on 01/14/17 09:26; Admin Dose 5 MG; Start 01/11/17 at 11:30 Diagnostic Test (Pha) (Accu-Chek) 1 ea 02 XX ; Start 01/12/17 at 02:00 Levothyroxine Sodium (Synthroid) 75 mcg DAILY@06 PO Last administered on 06:09; Admin Dose 75 MCG; Start 01/13/17 at 06:00 Polyethylene Glycol (Miralax) 17 gm DAILY PRN PO CONSTIPATION Last administered on 01/14/17 17:53; Admin Dose 17 GM; Start 01/14/17 at 18:00 RED MAHONEY Jan 15, 2017 07:04
[2017-01-15] MEDS: ACETAMINOPHEN 325 MG TAB PO PRN (07:12)
[2017-01-15 08:29] VITALS: BP 100/75; RESP 22
[2017-01-15] MEDS: LACTOBACILLUS RHAMNOSUS CAP PO SCH (08:40)
[2017-01-15] MEDS: LINAGLIPTIN 5 MG TABLET PO SCH (08:40)
[2017-01-15] MEDS: APIXABAN 5 MG TABLET PO SCH (08:40)
[2017-01-15] MEDS: INSULIN ASPART [NOVOLOG] 3 ML PEN SC SCH ×2 (08:47→12:29)
--- NOTE | 2017-01-15 11:00 | PN ---
Date/Time of Note Date/Time of Note DATE: 01/15/17 TIME: 10:59 Assessment/Plan VTE Prophylaxis VTE Prophylaxis Intervention: other Lines/Catheters IV Catheter Type (from Rust): Saline Lock Urinary Cath still in place: No Assessment/Plan Chief Complaint/Hosp Course - Aspiration pneumonitis, continue Zosyn. Strict aspiration precaution was pur ed diet. - Decompensated congestive heart failure. Continue Lasix and Coreg. - Hypertension, continue Coreg and hydralazine. - Atrial fibrillation, continue Eliquis. - Hypothyroidism, continue Synthroid. - Diabetes mellitus. Continue NovoLog per sliding scale. 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 - Advanced dementia. Problems: Subjective 24 Hr Interval Summary Free Text/Dictation Patient is doing well, denies shortness of breath Exam/Review of Systems Vital Signs Vitals Vital Signs Date Time Temp Pulse Resp B/P Pulse Ox O2 Delivery O2 Flow Rate FiO2 01/15/17 08:29 97.4 75 22 100/75 93 01/15/17 08:16 3.0 01/15/17 08:16 Nasal Cannula Intake and Output 01/14/17 01/14/17 01/15/17 15:00 23:00 07:00 Intake Total 820 ml 120 ml Balance 820 ml 120 ml Exam Constitutional: well developed Head: atraumatic, normocephalic Neck: supple Respiratory: clear to auscultation Cardiovascular: regular rate and rhythm Gastrointestinal: non-tender, soft Extremities: normal pulses Results Result Diagram: 01/14/17 0510 01/14/17 0525 Results 24 hrs Laboratory Tests Test 01/14/17 11:57 01/14/17 17:21 01/14/17 21:12 01/15/17 08:30 Bedside Glucose 209 167 137 162 Medications Medications Current Medications Acetaminophen (Tylenol Tab) 650 mg Q4H PRN PO PAIN AND OR ELEVATED TEMP Last administered on 01/15/17 07:12; Admin Dose 650 MG; Start 12/24/16 at 18:00 Ondansetron HCl (Zofran Inj) 4 mg Q6H PRN IV NAUSEA AND/OR VOMITING; Start at 18:00 Miscellaneous Information 1 ea NOTE XX ; Start 12/24/16 at 19:00 Glucose (Glutose) 15 gm Q15M PRN PO DECREASED GLUCOSE; Start 12/24/16 at 19:00 Glucose (Glutose) 22.5 gm Q15M PRN PO DECREASED GLUCOSE; Start 12/24/16 at 19: 00 Dextrose (D50w Syringe) 25 ml Q15M PRN IV DECREASED GLUCOSE; Start 12/24/16 at 19:00 Dextrose (D50w Syringe) 50 ml Q15M PRN IV DECREASED GLUCOSE; Start 12/24/16 at 19:00 Glucagon (Glucagen) 1 mg Q15M PRN IM DECREASED GLUCOSE; Start 12/24/16 at 19:00 Glucose (Glutose) 15 gm Q15M PRN BUCCAL DECREASED GLUCOSE; Start 12/24/16 at 19 :00 Apixaban (Eliquis) 2.5 mg BID PO Last administered on 01/15/17 08:40; Admin Dose 2.5 MG; Start 12/24/16 at 21:00 Carvedilol (Coreg) 12.5 mg BID PO Last administered on 01/14/17 09:26; Admin Dose 12.5 MG; Start 12/24/16 at 21:00 Pantoprazole (Protonix Tab) 40 mg DAILY@06 PO Last administered on 01/15/17 06: 08; Admin Dose 40 MG; Start 12/25/16 at 06:00 Calcium Carbonate (Tums) 500 mg Q4 PRN PO GASTROINTESTINAL UPSET Last administered on 01/04/17 09:32; Admin Dose 500 MG; Start 12/25/16 at 12:00 Lactobacillus Acidophilus/ Rhamnosus (Culturelle) 1 cap BID PO Last administered on 01/15/17 08:40; Admin Dose 1 CAP; Start 12/25/16 at 21:00 Patient Own Medication 1 ea Q6H PRN PO cough Last administered on 01/06/17 08: 23; Admin Dose 1 EA; Start 01/04/17 at 16:30 Linagliptin (Tradjenta) 5 mg DAILY PO Last administered on 01/15/17 08:40; Admin Dose 5 MG; Start 01/11/17 at 11:30 Diagnostic Test (Pha) (Accu-Chek) 1 ea 02 XX ; Start 01/12/17 at 02:00 Levothyroxine Sodium (Synthroid) 75 mcg DAILY@06 PO Last administered on 06:09; Admin Dose 75 MCG; Start 01/13/17 at 06:00 Polyethylene Glycol (Miralax) 17 gm DAILY PRN PO CONSTIPATION Last administered on 01/14/17t 17:53; Admin Dose 17 GM; Start 01/14/17 at 18:00 Hydralazine HCl (Apresoline) 25 mg Q8 PO ; Start 01/15/17 at 14:00 MERLE FERREIRA Jan 15, 2017 10:59
--- NOTE | 2017-01-15 12:27 | CONS ---
Date/Time of Note Date/Time of Note DATE: 01/15/17 TIME: 12:22 Assessment/Plan Assessment/Plan Additional Assessment/Plan 1. Acute kidney injury on possible chronic kidney disease, likely secondary to a congestive heart failure exacerbation and also possibly secondary to prerenal azotemia. 2. Acute congestive heart failure exacerbation, acute and chronic, systolic and diastolic, now on IV Lasix diuresis 20 mg b.i.d. 3. 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 4. History of diabetes mellitus type 2. 5. History of hypertension. 6. History of dementia. 7. Aspiration pneumonitis - s/p IV antibiotics. 8. Hypokalemia - resolved PLAN: Cr 1.19, Electrolytes stable - on lasix to 20mg pO BID Monitor electrolytes and replace as needed on Eliquis 2.5mg BID will follow up Plan of`care Dw Dr Hermila Ortiz/staff/ patient family.Anticipate discharge today per staff Consultation Date/Type/Reason Admit Date/Time Dec 24, 2016 at 11:04 Type of Consultation: cardiology Referring Provider: MANI MITCHELL MD 24 HR Interval Summary Constitutional: improved Exam/Review of Systems Vital Signs Vitals Vital Signs Date Time Temp Pulse Resp B/P Pulse Ox O2 Delivery O2 Flow Rate FiO2 01/15/17 08:29 97.4 75 22 100/75 93 01/15/17 08:16 3.0 01/15/17 08:16 Nasal Cannula Intake and Output 01/14/17 01/14/17 01/15/17 15:00 23:00 07:00 Intake Total 820 ml 120 ml Balance 820 ml 120 ml Exam Constitutional: alert, well developed Respiratory: clear to auscultation, normal air movement Cardiovascular: nl pulses, regular rate and rhythm Gastrointestinal: non-tender, soft Musculoskeletal: nl extremities to inspection Extremities: normal pulses Neurological: nl speech Results Result Diagram: 01/14/17 0510 01/14/17 0525 Results 24 hrs Laboratory Tests Test 01/14/17 17:21 01/14/17 21:12 01/15/17 08:30 Bedside Glucose 167 137 162 Medications Medications Current Medications Acetaminophen (Tylenol Tab) 650 mg Q4H PRN PO PAIN AND OR ELEVATED TEMP Last administered on 01/15/17t 07:12; Admin Dose 650 MG; Start 12/24/16 at 18:00 Ondansetron HCl (Zofran Inj) 4 mg Q6H PRN IV NAUSEA AND/OR VOMITING; Start at 18:00 Miscellaneous Information 1 ea NOTE XX ; Start 12/24/16 at 19:00 Glucose (Glutose) 15 gm Q15M PRN PO DECREASED GLUCOSE; Start 12/24/16 at 19:00 Glucose (Glutose) 22.5 gm Q15M PRN PO DECREASED GLUCOSE; Start 12/24/16 at 19: 00 Dextrose (D50w Syringe) 25 ml Q15M PRN IV DECREASED GLUCOSE; Start 12/24/16 at 19:00 Dextrose (D50w Syringe) 50 ml Q15M PRN IV DECREASED GLUCOSE; Start 12/24/16 at 19:00 Glucagon (Glucagen) 1 mg Q15M PRN IM DECREASED GLUCOSE; Start 12/24/16 at 19:00 Glucose (Glutose) 15 gm Q15M PRN BUCCAL DECREASED GLUCOSE; Start 12/24/16 at 19 :00 Apixaban (Eliquis) 2.5 mg BID PO Last administered on 01/15/17 08:40; Admin Dose 2.5 MG; Start 12/24/16 at 21:00 Carvedilol (Coreg) 12.5 mg BID PO Last administered on 01/14/17 09:26; Admin Dose 12.5 MG; Start 12/24/16 at 21:00 Pantoprazole (Protonix Tab) 40 mg DAILY@06 PO Last administered on 01/15/17 06: 08; Admin Dose 40 MG; Start 12/25/16 at 06:00 Calcium Carbonate (Tums) 500 mg Q4 PRN PO GASTROINTESTINAL UPSET Last administered on 01/04/17 09:32; Admin Dose 500 MG; Start 12/25/16 at 12:00 Lactobacillus Acidophilus/ Rhamnosus (Culturelle) 1 cap BID PO Last administered on 01/15/17 08:40; Admin Dose 1 CAP; Start 12/25/16 at 21:00 Patient Own Medication 1 ea Q6H PRN PO cough Last administered on 01/06/17 08: 23; Admin Dose 1 EA; Start 01/04/17 at 16:30 Linagliptin (Tradjenta) 5 mg DAILY PO Last administered on 01/15/17 08:40; Admin Dose 5 MG; Start 01/11/17 at 11:30 Diagnostic Test (Pha) (Accu-Chek) 1 02 XX ; Start 01/12/17 at 02:00 Levothyroxine Sodium (Synthroid) 75 mcg DAILY@06 PO Last administered on 06:09; Admin Dose 75 MCG; Start 01/13/17 at 06:00 Polyethylene Glycol (Miralax) 17 gm DAILY PRN PO CONSTIPATION Last administered on 01/14/17 17:53; Admin Dose 17 GM; Start 01/14/17 at 18:00 Hydralazine HCl (Apresoline) 25 mg Q8 PO ; Start 01/15/17 at 14:00 STAR BOWLES Jan 15, 2017 12:27
== END 2017-01-15 14:50 | DRG 177 ==
LOC: E/R 07:29 → MS2 11:04
PROVIDERS: ADMIT Internal Medicine; ATTEND Internal Medicine
DX: J69.0 Pneumonitis due to inhalation of food and vomit (principal); I50.23 Acute on chronic systolic (congestive) heart failure; N17.9 Acute kidney failure, unspecified; E87.2 Acidosis; I48.2 Chronic atrial fibrillation; E11.22 Type 2 diabetes mellitus with diabetic chronic kidney disease; L03.116 Cellulitis of left lower limb; I13.0 Hypertensive heart and chronic kidney disease with heart failure and stage 1 through stage 4 chronic kidney disease, or unspecified chronic kidney disease; F03.90 Unspecified dementia, unspecified severity, without behavioral disturbance, psychotic disturbance, mood disturbance, and anxiety; D64.9 Anemia, unspecified; N18.2 Chronic kidney disease, stage 2 (mild); J44.9 Chronic obstructive pulmonary disease, unspecified; E03.9 Hypothyroidism, unspecified; E87.6 Hypokalemia; Z66 Do not resuscitate
CPT/HCPCS: 36415; 36600; 71010; 74230; 76775; 80048; 80053; 80061; 81001; 81003; 82550; 82553; 82570; 82803; 82962; 83036; 83605; 84300; 84439; 84443; 84484; 84560; 85025; 85610; 85730; 86850; 86900; 86901; 87040; 87086; 92526; 92610; 92611; 93005; 93306; 94640; 94664; 94667; 96374; 96375; 97003; 97110; 97162; 97167; 97530; 97535; J1120; J1940; J1815; J1956; J2270; J2543; J3370; J3480; J7030; J7042